=== PATIENT | female | born 1950 | race African-American/Black ===

== ENCOUNTER 2017-11-11 08:31 | Outpatient (CLI) | payer BC | END 2017-11-11 08:32 | disposition home or self-care (01) | LOC: BICMAMMO 08:31 | PROVIDERS: ATTEND Internal Medicine | DX: Z12.31 Encounter for screening mammogram for malignant neoplasm of breast (principal) | CPT/HCPCS: 77063; 77067 ==

== ENCOUNTER 2018-05-25 14:48 | Outpatient (CLI) | payer MEDICARE, OTHER ==
--- NOTE | 2018-05-25 15:36 | RAD ---
PA AND LATERAL VIEWS OF CHEST: Date: 05/25/18 HISTORY: Dyspnea. FINDINGS: Comparison made with exam of 12/02/15. The heart size is normal. Chronic changes in the lung ludwig are again seen. No lobar consolidation, pneumothorax, or pleural effusions are identified. IMPRESSION: No acute process. POS: [facility]
== END 2018-05-25 14:49 | disposition home or self-care (01) ==
LOC: RAD 14:48
PROVIDERS: ATTEND Internal Medicine Critical Care Medicine
DX: R06.00 Dyspnea, unspecified (principal)
CPT/HCPCS: 71046

== ENCOUNTER 2018-08-09 21:06 | Inpatient (IN) | payer MEDICARE ==
--- NOTE | 2018-08-09 21:51 | RAD ---
PORTABLE CHEST: 08/09/18 COMPARISON: 12/28/14 study. HISTORY: Chest pain. new onset atrial fibrillation. Heart size is enlarged. Calcified hilar lymph nodes are seen. Atherosclerotic changes are seen in the aorta. Lungs are clear of infiltrate. IMPRESSION: Cardiomegaly. No acute findings. POS: [facility]
[2018-08-09 22:04] LABS: ALT (SGPT) 8 U/L (8-55); AST (SGOT) 13 U/L (5-34); Albumin 3.7 g/dL (3.4-4.8); Alkaline Phosphatase 93 U/L (40-150); Anion Gap 20 mmol/L (10-20); BUN (Urea Nitrogen) 21 mg/dL (9.8-20.1); Calc. Creatinine Clearance 0 mL/min (70-130); Calcium 9.4 mg/dL (7.8-10.44); Carbon Dioxide 27 mmol/L (23-31); Chloride 97 mmol/L (98-107); Estimated GFR-MDRD 37; Globulin 3.7 g/dL (2.4-3.5); Glucose 178 mg/dL (80-115); Potassium 3.5 mmol/L (3.5-5.1); Protein, Total 7.4 g/dL (6.0-8.3); Sodium 140 mmol/L (136-145)
[2018-08-09 22:15] LABS: Hemoglobin 12.6 g/dL (12.0-16.0); Mean Corpuscular HGB CONC 32.5 g/dL (32.0-36.0); Mean Corpuscular Hemoglobin 28.4 pg (27.0-31.0); Mean Corpuscular Volume 87.3 fL (78.0-98.0); Mean Platelet Volume 8.2 fL (7.4-10.4); Platelet Count 222 thou/uL (130-400); RBC Distribution Width 13.4 % (11.5-14.5); Red Blood Cell (RBC) Count 4.43 mill/uL (4.20-5.40); White Blood Cell (WBC) Count 20.9 thou/uL (4.8-10.8)
[2018-08-09 22:33] LABS: Band 3 % (5-11); Lymphocytes 3 % (21-51); MDiff Complete? YES; Monocytes 7 % (0-10); Neutrophil 87 % (42-75); Platelet Morphology Comment Appears Adequate; RBC Morphology Normal
[2018-08-09] MEDS ORDERED: Ondansetron PF 4 MG/2 ML Vial IVP PRN (23:03)
[2018-08-09] MEDS ORDERED: Ondansetron ODT 4 MG TAB PO PRN (23:03)
[2018-08-09] MEDS ORDERED: Carvedilol 6.25 MG TAB PO SCH (23:15)
[2018-08-09] MEDS ORDERED: Aspirin Chewable 81 MG TAB ONE (23:49)
[2018-08-10 00:54] LABS: Troponin I Less than 0.010 ng/mL (< 0.028)
[2018-08-10] MEDS: Acetaminophen 325 MG TAB PO PRN (04:47)
[2018-08-10] MEDS: Furosemide 40 MG TAB PO SCH ×2 (04:49→13:42)
[2018-08-10] MEDS: hydrALAZINE 25 MG TAB PO SCH ×2 (04:49→13:42)
--- NOTE | 2018-08-10 05:30 | HP ---
PRIMARY CARE DOCTOR: Tania Lemus MD CODE STATUS: Full code. TIME OF EVALUATION: 11:35 p.m. CHIEF COMPLAINT: Dizziness, palpitations, and weakness. HISTORY OF PRESENT ILLNESS: This is a 68-year-old female patient with past medical history of diabetes type 2, hypertension, CHF, and sarcoidosis, came to the hospital after having an episode of sudden-onset dizziness, palpitations, and feeling lightheaded due to weakness. Symptoms have been present for the past few days, on and off; however, today, the symptoms were more severe with no clear triggers. No alleviating factors. REVIEW OF SYSTEMS: CONSTITUTIONAL: No fever, chills, or generalized weakness. RESPIRATORY: No cough, sputum production, shortness of breath. CARDIOVASCULAR: The patient has palpitations, diaphoresis. GASTROINTESTINAL: No nausea. No vomiting, diarrhea, or abdominal pain. GUN TESTER: No dizziness, headache, or feeling lightheaded. GENITOURINARY: No burning on urination. EXTREMITIES: No leg swelling. All other systems were reviewed and negative except for the findings mentioned above. PAST MEDICAL HISTORY: As mentioned in the HPI. FAMILY HISTORY: Reviewed and noncontributory to current presentation. PAST SURGICAL HISTORY: The patient has , hernia repair, hysterectomy. PSYCH HISTORY: No previous history. SOCIAL HISTORY: No alcohol, no drugs. Former tobacco user. Smoked cigarettes. Quit smoking more than 10 years ago. KNOWN ALLERGIES: No known drug allergies reported. MEDICATIONS: 1. Aspirin. 2. Glipizide. 3. Enalapril. 4. Furosemide. 5. Hydralazine. 6. Atorvastatin. 7. Vitamin D3. 8. Levemir. 9. Glucophage. 10. Metformin. 11. Doxazosin. PHYSICAL EXAMINATION: VITAL SIGNS: On presentation, blood pressure 163/111, temperature 99.8, heart rate 104, respiratory rate was 22, pain 0/10. Oxygen saturation was 96% on room air. GENERAL APPEARANCE: The patient is alert, oriented, not in acute distress. HEENT: Eyes, normal conjunctiva. Moist oral mucosa. Anicteric. No JVD. RESPIRATORY: Bilateral air entry. No rales. No wheezes. Symmetric expansion. CARDIOVASCULAR: Normal rate, irregular rhythm. ABDOMEN: Soft. Normal bowel sounds. MUSCULOSKELETAL: Baseline range of motion and strength. No tenderness. SKIN: Warm, intact. No pallor. No rash. No redness. Peripheral pulses are present. Capillary refill seems to be intact. NEUROLOGICAL: No evidence of any new focal weakness. Baseline speech. Cranial nerve seems to be intact. PSYCH: The patient is in good mood. No anxiety. Optimal judgment. DIAGNOSTIC DATA: EKG was reviewed. The patient has atrial fibrillation with a rate of 98, QRS 88, QT corrected 497. Chest x-ray was reviewed, the patient has cardiomegaly with no acute findings. LABORATORY DATA: Labs were reviewed. The patient has a white count of 20.9, hemoglobin 12.6, MCV 87.3 with platelet count of 222. Bands are low. Chemistry; sodium 140, potassium 3.5, chloride 97, carbon dioxide 27, anion gap 20, BUN 21 with creatinine of 1.66, on previous admission was 1.0. AST 13, ALT 8, alkaline phosphatase 93. Troponin was negative x2. Beta natriuretic peptide 105. Serum total protein 7.4, albumin 3.7, globulin 3.7, albumin globulin ratio is 1.0. ASSESSMENT AND PLAN: The patient was placed in the hospital with following medical problems: 1. New-onset atrial fibrillation: The patient denies any history of it. The rate is controlled. We will reconcile home medications, add beta-blockers, adjust treatment as needed. 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 2. Acute kidney injury. The patient presented with a creatinine of 1.6, more than 0.3 mg/dL increase when compared with previous values. We will continue the patient on diuresis. This is likely related to fluid, probably cardiorenal. 3. Uncontrolled diabetes. The patient presented with glucose of 178, reconcile home medications, place the patient on sliding scale for optimal control. 4. Leukocytosis with white count of 20.9. There is no clear reason for this. We will monitor and treat accordingly if any sign of sepsis. 5. Deep venous thrombosis prophylaxis. Job ID: [id number]
[2018-08-10 05:41] LABS: Band 3 % (5-11); Hemoglobin 12.4 g/dL (12.0-16.0); Lymphocytes 5 % (21-51); MDiff Complete? YES; Mean Corpuscular HGB CONC 32.3 g/dL (32.0-36.0); Mean Corpuscular Hemoglobin 28.3 pg (27.0-31.0); Mean Corpuscular Volume 87.5 fL (78.0-98.0); Mean Platelet Volume 8.7 fL (7.4-10.4); Monocytes 1 % (0-10); Neutrophil 91 % (42-75); Platelet Count 207 thou/uL (130-400); Platelet Morphology Comment Appears Adequate; RBC Distribution Width 13.6 % (11.5-14.5); RBC Morphology Normal; Red Blood Cell (RBC) Count 4.39 mill/uL (4.20-5.40); White Blood Cell (WBC) Count 17.5 thou/uL (4.8-10.8)
[2018-08-10 05:51] LABS: Anion Gap 17 mmol/L (10-20); BUN (Urea Nitrogen) 23 mg/dL (9.8-20.1); Calc. Creatinine Clearance 67 mL/min (70-130); Carbon Dioxide 29 mmol/L (23-31); Chloride 97 mmol/L (98-107); Estimated GFR-MDRD 33; Glucose 265 mg/dL (80-115); Potassium 3.6 mmol/L (3.5-5.1); Sodium 139 mmol/L (136-145)
[2018-08-10] MEDS ORDERED: Carvedilol 3.125 MG TAB PO SCH (08:00)
[2018-08-10] MEDS: Ondansetron ODT 4 MG TAB PO SCH ×3 (08:18→21:17)
[2018-08-10] MEDS: Aspirin 81 mg Enteric Coated Tablet PO SCH (08:29)
[2018-08-10] MEDS ORDERED: Atorvastatin Calcium 40 MG TAB PO SCH (09:00)
[2018-08-10] MEDS ORDERED: Enoxaparin Sodium 40 MG/0.4 ML SYRINGE SC SCH (09:00)
--- NOTE | 2018-08-10 13:37 | CON ---
DATE OF CONSULTATION: HISTORY OF PRESENT ILLNESS: The patient is a 68-year-old woman with a history of sick sinus syndrome, who presented with nausea, vomiting, and was noted to be in irregular heart rhythm. The patient has a previous history of sick sinus syndrome. She has been admitted with bradycardia. She has been off metoprolol. She also has a history of restrictive lung disease. She was in her usual state of health when she presented with dizziness, nausea, and vomiting. In the emergency room, she was having an irregular heart rhythm and admitted for further evaluation. The patient denies having any chest discomfort. PAST MEDICAL HISTORY: 1. Sick sinus syndrome. 2. Hypertension. 3. Diabetes mellitus. 4. Dyslipidemia. 5. Sarcoidosis. 6. Morbid obesity. PAST SURGICAL HISTORY: Hysterectomy , lap cholecystectomy, lipoma surgery, breast drainage, vocal cord scraping. ALLERGIES: NONE. SOCIAL HISTORY: Nonsmoker. MEDICATIONS: 1. Enalapril 20 b.i.d. 2. Lipitor 40 at bedtime. 3. Hydralazine 100 TID 4. Metformin 1000 b.i.d. 5. Glipizide 10 b.i.d. 6. Aspirin 81 daily. 7. Lasix 40 b.i.d. REVIEW OF SYSTEMS: Noticeable the patient reported having some chills, but denied having any fevers. Ten-point system otherwise unremarkable. PHYSICAL EXAMINATION: GENERAL: Obese woman, in no acute distress. VITAL SIGNS: Blood pressure was 126/59. NECK: Showed no jugular venous distention. LUNGS: Have crackles in both lung ludwig. HEART: Regular rate and rhythm. Normal S1 and S2. 2/6 systolic murmur. ABDOMEN: Nondistended. EXTREMITIES: Showed moderate bilateral edema. VASCULAR: Radial pulses 2+. LABORATORY DATA: Sodium 139, potassium 3.6, chloride 97, bicarb 29, BUN 23, creatinine 1.86, glucose 265. Troponin less than 0.01. Her EKG revealed sinus tachycardia with premature atrial contractions. IMPRESSION: 1. Dizziness. 2. Hypertension. 3. Diabetes mellitus. 4. Renal insufficiency. 5. Sarcoidosis. 6. Dyslipidemia. 7. Morbid obesity. This patient presented with nausea and vomiting. Her electrocardiogram did not reveal atrial fibrillation. From a cardiac standpoint with her history of sick sinus syndrome, we would discontinue the Coreg. We will follow this patient with you through her hospitalization. Job ID: [id number] [facility]
[2018-08-10 15:18] LABS: Bilirubin Small (Negative); Blood, Urine Negative (Negative); Clarity CLOUDY (Clear); Glucose, Urine (Dipstick) Negative (Negative); Leukocyte Small (Negative); Nitrite Negative (Negative); Protein, Urine (Dipstick) Trace mg/dL (Neg-Trace); pH, Urine 5.5 (5.0-9.0)
[2018-08-10 15:20] LABS: Bacteria/HPF 1+ HPF (None Seen); Hyaline Casts/LPF 0-3 HYALINE CAST LPF (0-3 Hyaline); Pathc Cast-AUWi Flag 0.29 (0-2.49); RBC/HPF 0-3 HPF (0-3); Squamous Epithelial 0-3 HPF (0-3)
[2018-08-10 15:26] LABS: Urine Culture Reflex Yes Yes
[2018-08-10] MEDS ORDERED: HumaLOG 300 UNITS/3 ML VIAL SC PRN (16:29)
[2018-08-10] MEDS ORDERED: Dextrose 5% in Water 1,000 ML IV PRN (16:29)
[2018-08-10] MEDS ORDERED: Dextrose 50% Abboject 50 ML SYRINGE SLOW IVP PRN (16:29)
[2018-08-10] MEDS: HumaLOG 300 UNITS/3 ML VIAL SC PRN (16:59)
--- NOTE | 2018-08-10 17:15 | PDOC.PN ---
- Subjective Encounter Start Date: 08/10/18 Encounter Start Time: 17:00 Subjective: f/u for dizziness of unclear etiology initially thought due to A-fib -: but SR noted on telemetry. Feels ok today and no dizziness. -: Notes RLE edema worse than LLE. - Objective Resuscitation Status - Order Detail: 08/09/18 23:03 Resuscitation Status Routine Resuscitation Status: FULL: Full Resuscitation MAR Reviewed: Yes Vital Signs & Weight: Vital Signs (12 hours) Temp Pulse Resp BP BP Pulse Ox 08/10/18 16:14 98.0 F 83 18 126/57 L 97 08/10/18 13:42 88 120/57 L 08/10/18 13:39 88 120/57 L 08/10/18 11:47 98.8 F 89 16 101/61 92 L 08/10/18 08:20 94 L 08/10/18 08:19 99.9 F H 98 18 126/59 L 94 L Weight Weight 324 lb 14.4 oz I&O: 08/09/18 08/10/18 08/11/18 06:59 06:59 06:59 Intake Total 360 Output Total 450 Balance -90 Result Diagrams: 08/10/18 04:55 08/10/18 04:55 Additional Labs: Accuchecks 08/10/18 08/10/18 08/10/18 16:15 10:49 05:40 POC Glucose 271 H 247 H 294 H Laboratory Tests 08/09/18 08/09/18 08/09/18 21:28 21:28 21:58 WBC 20.9 H Neutrophils % (Manual) 87 H Creatinine 1.66 H B-Natriuretic Peptide 105.0 H 08/10/18 04:55 WBC Neutrophils % (Manual) 91 H Creatinine B-Natriuretic Peptide Radiology Reviewed by me: Yes (PCXR - cardiomegaly, no acute process) EKG Reviewed by me: Yes (Tele - SR) Phys Exam - Physical Examination Constitutional: NAD HEENT: PERRLA, sclera anicteric, oral pharynx no lesions Neck: no nodes, no JVD, supple, full ROM Respiratory: no wheezing, no rales, no rhonchi, clear to auscultation bilateral S1, S2 Cardiovascular: RRR, no significant murmur, no rub, gallop Gastrointestinal: soft, non-tender, no distention, positive bowel sounds R> LLE edema Musculoskeletal: pulses present Neurological: normal sensation, moves all 4 limbs Psychiatric: A&O x 3 Skin: normal turgor, cap refill <2 seconds Dx/Plan (1) Dizziness Code(s): R42 - DIZZINESS AND GIDDINESS Status: Acute Comment: Unclear etiology, check carotid sono, TSH, Mg++, Echo pending, orthostatic vitals, A1C (2) [place] (acute kidney injury) Code(s): N17.9 - ACUTE KIDNEY FAILURE, UNSPECIFIED Status: Acute Comment: Avoid nephrotoxic meds and limit contrast exposure, serial creatinine (3) Edema of right lower extremity Code(s): R60.0 - LOCALIZED EDEMA Status: Acute Comment: ? etiology, check LE sono r/o DVT (4) Neutrophilic leukocytosis Code(s): D72.9 - DISORDER OF WHITE BLOOD CELLS, UNSPECIFIED Status: Acute Comment: ? etiology, serial CBC, no obvious source of infection however will await Ucx results (5) DM w/o complication type II, uncontrolled Code(s): E11.65 - TYPE 2 DIABETES MELLITUS WITH HYPERGLYCEMIA Status: Chronic Comment: ISS, resume Glipizide, Metformin and Levemir, check A1C (6) Morbid obesity Code(s): E66.01 - MORBID (SEVERE) OBESITY DUE TO EXCESS CALORIES Status: Chronic Comment: Dietary counseling, low-fat diet - Plan plan discussed w/ family, out of bed/ambulate Stable currently -: Await 2D echo results -: Check orthostatic vitals -: Check LE doppler r/o DVT -: AM lab: BMP, CBC, Mg++, TSH, FT4, A1C * .
[2018-08-10 19:26] LABS: Actual Bicarbonate (HCO3a) 26.5 mEq/L (22-28); Base Excess (BEa) -0.8 mEq/L (-2.0 to +3.0); CO2 Tension 55.4 mmHg (35.0-45.0); Calcium, Ionized 1.06 mmol/L (1.12-1.30); Carboxyhemoglobin (COHb) 2.3 gm% (0.0-3.0); Hemoglobin (Hb) 12.5 g/dL (12.0-16.0); O2 Tension (PaO2) 62.1 mmHg (> 80.0); Potassium - ABG Lab 3.32 mmol/L (3.70-5.30)
[2018-08-10 19:29] LABS: Puncture Site LRA
[2018-08-10 19:38] LABS: Mean Platelet Volume 8.4 fL (7.4-10.4)
[2018-08-10 19:43] LABS: Anion Gap 21 mmol/L (10-20); BUN (Urea Nitrogen) 32 mg/dL (9.8-20.1); Calc. Creatinine Clearance 47 mL/min (70-130); Calcium 8.6 mg/dL (7.8-10.44); Carbon Dioxide 25 mmol/L (23-31); Chloride 97 mmol/L (98-107); Estimated GFR-MDRD 21; Glucose 168 mg/dL (80-115); Magnesium 1.4 mg/dL (1.6-2.6); Potassium 3.7 mmol/L (3.5-5.1); Sodium 139 mmol/L (136-145)
[2018-08-10 19:49] LABS: Band 13 % (5-11); Hemoglobin 12.2 g/dL (12.0-16.0); Lymphocytes 12 % (21-51); MDiff Complete? YES; Mean Corpuscular Hemoglobin 28.3 pg (27.0-31.0); Mean Corpuscular Volume 88.7 fL (78.0-98.0); Metamyelocyte 3 % (0-0); Neutrophil 72 % (42-75); Platelet Count 190 thou/uL (130-400); Platelet Morphology Comment Appears Adequate; RBC Distribution Width 13.7 % (11.5-14.5); RBC Morphology Normal; White Blood Cell (WBC) Count 6.9 thou/uL (4.8-10.8)
[2018-08-10] MEDS ORDERED: Magnesium 2 GM/NS 0.9% 100 ML 2 GM in Premix Bag 1 BAG IVPB SCH (20:00)
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
[2018-08-10 20:08] LABS: CKMB 1.4 ng/mL (0-6.6)
--- NOTE | 2018-08-10 20:09 | PDOC.EVN ---
Event Note - Event Note Event Note: Code green has been activated, pt had an episode of fainting, on the bed, ( please see code sheet for details) she has had change in mental status since I saw her yesterday, a fib has been ruled out, instead sinus tachy with short pr, in tele only seen sinus tachy at rate 126 dueing episdoe, doppler result is not back , we are unable to rule out PE at this point since pthas has very poor kidney function, D-Dimer is high and pt has history of low mobility will place on heparin drip if ct head is negative and do VQ scan to rule out pe, ABG was done and pt has some co2 retention of 55, with PH 7.29, oxygen 62, will place in bipap and monitor closely, transfer to IMCU mg is low, will replace.
[2018-08-10] MEDS ORDERED: Magnesium 2 GM/50 ML 2 GM in Premix Bag 1 BAG IVPB SCH (20:15)
[2018-08-10] MEDS ORDERED: glipiZIDE 10 MG TAB PO SCH (21:00)
[2018-08-10] MEDS ORDERED: Non-Formulary Item 1 EACH (Insulin Detemir [Levemir] 18 UNIT) SC SCH (21:00)
[2018-08-10] MEDS ORDERED: cefTRIAXone\\ROCEPHIN 1 GM in Sodium Chloride 0.9% 100 ML IVPB SCH (21:00)
[2018-08-10] MEDS: Atorvastatin Calcium 40 MG TAB PO SCH ×2 (21:15→23:06)
[2018-08-10] MEDS: Tamsulosin HCl 0.4 MG CAP PO SCH ×2 (21:16→23:06)
[2018-08-10 21:33] LABS: INR-International Normal Ratio 1.2; PTT 26.3 SEC (22.9-36.1); Prothrombin Time 15.4 SEC (12.0-14.7)
[2018-08-10] MEDS ORDERED: methylPREDNISolone Sod Succ/PF 125 MG/2 ML VIAL IVP SCH (21:45)
[2018-08-10] MEDS: Heparin 10,000 UNITS/ 10 ML VIAL SLOW IVP SCH (21:53)
[2018-08-10] MEDS: Heparin 25,000 units/D5W 500 ML IVPB SCH (21:59)
--- NOTE | 2018-08-10 22:08 | RAD ---
PORTABLE CHEST: 08/10/18 HISTORY: Shortness of breath. COMPARISON: Prior day's exam. Heart size is enlarged. Pulmonary hilar regions are prominent. This appears to be on the basis of sli ghtly dilated pulmonary arteries. No overt failure or focal infiltrates. IMPRESSION: Cardiomegaly with findings that would suggest an element of pulmonary artery hypertension. No interva l change since the prior exam. POS: [facility]
[2018-08-10 22:32] LABS: Actual Bicarbonate (HCO3v) 26 mEq/L (22-28); Base Excess 0.1 mEq/L (-2.0 to +3.0); Chloride (ABG LAB) 97 mmol/L (98-106); Hemoglobin (Hb) 12.9 g/dL (11.7-16.1); Potassium - ABG Lab 3.15 mmol/L (3.70-5.30); Sodium 135.6 mmol/L (133-146); pH (venous) 7.36 (7.32-7.43)
[2018-08-10 22:54] LABS: Troponin I 0.051 ng/mL (< 0.028)
[2018-08-10] MEDS: Doxazosin 2 MG TAB PO SCH (22:55)
[2018-08-10] MEDS: Piperacillin/Tazobactam 3.375 GM in Sodium Chloride 0.9% 100 ML IVPB SCH (23:05)
[2018-08-10] MEDS: Insulin Glargine 18 UNITS in Pre-Filled Syringe 1 EACH SC SCH (23:20)
[2018-08-10 23:50] LABS: Actual Bicarbonate (HCO3a) 29.6 mEq/L (22-28); Base Excess (BEa) 3.8 mEq/L (-2.0 to +3.0); CO2 Tension 50.1 mmHg (35.0-45.0); Calcium, Ionized 1.05 mmol/L (1.12-1.30); Carboxyhemoglobin (COHb) 1.8 gm% (0.0-3.0); Hemoglobin (Hb) 11.9 g/dL (12.0-16.0); O2 Tension (PaO2) 60.1 mmHg (> 80.0); Potassium - ABG Lab 3.03 mmol/L (3.70-5.30); pH, Arterial 7.39 (7.35-7.45)
[2018-08-10 23:53] LABS: Puncture Site LBA
[2018-08-10 23:54] LABS: ALV-art Gradient 91.175 (0-20)
[2018-08-11] MEDS ORDERED: methylPREDNISolone Sod Succ 40 MG VIAL IVP SCH (04:00)
[2018-08-11 05:14] LABS: Hemoglobin A1c 6.6 % (4.0-6.0)
[2018-08-11 05:19] LABS: PTT 172.6 SEC (22.9-36.1)
[2018-08-11 05:29] LABS: Lactic Acid 1.7 mmol/L (0.5-2.2)
[2018-08-11] MEDS: Piperacillin/Tazobactam 3.375 GM in Sodium Chloride 0.9% 100 ML IVPB SCH (05:29)
[2018-08-11 05:32] LABS: Anion Gap 19 mmol/L (10-20); BUN (Urea Nitrogen) 38 mg/dL (9.8-20.1); CK (CPK) 151 U/L (29-168); Calc. Creatinine Clearance 33 mL/min (70-130); Calcium 8.6 mg/dL (7.8-10.44); Carbon Dioxide 26 mmol/L (23-31); Chloride 96 mmol/L (98-107); Estimated GFR-MDRD 14; Glucose 229 mg/dL (80-115); Magnesium 1.6 mg/dL (1.6-2.6); Potassium 3.7 mmol/L (3.5-5.1); Sodium 137 mmol/L (136-145)
[2018-08-11 05:34] LABS: Band 24 % (5-11); Hemoglobin 11.1 g/dL (12.0-16.0); Lymphocytes 4 % (21-51); MDiff Complete? YES; Mean Corpuscular HGB CONC 32.1 g/dL (32.0-36.0); Mean Corpuscular Hemoglobin 28.5 pg (27.0-31.0); Mean Corpuscular Volume 88.7 fL (78.0-98.0); Mean Platelet Volume 9.4 fL (7.4-10.4); Metamyelocyte 1 % (0-0); Monocytes 4 % (0-10); Neutrophil 67 % (42-75); Platelet Count 179 thou/uL (130-400); Platelet Morphology Comment Appears Adequate; RBC Distribution Width 13.8 % (11.5-14.5); Red Blood Cell (RBC) Count 3.89 mill/uL (4.20-5.40); White Blood Cell (WBC) Count 35.2 thou/uL (4.8-10.8)
[2018-08-11 05:34] LABS: Troponin I 0.127 ng/mL (< 0.028)
[2018-08-11 05:50] LABS: Free T4 (Free Thyroxine) 1.3 ng/dL (0.70-1.48); Thyroid Stimulating Hormone 2.5337 uIU/mL (0.35-4.94)
[2018-08-11] MEDS: HumaLOG 300 UNITS/3 ML VIAL SC PRN ×4 (06:14→22:03)
[2018-08-11] MEDS: Ondansetron ODT 4 MG TAB PO SCH ×3 (07:08→21:52)
--- NOTE | 2018-08-11 08:47 | ULT ---
BILATERAL CAROTID DUPLEX ULTRASOUND: HISTORY: A 68-year-old female with dizziness. TECHNIQUE: Gentile scale ultrasound with color flow and spectral Doppler imaging of the extracranial carotid artery systems is performed bilaterally. FINDINGS: There is plaque formation on either side. The peak systolic velocity in the right ICA measures 25 cm/s with an end-diastolic velocity of 7 cm/s and a systolic ratio of 0.39. The peak systolic velocity in the left ICA measures 61 cm/s with an end-diastolic velocity of 20 cm/s and a systolic ratio of 0.80. Flow in both vertebral arteries remains antegrade. IMPRESSION: No evidence of hemodynamically significant stenosis. POS: [facility]
--- NOTE | 2018-08-11 08:49 | ULT ---
BILATERAL LOWER EXTREMITY VENOUS DOPPLER ULTRASOUND: HISTORY: Bilateral lower extremity edema. TECHNIQUE: Gentile scale ultrasound with color flow and spectral Doppler imaging of the deep venous systems of the lower extremities was performed bilaterally. FINDINGS: There is good flow, compression, and augmentation noted in the common femoral, femoral, deep femoral, popliteal, posterior tibial, and greater saphenous veins on either side. There is a complex avascul ar cyst in the posterior right knee measuring 4.3 x 1.4 x 2.5 cm and consistent with a complex Lucia' s cyst. IMPRESSION: No evidence of deep vein thrombosis in either lower extremity. POS: [facility]
--- NOTE | 2018-08-11 09:32 | PDOC.PN ---
- Subjective Encounter Start Date: 08/11/18 Encounter Start Time: 09:15 Subjective: f/u after Code Green overnight with hypoxia and hypercapnia -: requiring BiPAP. Ucx showing >100K E. coli on current Zosyn. -: Remains on Heparin gtt pending V/Q scan - Objective Resuscitation Status - Order Detail: 08/09/18 23:03 Resuscitation Status Routine Resuscitation Status: FULL: Full Resuscitation MAR Reviewed: Yes Vital Signs & Weight: Vital Signs (12 hours) Temp Pulse Resp BP Pulse Ox 08/11/18 07:56 99.3 F 89 22 H 100/51 L 94 L 08/11/18 07:47 97 08/11/18 07:46 95 18 100 08/11/18 07:41 98 08/11/18 07:00 99.3 F 86 22 H 116/61 97 08/11/18 02:46 91 35 H 99 08/11/18 00:26 92 28 H 93 L 08/11/18 00:00 99.5 F 98 08/10/18 22:58 100 28 H 97 08/10/18 22:55 120/57 L Weight Admit Weight 338 lb 13.608 oz Weight 338 lb 13.608 oz Most Recent Monitor Data Heart Rate from ECG 92 NIBP 121/69 NIBP BP-Mean 86 Respiration from ECG 21 SpO2 97 I&O: 08/10/18 08/11/18 08/12/18 06:59 06:59 06:59 Intake Total 360 1542 0 Output Total 450 350 0 Balance -90 1192 0 Result Diagrams: 08/11/18 04:59 08/11/18 04:58 Additional Labs: Accuchecks 08/11/18 08/10/18 08/10/18 06:12 23:18 19:09 POC Glucose 223 H 164 H 181 H 08/10/18 08/10/18 16:15 10:49 POC Glucose 271 H 247 H Microbiology 08/11/18 02:00 Nasopharynx - Swab Influenza Types A,B Direct EIA - Final 08/10/18 22:10 Venous blood - Left Hand Blood Culture - Preliminary Specimen has been received and culture in progress. No Growth to date. 08/10/18 22:04 Venous blood - Left Arm Blood Culture - Preliminary Specimen has been received and culture in progress. No Growth to date. 08/10/18 15:25 Urine voided Urine Culture - Preliminary Presumptive Escherichia coli Laboratory Tests 08/09/18 08/09/18 08/09/18 21:28 21:28 21:58 WBC 20.9 H Neutrophils % (Manual) 87 H Band Neuts % (Manual) Creatinine 1.66 H Hemoglobin A1c Lactic Acid Magnesium Creatine Kinase Troponin I B-Natriuretic Peptide 105.0 H Free T4 TSH 3rd Generation 08/10/18 08/10/18 08/10/18 04:55 04:55 19:17 WBC 17.5 H Neutrophils % (Manual) 91 H Band Neuts % (Manual) Creatinine 1.86 H 2.68 H Hemoglobin A1c Lactic Acid Magnesium Creatine Kinase Troponin I B-Natriuretic Peptide Free T4 TSH 3rd Generation 08/10/18 08/10/18 08/10/18 19:17 19:17 22:04 WBC 6.9 Neutrophils % (Manual) Band Neuts % (Manual) 13 H Creatinine Hemoglobin A1c Lactic Acid Magnesium Creatine Kinase Troponin I 0.036 H 0.051 H B-Natriuretic Peptide Free T4 TSH 3rd Generation 08/11/18 08/11/18 08/11/18 04:58 04:58 04:58 WBC Neutrophils % (Manual) Band Neuts % (Manual) Creatinine Hemoglobin A1c Lactic Acid 1.7 Magnesium 1.6 Creatine Kinase 151 Troponin I 0.127 H B-Natriuretic Peptide Free T4 TSH 3rd Generation 08/11/18 08/11/18 08/11/18 04:59 04:59 04:59 WBC Neutrophils % (Manual) Band Neuts % (Manual) 24 H Creatinine Hemoglobin A1c 6.6 H Lactic Acid Magnesium Creatine Kinase Troponin I B-Natriuretic Peptide Free T4 1.30 TSH 3rd Generation 2.5337 Radiology Reviewed by me: Yes (PCXR - no acute infiltrate, Carotid sono -neg; Bilat LE sono - neg for DVT) EKG Reviewed by me: Yes (Tele - SR) Phys Exam - Physical Examination lethargic but answers questions slowly HEENT: PERRLA, sclera anicteric, oral pharynx no lesions Neck: no nodes, no JVD, supple, full ROM Respiratory: no wheezing, no rales, no rhonchi, clear to auscultation bilateral S1, S2 Cardiovascular: RRR, no significant murmur, no rub, gallop obese Gastrointestinal: soft, non-tender, no distention, positive bowel sounds R>LLE edema, chronic Musculoskeletal: pulses present Neurological: normal sensation, moves all 4 limbs A x O x 2 Skin: normal turgor, cap refill <2 seconds Dx/Plan (1) Sepsis due to urinary tract infection Code(s): A41.9 - SEPSIS, UNSPECIFIED ORGANISM; N39.0 - URINARY TRACT INFECTION, SITE NOT SPECIFIED Status: Acute Comment: Continue Zosyn, add Rocephin and Vancomycin, sepsis protocol, add IV NS (2) Acute respiratory failure with hypoxia and hypercapnia Code(s): J96.01 - ACUTE RESPIRATORY FAILURE WITH HYPOXIA; J96.02 - ACUTE RESPIRATORY FAILURE WITH HYPERCAPNIA Status: Acute Comment: Likely due to #1 , continue O2 supplementation, BiPAP NIMV prn, V/Q scan pending (3) Acute metabolic encephalopathy Code(s): G93.41 - METABOLIC ENCEPHALOPATHY Status: Acute Comment: Likely due to sepsis, metabolic component with hypercapnia, continue supportive mgmt as outlined above (4) [place] (acute kidney injury) Code(s): N17.9 - ACUTE KIDNEY FAILURE, UNSPECIFIED Status: Acute Comment: Avoid nephrotoxic meds and limit contrast exposure, serial creatinine, IVF's, consult Nephrology for evaluation (5) Dizziness Code(s): R42 - DIZZINESS AND GIDDINESS Status: Acute Comment: Unclear etiology, check carotid sono, TSH, Mg++, Echo pending, orthostatic vitals, A1C (6) Edema of right lower extremity Code(s): R60.0 - LOCALIZED EDEMA Status: Acute Comment: DVT r/o, ? chronic lymphedema due to morbid obesity (7) Neutrophilic leukocytosis Code(s): D72.9 - DISORDER OF WHITE BLOOD CELLS, UNSPECIFIED Status: Acute Comment: Worsening, likely due to Sepsis with E. coli, see above, serial CBC (8) DM w/o complication type II, uncontrolled Code(s): E11.65 - TYPE 2 DIABETES MELLITUS WITH HYPERGLYCEMIA Status: Chronic Comment: ISS, resume Glipizide, Metformin and Levemir, check A1C (9) Morbid obesity Code(s): E66.01 - MORBID (SEVERE) OBESITY DUE TO EXCESS CALORIES Status: Chronic Comment: Dietary counseling, low-fat diet - Plan continue antibiotics, social worker health services, respiratory therapy Continue BiPAP NIMV prn -: Add Vancomycin, Rocephin -: Continue Zosyn -: Start IV NS @ 100ml/h -: V/Q scan pending * 2D echo pending * Consult Nephrology service * AM lab: CMP, CBC * D/C Vasotec * * Total Critical Care Time: 30min
[2018-08-11] MEDS: Sodium Chloride 0.9% 1,000 ML IV SCH ×2 (09:45→21:51)
[2018-08-11] MEDS: Aspirin 81 mg Enteric Coated Tablet PO SCH (09:45)
[2018-08-11] MEDS: Insulin Glargine 18 UNITS in Pre-Filled Syringe 1 EACH SC SCH ×2 (09:45→21:54)
[2018-08-11] MEDS: Vancomycin HCl 1 GM in Premix Bag 1 BAG IVPB SCH ×2 (09:47→22:27)
[2018-08-11] MEDS ORDERED: cefTRIAXone\\ROCEPHIN 2 GM in Sodium Chloride 0.9% 100 ML IVPB SCH (10:00)
[2018-08-11] MEDS: methylPREDNISolone Sod Succ 40 MG VIAL IVP SCH ×3 (10:52→23:43)
[2018-08-11] MEDS: Heparin 10,000 UNITS/ 10 ML VIAL SLOW IVP SCH ×2 (11:16→21:53)
[2018-08-11] MEDS: Piperacillin/Tazobactam 2.25 GM in Sodium Chloride 0.9% 100 ML IVPB SCH ×2 (13:05→22:50)
--- NOTE | 2018-08-11 15:27 | PQF ---
CARLA THURMANEDUARDA DO [id number] BRUNO ARAYA [id number] CLINICAL DOCUMENTATION IMPROVEMENT CLARIFICATION FORM: ICD-10 Updated PLEASE DO AN ADDENDUM TO THE PROGRESS NOTE WITH ANY DOCUMENTATION UPDATES OR ADDITIONS AND CARRY THROUGH TO DC SUMMARY. THANK YOU. DATE: 08/11/2018 ATTN: DR. JIMENEZ Please exercise your independent, professional judgment in responding to the clarification form. Clinical indicators are provided on the bottom of this form for your review Diagnosis: SEPSIS DUE TO URINARY TRACT INFECTION Present on Admission (POA): [ ] Yes [ ] No [ x ] Unable to determine Coding guidelines require hospitals to identify whether a diagnosis was present on admission (POA) or not. To accurately assign the appropriate POA indicator, this information must be clearly documented within the medical record. CLINICAL INDICATORS - SIGNS / SYMPTOMS / LABS: 08/10-H&P: Chief complaint of dizziness, palpitations, and weakness. WBC-20.9 08/11-Code Green for lethargy and dyspnea. 08/11-Progress Note: Code Green overnight with hypoxia and hypercapnia requiring BIPAP. Ucx showing >100k E. coli. Sepsis due to UTI Acute. RISK FACTORS: History of Diabetes type 2 Sudden onset dizziness and feeling lightheaded due to weakness for a few days on and off. [place] Code Green TREATMENT: ICU Monitoring Continue [employer] [place] Thank you, Nikky (This form is maintained as a part of the permanent medical record) 2014 [employer], [employer]. All Rights Reserved Nikky Carrington RN, CDIS [email or web address] [phone] MTDShravan
--- NOTE | 2018-08-11 15:29 | CON ---
DATE OF CONSULTATION: REASON FOR CONSULTATION: Elevated creatinine. HISTORY OF PRESENT ILLNESS: This is a very pleasant 68-year-old female, who was admitted 24 hours ago for dizziness, palpitations, and weakness. The patient was admitted for complicated UTI. The patient's blood pressure did drop in the 80s and her creatinine baseline has increased to 3.8 from a prior baseline of 1.6 two days ago. The patient denies any complaints. PAST MEDICAL HISTORY: Significant for diabetes mellitus, hypertension, sarcoidosis, congestive heart failure, and history of complicated UTI. ALLERGIES: REVIEWED. HOME MEDICATIONS: List reviewed. REVIEW OF SYSTEMS: 15-point review of system was performed, negative except for what was noted above. NECK: No swelling or lumps. NOSE: No epistaxis or discharge. EYES: No diplopia or pain. MUSCULOSKELETAL: No joint pain. NEUROPSYCHIATRIC SYSTEMS: No suicidal ideation. No ideation. SKIN: Denies any rash or ulcer. CONSTITUTIONAL: No fever or chills. PHYSICAL EXAMINATION: GENERAL: The patient is awake and alert. VITAL SIGNS: Afebrile, pulse , breathing 16, blood pressure 129/64. GENERAL APPEARANCE AND MENTAL STATUS: Fair. HEAD/NECK: Normocephalic. Atraumatic. EYES: EOMI. No deformity. EARS: Clear. No ulcers. NOSE: Intact. No lesions. MOUTH: Clear. No discharge. THROAT: Clear. No exudate. LUNGS: Clear. No crackles. CARDIAC: S1, S2. No rub. ABDOMEN: Benign. Bowel sounds positive. GENITALIA/RECTUM: Palomares absent. BACK/EXTREMITIES: Edema 0+. NEUROLOGICAL: Alert and motor intact. LABORATORY DATA: Labs showed creatinine of 3.8. Urine shows no proteinuria. ASSESSMENT: 1. Acute kidney injury, chronic kidney disease, most likely due to decreased effective arterial blood volume in the setting of acute tubular necrosis. The patient has baseline chronic kidney disease, stage 3. No indication for dialysis. Continue hydration and supportive care. 2. Anemia, stable. 3. Medication based on GFR appropriate. 4. I would order imaging and will evaluate further. Job ID: [id number]
--- NOTE | 2018-08-11 16:12 | ULT ---
ULTRASOUND RENAL BILATERAL STANDARD: HISTORY: Acute kidney injury. COMPARISON: Renal ultrasound 04/22/2015. FINDINGS: Real-time, kimble scale, and color evaluation of the kidneys was performed. The right kidney measures 12.8 x 6 x 5.9 cm and the left kidney measures 12.2 x 7.2 x 7.3 cm. Mild left-side hydronephrosis. Urinary bladder is not well seen. IMPRESSION: Mild left-sided hydronephrosis. This may be the sequelae of the distal obstructive process. CT abdo men and pelvis recommended. POS: [facility]
[2018-08-11] MEDS: Tamsulosin HCl 0.4 MG CAP PO SCH (21:52)
[2018-08-11] MEDS: Doxazosin 2 MG TAB PO SCH (21:52)
[2018-08-11] MEDS: Atorvastatin Calcium 40 MG TAB PO SCH (21:52)
[2018-08-11] MEDS: Heparin 25,000 units/D5W 500 ML IVPB SCH (22:28)
--- NOTE | 2018-08-11 23:42 | CON ---
DATE OF CONSULTATION: HISTORY OF PRESENT ILLNESS: A 68-year-old morbidly obese female, 149 kg, presented to the hospital on 08/09 with dizziness, weakness, and palpitation. Yesterday, she was transferred to the ICU with altered mental status, placed on a noninvasive ventilation. Reason for consultation, this morning ICU care. She is on a BiPAP because she became sleepy and lethargic. She denies any cough or chest pain. No fever or chills. Though her white count was markedly elevated, note from admission 20,000 to 35,000. She has had very little urine output. Really difficult to get additional information from the patient. Though the hospitalist, Dr. Lombardo saw her yesterday and main complaint was still dizziness. She is a nonsmoker and nondrinker as per the patient. PAST MEDICAL HISTORY: Morbid obesity, apparently chronic cough, diabetes, hypertension, history of presumed sarcoidosis, and history of presumed CHF. PAST SURGICAL HISTORY: Cholecystectomy, , hernia repair, hysterectomy. SOCIAL HISTORY: Alcohol, none. Tobacco, none. Smoked at one time, quit 10 years ago. MEDICATIONS: From home includes; 1. Metformin 1000 twice a day. 1. Hydralazine 100 mg, 8 hours. 1. Glipizide 10 twice a day. 1. . 1. Lasix 40 twice a day. 1. Enalapril 20 a day. 1. Cardura 1 mg. 1. Calcium 40. She was started on Solu-Medrol and Zosyn. Still on Vasotec. PHYSICAL EXAMINATION: GENERAL: This morning, she is lethargic, but arousable. VITAL SIGNS: Blood pressure 120/69, pulse 86, respiratory rate 18, and sats are 97%. CHEST: Decreased breath sounds. No wheezing. CARDIAC: Normal S1 and S2. No gallops. ABDOMEN: No masses. LABORATORY DATA: Her white count 35, with 67 segs, 24 bands. Urine shows infection. Creatinine is 3.83, on admission it was 1.6. Her thyroid function was normal. Chest x-ray done last night shows cardiomegaly, questionable bibasilar atelectatic changes, prominent hilar shadows consistent with previous sarcoidosis by history. IMPRESSION: 1. Febrile illness, sepsis, probably urinary tract infection. 2. History of sarcoidosis. 3. Morbid obesity. 4. Hypoventilation. 5. Renal failure. PLAN: 1. Medicine adjusted for renal failure. 2. Continue noninvasive ventilation as tolerated. 3. Continue slow hydration. Await input from Nephrology. Consultation note, 70 minutes, 50% direct patient care. Job ID: [id number]
[2018-08-12] MEDS: Ondansetron ODT 4 MG TAB PO SCH ×4 (00:03→23:23)
[2018-08-12] MEDS: Acetaminophen 325 MG TAB PO PRN (03:32)
[2018-08-12 05:54] LABS: ALT (SGPT) 20 U/L (8-55); AST (SGOT) 35 U/L (5-34); Alkaline Phosphatase 169 U/L (40-150); Anion Gap 19 mmol/L (10-20); BUN (Urea Nitrogen) 52 mg/dL (9.8-20.1); Bilirubin, Total 0.7 mg/dL (0.2-1.2); Calc. Creatinine Clearance 31 mL/min (70-130); Calcium 7.9 mg/dL (7.8-10.44); Carbon Dioxide 25 mmol/L (23-31); Chloride 96 mmol/L (98-107); Estimated GFR-MDRD 12; Globulin 3.4 g/dL (2.4-3.5); Glucose 248 mg/dL (80-115); Potassium 3.5 mmol/L (3.5-5.1); Protein, Total 6.4 g/dL (6.0-8.3); Sodium 136 mmol/L (136-145)
[2018-08-12 06:01] LABS: Band 29 % (5-11); Hemoglobin 10.5 g/dL (12.0-16.0); Lymphocytes 1 % (21-51); MDiff Complete? YES; Mean Corpuscular HGB CONC 31.2 g/dL (32.0-36.0); Mean Corpuscular Hemoglobin 27.9 pg (27.0-31.0); Mean Corpuscular Volume 89.2 fL (78.0-98.0); Mean Platelet Volume 9.4 fL (7.4-10.4); Metamyelocyte 8 % (0-0); Monocytes 2 % (0-10); Myelocyte 4 % (0-0); Neutrophil 56 % (42-75); Platelet Count 151 thou/uL (130-400); RBC Distribution Width 13.9 % (11.5-14.5); Red Blood Cell (RBC) Count 3.75 mill/uL (4.20-5.40); White Blood Cell (WBC) Count 30.2 thou/uL (4.8-10.8)
[2018-08-12] MEDS: methylPREDNISolone Sod Succ 40 MG VIAL IVP SCH ×3 (06:44→22:49)
[2018-08-12] MEDS: Sodium Chloride 0.9% 1,000 ML IV SCH ×2 (06:45→15:25)
[2018-08-12] MEDS: Piperacillin/Tazobactam 2.25 GM in Sodium Chloride 0.9% 100 ML IVPB SCH ×3 (06:45→23:02)
[2018-08-12] MEDS: Aspirin 81 mg Enteric Coated Tablet PO SCH (08:58)
--- NOTE | 2018-08-12 09:05 | PRG ---
DATE OF SERVICE: 08/12/2018 SUBJECTIVE: This patient is confused. She is on mechanical ventilation. She woke up for a little while, said some dysarthric phrases and then went silent again. I have put her back on BiPAP. She does not appear to be in any distress on the BiPAP. OBJECTIVE: VITAL SIGNS: Temperature 99.3 pulse 97, blood pressure 102/64, O2 saturation 96%. 24-hour intake 3084, output 565. HEENT: Unremarkable. NECK: No JVD. CHEST: Clear anteriorly. CARDIAC: S1, S2. Regular. ABDOMEN: Soft, obese, nontender. EXTREMITIES: Trace edema throughout. LABORATORY DATA: Sodium 136, potassium 3.5, chloride 96, CO2 of 25, BUN 52, creatinine 4.2, glucose 248. White blood cell count 30, hemoglobin 10, hematocrit 33.5, and platelet count 151, with 56% neutrophils, 29% bands. Her cultures are growing E. coli from the urine, which is sensitive to all antibiotics. ASSESSMENT: 1. Acute respiratory failure on top of chronic respiratory failure. This patient probably has respiratory insufficiency secondary to her sepsis with underlying sleep apnea that is untreated. 2. History of sarcoidosis. 3. Urinary tract infection. 4. Morbid obesity. 5. Acute renal failure. PLAN: 1. I will stop the heparin drip and place her back on subcutaneous heparin for DVT prophylaxis. 2. She will continue the antibiotics. Ceftriaxone can be stopped since she is on Zosyn - that should be adequate coverage. 3. Decrease the steroid dose. 4. Recheck labs tomorrow morning. Job ID: [id number]
[2018-08-12] MEDS: Insulin Glargine 18 UNITS in Pre-Filled Syringe 1 EACH SC SCH ×2 (09:07→22:57)
[2018-08-12] MEDS: Heparin 5,000 UNITS/ML VIAL SC SCH ×2 (09:07→22:49)
[2018-08-12] MEDS: HumaLOG 300 UNITS/3 ML VIAL SC PRN ×3 (09:08→16:19)
--- NOTE | 2018-08-12 09:29 | PRG ---
DATE OF SERVICE: 08/12/2018 SUBJECTIVE: A 68-year-old female being seen for acute kidney injury. The patient is somnolent, can give no further history. OBJECTIVE: GENERAL: The patient is resting. VITAL SIGNS: Afebrile. Pulse breathing 16, and blood pressure 102/64. GENERAL APPEARANCE AND MENTAL STATUS: Fair. HEAD/NECK: Normocephalic. Atraumatic. EYES: EOMI. No deformity. EARS: Clear. No ulcers. NOSE: Intact. No lesions. MOUTH: Clear. No discharge. THROAT: Clear. No exudate. LUNGS: Clear. No crackles. CARDIAC: S1, S2. No rub. ABDOMEN: Benign. Bowel sounds positive. GENITALIA/RECTUM: Palomares absent. BACK/EXTREMITIES: Edema 0+. NEUROLOGICAL: Alert and motor intact. SKIN: LYMPHATICS: LABORATORY STUDIES: Labs showed hemoglobin 10.5. Creatinine 4.2. ASSESSMENT: 1. Acute kidney injury, chronic kidney disease stage 5, getting worse. The patient has hydronephrosis on the left side and history of stents. We would order imaging with CT. 2. Hydronephrosis. Consult Urology. 3. Sepsis, stable. 4. Medications based on GFR appropriate. No urgent indication for dialysis, but if the urine output does not improve, we will consider renal replacement therapy. Job ID: [id number]
--- NOTE | 2018-08-12 12:19 | CT ---
CT ABDOMEN WITHOUT CONTRAST: HISTORY: Sepsis. UTI. COMPARISON: Renal ultrasound done yesterday, which showed left-sided hydronephrosis. TECHNIQUE: A pelvis exam was not included on this study. FINDINGS: Exam quality is limited due to patient unable to hold breath and body habitus. The lung bases show b ibasilar atelectasis. The liver, spleen, and pancreas regions appear unremarkable. The gallbladder has been removed. The right and left adrenal glands and the right kidney are normal in appearance. There is left-sided hydronephrosis and hydroureter. On the lower-most slice, there is a calculus within the left ureter , which is located near the level of the pelvic brim. It measures 6 mm in size. There is some perin ephric fat stranding present bilaterally, slightly more prominent on the left. Incidental note is made of what appears to be either partial visualization and eventration or possibl e midline anterior abdominal wall hernia. IMPRESSION: Left-sided hydronephrosis, which appears to be related to a 6 mm calculus within the distal left uret er, at the pelvic brim. A CT of the pelvis was not performed for this study, and for completeness, t o more completely evaluate the ureter, a pelvic CT would be recommended. POS: [facility]
[2018-08-12] MEDS ORDERED: Fentanyl 100 MCG/2 ML VIAL ONE (12:52)
[2018-08-12] MEDS ORDERED: Iothalamate Meglumine 60% 50 ML VIAL FS ONE (12:52)
[2018-08-12] MEDS ORDERED: Sodium Chloride 0.9% 20 ML ONE (13:12)
--- NOTE | 2018-08-12 13:17 | CT ---
CT OF PELVIS PERFORMED WITHOUT CONTRAST ENHANCEMENT: HISTORY: Left-sided hydronephrosis. Renal insufficiency. COMPARISON: CT of the abdomen which was performed earlier. FINDINGS: A Palomares catheter is present within the bladder. There is a paraumbilical hernia seen. Herniation of bowel, but no signs of obstruction. The left-sided ureteral calculus is again identified on axial i mage 19. The ureter below this level appears nondilated and no additional ureteral calculi are seen. IMPRESSION: 1. Left ureteral calculus again noted near the level of the pelvic brim. Measured in the 6-7 mm ran ge. 2. Paraumbilical hernia without signs of obstruction. POS: [facility]
[2018-08-12] MEDS ORDERED: Piperacillin/Tazobactam 3.375 GM VIAL ONE (14:04)
[2018-08-12 14:18] LABS: Bilirubin Moderate (Negative); Blood, Urine Large (Negative); Glucose, Urine (Dipstick) Negative (Negative); Leukocyte Moderate (Negative); Nitrite Positive (Negative); Protein, Urine (Dipstick) > or equal to 300 mg/dL (Neg-Trace); Specific Gravity, Urine 1.025 (1.005-1.030); pH, Urine 6.5 (5.0-9.0)
[2018-08-12 14:27] LABS: Clarity CLOUDY (Clear)
[2018-08-12 14:28] LABS: Bacteria/HPF 4+ HPF (None Seen); Hyaline Casts/LPF NONE SEEN LPF (0-3 Hyaline); RBC/HPF GREATER THAN 50-TNTC HPF (0-3); Renal Epithelial 0-3 HPF (0-3)
[2018-08-12] MEDS ORDERED: DISCONTINUE PREVIOUS NARCOTIC PAIN MEDICATIONS AND BENZODIAZEPINES FS SCH ×2 (14:34→14:57)
[2018-08-12] MEDS ORDERED: Lorazepam 2 MG/ML VIAL SLOW IVP PRN ×2 (14:34→14:57)
[2018-08-12] MEDS ORDERED: fentaNYL Citrate/PF 2,000 MCG in Sodium Chloride 0.9% 60 ML IV SCH ×2 (14:34→14:57)
[2018-08-12] MEDS ORDERED: Fentanyl BOLUS 250 ML IVPB PRN ×2 (14:34→14:57)
[2018-08-12] MEDS ORDERED: Propofol BOLUS 1,000 MG/100 ML VIAL IV PRN ×2 (14:34→14:57)
--- NOTE | 2018-08-12 14:36 | CON ---
DATE OF CONSULTATION: 08/12/2018 REASON FOR CONSULTATION: Consultation was requested for hydronephrosis. HISTORY OF PRESENT ILLNESS: The patient is a 68-year-old female, who was admitted with dizziness, palpitations, weakness with concern for new-onset atrial fibrillation. She was noted to have 1+ bacteria in the urine upon admission. Per the daughter's report, she had noted foul smelling urine, but was not complaining specifically of any worsening lower urinary tract symptoms. Four years ago, a similar episode occurred and she was noted to have urosepsis with a left obstructing stone. She underwent an urgent stent followed by delated ureteroscopy and stone extraction and did have the stent removed in the office. But did not follow up thereafter with Dr. Tello since that episode in December 2014. We also discussed stone prevention. She should ultimately do a 24-hour urinalysis after she is healed from this stone intervention. PAST MEDICAL HISTORY: stones, diabetes, hypertension, CHF, CAD, and sarcoidosis, morbid obesity PAST SURGICAL HISTORY: remote hernia repair, ureteroscopy with stone extraction (01/09). PAST [employer] HISTORY: , SH[facility] for fibroids--unclear whether her ovaries are still present or not. SOCIAL HISTORY: She smoked two packs a day for 30 years and quit about in 2008. She has rare alcohol and does not use other drugs. MEDICATIONS: 1. 81 mg aspirin, but no blood thinners routinely. 2. Glipizide. 3. Enalapril. 4. Furosemide. 5. Hydralazine. 6. Atorvastatin. 7. Vitamin D3. 8. Levemir. 9. Glucophage. 10. Metformin. 11. Doxazosin. ALLERGIES: NONE. REVIEW OF SYSTEMS: She does have diarrhea routinely, had 3 episodes yesterday. She has no fevers or chills. No cough or shortness of breath. She did have some diaphoresis, but no nausea or vomiting or constipation. She did not have any dysuria or gross hematuria, but did have some left-sided pain by the daughter's report. She normally has right lower extremity swelling more than left and that is not new. She has not had prior LE blood clots. Her mammogram was normal in 2018. Pap smear was remote and not needed. She probably had a colonoscopy in the remote past, but more recently she just had a stool screen which was normal. FAMILY HISTORY: Significant for mother dying in her 50s with renal failure. Father dying at 89 with gallbladder cancer. PHYSICAL EXAMINATION: GENERAL: She has a BiPAP mask, but is alert and responds appropriately. I minimized the questions for her and I had her daughter answer most, but she was able to speak and she was not having any pain. VITAL SIGNS: T-max of 100.8 on the ; in the past 24 hours, T-max 99.4; current 98.9 with heart rate in 80s to 90s. Systolic blood pressure in the 100 to 150s over 50s to 60s. Saturating 96% to 97% on BiPAP. She did drop to 88% prior to the BiPAP. Urine output was 800 and then 515 over the last 24 hours period. She is alert and responds appropriately. HEENT: She had no scleral icterus. NECK: JVD was difficult to assess given body habitus. She was not diaphoretic. HEART: She has the BiPAP mask on, making heart sounds difficult to assess. LUNGS: Had bilateral rhonchi. ABDOMEN: Obese with a midline infraumbilical incision from her and hysterectomy noted. She has some tenderness in the left side and left flank, but not significant. EXTREMITIES: She had left lower extremity edema and right lower extremity edema ; however, the right looked like it is actually less than prior. The skin was starting to have some wrinkling as if the edema was improving. CATHETER: Draining concentrated urine. LABORATORY VALUES: Reveal a white count that went from 20, down to 6, back up to 35 and now 30.2; H and H 10.5 and 33.5, normal platelets. Her BUN and creatinine have only risen; from admission, it was 1.66 and then rising consistently all the way up to 4.2 out today. Her urinalysis from reveals 7 to 10 wbc's, 0 to 3 rbc's , 1+ bacteria, 0 to 3 squamous cells, and has grown E coli sensitive to everything. Renal exam on 08/11/2018 revealed mild left hydronephrosis, but actually with only dilated calices as the pelvis was not distended, and in reviewing retrograde pyelogram from 2014, it does appear that she has long narrow infundibulums contributing to this anatomical variance. CT SCAN (08/12/18) of the abdomen only-- originally, then including pelvis was performed revealing concern for some dilatation now of the left renal pelvis down to a 5 mm stone in the mid left ureter. About 1 to 2 cm of mid ureters are missing between two procedures. There were no distal stones or concerns with the bladder. There were no stones in the kidneys. No right hydronephrosis. ASSESSMENT AND PLAN: We have a 68-year-old female with presumed urosepsis and obstructing stone and needs an urgent stent. I reviewed all of this with her and the daughter and consented her for this. Risks and benefits were reviewed in detail. We also discussed how at a later time we would need to actually treat the stones, but for now we did place a stent, which ultimately does have to be removed after treating the stones in the future. I would recommend abx for 4 weeks total at this time. Fortunately, the E coli is sensitive to both IV and oral meds. Job ID: [id number] MTDD
[2018-08-12] MEDS ORDERED: Ventilator Sedation Protocol 1 EACH FS SCH (14:45)
--- NOTE | 2018-08-12 14:52 | RAD ---
CHEST 1 VIEW: Date: 08/12/18 HISTORY: Intubation. Central line placement. COMPARISON: 08/10/18. FINDINGS: Patient is intubated with endotracheal tube tip at the level of the clavicles. Central venous cathete r is in place with tip at the inferior SVC. Heart size is enlarged. Mild pulmonary venous congestion. IMPRESSION: Satisfactory appearance of the subclavian central venous catheter, as well as the endotracheal tube. POS: [facility]
[2018-08-12] MEDS ORDERED: Morphine 2 MG/ML SYRINGE SLOW IVP PRN (14:57)
[2018-08-12] MEDS ORDERED: Propofol 1,000 MG/100 ML VIAL IV PRN (14:57)
[2018-08-12 15:10] LABS: Actual Bicarbonate (HCO3a) 25.5 mEq/L (22-28); Base Excess (BEa) 0.3 mEq/L (-2.0 to +3.0); CO2 Tension 43.8 mmHg (35.0-45.0); Calcium, Ionized 0.93 mmol/L (1.12-1.30); Carboxyhemoglobin (COHb) 1.4 gm% (0.0-3.0); Hemoglobin (Hb) 10.4 g/dL (12.0-16.0); O2 Tension (PaO2) 70.8 mmHg (> 80.0); Potassium - ABG Lab 4.06 mmol/L (3.70-5.30); pH, Arterial 7.38 (7.35-7.45)
[2018-08-12 15:12] LABS: Puncture Site LBA
[2018-08-12] MEDS ORDERED: Succinylcholine Chloride 20 MG/ML 10 ml SYRINGE FS ONE (15:15)
[2018-08-12] MEDS ORDERED: Rocuronium Bromide 10 MG/ML (10ML VIAL) ONE (15:15)
[2018-08-12] MEDS ORDERED: PROPOFOL 200 MG/20 ML VIAL ONE (15:15)
[2018-08-12] MEDS ORDERED: Lidocaine 1% PF 5 ML VIAL ONE (15:15)
[2018-08-12] MEDS ORDERED: PHENYLEPHRINE-NS 100 MCG/ML 10 ML SYRINGE ONE (15:15)
[2018-08-12] MEDS: Morphine 2 MG/ML SYRINGE SLOW IVP PRN (15:19)
[2018-08-12] MEDS: Propofol 1,000 MG/100 ML VIAL IV PRN ×2 (15:19→18:32)
--- NOTE | 2018-08-12 19:54 | OP ---
DATE OF PROCEDURE: 08/12/2018 PREOPERATIVE DIAGNOSES: Left ureteral stone and urinary tract infection with sepsis. POSTOPERATIVE DIAGNOSES: Left ureteral stone and urinary tract infection with sepsis. PROCEDURES PERFORMED: Cystoscopy, left retrograde pyelogram, and insertion of ureteral stent 6 x 26 double-J. ANESTHESIA: General with endotracheal tube. COMPLICATIONS: None. SPECIMEN: Urine from the left renal pelvis. DRAIN REMAINING: A 6 x 26 double-J and a 20-Cuban 2-way Palomares. ESTIMATED BLOOD LOSS: None. INDICATION OF PROCEDURE: The patient is a 68-year-old female, who presented with generalized weakness and concern for new onset AFib. It was noted to have urine infection on admission, placed on antibiotics. White count continued to rise. An ultrasound showed mild left hydro. I was consulted before a CAT scan was performed, but ultimately this was done originally just over the abdomen and then, she went back down urgently for the pelvis due to the presence of a left mid ureteral stone with hydro, so she was set up for urgent stent. Prior to the admission, the daughter reports she did have a foul smelling urine, but otherwise, no complaints of burning, frequency, or urgency. She did complain of some left-sided pain, but had no nausea, vomiting, fever, chills, or constipation. She normally does have diarrhea. She has not had prior or subsequent stone episodes other than 1 in 2014, at which time, she was admitted with urosepsis and had an urgent stent and delayed ureteroscopy by Dr. Tello. DESCRIPTION OF PROCEDURE: The patient was brought into the room by Anesthesia, laid on the table in supine position. After receiving general anesthetic, her legs were placed in lithotomy position. Her perineum was prepped and draped in a sterile fashion. Using a 21-Cuban cystoscope and a 30 degree lens, urethra was traversed and the bladder inspected. There was a mucosal inflammation and dusky appearance in the posterior central wall consistent with Palomares catheter irritation, but otherwise the bladder was normal and the ureteral orifices were in normal position. The left ureteral orifice was intubated with aid of a wire and then, the Bicknell catheter. No retrograde pyelogram was performed. Initially that did not want to increase the pressure in the presumed infected system, so the wire easily passed the stone and up to renal pelvis as did the Pollack catheter over it. Then, the wire was removed and hydronephrotic drip was noted approximately 10 mL of dark, cloudy, slightly hematuric urine was extracted and sent for specimen. Then, at this time, a gentle retrograde pyelogram was performed revealing significant pelvic distention and measurement for a stent 6 x 26 was then taken. The wire, which replaced the Pollack catheter removed and then 6 x 26 double-J was placed over the wire, originally the coil was in the upper pole, so graspers used to bring it down, good effuse was noted from it. The scope was then removed and a 20-Cuban catheter in place and the patient was then kept intubated and transferred back to the intensive care unit. Job ID: [id number]
[2018-08-12 20:18] LABS: Hemoglobin 10.3 g/dL (12.0-16.0); Platelet Count 161 thou/uL (130-400)
[2018-08-12] MEDS: Atorvastatin Calcium 40 MG TAB PO SCH (22:47)
[2018-08-12] MEDS: Doxazosin 2 MG TAB PO SCH (22:48)
[2018-08-12] MEDS: Tamsulosin HCl 0.4 MG CAP PO SCH (22:48)
[2018-08-13] MEDS: Propofol 1,000 MG/100 ML VIAL IV PRN ×5 (01:13→23:53)
[2018-08-13] MEDS: Sodium Chloride 0.9% 1,000 ML IV SCH ×2 (01:14→12:10)
[2018-08-13] MEDS: Morphine 2 MG/ML SYRINGE SLOW IVP PRN ×3 (03:02→23:32)
[2018-08-13 05:04] LABS: Anion Gap 23 mmol/L (10-20); BUN (Urea Nitrogen) 70 mg/dL (9.8-20.1); Calc. Creatinine Clearance 26 mL/min (70-130); Calcium 7.8 mg/dL (7.8-10.44); Carbon Dioxide 21 mmol/L (23-31); Chloride 96 mmol/L (98-107); Estimated GFR-MDRD 11; Glucose 234 mg/dL (80-115); Potassium 4.2 mmol/L (3.5-5.1); Sodium 136 mmol/L (136-145)
[2018-08-13] MEDS: Ondansetron ODT 4 MG TAB PO SCH ×3 (05:08→20:17)
[2018-08-13] MEDS: Piperacillin/Tazobactam 2.25 GM in Sodium Chloride 0.9% 100 ML IVPB SCH ×3 (05:11→21:15)
[2018-08-13 05:15] LABS: Band 11 % (5-11); Hemoglobin 10.6 g/dL (12.0-16.0); Large Platelets SLIGHT; Lymphocytes 3 % (21-51); MDiff Complete? YES; Mean Corpuscular HGB CONC 32.1 g/dL (32.0-36.0); Mean Corpuscular Hemoglobin 27.8 pg (27.0-31.0); Mean Corpuscular Volume 86.7 fL (78.0-98.0); Mean Platelet Volume 9.9 fL (7.4-10.4); Monocytes 3 % (0-10); Neutrophil 83 % (42-75); Nucleated RBC 1 % (0); Platelet Count 165 thou/uL (130-400); Platelet Morphology Comment Appears Adequate; White Blood Cell (WBC) Count 25.7 thou/uL (4.8-10.8)
[2018-08-13 08:08] LABS: Actual Bicarbonate (HCO3a) 22.4 mEq/L (22-28); Base Excess (BEa) -2.1 mEq/L (-2.0 to +3.0); Calcium, Ionized 0.91 mmol/L (1.12-1.30); Carboxyhemoglobin (COHb) 0.9 gm% (0.0-3.0); Hemoglobin (Hb) 11.2 g/dL (12.0-16.0); O2 Tension (PaO2) 103.4 mmHg (> 80.0); Potassium - ABG Lab 4.13 mmol/L (3.70-5.30)
[2018-08-13 08:12] LABS: Puncture Site RR
[2018-08-13] MEDS ORDERED: hydrALAZINE 20 MG/ML VIAL ONE ×2 (09:12→09:53)
[2018-08-13] MEDS: Insulin Glargine 18 UNITS in Pre-Filled Syringe 1 EACH SC SCH ×2 (09:18→20:26)
[2018-08-13] MEDS: Aspirin 81 mg Enteric Coated Tablet PO SCH (09:19)
[2018-08-13] MEDS: Heparin 5,000 UNITS/ML VIAL SC SCH ×2 (09:19→20:18)
[2018-08-13] MEDS: methylPREDNISolone Sod Succ 40 MG VIAL IVP SCH ×2 (09:19→20:16)
[2018-08-13] MEDS ORDERED: hydrALAZINE 20 MG/ML VIAL SLOW IVP PRN (10:37)
[2018-08-13] MEDS ORDERED: hydrALAZINE 20 MG/ML VIAL SLOW IVP SCH (10:45)
--- NOTE | 2018-08-13 10:53 | PDOC.PN ---
- Subjective Encounter Start Date: 08/12/18 Encounter Start Time: 15:00 Subjective: f/u for sepsis secondary to UTI and s/p L ureteral stent placement -: due to mild L hydronephrosis and small stone. Renal function worsening -: [facility] - Objective Resuscitation Status - Order Detail: 08/09/18 23:03 Resuscitation Status Routine Resuscitation Status: FULL: Full Resuscitation MAR Reviewed: Yes Vital Signs & Weight: Vital Signs (12 hours) Temp Pulse Resp BP Pulse Ox 08/13/18 10:23 87 175/90 H 08/13/18 10:00 87 16 197/103 H 08/13/18 09:13 85 212/116 H 08/13/18 08:00 99 F 16 08/13/18 07:56 85 198/108 H 08/13/18 07:00 97 08/13/18 06:00 16 08/13/18 05:00 16 08/13/18 04:00 98.4 F 16 08/13/18 03:00 16 08/13/18 02:36 91 16 98 08/13/18 02:00 16 08/13/18 01:00 16 08/13/18 00:00 98.4 F 16 08/12/18 23:00 16 Weight Admit Weight 338 lb 13.608 oz Weight 346 lb 12.594 oz Most Recent Monitor Data Heart Rate from ECG 93 NIBP 175/90 NIBP BP-Mean 118 Respiration from ECG 16 SpO2 95 I&O: 08/12/18 08/13/18 08/14/18 06:59 06:59 06:59 Intake Total 3084 2025 Output Total 565 245 195 Balance 2519 1780 -195 Result Diagrams: 08/13/18 04:16 08/13/18 04:16 Additional Labs: Accuchecks 08/13/18 08/12/18 08/12/18 06:42 22:42 16:18 POC Glucose 228 H 277 H 279 H 08/12/18 11:00 POC Glucose 301 H Microbiology 08/11/18 02:00 Nasopharynx - Swab Influenza Types A,B Direct EIA - Final 08/10/18 15:25 Urine voided Urine Culture - Final Escherichia coli 08/10/18 22:10 Venous blood - Left Hand Blood Culture - Preliminary Specimen has been received and culture in progress. No Growth to date. 08/10/18 22:04 Venous blood - Left Arm Blood Culture - Preliminary Specimen has been received and culture in progress. No Growth to date. 08/10/18 15:25 Urine voided Urine Culture - Preliminary Presumptive Escherichia coli Laboratory Tests 08/09/18 08/09/18 08/09/18 21:28 21:28 21:58 WBC 20.9 H Hgb Neutrophils % (Manual) 87 H Band Neuts % (Manual) Carbon Dioxide Creatinine 1.66 H Hemoglobin A1c Lactic Acid Magnesium Creatine Kinase Troponin I B-Natriuretic Peptide 105.0 H Free T4 TSH 3rd Generation 08/10/18 08/10/18 08/10/18 04:55 04:55 19:17 WBC 17.5 H Hgb Neutrophils % (Manual) 91 H Band Neuts % (Manual) Carbon Dioxide Creatinine 1.86 H 2.68 H Hemoglobin A1c Lactic Acid Magnesium Creatine Kinase Troponin I B-Natriuretic Peptide Free T4 TSH 3rd Generation 08/10/18 08/10/18 08/10/18 19:17 19:17 22:04 WBC 6.9 Hgb Neutrophils % (Manual) Band Neuts % (Manual) 13 H Carbon Dioxide Creatinine Hemoglobin A1c Lactic Acid Magnesium Creatine Kinase Troponin I 0.036 H 0.051 H B-Natriuretic Peptide Free T4 TSH 3rd Generation 08/11/18 08/11/18 08/11/18 04:58 04:58 04:58 WBC Hgb Neutrophils % (Manual) Band Neuts % (Manual) Carbon Dioxide Creatinine 3.83 H Hemoglobin A1c Lactic Acid 1.7 Magnesium 1.6 Creatine Kinase 151 Troponin I 0.127 H B-Natriuretic Peptide Free T4 TSH 3rd Generation 08/11/18 08/11/18 08/11/18 04:59 04:59 04:59 WBC 35.2 H Hgb 11.1 L Neutrophils % (Manual) Band Neuts % (Manual) 24 H Carbon Dioxide Creatinine Hemoglobin A1c 6.6 H Lactic Acid Magnesium Creatine Kinase Troponin I B-Natriuretic Peptide Free T4 1.30 TSH 3rd Generation 2.5337 08/12/18 08/12/18 08/13/18 04:17 04:17 04:16 WBC 30.2 H Hgb 10.5 L Neutrophils % (Manual) Band Neuts % (Manual) 29 H 11 Carbon Dioxide 25 Creatinine 4.28 H Hemoglobin A1c Lactic Acid Magnesium Creatine Kinase Troponin I B-Natriuretic Peptide Free T4 TSH 3rd Generation Radiology Reviewed by me: Yes (PCXR - ETT in place, no acute infiltrate) EKG Reviewed by me: Yes (Tele - Sinus tachycardia) Phys Exam - Physical Examination somnolent on mech ventilation, ETT in place HEENT: sclera anicteric, oral pharynx no lesions Neck: no nodes, no JVD, supple, full ROM diminished in bases, no wheezes tachycardic S1, S2 Cardiovascular: no significant murmur, no rub, gallop morbidly obese Gastrointestinal: non-tender, no distention, positive bowel sounds R> LLE edema Musculoskeletal: pulses present, edema present Skin: normal turgor, cap refill <2 seconds Deviation from normal: Palomares with scant dark urine Dx/Plan (1) Sepsis due to urinary tract infection Code(s): A41.9 - SEPSIS, UNSPECIFIED ORGANISM; N39.0 - URINARY TRACT INFECTION, SITE NOT SPECIFIED Status: Acute Comment: Continue Zosyn, E. coli pansensitive currently, continue IVF's and mech ventilation (2) Acute respiratory failure with hypoxia and hypercapnia Code(s): J96.01 - ACUTE RESPIRATORY FAILURE WITH HYPOXIA; J96.02 - ACUTE RESPIRATORY FAILURE WITH HYPERCAPNIA Status: Acute Comment: Likely due to #1 , SIMV with mech rate 16, FIO2 40% (3) Acute metabolic encephalopathy Code(s): G93.41 - METABOLIC ENCEPHALOPATHY Status: Acute Comment: Likely due to sepsis, metabolic component with hypercapnia, continue supportive mgmt as outlined above (4) [place] (acute kidney injury) Code(s): N17.9 - ACUTE KIDNEY FAILURE, UNSPECIFIED Status: Acute Comment: Suspect multifactorial with main component of sepsis, avoid nephrotoxic agents, monitor for return of renal function, appreciate Nephrology assistance (5) Dizziness Code(s): R42 - DIZZINESS AND GIDDINESS Status: Acute Comment: Unclear etiology, check carotid sono, TSH, Mg++, Echo pending, orthostatic vitals, A1C (6) Edema of right lower extremity Code(s): R60.0 - LOCALIZED EDEMA Status: Acute Comment: DVT r/o, ? chronic lymphedema due to morbid obesity (7) Neutrophilic leukocytosis Code(s): D72.9 - DISORDER OF WHITE BLOOD CELLS, UNSPECIFIED Status: Acute Comment: Slow improvement, serial CBC, continue Zosyn (8) DM w/o complication type II, uncontrolled Code(s): E11.65 - TYPE 2 DIABETES MELLITUS WITH HYPERGLYCEMIA Status: Chronic Comment: ISS, serial accuchecks (9) Morbid obesity Code(s): E66.01 - MORBID (SEVERE) OBESITY DUE TO EXCESS CALORIES Status: Chronic Comment: Dietary counseling, low-fat diet - Plan plan discussed w/ family, continue antibiotics, aids social worker, respiratory therapy Continue mech ventilation with SIMV -: Continue Zosyn -: Hydralazine 20mg IV q4h prn -: Continue Flomax 0.4mg HS -: AM lab: BMP, CBC * PCXR in am
--- NOTE | 2018-08-13 11:10 | PDOC.PN ---
- Subjective Encounter Start Date: 08/13/18 Encounter Start Time: 10:30 Subjective: f/u for sepsis secondary to UTI E. coli and s/p L ureteral stent placement -: for mild hydronephrosis and stone. Remains on mech vent with labile -: HTN. - Objective Resuscitation Status - Order Detail: 08/09/18 23:03 Resuscitation Status Routine Resuscitation Status: FULL: Full Resuscitation MAR Reviewed: Yes Vital Signs & Weight: Vital Signs (12 hours) Temp Pulse Resp BP Pulse Ox 08/13/18 10:23 87 175/90 H 08/13/18 10:00 87 16 197/103 H 08/13/18 09:13 85 212/116 H 08/13/18 08:00 99 F 16 08/13/18 07:56 85 198/108 H 08/13/18 07:00 97 08/13/18 06:00 16 08/13/18 05:00 16 08/13/18 04:00 98.4 F 16 08/13/18 03:00 16 08/13/18 02:36 91 16 98 08/13/18 02:00 16 08/13/18 01:00 16 08/13/18 00:00 98.4 F 16 Weight Admit Weight 338 lb 13.608 oz Weight 346 lb 12.594 oz Most Recent Monitor Data Heart Rate from ECG 93 NIBP 175/90 NIBP BP-Mean 118 Respiration from ECG 16 SpO2 95 I&O: 08/12/18 08/13/18 08/14/18 06:59 06:59 06:59 Intake Total 3084 2025 Output Total 565 245 195 Balance 2519 1780 -195 Result Diagrams: 08/13/18 04:16 08/13/18 04:16 Additional Labs: Accuchecks 08/13/18 08/12/18 08/12/18 06:42 22:42 16:18 POC Glucose 228 H 277 H 279 H 08/12/18 11:00 POC Glucose 301 H Microbiology 08/11/18 02:00 Nasopharynx - Swab Influenza Types A,B Direct EIA - Final 08/10/18 15:25 Urine voided Urine Culture - Final Escherichia coli 08/10/18 22:10 Venous blood - Left Hand Blood Culture - Preliminary Specimen has been received and culture in progress. No Growth to date. 02/13/19 22:04 Venous blood - Left Arm Blood Culture - Preliminary Specimen has been received and culture in progress. No Growth to date. 08/10/18 15:25 Urine voided Urine Culture - Preliminary Presumptive Escherichia coli Laboratory Tests 08/09/18 08/09/18 08/09/18 21:28 21:28 21:58 WBC 20.9 H Hgb Neutrophils % (Manual) 87 H Band Neuts % (Manual) Carbon Dioxide Creatinine 1.66 H Hemoglobin A1c Lactic Acid Magnesium Creatine Kinase Troponin I B-Natriuretic Peptide 105.0 H Free T4 TSH 3rd Generation 08/10/18 08/10/18 08/10/18 04:55 04:55 19:17 WBC 17.5 H Hgb Neutrophils % (Manual) 91 H Band Neuts % (Manual) Carbon Dioxide Creatinine 1.86 H 2.68 H Hemoglobin A1c Lactic Acid Magnesium Creatine Kinase Troponin I B-Natriuretic Peptide Free T4 TSH 3rd Generation 08/10/18 08/10/18 08/10/18 19:17 19:17 22:04 WBC 6.9 Hgb Neutrophils % (Manual) Band Neuts % (Manual) 13 H Carbon Dioxide Creatinine Hemoglobin A1c Lactic Acid Magnesium Creatine Kinase Troponin I 0.036 H 0.051 H B-Natriuretic Peptide Free T4 TSH 3rd Generation 08/11/18 08/11/18 08/11/18 04:58 04:58 04:58 WBC Hgb Neutrophils % (Manual) Band Neuts % (Manual) Carbon Dioxide Creatinine 3.83 H Hemoglobin A1c Lactic Acid 1.7 Magnesium 1.6 Creatine Kinase 151 Troponin I 0.127 H B-Natriuretic Peptide Free T4 TSH 3rd Generation 08/11/18 08/11/18 08/11/18 04:59 04:59 04:59 WBC 35.2 H Hgb 11.1 L Neutrophils % (Manual) Band Neuts % (Manual) 24 H Carbon Dioxide Creatinine Hemoglobin A1c 6.6 H Lactic Acid Magnesium Creatine Kinase Troponin I B-Natriuretic Peptide Free T4 1.30 TSH 3rd Generation 2.5337 08/12/18 08/12/18 08/13/18 04:17 04:17 04:16 WBC 30.2 H Hgb 10.5 L Neutrophils % (Manual) Band Neuts % (Manual) 29 H 11 Carbon Dioxide 25 Creatinine 4.28 H Hemoglobin A1c Lactic Acid Magnesium Creatine Kinase Troponin I B-Natriuretic Peptide Free T4 TSH 3rd Generation EKG Reviewed by me: Yes (Tele - sinus tachycardia) Phys Exam - Physical Examination sedate on mech ventilation, ETT in place HEENT: PERRLA, sclera anicteric, oral pharynx no lesions Neck: no nodes, no JVD, supple, full ROM diminished in bases Respiratory: no wheezing tachycardic S1, S2 Cardiovascular: no significant murmur, no rub, gallop morbidly obese Gastrointestinal: soft, non-tender, no distention, positive bowel sounds Musculoskeletal: pulses present, edema present sedate on mech vent Skin: normal turgor, cap refill <2 seconds Deviation from normal: Palomares with dark urine Dx/Plan (1) Sepsis due to urinary tract infection Code(s): A41.9 - SEPSIS, UNSPECIFIED ORGANISM; N39.0 - URINARY TRACT INFECTION, SITE NOT SPECIFIED Status: Acute Comment: Continue Zosyn, E. coli pansensitive currently, continue IVF's and mech ventilation (2) Acute respiratory failure with hypoxia and hypercapnia Code(s): J96.01 - ACUTE RESPIRATORY FAILURE WITH HYPOXIA; J96.02 - ACUTE RESPIRATORY FAILURE WITH HYPERCAPNIA Status: Acute Comment: Likely due to #1 , SIMV with mech rate 16, FIO2 40% (3) Acute metabolic encephalopathy Code(s): G93.41 - METABOLIC ENCEPHALOPATHY Status: Acute Comment: Likely due to sepsis, metabolic component with hypercapnia, continue supportive mgmt as outlined above (4) [place] (acute kidney injury) Code(s): N17.9 - ACUTE KIDNEY FAILURE, UNSPECIFIED Status: Acute Comment: Suspect multifactorial with main component of sepsis, avoid nephrotoxic agents, monitor for return of renal function, appreciate Nephrology assistance (5) Dizziness Code(s): R42 - DIZZINESS AND GIDDINESS Status: Acute Comment: Unclear etiology, check carotid sono, TSH, Mg++, Echo pending, orthostatic vitals, A1C (6) Edema of right lower extremity Code(s): R60.0 - LOCALIZED EDEMA Status: Acute Comment: DVT r/o, ? chronic lymphedema due to morbid obesity (7) Neutrophilic leukocytosis Code(s): D72.9 - DISORDER OF WHITE BLOOD CELLS, UNSPECIFIED Status: Acute Comment: Slow improvement, serial CBC, continue Zosyn (8) DM w/o complication type II, uncontrolled Code(s): E11.65 - TYPE 2 DIABETES MELLITUS WITH HYPERGLYCEMIA Status: Chronic Comment: ISS, serial accuchecks (9) Morbid obesity Code(s): E66.01 - MORBID (SEVERE) OBESITY DUE TO EXCESS CALORIES Status: Chronic Comment: Dietary counseling, low-fat diet - Plan plan discussed w/ family, continue antibiotics, older adult social work specialist, respiratory therapy, DVT proph w/SCDs Continue [facility] -: Continue Zosyn -: Continue IVF's -: Add Labetalol IV -: Clonidine 0.2mg TD * Continue Flomax 0.4mg daily * AM lab: BMP, CBC * PCXR in am
[2018-08-13] MEDS ORDERED: Sodium Chloride 0.9% (PF) 10 ML VIAL FS PRN (11:29)
[2018-08-13] MEDS ORDERED: Pantoprazole 40 MG VIAL IVP SCH (11:30)
--- NOTE | 2018-08-13 11:43 | PRG ---
DATE OF SERVICE: 08/13/2018 SUBJECTIVE: The patient has been stable overnight. She has remained intubated and sedated. 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 PHYSICAL EXAMINATION: VITAL SIGNS: Her blood pressure is up to 198/108, last check 166/104; however, was rechecked when I was in the room with her and it was 210/116, so I ordered p.r.n. hydralazine for her, but the primary team can continue or modify the p.r.n. blood pressure medicines as appropriate. Her T-max is 99, heart rate has been in the 80s to 90s, and she is saturating 94% to 99% with supplemental oxygen. GENERAL: She is sedated. She does squeeze her left hand slightly, but not the right. She is otherwise intubated and sedated. ABDOMEN: Soft. 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 LABORATORY DATA: Labs reveal stable anemia and platelets. Her white count comedown to 25.7, her BUN and creatinine elevated to 70 and 4.93. Her ABG shows 7.40, 37 , 103.4, and 22.4. Her urinalysis from the OR shows afk-ujvqmayt-hl-count wbc's, uwo-wvoqciie-os-count rbc's, 4+ bacteria with culture pending, but I suspect it will be the similar E. coli which is pansensitive. ASSESSMENT: We have a 68-year-old female with urosepsis related to obstructing left ureteral stone, status post urgent left stent on 08/12 with worsening kidney function; however, I suspect over the next 24 hours, her urine output will increase and hopefully will result in improved BUN and creatinine. Now she's also is having significant hypertension. Continue the Palomares catheter, Zosyn, and supplemental care. I will continue to follow along. Job ID: [id number] MTDD
[2018-08-13] MEDS: HumaLOG 300 UNITS/3 ML VIAL SC PRN ×2 (12:20→16:08)
--- NOTE | 2018-08-13 12:55 | PRG ---
DATE OF SERVICE: 08/13/2018 SUBJECTIVE: A 68-year-old female being seen for acute kidney injury. The patient is intubated. OBJECTIVE: See above. CONSTITUTIONAL: Awake, alert, in no acute distress. The patient is resting. VITAL SIGNS: Afebrile, pulse 85, breathing 16, and blood pressure 135/90. GENERAL APPEARANCE AND MENTAL STATUS: Fair. HEAD/NECK: Normocephalic. Atraumatic. EYES: EOMI. No deformity. EARS: Clear. No ulcers. NOSE: Intact. No lesions. MOUTH: Clear. No discharge. THROAT: Clear. No exudate. LUNGS: Clear. No crackles. CARDIAC: S1, S2. No rub. ABDOMEN: Benign. Bowel sounds positive. GENITALIA/RECTUM: Palomares absent. BACK/EXTREMITIES: Edema 0+. NEUROLOGICAL: Alert and motor intact. SKIN: LYMPHATICS: LABORATORY DATA: Labs show hemoglobin 10.6 and creatinine 4.9. ASSESSMENT AND PLAN: 1. Acute kidney injury with rising creatinine, most likely due to hydronephrosis in the setting of chronic kidney disease. 2. Anemia, stable. Medication based on GFR. No indication for dialysis. I will decrease the IV fluids to 50 mL/h. The patient is non-oliguric. Job ID: [id number]
[2018-08-13] MEDS: Labetalol HCl 100 MG/20 ML VIAL SLOW IVP PRN ×2 (14:03→21:16)
[2018-08-13] MEDS: Atorvastatin Calcium 40 MG TAB PO SCH (20:16)
[2018-08-13] MEDS: Tamsulosin HCl 0.4 MG CAP PO SCH (20:16)
[2018-08-13] MEDS: Doxazosin 2 MG TAB PO SCH (20:16)
--- NOTE | 2018-08-13 20:30 | PRG ---
DATE OF SERVICE: 08/13/2018 SUBJECTIVE: Lizzie Kelly was intubated for procedure and left mechanically ventilated yesterday. She had a cystoscopy; pyelogram, retrograde; and a ureteral stent placed. She was left intubated. She is sedated for ventilation. Per my discussion with Dr. Mendoza, she being quite encephalopathic with distress in BiPAP prior to her procedures. I recommend intubation, leaving her intubated. OBJECTIVE: VITAL SIGNS: Stable. Heart rate in the 70s. Oximetry is in the 90s, blood pressure 171/99. LUNGS: Clear. HEART: Regular rhythm. S1 and S2 are normal. ABDOMEN: Soft and nontender. EXTREMITIES: Without asymmetry. LABORATORY DATA: PH 7.4, CO2 37, PO2 103. Sodium 136, potassium 4.2, chloride 96, bicarb 21, BUN 70, creatinine 4.9. White count 25.7, hemoglobin 10.6, platelets 165, 11% bands. Yesterday, she had 29% bands. IMPRESSION: 1. Urinary tract sepsis with an obstructing stone, now status post placement of ureteral stent. 2. Postoperative mechanical ventilation with obesity and confusion associated with her sick clinical sepsis. Hopefully, her encephalopathy will be improved by tomorrow, we can consider weaning towards extubation on Wednesday. Critical care time 30 minutes. Job ID: [id number]
[2018-08-14] MEDS: Propofol 1,000 MG/100 ML VIAL IV PRN ×3 (04:10→19:03)
[2018-08-14 04:57] LABS: Anion Gap 21 mmol/L (10-20); BUN (Urea Nitrogen) 78 mg/dL (9.8-20.1); Calc. Creatinine Clearance 31 mL/min (70-130); Calcium 7.7 mg/dL (7.8-10.44); Carbon Dioxide 21 mmol/L (23-31); Chloride 98 mmol/L (98-107); Estimated GFR-MDRD 13; Glucose 246 mg/dL (80-115); Potassium 3.7 mmol/L (3.5-5.1); Sodium 136 mmol/L (136-145)
[2018-08-14 05:17] LABS: Band 13 % (5-11); Hemoglobin 10.8 g/dL (12.0-16.0); Large Platelets SLIGHT; Lymphocytes 4 % (21-51); MDiff Complete? YES; Mean Corpuscular HGB CONC 32.9 g/dL (32.0-36.0); Mean Platelet Volume 9.8 fL (7.4-10.4); Monocytes 4 % (0-10); Neutrophil 79 % (42-75); Platelet Count 160 thou/uL (130-400); Platelet Morphology Comment Appears Adequate; RBC Distribution Width 13.8 % (11.5-14.5); Red Blood Cell (RBC) Count 3.85 mill/uL (4.20-5.40); White Blood Cell (WBC) Count 26.4 thou/uL (4.8-10.8)
[2018-08-14] MEDS: Ondansetron ODT 4 MG TAB PO SCH ×2 (05:28→13:10)
[2018-08-14] MEDS: Morphine 2 MG/ML SYRINGE SLOW IVP PRN (05:40)
[2018-08-14] MEDS: Piperacillin/Tazobactam 2.25 GM in Sodium Chloride 0.9% 100 ML IVPB SCH ×3 (05:41→21:48)
[2018-08-14] MEDS: HumaLOG 300 UNITS/3 ML VIAL SC PRN ×4 (05:45→21:49)
[2018-08-14] MEDS: Sodium Chloride 0.9% 1,000 ML IV SCH (08:06)
[2018-08-14] MEDS: methylPREDNISolone Sod Succ 40 MG VIAL IVP SCH ×2 (08:21→20:04)
[2018-08-14] MEDS: Heparin 5,000 UNITS/ML VIAL SC SCH ×2 (08:21→20:03)
[2018-08-14] MEDS: Pantoprazole 40 MG VIAL IVP SCH (08:23)
[2018-08-14 08:58] LABS: Actual Bicarbonate (HCO3a) 23.2 mEq/L (22-28); CO2 Tension 32.6 mmHg (35.0-45.0); Calcium, Ionized 0.97 mmol/L (1.12-1.30); Carboxyhemoglobin (COHb) 0.6 gm% (0.0-3.0); Hemoglobin (Hb) 10.9 g/dL (12.0-16.0); O2 Tension (PaO2) 357.9 mmHg (> 80.0); Potassium - ABG Lab 3.48 mmol/L (3.70-5.30); pH, Arterial 7.47 (7.35-7.45)
[2018-08-14] MEDS: Insulin Glargine 18 UNITS in Pre-Filled Syringe 1 EACH SC SCH ×2 (08:59→20:05)
[2018-08-14] MEDS: Aspirin 81 mg Enteric Coated Tablet PO SCH (08:59)
[2018-08-14 09:06] LABS: Puncture Site LR
--- NOTE | 2018-08-14 09:24 | RAD ---
PORTABLE AP CHEST: Date: 08/14/18 HISTORY: Intubated, on ventilator. Follow-up evaluation. COMPARISON: 08/12/18. FINDINGS: Endotracheal tube and right subclavian central venous catheter remain in place. There has been interv al placement of a nasogastric tube which courses into the upper abdomen, but the tip is not visualize d. Cardiac silhouette is magnified by projection, but does appear enlarged. There is pulmonary vascul ar congestion present. There is suboptimal evaluation of the left lung base due to overlying soft tis maynor density. Pleural fluid, atelectasis, or infiltrate at the left lung base cannot be excluded. Ther e is mild increase in interstitial densities present at the right lung base. IMPRESSION: 1. Cardiomegaly with mild pulmonary vascular congestion. 2. Interstitial densities right lung base which could be related to mild asymmetric pulmonary edema or infectious process. Continued follow-up is recommended. 3. Lines and tubes in place as described above. 4. Suboptimal evaluation left lung base. POS: CATHY
[2018-08-14] MEDS: hydrALAZINE 20 MG/ML VIAL SLOW IVP PRN (10:26)
--- NOTE | 2018-08-14 11:18 | PDOC.PN ---
- Subjective Encounter Start Date: 08/14/18 Encounter Start Time: 11:10 Subjective: f/u for sepsis due to E. coli UTI s/p L ureteral stent with calculus -: on current Zosyn. Remains on mech ventilation with mild improvement -: in renal function. - Objective Resuscitation Status - Order Detail: 08/09/18 23:03 Resuscitation Status Routine Resuscitation Status: FULL: Full Resuscitation Vital Signs & Weight: Vital Signs (12 hours) Temp Pulse Resp BP Pulse Ox 08/14/18 11:08 180/108 H 08/14/18 10:42 80 180/108 H 08/14/18 10:26 68 179/91 H 08/14/18 10:00 10 L 08/14/18 09:05 99 08/14/18 08:45 68 179/91 H 08/14/18 08:00 98.3 F 16 98 08/14/18 06:00 16 08/14/18 05:00 98.2 F 08/14/18 04:00 16 08/14/18 03:00 100.5 F H 08/14/18 02:59 77 08/14/18 02:00 16 08/14/18 00:00 16 08/13/18 23:31 69 189/96 H Weight Admit Weight 324 lb 14.4 oz Weight 343 lb 4.156 oz Most Recent Monitor Data Heart Rate from ECG 80 NIBP 179/77 NIBP BP-Mean 111 Respiration from ECG 7 SpO2 99 I&O: 08/13/18 08/14/18 08/15/18 06:59 06:59 06:59 Intake Total 2025 2404 Output Total 245 1535 430 Balance 1780 869 -430 Result Diagrams: 08/14/18 04:10 08/14/18 04:10 Additional Labs: Accuchecks 08/14/18 08/13/18 08/13/18 05:45 20:28 16:07 POC Glucose 236 H 267 H 282 H 08/13/18 12:20 POC Glucose 277 H Microbiology 08/11/18 02:00 Nasopharynx - Swab Influenza Types A,B Direct EIA - Final 08/10/18 15:25 Urine voided Urine Culture - Final Escherichia coli 08/10/18 22:10 Venous blood - Left Hand Blood Culture - Preliminary Specimen has been received and culture in progress. No Growth to date. 08/10/18 22:04 Venous blood - Left Arm Blood Culture - Preliminary Specimen has been received and culture in progress. No Growth to date. 08/10/18 15:25 Urine voided Urine Culture - Preliminary Presumptive Escherichia coli Laboratory Tests 08/09/18 08/09/18 08/09/18 21:28 21:28 21:58 WBC 20.9 H Hgb Neutrophils % (Manual) 87 H Band Neuts % (Manual) Carbon Dioxide Creatinine 1.66 H Hemoglobin A1c Lactic Acid Magnesium Creatine Kinase Troponin I B-Natriuretic Peptide 105.0 H Free T4 TSH 3rd Generation 08/10/18 08/10/18 08/10/18 04:55 04:55 19:17 WBC 17.5 H Hgb Neutrophils % (Manual) 91 H Band Neuts % (Manual) Carbon Dioxide Creatinine 1.86 H 2.68 H Hemoglobin A1c Lactic Acid Magnesium Creatine Kinase Troponin I B-Natriuretic Peptide Free T4 TSH 3rd Generation 08/10/18 08/10/18 08/10/18 19:17 19:17 22:04 WBC 6.9 Hgb Neutrophils % (Manual) Band Neuts % (Manual) 13 H Carbon Dioxide Creatinine Hemoglobin A1c Lactic Acid Magnesium Creatine Kinase Troponin I 0.036 H 0.051 H B-Natriuretic Peptide Free T4 TSH 3rd Generation 08/11/18 08/11/18 08/11/18 04:58 04:58 04:58 WBC Hgb Neutrophils % (Manual) Band Neuts % (Manual) Carbon Dioxide Creatinine 3.83 H Hemoglobin A1c Lactic Acid 1.7 Magnesium 1.6 Creatine Kinase 151 Troponin I 0.127 H B-Natriuretic Peptide Free T4 TSH 3rd Generation 08/11/18 08/11/18 08/11/18 04:59 04:59 04:59 WBC 35.2 H Hgb 11.1 L Neutrophils % (Manual) Band Neuts % (Manual) 24 H Carbon Dioxide Creatinine Hemoglobin A1c 6.6 H Lactic Acid Magnesium Creatine Kinase Troponin I B-Natriuretic Peptide Free T4 1.30 TSH 3rd Generation 2.5337 08/12/18 08/12/18 08/13/18 04:17 04:17 04:16 WBC 30.2 H Hgb 10.5 L Neutrophils % (Manual) Band Neuts % (Manual) 29 H Carbon Dioxide 25 Creatinine 4.28 H 4.93 H Hemoglobin A1c Lactic Acid Magnesium Creatine Kinase Troponin I B-Natriuretic Peptide Free T4 TSH 3rd Generation 08/13/18 08/14/18 04:16 04:10 WBC 25.7 H Hgb 10.6 L Neutrophils % (Manual) 83 H 79 H Band Neuts % (Manual) 11 13 H Carbon Dioxide Creatinine Hemoglobin A1c Lactic Acid Magnesium Creatine Kinase Troponin I B-Natriuretic Peptide Free T4 TSH 3rd Generation Radiology Reviewed by me: Yes (PCXR - densities in RLL, lines/tubes in position) EKG Reviewed by me: Yes (Tele - sinus arrhythmia in 90's) Phys Exam - Physical Examination alert, nods, lifts head off pillow, follows commands ETT in place HEENT: PERRLA, sclera anicteric, oral pharynx no lesions Neck: no nodes, no JVD, supple, full ROM diminished in bases Respiratory: no wheezing, no rhonchi S1, S2 Cardiovascular: RRR, no significant murmur, no rub, gallop Gastrointestinal: soft, non-tender, no distention, positive bowel sounds chronic LE edema Musculoskeletal: pulses present, edema present Neurological: normal sensation, moves all 4 limbs Skin: normal turgor, cap refill <2 seconds Deviation from normal: Palomares with clear urine Dx/Plan (1) Sepsis due to urinary tract infection Code(s): A41.9 - SEPSIS, UNSPECIFIED ORGANISM; N39.0 - URINARY TRACT INFECTION, SITE NOT SPECIFIED Status: Acute Comment: Continue Zosyn, E. coli pansensitive currently, continue IVF's and mech ventilation (2) Acute respiratory failure with hypoxia and hypercapnia Code(s): J96.01 - ACUTE RESPIRATORY FAILURE WITH HYPOXIA; J96.02 - ACUTE RESPIRATORY FAILURE WITH HYPERCAPNIA Status: Acute Comment: Likely due to #1 , SIMV with slow wean per protocol (3) Acute metabolic encephalopathy Code(s): G93.41 - METABOLIC ENCEPHALOPATHY Status: Acute Comment: Likely due to sepsis, metabolic component with hypercapnia, continue supportive mgmt as outlined above, resolving (4) [place] (acute kidney injury) Code(s): N17.9 - ACUTE KIDNEY FAILURE, UNSPECIFIED Status: Acute Comment: Suspect multifactorial with main component of sepsis, avoid nephrotoxic agents, monitor for return of renal function, appreciate Nephrology assistance, improving slowly (5) Dizziness Code(s): R42 - DIZZINESS AND GIDDINESS Status: Acute Comment: Unclear etiology, check carotid sono, TSH, Mg++, Echo pending, orthostatic vitals, A1C (6) Edema of right lower extremity Code(s): R60.0 - LOCALIZED EDEMA Status: Acute Comment: DVT r/o, ? chronic lymphedema due to morbid obesity (7) Neutrophilic leukocytosis Code(s): D72.9 - DISORDER OF WHITE BLOOD CELLS, UNSPECIFIED Status: Acute Comment: Slow improvement, serial CBC, continue Zosyn (8) DM w/o complication type II, uncontrolled Code(s): E11.65 - TYPE 2 DIABETES MELLITUS WITH HYPERGLYCEMIA Status: Chronic Comment: ISS, serial accuchecks (9) Morbid obesity Code(s): E66.01 - MORBID (SEVERE) OBESITY DUE TO EXCESS CALORIES Status: Chronic Comment: Dietary counseling, low-fat diet - Plan plan discussed w/ family, continue antibiotics, nursing home social worker, respiratory therapy, DVT proph w/SCDs Continue critical support -: Wean mech ventilation as clinically indicated -: continue Zosyn IV -: Continue Labetalol, Clonidine TD, Hydralazine IV for BP mgmt -: AM lab: BMP, CBC * PCXR in am
--- NOTE | 2018-08-14 11:23 | PRG ---
DATE OF SERVICE: 08/14/2018 SUBJECTIVE: The patient did well over the past 24 hours, but she has remained intubated. She has continued to have persistent hypertension. OBJECTIVE: VITAL SIGNS: Her T-max is 100.5, current 98.3; systolic blood pressure in the 170s to 180s, but diastolic down to 90s; saturating 97% to 99% on supplemental oxygen with mechanical ventilation. She has had 1900 of urine in the last 24 hours. GENERAL: She is alert, opens her eyes, and follows commands. ABDOMEN: Soft and nontender. She has no CVA tenderness. GENITOURINARY: The urine in the tubing is clear yellow. LABORATORY VALUES: Reveal white count that is persistently elevated but does have less neutrophils than the day prior at 26.4, anemia of 10.8 and 32.9, and platelets stable at 160. Her creatinine slightly improved to 4.26. ASSESSMENT: We have a 68-year-old female with urosepsis, status post left stent for obstructing stone; multiple medical issues, but overall improving. Continue IV antibiotics and monitor. Job ID: [id number]
[2018-08-14] MEDS ORDERED: Ondansetron ODT 4 MG TAB PO PRN (13:33)
--- NOTE | 2018-08-14 13:48 | PRG ---
DATE OF SERVICE: 08/14/2018 SUBJECTIVE: A 68-year-old female being seen for acute kidney injury. The patient is intubated. OBJECTIVE: CONSTITUTIONAL: The patient is resting. Awake, alert, in no acute distress. VITAL SIGNS: Afebrile, pulse 57, breathing 16, blood pressure 167/96. GENERAL APPEARANCE AND MENTAL STATUS: Fair. HEAD/NECK: Normocephalic. Atraumatic. EYES: EOMI. No deformity. EARS: Clear. No ulcers. NOSE: Intact. No lesions. MOUTH: Clear. No discharge. THROAT: Clear. No exudate. LUNGS: Clear. No crackles. CARDIAC: S1, S2. No rub. ABDOMEN: Benign. Bowel sounds positive. GENITALIA/RECTUM: Palomares absent. BACK/EXTREMITIES: Edema 0+. NEUROLOGICAL: Alert and motor intact. SKIN: LYMPHATICS: LABORATORY DATA: Labs show hemoglobin 10.8. Creatinine 4.2. ASSESSMENT AND PLAN: 1. Acute kidney injury, improved. 2. Chronic kidney disease stage 5, stable. 3. Hypertension, stable. 4. Hydronephrosis. Management per Urology. No indication for dialysis at this time. Job ID: [id number]
[2018-08-14] MEDS: Tamsulosin HCl 0.4 MG CAP PO SCH (20:03)
[2018-08-14] MEDS: Doxazosin 2 MG TAB PO SCH (20:03)
[2018-08-14] MEDS: Atorvastatin Calcium 40 MG TAB PO SCH (20:03)
[2018-08-14 20:09] LABS: Hemoglobin 11.1 g/dL (12.0-16.0); Platelet Count 156 thou/uL (130-400)
--- NOTE | 2018-08-14 20:17 | PRG ---
DATE OF SERVICE: 08/14/2018 SUBJECTIVE: Ms. Kelly will awaken and follow commands. She is much more calm and cooperative per my discussion with the nurses. OBJECTIVE: VITAL SIGNS: Blood pressure 141/77, heart rate 76, she is afebrile. Intake and output is +869. LUNGS: Clear. HEART: Regular rhythm. ABDOMEN: Soft. LABORATORY DATA: White count 26.4, hemoglobin 10.8, platelets 160. Sodium 136, potassium 3.7, chloride 98, bicarb 21, BUN 78, creatinine 4.2. IMPRESSION: 1. Respiratory failure after decompensating with the ureteral obstruction. 2. She grew Escherichia coli out of her urine, but her blood cultures are negative. 3. Encephalopathy/sleep apnea. 4. Progressive renal dysfunction. 5. Obesity. 6. History of hypertension. PLAN: We will continue to slowly decrease ventilatory support. Her volume status may become an issue and she is probably fairly deconditioned based on my several days exam of her. We will see what she looks like tomorrow morning and re- evaluate her renal function and all other factors prior to extubating her. Critical care time 30 minutes. Job ID: [id number] MTDD
[2018-08-15] MEDS: Propofol 1,000 MG/100 ML VIAL IV PRN (02:25)
[2018-08-15 05:08] LABS: Anion Gap 17 mmol/L (10-20); BUN (Urea Nitrogen) 77 mg/dL (9.8-20.1); Calc. Creatinine Clearance 41 mL/min (70-130); Carbon Dioxide 24 mmol/L (23-31); Chloride 102 mmol/L (98-107); Estimated GFR-MDRD 17; Glucose 249 mg/dL (80-115); Potassium 3.6 mmol/L (3.5-5.1); Sodium 139 mmol/L (136-145)
[2018-08-15 05:14] LABS: Band 2 % (5-11); Lymphocytes 6 % (21-51); MDiff Complete? YES; Mean Corpuscular HGB CONC 32.4 g/dL (32.0-36.0); Mean Corpuscular Hemoglobin 27.9 pg (27.0-31.0); Mean Corpuscular Volume 86.2 fL (78.0-98.0); Mean Platelet Volume 9.8 fL (7.4-10.4); Monocytes 4 % (0-10); Neutrophil 87 % (42-75); Platelet Count 150 thou/uL (130-400); RBC Distribution Width 13.8 % (11.5-14.5); Reactive Lymphocytes 1 % (0-10); Red Blood Cell (RBC) Count 3.94 mill/uL (4.20-5.40); White Blood Cell (WBC) Count 21.3 thou/uL (4.8-10.8)
[2018-08-15] MEDS: HumaLOG 300 UNITS/3 ML VIAL SC PRN ×3 (05:59→16:01)
[2018-08-15] MEDS: Piperacillin/Tazobactam 2.25 GM in Sodium Chloride 0.9% 100 ML IVPB SCH ×3 (05:59→22:39)
[2018-08-15] MEDS: Sodium Chloride 0.9% 1,000 ML IV SCH ×3 (06:41→22:30)
[2018-08-15 06:44] LABS: Actual Bicarbonate (HCO3a) 25.5 mEq/L (22-28); Base Excess (BEa) 0.8 mEq/L (-2.0 to +3.0); CO2 Tension 41.1 mmHg (35.0-45.0); Calcium, Ionized 1.09 mmol/L (1.12-1.30); Carboxyhemoglobin (COHb) 0.4 gm% (0.0-3.0); Hemoglobin (Hb) 11.5 g/dL (12.0-16.0); O2 Tension (PaO2) 107.4 mmHg (> 80.0); Potassium - ABG Lab 3.42 mmol/L (3.70-5.30); pH, Arterial 7.41 (7.35-7.45)
[2018-08-15 06:52] LABS: ALV-art Gradient 126.425 (0-20); Puncture Site RRA
--- NOTE | 2018-08-15 08:49 | PRG ---
DATE OF SERVICE: 08/15/2018 TIME SPENT: 35 minutes of critical care time. SUBJECTIVE: The patient remains intubated on mechanical ventilation. She is awake and will follow commands. OBJECTIVE: VITAL SIGNS: Temperature 98.6, pulse 77, and blood pressure 159/73. A 24-hour intake 2680 and output 1945. HEENT: Unremarkable. NECK: No JVD. LUNGS: Clear anteriorly. CARDIAC: S1 and S2. Regular. ABDOMEN: Soft, obese, nontender, and nondistended. EXTREMITIES: No clubbing, cyanosis, or edema. LABORATORY DATA: White blood cell count 21.3, hemoglobin 11, hematocrit 33.9, and platelet count 150. A pH of 7.41, pCO2 of 41, pO2 of 107, that is on SIMV rate 4, tidal volume 500, PEEP 5, pressure support 10, FiO2 of 40%. Sodium 139, potassium 3.6, chloride 102, CO2 of 24, BUN 77, creatinine 3.1, and glucose 249. Chest x-ray shows fairly clear lung ludwig. ASSESSMENT: 1. Status post septic shock from obstructive uropathy. 2. Acute respiratory failure requiring mechanical ventilation. 3. Sepsis syndrome, improved. 4. Obesity. PLAN: 1. She will be extubated. She will continue antibiotics. We will start her on a diet this afternoon. 2. Change to oral steroids tomorrow. Job ID: [id number]
--- NOTE | 2018-08-15 09:13 | PRG ---
DATE OF SERVICE: 08/15/2018 SUBJECTIVE: The patient did well over the past 24 hours. She is much more awake and the anticipation is to extubate her today. She has no pain and is wanting a cup of coffee. OBJECTIVE: VITAL SIGNS: Her vitals have been stable. Her T-max is 98.7, blood pressures improved at 150s to 160s for systolic. Heart rate now 91 and usually in the 60s or 70s with saturations are 97%, on mechanical ventilation. GASTROINTESTINAL: Her abdomen is soft, nondistended, nontender. She has no costovertebral angle tenderness. LABORATORY DATA: White count trending down at 21.3, but still with 87% neutrophils. Her creatinine is improved to 3.19 and again, she had put out 2 L over the past 24 hours of clear yellow urine. ASSESSMENT AND PLAN: We have a 68-year-old female, status post urgent stent for obstructing stone and urosepsis with acute renal failure slowly improving, who hopes to be extubated today. Continue IV antibiotics and anticipate that she will need 4 weeks of this and after she is discharged, she will follow up in the office to discuss definitive stone therapy. Job ID: [id number] MTDD
--- NOTE | 2018-08-15 09:16 | RAD ---
SINGLE VIEW CHEST: Date: 08/15/18 COMPARISON: 08/14/18. HISTORY: Ventilated patient with respiratory failure. FINDINGS: Single view of the chest shows an enlarged but stable cardiomediastinal silhouette. The endotracheal tube and NG tube are unchanged in position. Obscurity of the left hemidiaphragm may be secondary to t he patient's large heart or a small pleural effusion. IMPRESSION: Stable exam. POS: JEET
[2018-08-15] MEDS: methylPREDNISolone Sod Succ 40 MG VIAL IVP SCH ×2 (09:28→20:35)
[2018-08-15] MEDS: Pantoprazole 40 MG VIAL IVP SCH (09:32)
[2018-08-15] MEDS: Insulin Glargine 18 UNITS in Pre-Filled Syringe 1 EACH SC SCH ×2 (09:37→20:38)
[2018-08-15] MEDS: Heparin 5,000 UNITS/ML VIAL SC SCH ×2 (09:40→20:34)
[2018-08-15] MEDS: Aspirin 81 mg Enteric Coated Tablet PO SCH (09:50)
--- NOTE | 2018-08-15 11:19 | PRG ---
DATE OF SERVICE: 08/15/2018 SUBJECTIVE: Patient was seen and examined at bedside and overnight events noted. Patient denies any shortness of breath or chest pain or palpitation. No history of nausea or vomiting or diarrhea or fever or chills or cramps. OBJECTIVE: GENERAL: Morbidly obese -Irish female, in no apparent distress. VITAL SIGNS: Temperature 98.9, pulse 88, respiratory rate 23, and blood pressure 141/96. HEENT: Atraumatic, normocephalic. Oral mucosa is moist NECK: Supple. CARDIOVASCULAR: S1, S2 heard. Rate and rhythm regular. RESPIRATORY: Clear to auscultation. GASTROINTESTINAL: Abdomen is soft. MUSCULOSKELETAL: No tenderness. No edema. DERMATOLOGIC: No skin rash. NEUROLOGIC: Alert and awake and oriented X3. No focal neurologic deficits. Moving all the extremities. PSYCHIATRIC: Mood and affect normal. LABORATORY DATA: Hemoglobin is 11.0. Potassium 3.6, BUN is 77, and creatinine is 3.1. ASSESSMENT AND PLAN: 1. Acute kidney injury, improving. 2. Chronic kidney disease, stage 3. 3. Hypertension, stable. 4. Anemia. 5. Morbid obesity. 6. Edema, well controlled. 7. Obstructive uropathy, follow with Urology. We will continue to follow. No indication for dialysis. Avoid nephrotoxin. Job ID: [id number]
[2018-08-15] MEDS: hydrALAZINE 20 MG/ML VIAL SLOW IVP PRN (17:08)
--- NOTE | 2018-08-15 19:33 | PDOC.PN ---
- Subjective Encounter Start Date: 08/15/18 Encounter Start Time: 17:25 Subjective: f/u s/p extubation due resp failure in context sepsis, UTI E. coli and -: obstructive uropathy s/p L ureteral stent placement. Feels better off -: mech vent. Tolerating po intake. - Objective Resuscitation Status - Order Detail: 08/09/18 23:03 Resuscitation Status Routine Resuscitation Status: FULL: Full Resuscitation MAR Reviewed: Yes Vital Signs & Weight: Vital Signs (12 hours) Temp Pulse Resp Pulse Ox 08/15/18 18:43 84 17 96 08/15/18 17:08 76 08/15/18 16:00 97.9 F 08/15/18 14:37 76 17 99 08/15/18 12:00 98.7 F 08/15/18 11:54 96 08/15/18 10:22 71 17 97 08/15/18 08:15 76 17 100 08/15/18 08:00 98.9 F Weight Admit Weight 324 lb 14.4 oz Weight 350 lb 15.614 oz Most Recent Monitor Data Heart Rate from ECG 77 NIBP 143/86 NIBP BP-Mean 105 Respiration from ECG 19 SpO2 97 I&O: 08/14/18 08/15/18 08/16/18 06:59 06:59 06:59 Intake Total 2404 2680 1266 Output Total 1535 1945 1200 Balance 869 735 66 Result Diagrams: 08/15/18 04:30 08/15/18 04:30 Additional Labs: Accuchecks 08/15/18 08/15/18 08/15/18 15:54 11:28 10:56 POC Glucose 262 H 239 H 255 H 08/14/18 21:10 POC Glucose 256 H Microbiology 08/11/18 02:00 Nasopharynx - Swab Influenza Types A,B Direct EIA - Final 08/10/18 15:25 Urine voided Urine Culture - Final Escherichia coli 08/10/18 22:10 Venous blood - Left Hand Blood Culture - Preliminary Specimen has been received and culture in progress. No Growth to date. 08/10/18 22:04 Venous blood - Left Arm Blood Culture - Preliminary Specimen has been received and culture in progress. No Growth to date. 08/10/18 15:25 Urine voided Urine Culture - Preliminary Presumptive Escherichia coli Laboratory Tests 02/06/1508/09/18 08/09/18 21:28 21:28 21:58 WBC 20.9 H Hgb Neutrophils % (Manual) 87 H Band Neuts % (Manual) Carbon Dioxide Creatinine 1.66 H Hemoglobin A1c Lactic Acid Magnesium Creatine Kinase Troponin I B-Natriuretic Peptide 105.0 H Free T4 TSH 3rd Generation 08/10/18 08/10/18 08/10/18 04:55 04:55 19:17 WBC 17.5 H Hgb Neutrophils % (Manual) 91 H Band Neuts % (Manual) Carbon Dioxide Creatinine 1.86 H 2.68 H Hemoglobin A1c Lactic Acid Magnesium Creatine Kinase Troponin I B-Natriuretic Peptide Free T4 TSH 3rd Generation 08/10/18 08/10/18 08/10/18 19:17 19:17 22:04 WBC 6.9 Hgb Neutrophils % (Manual) Band Neuts % (Manual) 13 H Carbon Dioxide Creatinine Hemoglobin A1c Lactic Acid Magnesium Creatine Kinase Troponin I 0.036 H 0.051 H B-Natriuretic Peptide Free T4 TSH 3rd Generation 08/11/18 08/11/18 08/11/18 04:58 04:58 04:58 WBC Hgb Neutrophils % (Manual) Band Neuts % (Manual) Carbon Dioxide Creatinine 3.83 H Hemoglobin A1c Lactic Acid 1.7 Magnesium 1.6 Creatine Kinase 151 Troponin I 0.127 H B-Natriuretic Peptide Free T4 TSH 3rd Generation 08/11/18 08/11/18 08/11/18 04:59 04:59 04:59 WBC 35.2 H Hgb 11.1 L Neutrophils % (Manual) Band Neuts % (Manual) 24 H Carbon Dioxide Creatinine Hemoglobin A1c 6.6 H Lactic Acid Magnesium Creatine Kinase Troponin I B-Natriuretic Peptide Free T4 1.30 TSH 3rd Generation 2.5337 08/12/18 08/12/18 08/13/18 04:17 04:17 04:16 WBC 30.2 H Hgb 10.5 L Neutrophils % (Manual) Band Neuts % (Manual) 29 H Carbon Dioxide 25 Creatinine 4.28 H 4.93 H Hemoglobin A1c Lactic Acid Magnesium Creatine Kinase Troponin I B-Natriuretic Peptide Free T4 TSH 3rd Generation 08/13/18 08/14/18 08/14/18 04:16 04:10 04:10 WBC 25.7 H 26.4 H Hgb 10.6 L 10.8 L Neutrophils % (Manual) 83 H 79 H Band Neuts % (Manual) 11 13 H Carbon Dioxide Creatinine 4.26 H Hemoglobin A1c Lactic Acid Magnesium Creatine Kinase Troponin I B-Natriuretic Peptide Free T4 TSH 3rd Generation 08/14/18 20:00 WBC Hgb 11.1 L Neutrophils % (Manual) Band Neuts % (Manual) Carbon Dioxide Creatinine Hemoglobin A1c Lactic Acid Magnesium Creatine Kinase Troponin I B-Natriuretic Peptide Free T4 TSH 3rd Generation Radiology Reviewed by me: Yes (PCXR - lines/tubes in place) EKG Reviewed by me: Yes (Tele - SR) Phys Exam - Physical Examination Constitutional: NAD smiling, responsive HEENT: PERRLA, sclera anicteric, oral pharynx no lesions Neck: no nodes, no JVD, supple, full ROM Respiratory: no wheezing, no rales, no rhonchi, clear to auscultation bilateral S1, S2 Cardiovascular: RRR, no significant murmur, no rub, gallop morbidly obese Gastrointestinal: soft, non-tender, no distention, positive bowel sounds Musculoskeletal: pulses present, edema present Neurological: normal sensation, moves all 4 limbs Psychiatric: A&O x 3 Skin: normal turgor, cap refill <2 seconds Dx/Plan (1) Sepsis due to urinary tract infection Code(s): A41.9 - SEPSIS, UNSPECIFIED ORGANISM; N39.0 - URINARY TRACT INFECTION, SITE NOT SPECIFIED Status: Acute Comment: Continue Zosyn, E. coli pansensitive currently, continue IVF's, resolving (2) Acute respiratory failure with hypoxia and hypercapnia Code(s): J96.01 - ACUTE RESPIRATORY FAILURE WITH HYPOXIA; J96.02 - ACUTE RESPIRATORY FAILURE WITH HYPERCAPNIA Status: Acute Comment: Likely due to #1 , extubated 08/15/18 (3) Acute metabolic encephalopathy Code(s): G93.41 - METABOLIC ENCEPHALOPATHY Status: Acute Comment: Likely due to sepsis, metabolic component with hypercapnia, continue supportive mgmt as outlined above, resolving (4) [place] (acute kidney injury) Code(s): N17.9 - ACUTE KIDNEY FAILURE, UNSPECIFIED Status: Acute Comment: Suspect multifactorial with main component of sepsis, avoid nephrotoxic agents, monitor for return of renal function, appreciate Nephrology assistance, improving slowly (5) Dizziness Code(s): R42 - DIZZINESS AND GIDDINESS Status: Acute Comment: Unclear etiology, check carotid sono, TSH, Mg++, Echo pending, orthostatic vitals, A1C (6) Edema of right lower extremity Code(s): R60.0 - LOCALIZED EDEMA Status: Acute Comment: DVT r/o, ? chronic lymphedema due to morbid obesity (7) Neutrophilic leukocytosis Code(s): D72.9 - DISORDER OF WHITE BLOOD CELLS, UNSPECIFIED Status: Acute Comment: Slow improvement, serial CBC, continue Zosyn (8) DM w/o complication type II, uncontrolled Code(s): E11.65 - TYPE 2 DIABETES MELLITUS WITH HYPERGLYCEMIA Status: Chronic Comment: ISS, serial accuchecks (9) Morbid obesity Code(s): E66.01 - MORBID (SEVERE) OBESITY DUE TO EXCESS CALORIES Status: Chronic Comment: Dietary counseling, low-fat diet - Plan continue antibiotics, PT/OT, group social worker, respiratory therapy Stable currently -: Continue Zosyn -: Continue Solumedrol -: Continue low-volume IVF's -: Transfer to telemetry unit * AM lab: BMP, CBC
[2018-08-15] MEDS: Tamsulosin HCl 0.4 MG CAP PO SCH (20:33)
[2018-08-15] MEDS: Doxazosin 2 MG TAB PO SCH (20:33)
[2018-08-15] MEDS: Atorvastatin Calcium 40 MG TAB PO SCH (20:33)
[2018-08-16] MEDS: Piperacillin/Tazobactam 2.25 GM in Sodium Chloride 0.9% 100 ML IVPB SCH ×3 (05:19→17:25)
[2018-08-16 05:54] LABS: Hemoglobin 10.7 g/dL (12.0-16.0); Mean Corpuscular HGB CONC 32.5 g/dL (32.0-36.0); Mean Corpuscular Hemoglobin 28.4 pg (27.0-31.0); Mean Corpuscular Volume 87.2 fL (78.0-98.0); Mean Platelet Volume 9.6 fL (7.4-10.4); Platelet Count 159 thou/uL (130-400); RBC Distribution Width 13.8 % (11.5-14.5); Red Blood Cell (RBC) Count 3.75 mill/uL (4.20-5.40); White Blood Cell (WBC) Count 20.9 thou/uL (4.8-10.8)
[2018-08-16 06:00] LABS: Anion Gap 13 mmol/L (10-20); BUN (Urea Nitrogen) 72 mg/dL (9.8-20.1); Calc. Creatinine Clearance 58 mL/min (70-130); Carbon Dioxide 26 mmol/L (23-31); Chloride 106 mmol/L (98-107); Estimated GFR-MDRD 25; Glucose 191 mg/dL (80-115); Potassium 3.6 mmol/L (3.5-5.1); Sodium 141 mmol/L (136-145)
[2018-08-16 06:17] LABS: Band 5 % (5-11); Lymphocytes 17 % (21-51); MDiff Complete? YES; Metamyelocyte 1 % (0-0); Monocytes 5 % (0-10); Myelocyte 1 % (0-0); Neutrophil 71 % (42-75)
[2018-08-16] MEDS: HumaLOG 300 UNITS/3 ML VIAL SC PRN ×2 (07:22→11:16)
--- NOTE | 2018-08-16 07:58 | PRG ---
DATE OF SERVICE: 08/16/2018 SUBJECTIVE: She was successfully extubated yesterday. She continued in the ICU yesterday just to watch her to make sure she did not have any post respiratory failure complications. OBJECTIVE: GENERAL: She is awake, alert, very sarcastic this morning. VITAL SIGNS: On exam, her temperature is 98.9, pulse 79, blood pressure 145/72, O2 saturation 96%. Intake for 24 hours 2395, output 2720. HEENT: Unremarkable. NECK: No JVD. CARDIAC: S1, S2. Regular. LUNGS: Clear anteriorly. ABDOMEN: Soft, obese, nontender, nondistended. EXTREMITIES: Trace edema throughout. LABORATORY DATA: White blood cell count 20.9, hematocrit 32.7, and platelet count 159 with 71% neutrophils, 5% bands. Sodium 141, potassium 3.6, chloride 106, CO2 of 26, BUN 72, creatinine 2.3, glucose 191. ASSESSMENT: 1. Status post acute respiratory failure, requiring mechanical ventilation. 2. Status post urosepsis from obstructive ureteral calculi. 3. Improved renal dysfunction. PLAN: 1. This patient will continue antibiotics. 2. She can be transferred out to the floor and initiate physical therapy. I will wean her steroids. Job ID: [id number]
[2018-08-16] MEDS ORDERED: Potassium Chloride 20 MEQ TAB PO SCH (08:30)
[2018-08-16] MEDS: Heparin 5,000 UNITS/ML VIAL SC SCH ×2 (08:59→20:29)
[2018-08-16] MEDS: Aspirin 81 mg Enteric Coated Tablet PO SCH (08:59)
[2018-08-16] MEDS: Insulin Glargine 18 UNITS in Pre-Filled Syringe 1 EACH SC SCH ×2 (09:00→20:30)
[2018-08-16] MEDS: Labetalol HCl 100 MG/20 ML VIAL SLOW IVP PRN (12:04)
[2018-08-16 12:42] VITALS: BMI 51.2
--- NOTE | 2018-08-16 16:48 | PDOC.PN ---
- Subjective Encounter Start Date: 08/16/18 Encounter Start Time: 16:45 Subjective: f/u for sepsis due to UTI E. coli on Zosyn. Feels much better and no -: fevers. Tolerating po intake. s/p L ureteral stent due to obstructive -: calculi with improving renal function. - Objective Resuscitation Status - Order Detail: 08/09/18 23:03 Resuscitation Status Routine Resuscitation Status: FULL: Full Resuscitation MAR Reviewed: Yes Vital Signs & Weight: Vital Signs (12 hours) Temp Pulse Resp BP BP Pulse Ox 08/16/18 15:15 98.3 F 64 20 172/90 H 96 08/16/18 14:04 65 17 96 08/16/18 12:04 74 229/105 H 08/16/18 12:00 98.5 F 08/16/18 10:43 74 15 95 08/16/18 08:00 98.9 F 98 08/16/18 07:08 73 15 99 Weight Admit Weight 324 lb 14.4 oz Weight 346 lb 12.594 oz Most Recent Monitor Data Heart Rate from ECG 69 NIBP 170/81 NIBP BP-Mean 110 Respiration from ECG 16 SpO2 97 I&O: 08/15/18 08/16/18 08/17/18 06:59 06:59 06:59 Intake Total 2680 2395 500 Output Total 1945 2720 565 Balance 735 -325 -65 Result Diagrams: 08/16/18 05:15 08/16/18 05:15 Additional Labs: Accuchecks 08/16/18 08/16/18 08/15/18 11:13 06:29 20:38 POC Glucose 191 H 168 H 228 H Microbiology 08/11/18 02:00 Nasopharynx - Swab Influenza Types A,B Direct EIA - Final 08/10/18 15:25 Urine voided Urine Culture - Final Escherichia coli 08/10/18 22:10 Venous blood - Left Hand Blood Culture - Preliminary Specimen has been received and culture in progress. No Growth to date. 08/10/18 22:04 Venous blood - Left Arm Blood Culture - Preliminary Specimen has been received and culture in progress. No Growth to date. 08/10/18 15:25 Urine voided Urine Culture - Preliminary Presumptive Escherichia coli Laboratory Tests 08/09/18 08/09/18 08/09/18 21:28 21:28 21:58 WBC 20.9 H Hgb Neutrophils % (Manual) 87 H Band Neuts % (Manual) Carbon Dioxide Creatinine 1.66 H Hemoglobin A1c Lactic Acid Magnesium Creatine Kinase Troponin I B-Natriuretic Peptide 105.0 H Free T4 TSH 3rd Generation 08/10/18 08/10/18 08/10/18 04:55 04:55 19:17 WBC 17.5 H Hgb Neutrophils % (Manual) 91 H Band Neuts % (Manual) Carbon Dioxide Creatinine 1.86 H 2.68 H Hemoglobin A1c Lactic Acid Magnesium Creatine Kinase Troponin I B-Natriuretic Peptide Free T4 TSH 3rd Generation 08/10/18 08/10/18 08/10/18 19:17 19:17 22:04 WBC 6.9 Hgb Neutrophils % (Manual) Band Neuts % (Manual) 13 H Carbon Dioxide Creatinine Hemoglobin A1c Lactic Acid Magnesium Creatine Kinase Troponin I 0.036 H 0.051 H B-Natriuretic Peptide Free T4 TSH 3rd Generation 08/11/18 08/11/18 08/11/18 04:58 04:58 04:58 WBC Hgb Neutrophils % (Manual) Band Neuts % (Manual) Carbon Dioxide Creatinine 3.83 H Hemoglobin A1c Lactic Acid 1.7 Magnesium 1.6 Creatine Kinase 151 Troponin I 0.127 H B-Natriuretic Peptide Free T4 TSH 3rd Generation 08/11/18 08/11/18 08/11/18 04:59 04:59 04:59 WBC 35.2 H Hgb 11.1 L Neutrophils % (Manual) Band Neuts % (Manual) 24 H Carbon Dioxide Creatinine Hemoglobin A1c 6.6 H Lactic Acid Magnesium Creatine Kinase Troponin I B-Natriuretic Peptide Free T4 1.30 TSH 3rd Generation 2.5337 08/12/18 08/12/18 08/13/18 04:17 04:17 04:16 WBC 30.2 H Hgb 10.5 L Neutrophils % (Manual) Band Neuts % (Manual) 29 H Carbon Dioxide 25 Creatinine 4.28 H 4.93 H Hemoglobin A1c Lactic Acid Magnesium Creatine Kinase Troponin I B-Natriuretic Peptide Free T4 TSH 3rd Generation 08/13/18 08/14/18 08/14/18 04:16 04:10 04:10 WBC 25.7 H 26.4 H Hgb 10.6 L 10.8 L Neutrophils % (Manual) 83 H 79 H Band Neuts % (Manual) 11 13 H Carbon Dioxide Creatinine 4.26 H Hemoglobin A1c Lactic Acid Magnesium Creatine Kinase Troponin I B-Natriuretic Peptide Free T4 TSH 3rd Generation 08/14/18 08/15/18 08/15/18 20:00 04:30 04:30 WBC 21.3 H Hgb 11.1 L Neutrophils % (Manual) 87 H Band Neuts % (Manual) Carbon Dioxide Creatinine 3.19 H Hemoglobin A1c Lactic Acid Magnesium Creatine Kinase Troponin I B-Natriuretic Peptide Free T4 TSH 3rd Generation 08/16/18 05:15 WBC Hgb Neutrophils % (Manual) 71 Band Neuts % (Manual) Carbon Dioxide Creatinine Hemoglobin A1c Lactic Acid Magnesium Creatine Kinase Troponin I B-Natriuretic Peptide Free T4 TSH 3rd Generation Phys Exam - Physical Examination Constitutional: NAD HEENT: PERRLA, sclera anicteric, oral pharynx no lesions Neck: no nodes, no JVD, supple, full ROM Respiratory: no wheezing, no rales, no rhonchi, clear to auscultation bilateral S1, S2 Cardiovascular: RRR, no significant murmur, no rub, gallop Gastrointestinal: soft, non-tender, no distention, positive bowel sounds Musculoskeletal: pulses present, edema present Neurological: normal sensation, moves all 4 limbs Psychiatric: A&O x 3 Skin: normal turgor, cap refill <2 seconds Dx/Plan (1) Sepsis due to urinary tract infection Code(s): A41.9 - SEPSIS, UNSPECIFIED ORGANISM; N39.0 - URINARY TRACT INFECTION, SITE NOT SPECIFIED Status: Acute Comment: Continue Zosyn, E. coli pansensitive currently, continue IVF's, resolving (2) Acute respiratory failure with hypoxia and hypercapnia Code(s): J96.01 - ACUTE RESPIRATORY FAILURE WITH HYPOXIA; J96.02 - ACUTE RESPIRATORY FAILURE WITH HYPERCAPNIA Status: Acute Comment: Likely due to #1 , extubated 08/15/18 (3) Acute metabolic encephalopathy Code(s): G93.41 - METABOLIC ENCEPHALOPATHY Status: Acute Comment: Likely due to sepsis, metabolic component with hypercapnia, continue supportive mgmt as outlined above, resolving (4) [place] (acute kidney injury) Code(s): N17.9 - ACUTE KIDNEY FAILURE, UNSPECIFIED Status: Acute Comment: Suspect multifactorial with main component of sepsis, avoid nephrotoxic agents, monitor for return of renal function, appreciate Nephrology assistance, improving slowly (5) Dizziness Code(s): R42 - DIZZINESS AND GIDDINESS Status: Acute Comment: Resolved, likely due to #1 (6) Edema of right lower extremity Code(s): R60.0 - LOCALIZED EDEMA Status: Acute Comment: DVT r/o, ? chronic lymphedema due to morbid obesity (7) Neutrophilic leukocytosis Code(s): D72.9 - DISORDER OF WHITE BLOOD CELLS, UNSPECIFIED Status: Acute Comment: Slow improvement, serial CBC, continue Zosyn (8) DM w/o complication type II, uncontrolled Code(s): E11.65 - TYPE 2 DIABETES MELLITUS WITH HYPERGLYCEMIA Status: Chronic Comment: ISS, serial accuchecks (9) Morbid obesity Code(s): E66.01 - MORBID (SEVERE) OBESITY DUE TO EXCESS CALORIES Status: Chronic Comment: Dietary counseling, low-fat diet - Plan plan discussed w/ family, continue antibiotics, PT/OT, case management social worker, out of bed/ambulate, DVT proph w/SCDs stable currently -: Continue Zosyn another 24h -: Continue low-volume IVF's -: SNF option, likely [facility] in 48h -: AM lab: BMP, CBC * .
[2018-08-16] MEDS: Sodium Chloride 0.9% 1,000 ML IV SCH (17:28)
--- NOTE | 2018-08-16 17:40 | PRG ---
DATE OF SERVICE: 08/16/2018 SUBJECTIVE: The patient got transferred to the floor and is doing well. She has no specific complaints. She does normally void in the toilet, but does have urge incontinence wearing four to five poise pads a day. She currently still has a Palomares catheter in. Vital signs have been stable, but her blood pressure is back up again and she is saturating well on 3 L. The urine is clear yellow in the Palomares catheter. LABORATORY DATA: Reveal a stable H and H. Creatinine is continuing to coming down at 2.32 and the white count is slowly coming down to 20.9. ASSESSMENT: We have a 68-year-old female slowly getting better from urgent stent for urosepsis and obstructing stone. We reviewed how we will let her get out of the hospital and heal and get her strength back, but ultimately she will be seen in the office to discuss definitive stone therapy. Job ID: [id number] MTDD
--- NOTE | 2018-08-16 17:53 | PRG ---
DATE OF SERVICE: 08/16/2018 SUBJECTIVE: Patient was seen and examined at bedside and overnight events noted. Patient denies any shortness of breath or chest pain or palpitation. No history of nausea or vomiting or diarrhea or fever or chills or cramps. OBJECTIVE: GENERAL: This is an obese female, in no apparent distress. VITAL SIGNS: Temperature 98.3. Heart rate 64. Respiratory rate 23. Blood pressure 160/82. HEENT: Atraumatic, normocephalic. Oral mucosa is moist NECK: Supple. CARDIOVASCULAR: S1, S2 heard. Rate and rhythm regular. RESPIRATORY: Clear to auscultation. GASTROINTESTINAL: Abdomen is soft. MUSCULOSKELETAL: No tenderness. No edema. DERMATOLOGIC: No skin rash. NEUROLOGIC: Alert and awake and oriented X3. No focal neurologic deficits. Moving all the extremities. PSYCHIATRIC: Mood and affect normal. LABORATORY DATA: Potassium is 3.6, BUN is 72, and creatinine is 2.3. ASSESSMENT AND PLAN: 1. Acute kidney injury on chronic kidney disease, stage 3. 2. Hypertension. 3. Anemia. 4. Morbid obesity. 5. Edema. 6. Obstructive uropathy. Renal function continues to get better. Avoid nephrotoxins. We will follow. Job ID: [id number]
[2018-08-16] MEDS: Atorvastatin Calcium 40 MG TAB PO SCH (20:28)
[2018-08-16] MEDS: Tamsulosin HCl 0.4 MG CAP PO SCH (20:29)
[2018-08-16] MEDS: Doxazosin 2 MG TAB PO SCH (20:29)
[2018-08-17] MEDS: Piperacillin/Tazobactam 2.25 GM in Sodium Chloride 0.9% 100 ML IVPB SCH ×4 (00:06→18:14)
[2018-08-17] MEDS: Sodium Chloride 0.9% 1,000 ML IV SCH (04:08)
[2018-08-17 08:40] LABS: Hemoglobin 10.6 g/dL (12.0-16.0); Mean Corpuscular HGB CONC 31.4 g/dL (32.0-36.0); Mean Corpuscular Hemoglobin 28.2 pg (27.0-31.0); Mean Corpuscular Volume 89.8 fL (78.0-98.0); Mean Platelet Volume 9.1 fL (7.4-10.4); Platelet Count 179 thou/uL (130-400); RBC Distribution Width 14.1 % (11.5-14.5); Red Blood Cell (RBC) Count 3.76 mill/uL (4.20-5.40); White Blood Cell (WBC) Count 18.1 thou/uL (4.8-10.8)
[2018-08-17] MEDS: Insulin Glargine 18 UNITS in Pre-Filled Syringe 1 EACH SC SCH ×2 (08:42→20:36)
[2018-08-17] MEDS: Aspirin 81 mg Enteric Coated Tablet PO SCH (08:42)
[2018-08-17] MEDS: Heparin 5,000 UNITS/ML VIAL SC SCH ×2 (08:43→20:37)
[2018-08-17 08:58] LABS: Anion Gap 13 mmol/L (10-20); BUN (Urea Nitrogen) 52 mg/dL (9.8-20.1); Calc. Creatinine Clearance 73 mL/min (70-130); Calcium 8.2 mg/dL (7.8-10.44); Carbon Dioxide 23 mmol/L (23-31); Chloride 110 mmol/L (98-107); Estimated GFR-MDRD 33; Glucose 166 mg/dL (80-115); Potassium 3.1 mmol/L (3.5-5.1); Sodium 143 mmol/L (136-145)
--- NOTE | 2018-08-17 09:03 | PRG ---
DATE OF SERVICE: 08/17/2018 SUBJECTIVE: The patient is doing fairly well. Has no complaints. OBJECTIVE: VITAL SIGNS: Temperature 97.7, pulse 73, respirations 20, sat 93%, blood pressure 160/74. HEENT: Unremarkable. NECK: No JVD. LUNGS: Clear. CARDIAC: S1 and S2. Regular. ABDOMEN: Soft nontender. EXTREMITIES: No edema. LABORATORY DATA: No new labs were obtained today. ASSESSMENT: 1. Status post mechanical ventilation related to urosepsis with septic shock. 2. Likely underlying obstructive sleep apnea. PLAN: Continue antibiotics. Steroids have been discontinued. Likely ready to go home soon. No further pulmonary recommendations. Job ID: [id number]
[2018-08-17 10:02] LABS: Band 2 % (5-11); Eosinophils 3 % (0-10); Lymphocytes 15 % (21-51); MDiff Complete? YES; Metamyelocyte 1 % (0-0); Monocytes 9 % (0-10); Myelocyte 1 % (0-0); Neutrophil 69 % (42-75); Polychromasia SLIGHT = 2-3 cells (100X) (0-2/hpf)
--- NOTE | 2018-08-17 13:53 | PDOC.PN ---
- Subjective Encounter Start Date: 08/17/18 Encounter Start Time: 11:25 Subjective: feels better, eating well -: no sob or abd pain -: is moving all extremities - Objective Resuscitation Status - Order Detail: 08/09/18 23:03 Resuscitation Status Routine Resuscitation Status: FULL: Full Resuscitation MAR Reviewed: Yes Vital Signs & Weight: Vital Signs (12 hours) Temp Pulse Resp BP Pulse Ox 08/17/18 12:00 97.4 F L 63 20 184/66 H 93 L 08/17/18 10:47 64 20 08/17/18 08:00 97.7 F 73 93 L 08/17/18 07:53 97.7 F 73 20 162/74 H 93 L 08/17/18 07:41 73 20 93 L 08/17/18 04:09 97.7 F 85 20 162/74 H 94 L 08/17/18 02:34 71 16 97 Weight Admit Weight 324 lb 14.4 oz Weight 346 lb 12.594 oz Most Recent Monitor Data Heart Rate from ECG 69 NIBP 170/81 NIBP BP-Mean 110 Respiration from ECG 16 SpO2 97 I&O: 08/16/18 08/17/18 08/18/18 06:59 06:59 06:59 Intake Total 2395 1688 240 Output Total 2720 1565 Balance -325 123 240 Result Diagrams: 08/17/18 08:19 08/17/18 08:19 Additional Labs: Accuchecks 08/17/18 08/17/18 08/16/18 11:22 05:41 19:55 POC Glucose 146 H 113 H 163 H 08/16/18 16:15 POC Glucose 147 H Phys Exam - Physical Examination HEENT: PERRLA, moist MMs Neck: no JVD, supple Respiratory: no wheezing, no rales Cardiovascular: RRR, no significant murmur Gastrointestinal: soft, non-tender, positive bowel sounds Musculoskeletal: no edema, pulses present Neurological: non-focal, moves all 4 limbs Psychiatric: normal affect, A&O x 3 Dx/Plan (1) Sepsis due to urinary tract infection Code(s): A41.9 - SEPSIS, UNSPECIFIED ORGANISM; N39.0 - URINARY TRACT INFECTION, SITE NOT SPECIFIED Status: Acute Comment: Continue Zosyn, E. 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 Diabetes mellitus complication status: with unspecified complications Qualified Code(s) : E11.8 - Type 2 diabetes mellitus with unspecified complications; Z79.4 - senior care (current) use of insulin (5) Acute metabolic encephalopathy Code(s): G93.41 - METABOLIC ENCEPHALOPATHY Status: Acute (6) Acute respiratory failure with hypoxia and hypercapnia Code(s): J96.01 - ACUTE RESPIRATORY FAILURE WITH HYPOXIA; J96.02 - ACUTE RESPIRATORY FAILURE WITH HYPERCAPNIA Status: Resolved Comment: extubated (7) Morbid obesity Code(s): E66.01 - MORBID (SEVERE) OBESITY DUE TO EXCESS CALORIES Status: Chronic Comment: Dietary counseling, low-fat diet - Plan is on zosyn, dc iv fluids, encourage po fluids -: PT to mobilize as tolerated -: [place] is slowly resolving -: wbc is trending down -: cotninue asp, lipitor, clonidine, cardura, lantus * . Review of Systems - Medications/Allergies Allergies/Adverse Reactions: Allergies Allergy/AdvReac Type Severity Reaction Status Date / Time No Known Allergies Allergy Verified 01/14/15 19:46 Medications: Current Medications Acetaminophen (Tylenol) 650 mg PO Q4H PRN PRN Reason: Headache/Fever/Mild Pain (1-3) Last Admin: 08/12/18 03:32 Dose: 650 mg Albuterol/Ipratropium (Duoneb) 3 ml NEB [id number] [facility] Last Admin: 08/17/18 10:47 Dose: 3 ml Aspirin (Ecotrin) 81 mg PO DAILY [facility] Last Admin: 08/17/18 08:42 Dose: 81 mg Atorvastatin Calcium (Lipitor) 40 mg PO HS [facility] Last Admin: 08/16/18 20:28 Dose: 40 mg Cholecalciferol (Vitamin D3) 1,000 units PO DAILY [facility] Last Admin: 08/17/18 08:42 Dose: 1,000 units Clonidine (Oxnemqns-Edu-5) 0.2 mg TD Q7D [facility] Dextrose/Water (Dextrose 50%) 25 gm SLOW IVP PRN PRN PRN Reason: Hypoglycemia Doxazosin Mesylate (Cardura) 1 mg PO HS [facility] Last Admin: 08/16/18 20:29 Dose: 1 mg Glucagon (Glucagon) 1 mg IM PRN PRN PRN Reason: Hypoglycemia Heparin Sodium (Porcine) (Heparin) 5,000 units SC BID [facility] Last Admin: 08/17/18 08:43 Dose: 5,000 units Hydralazine HCl (Apresoline) 10 mg SLOW IVP Q4H PRN PRN Reason: SBP>180 OR DBP>100 Last Admin: 08/15/18 17:08 Dose: 10 mg Hydralazine HCl (Apresoline) 20 mg SLOW IVP Q4H PRN PRN Reason: SBP < 180 Last Admin: 08/13/18 23:31 Dose: 20 mg Dextrose/Water (D5w) 1,000 mls @ 0 mls/hr IV .Q0M PRN PRN Reason: Hypoglycemia Insulin Glargine 18 units/ (Miscellaneous Medication) 0.18 mls @ 0 mls/hr SC BID [facility] Last Admin: 08/17/18 08:42 Dose: 0.18 mls Piperacillin Sod/Tazobactam (Sod 2.25 gm/ Sodium Chloride) 100 mls @ 200 mls/ hr IVPB Q6HR [facility] Last Admin: 08/17/18 11:53 Dose: 100 mls Insulin Human Lispro (Humalog) 0 units SC .MODERATE SLIDING SC PRN PRN Reason: Moderate Correctional Scale Last Admin: 08/16/18 11:16 Dose: 2 unit Insulin Human Lispro (Humalog) 0 units SC .BEDTIME SLIDING SC PRN PRN Reason: Bedtime Correctional Scale Last Admin: 08/13/18 20:28 Dose: 3 unit Labetalol HCl (Normodyne) 20 mg SLOW IVP Q4H PRN PRN Reason: SBP Greater Than 180 Last Admin: 08/16/18 12:04 Dose: 20 mg Discontinue Previous Narcotic Pain Medications And Benzodiazepines 1 each FS .ONE [facility] Stop: 09/11/18 14:34 Discontinue Previous Narcotic Pain Medications And Benzodiazepines 1 each FS .ONE [facility] Stop: 09/11/18 14:57 Ondansetron HCl (Zofran Odt) 4 mg PO Q6H PRN PRN Reason: Nausea/Vomiting Pantoprazole Sodium (Protonix) 40 mg PO DAILY [facility] Last Admin: 08/17/18 08:42 Dose: 40 mg Sodium Chloride (Flush - Normal Saline) 10 ml IVF Q12HR [facility] Last Admin: 08/17/18 08:44 Dose: 10 ml Sodium Chloride (Normal Saline Pf) 10 ml FS PRN PRN PRN Reason: RECONSTITUTION Last Admin: 08/14/18 08:23 Dose: 10 ml Tamsulosin HCl (Flomax) 0.4 mg PO HS [facility] Last Admin: 08/16/18 20:29 Dose: 0.4 mg
--- NOTE | 2018-08-17 16:57 | PRG ---
DATE OF SERVICE: 08/17/2018 SUBJECTIVE: Patient was seen and examined at bedside and overnight events noted. Patient denies any shortness of breath or chest pain or palpitation. No history of nausea or vomiting or diarrhea or fever or chills or cramps. OBJECTIVE: GENERAL: This is a morbidly obese female in no apparent distress. VITAL SIGNS: Temperature 97.6. Heart rate 70. Respiratory rate 14. Blood pressure 144/89. HEENT: Atraumatic, normocephalic. Oral mucosa is moist NECK: Supple. CARDIOVASCULAR: S1, S2 heard. Rate and rhythm regular. RESPIRATORY: Clear to auscultation. GASTROINTESTINAL: Abdomen is soft. MUSCULOSKELETAL: No tenderness. No edema. DERMATOLOGIC: No skin rash. NEUROLOGIC: Alert and awake and oriented X3. No focal neurologic deficits. Moving all the extremities. PSYCHIATRIC: Mood and affect normal. LABORATORY DATA: Potassium is 3.1, BUN is 52, and creatinine is 1.8. ASSESSMENT AND PLAN: 1. Acute kidney injury, getting better. 2. Chronic kidney disease, stage 3, stable. 3. Edema, controlled. 4. Anemia. 5. Morbid obesity. Renal function is getting better. Avoid nephrotoxins. Job ID: [id number]
--- NOTE | 2018-08-17 17:41 | PRG ---
DATE OF SERVICE: 08/17/2018 SUBJECTIVE: She is resting very comfortably in a good now, but arousable and appropriate. She has no complaints and does agree that it would be nice to get the catheter out. She is peeing a good amount of urine out, so we will anticipate not removing that in the middle of the day, but tomorrow morning this. OBJECTIVE: VITAL SIGNS: Have been stable and afebrile. Saturating 92% on 2 L nasal cannula with a blood pressure is somewhat improved, but still with dealing with hypertension. LABORATORY VALUES: Reveal a white count still coming down slowly and her creatinine is still improvement at 1.84 today. ASSESSMENT AND PLAN: We have a 68-year-old female with urosepsis, status post urgent stent for obstructive stone with renal failure, slowly improving. We will discontinue the catheter in the morning and hope that she is ready for discharge sooner than later, and then she can follow up as an outpatient to arrange definitive stone therapy. Job ID: [id number]
[2018-08-17] MEDS ORDERED: Nystatin Powder 15 GM BOT TOP PRN (19:25)
[2018-08-17] MEDS: Tamsulosin HCl 0.4 MG CAP PO SCH (20:35)
[2018-08-17] MEDS: Atorvastatin Calcium 40 MG TAB PO SCH (20:35)
[2018-08-17] MEDS: Doxazosin 2 MG TAB PO SCH (20:36)
[2018-08-17] MEDS: Nystatin Powder 15 GM BOT TOP SCH (20:41)
[2018-08-17] MEDS: hydrALAZINE 20 MG/ML VIAL SLOW IVP PRN (20:43)
[2018-08-18] MEDS: Piperacillin/Tazobactam 2.25 GM in Sodium Chloride 0.9% 100 ML IVPB SCH ×2 (00:21→05:16)
[2018-08-18 06:42] LABS: Hemoglobin 10.1 g/dL (12.0-16.0); Mean Corpuscular HGB CONC 31.2 g/dL (32.0-36.0); Mean Corpuscular Hemoglobin 27.9 pg (27.0-31.0); Mean Corpuscular Volume 89.2 fL (78.0-98.0); Platelet Count 198 thou/uL (130-400); RBC Distribution Width 13.9 % (11.5-14.5); Red Blood Cell (RBC) Count 3.64 mill/uL (4.20-5.40); White Blood Cell (WBC) Count 16.5 thou/uL (4.8-10.8)
[2018-08-18 06:49] LABS: Anion Gap 10 mmol/L (10-20); BUN (Urea Nitrogen) 38 mg/dL (9.8-20.1); Calc. Creatinine Clearance 86 mL/min (70-130); Calcium 8.1 mg/dL (7.8-10.44); Carbon Dioxide 25 mmol/L (23-31); Chloride 110 mmol/L (98-107); Estimated GFR-MDRD 40; Glucose 132 mg/dL (80-115); Potassium 3.1 mmol/L (3.5-5.1); Sodium 142 mmol/L (136-145)
[2018-08-18 08:12] LABS: Band 6 % (5-11); Eosinophils 4 % (0-10); Hypochromia SLIGHT = 6-15 cells (100X) (0-5/hpf); Lymphocytes 9 % (21-51); MDiff Complete? YES; Metamyelocyte 5 % (0-0); Monocytes 10 % (0-10); Neutrophil 66 % (42-75); Platelet Morphology Comment Appears Adequate; Polychromasia SLIGHT = 2-3 cells (100X) (0-2/hpf); Schistocytes SLIGHT = 2-5 cells (100X) (0-1/hpf)
--- NOTE | 2018-08-18 08:27 | PRG ---
DATE OF SERVICE: 08/18/2018 SUBJECTIVE: The patient is sleeping. OBJECTIVE: GENERAL: Does not appear to be in any distress. VITAL SIGNS: On exam, temperature 97.7, pulse 65, respirations 18, O2 saturation 95%, blood pressure 171/84. HEENT: Unremarkable. NECK: No JVD. CHEST: Clear anteriorly. CARDIAC: S1, S2. Regular. ABDOMEN: Soft. EXTREMITIES: No edema. LABORATORY DATA: White blood cell count 16.5, hematocrit 32.5, and platelet count 198. Sodium 142, potassium 3.1, chloride 110, CO2 of 25, BUN 38, creatinine 1.5, and glucose 132. ASSESSMENT: 1. Urosepsis, which is improved. 2. Underlying obstructive sleep apnea, which she refuses to treat. PLAN: From Pulmonary standpoint, she is stable for discharge. She can be switched over to oral antibiotics. Duration of treatment as long as it is felt appropriate by Urology. No further Pulmonary recommendations. We will sign off. Job ID: [id number]
[2018-08-18] MEDS: Aspirin 81 mg Enteric Coated Tablet PO SCH (09:25)
[2018-08-18] MEDS: Insulin Glargine 18 UNITS in Pre-Filled Syringe 1 EACH SC SCH ×2 (09:26→21:06)
[2018-08-18] MEDS: Nystatin Powder 15 GM BOT TOP SCH ×2 (09:26→21:06)
[2018-08-18] MEDS: Heparin 5,000 UNITS/ML VIAL SC SCH ×2 (09:26→21:05)
[2018-08-18] MEDS: Cefdinir 300 MG CAP PO SCH (09:26)
[2018-08-18] MEDS: Potassium Chloride 20 MEQ TAB PO SCH ×2 (09:26→17:21)
--- NOTE | 2018-08-18 10:29 | PRG ---
DATE OF SERVICE: 08/18/2018 SUBJECTIVE: Patient was seen and examined at bedside and overnight events noted. Patient denies any shortness of breath or chest pain or palpitation. No history of nausea or vomiting or diarrhea or fever or chills or cramps. OBJECTIVE: GENERAL: This is a morbidly obese female in no apparent distress. VITAL SIGNS: Temperature 97.7. Heart rate 65. Respiratory rate 18. Blood pressure 116/67. HEENT: Atraumatic, normocephalic. Oral mucosa is moist NECK: Supple. CARDIOVASCULAR: S1, S2 heard. Rate and rhythm regular. RESPIRATORY: Clear to auscultation. GASTROINTESTINAL: Abdomen is soft. MUSCULOSKELETAL: No tenderness. No edema. DERMATOLOGIC: No skin rash. NEUROLOGIC: Alert and awake and oriented X3. No focal neurologic deficits. Moving all the extremities. PSYCHIATRIC: Mood and affect normal. LABORATORY DATA: Potassium is 3.1, BUN is 38, creatinine is 1.5. ASSESSMENT AND PLAN: 1. Acute kidney injury, getting better. 2. Edema, controlled. 3. Hypokalemia, replaced. We will monitor. 4. Anemia. 5. Morbid obesity. 6. Hypertension, stable. Renal function is getting better. Avoid nephrotoxins. Job ID: [id number]
--- NOTE | 2018-08-18 11:05 | PDOC.PN ---
- Subjective Encounter Start Date: 08/18/18 Encounter Start Time: 10:00 Subjective: is sitting chair and sleeping off -: no trouble breathing or abd pain - Objective Resuscitation Status - Order Detail: 08/09/18 23:03 Resuscitation Status Routine Resuscitation Status: FULL: Full Resuscitation MAR Reviewed: Yes Vital Signs & Weight: Vital Signs (12 hours) Temp Pulse Resp BP Pulse Ox 08/18/18 07:56 97.7 F 65 18 171/84 H 95 08/18/18 07:07 79 16 97 08/18/18 05:23 70 18 167/66 H 93 L 08/18/18 01:52 73 18 97 08/18/18 00:10 69 20 159/77 H 94 L Weight Admit Weight 324 lb 14.4 oz Weight 346 lb 12.594 oz Most Recent Monitor Data Heart Rate from ECG 69 NIBP 170/81 NIBP BP-Mean 110 Respiration from ECG 16 SpO2 97 I&O: 08/17/18 08/18/18 08/19/18 06:59 06:59 06:59 Intake Total 1688 1420 Output Total 1565 1850 Balance 123 -430 Result Diagrams: 08/18/18 06:05 08/18/18 06:05 Additional Labs: Accuchecks 08/18/18 08/17/18 08/17/18 05:23 20:33 16:52 POC Glucose 149 H 165 H 136 H 08/17/18 11:22 POC Glucose 146 H Phys Exam - Physical Examination HEENT: PERRLA, moist MMs Neck: no JVD, supple Respiratory: no wheezing, no rales Cardiovascular: RRR, no significant murmur Gastrointestinal: soft, non-tender, positive bowel sounds Musculoskeletal: no edema, pulses present Neurological: non-focal, moves all 4 limbs oriented well but sleeps back very quickly Dx/Plan (1) Sepsis due to urinary tract infection Code(s): A41.9 - SEPSIS, UNSPECIFIED ORGANISM; N39.0 - URINARY TRACT INFECTION, SITE NOT SPECIFIED Status: Resolved Comment: Continue Zosyn, E. coli pansensitive (2) UTI (urinary tract infection) Status: Acute Qualifiers: Urinary tract infection type: acute cystitis Hematuria presence: without hematuria Qualified Code(s): N30.00 - Acute cystitis without hematuria (3) [place] (acute kidney injury) Code(s): N17.9 - ACUTE KIDNEY FAILURE, UNSPECIFIED Status: Acute (4) DM type 2 (diabetes mellitus, type 2) Status: Chronic Qualifiers: Diabetes mellitus oil heaterman insulin use: with oil heaterman use Diabetes mellitus complication status: with unspecified complications Qualified Code(s) : E11.8 - Type 2 diabetes mellitus with unspecified complications; Z79.4 - intermediate project manager (current) use of insulin (5) Acute metabolic encephalopathy Code(s): G93.41 - METABOLIC ENCEPHALOPATHY Status: Resolved (6) Acute respiratory failure with hypoxia and hypercapnia Code(s): J96.01 - ACUTE RESPIRATORY FAILURE WITH HYPOXIA; J96.02 - ACUTE RESPIRATORY FAILURE WITH HYPERCAPNIA Status: Resolved Comment: extubated (7) Morbid obesity Code(s): E66.01 - MORBID (SEVERE) OBESITY DUE TO EXCESS CALORIES Status: Chronic Comment: Dietary counseling, low-fat diet - Plan likely has ARI, per pulm notes has refused to comply -: is awaiting PT/OT to mobilize her -: will need swing/rehab based on above evals -: continue clonidine, asp, lipitor, lantus, cardura, flomax -: switch zosyn to cipro * . Review of Systems - Medications/Allergies Allergies/Adverse Reactions: Allergies Allergy/AdvReac Type Severity Reaction Status Date / Time No Known Allergies Allergy Verified 01/14/15 19:46 Medications: Current Medications Acetaminophen (Tylenol) 650 mg PO Q4H PRN PRN Reason: Headache/Fever/Mild Pain (1-3) Last Admin: 08/12/18 03:32 Dose: 650 mg Albuterol/Ipratropium (Duoneb) 3 ml NEB [id number] [facility] Aspirin (Ecotrin) 81 mg PO DAILY [facility] Last Admin: 08/18/18 09:25 Dose: 81 mg Atorvastatin Calcium (Lipitor) 40 mg PO HS [facility] Last Admin: 08/17/18 20:35 Dose: 40 mg Cefdinir (Omnicef) 600 mg PO DAILY [facility] Last Admin: 08/18/18 09:26 Dose: 600 mg Cholecalciferol (Vitamin D3) 1,000 units PO DAILY [facility] Last Admin: 08/18/18 09:25 Dose: 1,000 units Clonidine (Bnufcylk-Mlx-1) 0.2 mg TD Q7D [facility] Dextrose/Water (Dextrose 50%) 25 gm SLOW IVP PRN PRN PRN Reason: Hypoglycemia Doxazosin Mesylate (Cardura) 1 mg PO HS [facility] Last Admin: 08/17/18 20:36 Dose: 1 mg Glucagon (Glucagon) 1 mg IM PRN PRN PRN Reason: Hypoglycemia Heparin Sodium (Porcine) (Heparin) 5,000 units SC BID [facility] Last Admin: 08/18/18 09:26 Dose: 5,000 units Hydralazine HCl (Apresoline) 10 mg SLOW IVP Q4H PRN PRN Reason: SBP>180 OR DBP>100 Last Admin: 08/17/18 20:43 Dose: 10 mg Hydralazine HCl (Apresoline) 20 mg SLOW IVP Q4H PRN PRN Reason: SBP < 180 Last Admin: 08/13/18 23:31 Dose: 20 mg Dextrose/Water (D5w) 1,000 mls @ 0 mls/hr IV .Q0M PRN PRN Reason: Hypoglycemia Insulin Glargine 18 units/ (Miscellaneous Medication) 0.18 mls @ 0 mls/hr SC BID [facility] Last Admin: 08/18/18 09:26 Dose: 0.18 mls Insulin Human Lispro (Humalog) 0 units SC .MODERATE SLIDING SC PRN PRN Reason: Moderate Correctional Scale Last Admin: 08/16/18 11:16 Dose: 2 unit Insulin Human Lispro (Humalog) 0 units SC .BEDTIME SLIDING SC PRN PRN Reason: Bedtime Correctional Scale Last Admin: 08/13/18 20:28 Dose: 3 unit Labetalol HCl (Normodyne) 20 mg SLOW IVP Q4H PRN PRN Reason: SBP Greater Than 180 Last Admin: 08/16/18 12:04 Dose: 20 mg Discontinue Previous Narcotic Pain Medications And Benzodiazepines 1 each FS .ONE [facility] Stop: 09/11/18 14:34 Discontinue Previous Narcotic Pain Medications And Benzodiazepines 1 each FS .ONE [facility] Stop: 09/11/18 14:57 Nystatin (Mycostatin Powder) 0 gm TOP BID [facility] Last Admin: 08/18/18 09:26 Dose: 1 appful Nystatin (Mycostatin Powder) 0 gm TOP PRN PRN PRN Reason: Topical Irritations Ondansetron HCl (Zofran Odt) 4 mg PO Q6H PRN PRN Reason: Nausea/Vomiting Pantoprazole Sodium (Protonix) 40 mg PO DAILY [facility] Last Admin: 08/18/18 09:25 Dose: 40 mg Potassium Chloride (K-Dur) 40 meq PO BID-WM [facility] Last Admin: 08/18/18 09:26 Dose: 40 meq Sodium Chloride (Flush - Normal Saline) 10 ml IVF Q12HR [facility] Last Admin: 08/18/18 09:27 Dose: 10 ml Sodium Chloride (Normal Saline Pf) 10 ml FS PRN PRN PRN Reason: RECONSTITUTION Last Admin: 08/14/18 08:23 Dose: 10 ml Tamsulosin HCl (Flomax) 0.4 mg PO HS [facility] Last Admin: 08/17/18 20:35 Dose: 0.4 mg
[2018-08-18] MEDS: HumaLOG 300 UNITS/3 ML VIAL SC PRN ×2 (12:46→17:21)
[2018-08-18] MEDS: hydrALAZINE 20 MG/ML VIAL SLOW IVP PRN (12:48)
[2018-08-18] MEDS: Tamsulosin HCl 0.4 MG CAP PO SCH (21:04)
[2018-08-18] MEDS: Doxazosin 2 MG TAB PO SCH (21:04)
[2018-08-18] MEDS: Atorvastatin Calcium 40 MG TAB PO SCH (21:04)
[2018-08-19 06:49] LABS: Hemoglobin 10.2 g/dL (12.0-16.0); Mean Corpuscular HGB CONC 31.8 g/dL (32.0-36.0); Mean Corpuscular Hemoglobin 28.4 pg (27.0-31.0); Mean Corpuscular Volume 89.4 fL (78.0-98.0); Mean Platelet Volume 8.6 fL (7.4-10.4); Platelet Count 221 thou/uL (130-400); RBC Distribution Width 13.9 % (11.5-14.5); Red Blood Cell (RBC) Count 3.59 mill/uL (4.20-5.40); White Blood Cell (WBC) Count 13.2 thou/uL (4.8-10.8)
[2018-08-19 06:55] LABS: Anion Gap 9 mmol/L (10-20); BUN (Urea Nitrogen) 29 mg/dL (9.8-20.1); Calc. Creatinine Clearance 112 mL/min (70-130); Calcium 8.3 mg/dL (7.8-10.44); Carbon Dioxide 28 mmol/L (23-31); Chloride 110 mmol/L (98-107); Estimated GFR-MDRD 55; Glucose 112 mg/dL (80-115); Potassium 3.5 mmol/L (3.5-5.1); Sodium 143 mmol/L (136-145)
[2018-08-19 07:41] LABS: Band 6 % (5-11); Lymphocytes 11 % (21-51); MDiff Complete? YES; Metamyelocyte 1 % (0-0); Monocytes 9 % (0-10); Myelocyte 1 % (0-0); Neutrophil 71 % (42-75); Platelet Morphology Comment Appears Adequate; Polychromasia SLIGHT = 2-3 cells (100X) (0-2/hpf); Reactive Lymphocytes 1 % (0-10)
[2018-08-19] MEDS: Potassium Chloride 20 MEQ TAB PO SCH (08:46)
[2018-08-19] MEDS: Heparin 5,000 UNITS/ML VIAL SC SCH ×2 (08:46→21:25)
[2018-08-19] MEDS: Cefdinir 300 MG CAP PO SCH (08:46)
[2018-08-19] MEDS: Aspirin 81 mg Enteric Coated Tablet PO SCH (08:46)
[2018-08-19] MEDS: Nystatin Powder 15 GM BOT TOP SCH ×2 (08:47→21:26)
[2018-08-19] MEDS: Insulin Glargine 18 UNITS in Pre-Filled Syringe 1 EACH SC SCH ×2 (08:47→21:26)
--- NOTE | 2018-08-19 08:55 | PRG ---
DATE OF SERVICE: 08/19/2018 SUBJECTIVE: Patient was seen and examined at bedside and overnight events noted. Patient denies any shortness of breath or chest pain or palpitation. No history of nausea or vomiting or diarrhea or fever or chills or cramps. OBJECTIVE: GENERAL: This is an obese female in no apparent distress. VITAL SIGNS: Temperature 98.3. Heart rate [QAMARKER]. Respiratory rate 18. Blood pressure 190/77. HEENT: Atraumatic, normocephalic. Oral mucosa is moist NECK: Supple. CARDIOVASCULAR: S1, S2 heard. Rate and rhythm regular. RESPIRATORY: Clear to auscultation. GASTROINTESTINAL: Abdomen is soft. MUSCULOSKELETAL: No tenderness. No edema. DERMATOLOGIC: No skin rash. NEUROLOGIC: Alert and awake and oriented X3. No focal neurologic deficits. Moving all the extremities. PSYCHIATRIC: Mood and affect normal. LABORATORY DATA: Potassium is 3.5, BUN , creatinine is 1.1. ASSESSMENT AND PLAN: 1. Acute kidney injury on chronic kidney disease, stage 3. Renal function is better. 2. Edema. 3. Morbid obesity. 4. Hypokalemia, replaced. We will monitor. 5. Hypertension, stable. Renal function is better. Avoid nephrotoxins and replace electrolytes and monitor. Job ID: [id number]
[2018-08-19] MEDS: hydrALAZINE 20 MG/ML VIAL SLOW IVP PRN ×2 (12:21→17:21)
--- NOTE | 2018-08-19 14:48 | PDOC.PN ---
- Subjective Encounter Start Date: 08/19/18 Encounter Start Time: 12:00 Subjective: no sob, feels better -: wants to amb with PT today - Objective Resuscitation Status - Order Detail: 08/09/18 23:03 Resuscitation Status Routine Resuscitation Status: FULL: Full Resuscitation MAR Reviewed: Yes Vital Signs & Weight: Vital Signs (12 hours) Temp Pulse Resp BP BP BP Pulse Ox 08/19/18 12:21 67 191/95 H 08/19/18 12:07 60 16 92 L 08/19/18 11:10 98.1 F 67 18 191/95 H 90 L 08/19/18 11:09 94 L 08/19/18 09:28 165/89 H 08/19/18 07:43 98.3 F 78 18 190/77 H 94 L 08/19/18 06:14 68 18 95 08/19/18 05:44 98 F 69 16 179/75 H 93 L Weight Admit Weight 324 lb 14.4 oz Weight 346 lb 12.594 oz Most Recent Monitor Data Heart Rate from ECG 69 NIBP 170/81 NIBP BP-Mean 110 Respiration from ECG 16 SpO2 97 I&O: 08/18/18 08/19/18 08/20/18 06:59 06:59 06:59 Intake Total 1420 1080 Output Total 1850 3000 Balance -430 -1920 Result Diagrams: 08/19/18 06:14 08/19/18 06:14 Additional Labs: Accuchecks 08/19/18 08/19/18 08/18/18 11:15 05:42 20:22 POC Glucose 121 H 109 196 H 08/18/18 16:51 POC Glucose 176 H Phys Exam - Physical Examination HEENT: PERRLA, moist MMs Neck: no JVD, supple Respiratory: no wheezing, no rales Cardiovascular: RRR, no significant murmur Gastrointestinal: soft, non-tender, positive bowel sounds Musculoskeletal: pulses present left UE edema, says its been chronic from 2 years? Neurological: non-focal, moves all 4 limbs Psychiatric: normal affect, A&O x 3 Dx/Plan (1) Sepsis due to urinary tract infection Code(s): A41.9 - SEPSIS, UNSPECIFIED ORGANISM; N39.0 - URINARY TRACT INFECTION, SITE NOT SPECIFIED Status: Resolved Comment: Continue Zosyn, E. 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 Diabetes mellitus complication status: with unspecified complications Qualified Code(s) : E11.8 - Type 2 diabetes mellitus with unspecified complications; Z79.4 - tank terminal gauger (current) use of insulin (5) Acute metabolic encephalopathy Code(s): G93.41 - METABOLIC ENCEPHALOPATHY Status: Resolved (6) Acute respiratory failure with hypoxia and hypercapnia Code(s): J96.01 - ACUTE RESPIRATORY FAILURE WITH HYPOXIA; J96.02 - ACUTE RESPIRATORY FAILURE WITH HYPERCAPNIA Status: Resolved Comment: extubated (7) Morbid obesity Code(s): E66.01 - MORBID (SEVERE) OBESITY DUE TO EXCESS CALORIES Status: Chronic Comment: Dietary counseling, low-fat diet - Plan agrees to have sleep study done as outpt -: will need placement, may dc if ready, likely [place] -: continue to aggressively mobilize as tolerated -: renal function at baseline, is on omnicef -: on asp, lipitor, clonidine, lantus, cardura and flomax * . Review of Systems - Medications/Allergies Allergies/Adverse Reactions: Allergies Allergy/AdvReac Type Severity Reaction Status Date / Time No Known Allergies Allergy Verified 01/14/15 19:46 Medications: Current Medications Acetaminophen (Tylenol) 650 mg PO Q4H PRN PRN Reason: Headache/Fever/Mild Pain (1-3) Last Admin: 08/12/18 03:32 Dose: 650 mg Albuterol/Ipratropium (Duoneb) 3 ml NEB [id number] [facility] Last Admin: 08/19/18 12:07 Dose: 3 ml Aspirin (Ecotrin) 81 mg PO DAILY [facility] Last Admin: 08/19/18 08:46 Dose: 81 mg Atorvastatin Calcium (Lipitor) 40 mg PO HS [facility] Last Admin: 08/18/18 21:04 Dose: 40 mg Cefdinir (Omnicef) 600 mg PO DAILY [facility] Last Admin: 08/19/18 08:46 Dose: 600 mg Cholecalciferol (Vitamin D3) 1,000 units PO DAILY [facility] Last Admin: 08/19/18 08:45 Dose: 1,000 units Clonidine (Xktsojpu-Ezv-6) 0.2 mg TD Q7D [facility] Dextrose/Water (Dextrose 50%) 25 gm SLOW IVP PRN PRN PRN Reason: Hypoglycemia Doxazosin Mesylate (Cardura) 1 mg PO HS [facility] Last Admin: 08/18/18 21:04 Dose: 1 mg Glucagon (Glucagon) 1 mg IM PRN PRN PRN Reason: Hypoglycemia Heparin Sodium (Porcine) (Heparin) 5,000 units SC BID [facility] Last Admin: 08/19/18 08:46 Dose: 5,000 units Hydralazine HCl (Apresoline) 10 mg SLOW IVP Q4H PRN PRN Reason: SBP>180 OR DBP>100 Last Admin: 08/19/18 12:21 Dose: 10 mg Hydralazine HCl (Apresoline) 20 mg SLOW IVP Q4H PRN PRN Reason: SBP < 180 Last Admin: 08/13/18 23:31 Dose: 20 mg Dextrose/Water (D5w) 1,000 mls @ 0 mls/hr IV .Q0M PRN PRN Reason: Hypoglycemia Insulin Glargine 18 units/ (Miscellaneous Medication) 0.18 mls @ 0 mls/hr SC BID [facility] Last Admin: 08/19/18 08:47 Dose: 0.18 mls Insulin Human Lispro (Humalog) 0 units SC .MODERATE SLIDING SC PRN PRN Reason: Moderate Correctional Scale Last Admin: 08/18/18 17:21 Dose: 2 unit Insulin Human Lispro (Humalog) 0 units SC .BEDTIME SLIDING SC PRN PRN Reason: Bedtime Correctional Scale Last Admin: 08/13/18 20:28 Dose: 3 unit Labetalol HCl (Normodyne) 20 mg SLOW IVP Q4H PRN PRN Reason: SBP Greater Than 180 Last Admin: 08/16/18 12:04 Dose: 20 mg Discontinue Previous Narcotic Pain Medications And Benzodiazepines 1 each FS .ONE [facility] Stop: 09/11/18 14:34 Discontinue Previous Narcotic Pain Medications And Benzodiazepines 1 each FS .ONE [facility] Stop: 09/11/18 14:57 Nystatin (Mycostatin Powder) 0 gm TOP BID [facility] Last Admin: 08/19/18 08:47 Dose: 1 appful Nystatin (Mycostatin Powder) 0 gm TOP PRN PRN PRN Reason: Topical Irritations Ondansetron HCl (Zofran Odt) 4 mg PO Q6H PRN PRN Reason: Nausea/Vomiting Pantoprazole Sodium (Protonix) 40 mg PO DAILY [facility] Last Admin: 08/19/18 08:46 Dose: 40 mg Potassium Chloride (K-Dur) 40 meq PO BID[facility] Last Admin: 08/19/18 08:46 Dose: 40 meq Sodium Chloride (Flush - Normal Saline) 10 ml IVF Q12HR [facility] Last Admin: 08/19/18 08:47 Dose: 10 ml Sodium Chloride (Normal Saline Pf) 10 ml FS PRN PRN PRN Reason: RECONSTITUTION Last Admin: 08/14/18 08:23 Dose: 10 ml Tamsulosin HCl (Flomax) 0.4 mg PO HS [facility] Last Admin: 08/18/18 21:04 Dose: 0.4 mg
--- NOTE | 2018-08-19 19:22 | ULT ---
LEFT UPPER EXTREMITY VENOUS ULTRASOUND WITH DOPPLER 08/19/18 HISTORY: Evaluate for thrombus. COMPARISON: 01/04/15. TECHNIQUE: Gentile scale, color flow, doppler imaging with spectral waveform analysis performed in the left upper e xtremity venous system. FINDINGS: There is compressibility and flow in the left internal jugular vein. There is flow in the subclavian vein. There is compressibility and flow in the axillary vein, branchial vein, basilic vein, cephalic vein, radial vein and ulnar vein. IMPRESSION: No evidence of thrombus in the visualized left upper extremity venous system. POS: PPP
[2018-08-19] MEDS: Doxazosin 2 MG TAB PO SCH (21:24)
[2018-08-19] MEDS: hydrALAZINE 25 MG TAB PO SCH (21:24)
[2018-08-19] MEDS: Tamsulosin HCl 0.4 MG CAP PO SCH (21:24)
[2018-08-19] MEDS: Atorvastatin Calcium 40 MG TAB PO SCH (21:24)
[2018-08-20 05:43] LABS: #Eosinphils 0.2 thou/uL (0.0-0.7); #Lymphocytes 1.7 thou/uL (1.20-3.40); #Neutrophils 8.8 thou/uL (1.40-6.50); %Basophils 0.2 % (0.0-1.0); %Eosinophils 1.5 % (0.0-10.0); %Lymphocytes 14.3 % (21.0-51.0); %Monocytes 8.3 % (0.0-10.0); %Neutrophils 75.7 % (42.0-75.0); Hemoglobin 10.1 g/dL (12.0-16.0); Mean Corpuscular HGB CONC 31.5 g/dL (32.0-36.0); Mean Corpuscular Hemoglobin 27.8 pg (27.0-31.0); Mean Corpuscular Volume 88.4 fL (78.0-98.0); Mean Platelet Volume 8.4 fL (7.4-10.4); Platelet Count 250 thou/uL (130-400); RBC Distribution Width 14.1 % (11.5-14.5); Red Blood Cell (RBC) Count 3.62 mill/uL (4.20-5.40); White Blood Cell (WBC) Count 11.6 thou/uL (4.8-10.8)
[2018-08-20 05:56] LABS: Anion Gap 9 mmol/L (10-20); BUN (Urea Nitrogen) 23 mg/dL (9.8-20.1); Calc. Creatinine Clearance 114 mL/min (70-130); Calcium 8.3 mg/dL (7.8-10.44); Carbon Dioxide 26 mmol/L (23-31); Chloride 112 mmol/L (98-107); Estimated GFR-MDRD 56; Glucose 93 mg/dL (80-115); Potassium 3.7 mmol/L (3.5-5.1); Sodium 143 mmol/L (136-145)
[2018-08-20] MEDS: Cefdinir 300 MG CAP PO SCH (08:10)
[2018-08-20] MEDS: NIFEdipine XL 60 MG TAB PO SCH (08:10)
[2018-08-20] MEDS: hydrALAZINE 25 MG TAB PO SCH ×3 (08:11→19:55)
[2018-08-20] MEDS: Furosemide 40 MG TAB PO SCH (08:12)
[2018-08-20] MEDS: Nystatin Powder 15 GM BOT TOP SCH ×2 (08:12→19:58)
[2018-08-20] MEDS: Aspirin 81 mg Enteric Coated Tablet PO SCH (08:12)
[2018-08-20] MEDS: Insulin Glargine 18 UNITS in Pre-Filled Syringe 1 EACH SC SCH ×2 (08:13→19:56)
[2018-08-20] MEDS: Heparin 5,000 UNITS/ML VIAL SC SCH ×2 (08:21→19:55)
--- NOTE | 2018-08-20 10:46 | PRG ---
DATE OF SERVICE: 08/20/2018 SUBJECTIVE: Patient was seen and examined at bedside and overnight events noted. Patient denies any shortness of breath or chest pain or palpitation. No history of nausea or vomiting or diarrhea or fever or chills or cramps. OBJECTIVE: GENERAL: This is a morbidly obese female, in no apparent distress. VITAL SIGNS: Temperature 98.3, pulse 72, respiratory rate 18, and blood pressure 150/81. HEENT: Atraumatic, normocephalic. Oral mucosa is moist NECK: Supple. CARDIOVASCULAR: S1, S2 heard. Rate and rhythm regular. RESPIRATORY: Clear to auscultation. GASTROINTESTINAL: Abdomen is soft. MUSCULOSKELETAL: No tenderness. No edema. DERMATOLOGIC: No skin rash. NEUROLOGIC: Alert and awake and oriented X3. No focal neurologic deficits. Moving all the extremities. PSYCHIATRIC: Mood and affect normal. LABORATORY DATA: Potassium is 3.7, BUN is 23, creatinine is 1.1. ASSESSMENT AND PLAN: 1. Acute kidney injury on chronic kidney disease, stage 3, stable. Renal function is better. Avoid nephrotoxins. 2. Morbid obesity. 3. Edema, controlled. 4. Hypokalemia. 5. Hypertension, stable. 6. Nephrolithiasis, advised to follow up with Urology. Renal function is stable. I will sign off. Please call back with any questions Job ID: [id number]
[2018-08-20] MEDS ORDERED: cloNIDine 0.2mg/24 Hour PATCH TD SCH (11:00)
--- NOTE | 2018-08-20 13:42 | PDOC.PN ---
- Subjective Encounter Start Date: 08/20/18 Encounter Start Time: 12:00 Subjective: no sob or abd pain -: feels better, wants to sit in chair - Objective Resuscitation Status - Order Detail: 08/09/18 23:03 Resuscitation Status Routine Resuscitation Status: FULL: Full Resuscitation MAR Reviewed: Yes Vital Signs & Weight: Vital Signs (12 hours) Temp Pulse Resp BP BP Pulse Ox 08/20/18 13:07 68 16 08/20/18 08:15 68 18 08/20/18 08:11 73 158/81 H 08/20/18 08:10 73 158/81 H 08/20/18 08:00 92 L 08/20/18 07:59 98.3 F 73 18 158/81 H 92 L 08/20/18 05:01 98 F 77 21 H 136/57 L 94 L Weight Admit Weight 324 lb 14.4 oz Weight 346 lb 12.594 oz Most Recent Monitor Data Heart Rate from ECG 69 NIBP 170/81 NIBP BP-Mean 110 Respiration from ECG 16 SpO2 97 I&O: 08/19/18 08/20/18 08/21/18 06:59 06:59 06:59 Intake Total 1080 850 Output Total 3000 0 Balance -1920 850 Result Diagrams: 08/20/18 05:08 08/20/18 05:08 Additional Labs: Accuchecks 08/20/18 08/20/18 08/19/18 11:59 04:54 21:07 POC Glucose 115 H 91 115 H 08/19/18 16:36 POC Glucose 102 Phys Exam - Physical Examination HEENT: PERRLA, moist MMs Neck: no JVD, supple Respiratory: no wheezing, no rales Cardiovascular: RRR, no significant murmur Gastrointestinal: soft, non-tender, positive bowel sounds Musculoskeletal: no edema, pulses present chronic left UE edema Neurological: non-focal, moves all 4 limbs Psychiatric: A&O x 3 Dx/Plan (1) Sepsis due to urinary tract infection Code(s): A41.9 - SEPSIS, UNSPECIFIED ORGANISM; N39.0 - URINARY TRACT INFECTION, SITE NOT SPECIFIED Status: Resolved Comment: Continue Zosyn, E. coli pansensitive (2) UTI (urinary tract infection) Status: Acute Qualifiers: Urinary tract infection type: acute cystitis Hematuria presence: without hematuria Qualified Code(s): N30.00 - Acute cystitis without hematuria (3) [place] (acute kidney injury) Code(s): N17.9 - ACUTE KIDNEY FAILURE, UNSPECIFIED Status: Acute Comment: resolving (4) DM type 2 (diabetes mellitus, type 2) Status: Chronic Qualifiers: Diabetes mellitus mcfp insulin use: with terminal operator use Diabetes mellitus complication status: with unspecified complications Qualified Code(s) : E11.8 - Type 2 diabetes mellitus with unspecified complications; Z79.4 - group home (current) use of insulin (5) Acute metabolic encephalopathy Code(s): G93.41 - METABOLIC ENCEPHALOPATHY Status: Resolved (6) Acute respiratory failure with hypoxia and hypercapnia Code(s): J96.01 - ACUTE RESPIRATORY FAILURE WITH HYPOXIA; J96.02 - ACUTE RESPIRATORY FAILURE WITH HYPERCAPNIA Status: Resolved Comment: extubated (7) Morbid obesity Code(s): E66.01 - MORBID (SEVERE) OBESITY DUE TO EXCESS CALORIES Status: Chronic Comment: Dietary counseling, low-fat diet - Plan hemostable, needs to aggressively mobilize with PT -: awaiting placement -: continue omnicef, asp, lipitor, lantus, flomax -: hydralazine, clonidine, lasix and procardia -: htn is better controlled, renal function at baseline * . Review of Systems - Medications/Allergies Allergies/Adverse Reactions: Allergies Allergy/AdvReac Type Severity Reaction Status Date / Time No Known Allergies Allergy Verified 01/14/15 19:46 Medications: Current Medications Acetaminophen (Tylenol) 650 mg PO Q4H PRN PRN Reason: Headache/Fever/Mild Pain (1-3) Last Admin: 08/12/18 03:32 Dose: 650 mg Albuterol/Ipratropium (Duoneb) 3 ml NEB [id number] [facility] Last Admin: 08/20/18 13:07 Dose: 3 ml Aspirin (Ecotrin) 81 mg PO DAILY [facility] Last Admin: 08/20/18 08:12 Dose: 81 mg Atorvastatin Calcium (Lipitor) 40 mg PO HS [facility] Last Admin: 08/19/18 21:24 Dose: 40 mg Cefdinir (Omnicef) 600 mg PO DAILY [facility] Last Admin: 08/20/18 08:10 Dose: 600 mg Cholecalciferol (Vitamin D3) 1,000 units PO DAILY [facility] Last Admin: 08/20/18 08:19 Dose: 1,000 units Clonidine (Bajnjtef-Bcl-2) 0.2 mg TD Q7D [facility] Last Admin: 08/20/18 10:43 Dose: 0.2 mg Dextrose/Water (Dextrose 50%) 25 gm SLOW IVP PRN PRN PRN Reason: Hypoglycemia Doxazosin Mesylate (Cardura) 1 mg PO HS [facility] Last Admin: 08/19/18 21:24 Dose: 1 mg Furosemide (Lasix) 40 mg PO DAILY-AC [facility] Last Admin: 08/20/18 08:12 Dose: 40 mg Glucagon (Glucagon) 1 mg IM PRN PRN PRN Reason: Hypoglycemia Heparin Sodium (Porcine) (Heparin) 5,000 units SC BID [facility] Last Admin: 08/20/18 08:21 Dose: 5,000 units Hydralazine HCl (Apresoline) 10 mg SLOW IVP Q4H PRN PRN Reason: SBP>180 OR DBP>100 Last Admin: 08/19/18 17:21 Dose: 10 mg Hydralazine HCl (Apresoline) 75 mg PO TID [facility] Last Admin: 08/20/18 08:11 Dose: 75 mg Dextrose/Water (D5w) 1,000 mls @ 0 mls/hr IV .Q0M PRN PRN Reason: Hypoglycemia Insulin Glargine 18 units/ (Miscellaneous Medication) 0.18 mls @ 0 mls/hr SC BID [facility] Last Admin: 08/20/18 08:13 Dose: 0.18 mls Insulin Human Lispro (Humalog) 0 units SC .MODERATE SLIDING SC PRN PRN Reason: Moderate Correctional Scale Last Admin: 08/18/18 17:21 Dose: 2 unit Insulin Human Lispro (Humalog) 0 units SC .BEDTIME SLIDING SC PRN PRN Reason: Bedtime Correctional Scale Last Admin: 08/13/18 20:28 Dose: 3 unit Nifedipine (Procardia Xl) 60 mg PO DAILY [facility] Last Admin: 08/20/18 08:10 Dose: 60 mg Nystatin (Mycostatin Powder) 0 gm TOP BID [facility] Last Admin: 08/20/18 08:12 Dose: 1 appful Nystatin (Mycostatin Powder) 0 gm TOP PRN PRN PRN Reason: Topical Irritations Ondansetron HCl (Zofran Odt) 4 mg PO Q6H PRN PRN Reason: Nausea/Vomiting Pantoprazole Sodium (Protonix) 40 mg PO DAILY [facility] Last Admin: 08/20/18 08:12 Dose: 40 mg Sodium Chloride (Flush - Normal Saline) 10 ml IVF Q12HR [facility] Last Admin: 08/20/18 08:21 Dose: 10 ml Sodium Chloride (Normal Saline Pf) 10 ml FS PRN PRN PRN Reason: RECONSTITUTION Last Admin: 08/14/18 08:23 Dose: 10 ml Tamsulosin HCl (Flomax) 0.4 mg PO HS [facility] Last Admin: 08/19/18 21:24 Dose: 0.4 mg
--- NOTE | 2018-08-20 15:21 | EKG ---
Test Reason : PALPITATIONS Blood Pressure : / mmHG Vent. Rate : 098 BPM Atrial Rate : 098 BPM P-R Int : 000 ms QRS Dur : 088 ms QT Int : 390 ms P-R-T Axes : 000 -42 085 degrees QTc Int : 497 ms Atrial fibrillation Left axis deviation Septal infarct , age undetermined Prolonged QT No STEMI Abnormal ECG Confirmed by AMANDA Adorno, ROHAN ([id number]), editorial writer JAE PARRA ([id number]) on 08/20/2018 3:21:12 PM Referred By: Confirmed By:ROHAN PATEL M.D.
[2018-08-20] MEDS: Doxazosin 2 MG TAB PO SCH (19:54)
[2018-08-20] MEDS: Atorvastatin Calcium 40 MG TAB PO SCH (19:54)
[2018-08-20] MEDS: Tamsulosin HCl 0.4 MG CAP PO SCH (19:55)
[2018-08-21 06:39] LABS: Anion Gap 11 mmol/L (10-20); BUN (Urea Nitrogen) 20 mg/dL (9.8-20.1); Calc. Creatinine Clearance 122 mL/min (70-130); Calcium 8.4 mg/dL (7.8-10.44); Carbon Dioxide 27 mmol/L (23-31); Chloride 109 mmol/L (98-107); Estimated GFR-MDRD 60; Glucose 166 mg/dL (80-115); Potassium 3.8 mmol/L (3.5-5.1); Sodium 143 mmol/L (136-145)
[2018-08-21 06:43] LABS: Band 1 % (5-11); Hemoglobin 10.1 g/dL (12.0-16.0); Hypochromia SLIGHT = 6-15 cells (100X) (0-5/hpf); Lymphocytes 2 % (21-51); MDiff Complete? YES; Mean Corpuscular HGB CONC 31.6 g/dL (32.0-36.0); Mean Corpuscular Hemoglobin 28.3 pg (27.0-31.0); Mean Corpuscular Volume 89.6 fL (78.0-98.0); Mean Platelet Volume 9.5 fL (7.4-10.4); Monocytes 8 % (0-10); Neutrophil 89 % (42-75); Platelet Count 220 thou/uL (130-400); Platelet Morphology Comment Appears Adequate; RBC Distribution Width 14.2 % (11.5-14.5); Red Blood Cell (RBC) Count 3.57 mill/uL (4.20-5.40); White Blood Cell (WBC) Count 9.5 thou/uL (4.8-10.8)
[2018-08-21] MEDS: Cefdinir 300 MG CAP PO SCH (08:20)
[2018-08-21] MEDS: Aspirin 81 mg Enteric Coated Tablet PO SCH (08:20)
[2018-08-21] MEDS: Furosemide 40 MG TAB PO SCH (08:21)
[2018-08-21] MEDS: NIFEdipine XL 60 MG TAB PO SCH (08:21)
[2018-08-21] MEDS: Heparin 5,000 UNITS/ML VIAL SC SCH ×2 (08:22→20:06)
[2018-08-21] MEDS: hydrALAZINE 25 MG TAB PO SCH ×3 (08:22→20:05)
[2018-08-21] MEDS: Nystatin Powder 15 GM BOT TOP SCH ×2 (08:23→20:10)
[2018-08-21] MEDS: Insulin Glargine 18 UNITS in Pre-Filled Syringe 1 EACH SC SCH ×2 (08:32→20:06)
--- NOTE | 2018-08-21 10:41 | PDOC.PN ---
- Subjective Encounter Start Date: 08/21/18 Encounter Start Time: 09:45 Subjective: no sob, ate her breakfast, feels better -: says she sat in chair yesterday and amb to door? - Objective Resuscitation Status - Order Detail: 08/09/18 23:03 Resuscitation Status Routine Resuscitation Status: FULL: Full Resuscitation MAR Reviewed: Yes Vital Signs & Weight: Vital Signs (12 hours) Temp Pulse Resp BP BP Pulse Ox 08/21/18 08:22 68 129/78 08/21/18 08:21 68 129/78 08/21/18 08:00 94 L 08/21/18 07:31 98.1 F 68 18 129/78 94 L 08/21/18 07:11 72 16 94 L 08/21/18 05:55 98.3 F 94 21 H 150/74 H 94 L 08/21/18 02:09 97 08/21/18 00:42 98.2 F 72 16 164/73 H 94 L Weight Admit Weight 324 lb 14.4 oz Weight 346 lb 12.594 oz Most Recent Monitor Data Heart Rate from ECG 69 NIBP 170/81 NIBP BP-Mean 110 Respiration from ECG 16 SpO2 97 I&O: 08/20/18 08/21/18 08/22/18 06:59 06:59 06:59 Intake Total 850 1250 Output Total 0 Balance 850 1250 Result Diagrams: 08/21/18 05:15 08/21/18 05:15 Additional Labs: Accuchecks 08/20/18 08/20/18 08/20/18 20:43 16:24 11:59 POC Glucose 155 H 120 H 115 H Phys Exam - Physical Examination HEENT: PERRLA, moist MMs Neck: no JVD, supple Respiratory: no wheezing, no rales Cardiovascular: RRR, no significant murmur Gastrointestinal: soft, non-tender, positive bowel sounds Musculoskeletal: pulses present chronic left UE edema Neurological: non-focal, moves all 4 limbs Psychiatric: normal affect, A&O x 3 Dx/Plan (1) Sepsis due to urinary tract infection Code(s): A41.9 - SEPSIS, UNSPECIFIED ORGANISM; N39.0 - URINARY TRACT INFECTION, SITE NOT SPECIFIED Status: Resolved Comment: E. coli pansensitive (2) UTI (urinary tract infection) Status: Acute Qualifiers: Urinary tract infection type: acute cystitis Hematuria presence: without hematuria Qualified Code(s): N30.00 - Acute cystitis without hematuria (3) [place] (acute kidney injury) Code(s): N17.9 - ACUTE KIDNEY FAILURE, UNSPECIFIED Status: Resolved (4) DM type 2 (diabetes mellitus, type 2) Status: Chronic Qualifiers: Diabetes mellitus prison insulin use: with prison use Diabetes mellitus complication status: with unspecified complications Qualified Code(s) : E11.8 - Type 2 diabetes mellitus with unspecified complications; 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 Review of Systems - Medications/Allergies Allergies/Adverse Reactions: Allergies Allergy/AdvReac Type Severity Reaction Status Date / Time No Known Allergies Allergy Verified 01/14/15 19:46 Medications: Current Medications Acetaminophen (Tylenol) 650 mg PO Q4H PRN PRN Reason: Headache/Fever/Mild Pain (1-3) Last Admin: 08/12/18 03:32 Dose: 650 mg Albuterol/Ipratropium (Duoneb) 3 ml NEB [id number] [facility] Last Admin: 08/21/18 07:11 Dose: 3 ml Aspirin (Ecotrin) 81 mg PO DAILY [facility] Last Admin: 08/21/18 08:20 Dose: 81 mg Atorvastatin Calcium (Lipitor) 40 mg PO HS [facility] Last Admin: 08/20/18 19:54 Dose: 40 mg Cefdinir (Omnicef) 600 mg PO DAILY [facility] Last Admin: 08/21/18 08:20 Dose: 600 mg Cholecalciferol (Vitamin D3) 1,000 units PO DAILY [facility] Last Admin: 08/21/18 08:19 Dose: 1,000 units Clonidine (Bvrnyegw-Nkv-4) 0.2 mg TD Q7D [facility] Last Admin: 08/20/18 10:43 Dose: 0.2 mg Dextrose/Water (Dextrose 50%) 25 gm SLOW IVP PRN PRN PRN Reason: Hypoglycemia Doxazosin Mesylate (Cardura) 1 mg PO HS [facility] Last Admin: 08/20/18 19:54 Dose: 1 mg Furosemide (Lasix) 40 mg PO DAILY-AC [facility] Last Admin: 08/21/18 08:21 Dose: 40 mg Glucagon (Glucagon) 1 mg IM PRN PRN PRN Reason: Hypoglycemia Heparin Sodium (Porcine) (Heparin) 5,000 units SC BID [facility] Last Admin: 08/21/18 08:22 Dose: 5,000 units Hydralazine HCl (Apresoline) 10 mg SLOW IVP Q4H PRN PRN Reason: SBP>180 OR DBP>100 Last Admin: 08/19/18 17:21 Dose: 10 mg Hydralazine HCl (Apresoline) 75 mg PO TID [facility] Last Admin: 08/21/18 08:22 Dose: 75 mg Dextrose/Water (D5w) 1,000 mls @ 0 mls/hr IV .Q0M PRN PRN Reason: Hypoglycemia Insulin Glargine 18 units/ (Miscellaneous Medication) 0.18 mls @ 0 mls/hr SC BID [facility] Last Admin: 08/21/18 08:32 Dose: 0.18 mls Insulin Human Lispro (Humalog) 0 units SC .MODERATE SLIDING SC PRN PRN Reason: Moderate Correctional Scale Last Admin: 08/18/18 17:21 Dose: 2 unit Insulin Human Lispro (Humalog) 0 units SC .BEDTIME SLIDING SC PRN PRN Reason: Bedtime Correctional Scale Last Admin: 08/13/18 20:28 Dose: 3 unit Nifedipine (Procardia Xl) 60 mg PO DAILY [facility] Last Admin: 08/21/18 08:21 Dose: 60 mg Nystatin (Mycostatin Powder) 0 gm TOP BID [facility] Last Admin: 08/21/18 08:23 Dose: 1 appful Nystatin (Mycostatin Powder) 0 gm TOP PRN PRN PRN Reason: Topical Irritations Ondansetron HCl (Zofran Odt) 4 mg PO Q6H PRN PRN Reason: Nausea/Vomiting Pantoprazole Sodium (Protonix) 40 mg PO DAILY [facility] Last Admin: 08/21/18 08:20 Dose: 40 mg Sodium Chloride (Flush - Normal Saline) 10 ml IVF Q12HR [facility] Last Admin: 08/21/18 08:23 Dose: 10 ml Sodium Chloride (Normal Saline Pf) 10 ml FS PRN PRN PRN Reason: RECONSTITUTION Last Admin: 08/14/18 08:23 Dose: 10 ml Tamsulosin HCl (Flomax) 0.4 mg PO HS [facility] Last Admin: 08/20/18 19:55 Dose: 0.4 mg
[2018-08-21] MEDS: Atorvastatin Calcium 40 MG TAB PO SCH (20:05)
[2018-08-21] MEDS: Doxazosin 2 MG TAB PO SCH (20:05)
[2018-08-21] MEDS: Tamsulosin HCl 0.4 MG CAP PO SCH (20:06)
[2018-08-22 06:30] LABS: #Eosinphils 0.2 thou/uL (0.0-0.7); #Lymphocytes 1.4 thou/uL (1.20-3.40); #Monocytes 0.9 thou/uL (0.11-0.59); #Neutrophils 7.3 thou/uL (1.40-6.50); %Basophils 0.2 % (0.0-1.0); %Eosinophils 1.7 % (0.0-10.0); %Monocytes 9.5 % (0.0-10.0); %Neutrophils 74.7 % (42.0-75.0); Hemoglobin 9.9 g/dL (12.0-16.0); Mean Corpuscular HGB CONC 33.2 g/dL (32.0-36.0); Mean Corpuscular Hemoglobin 29.5 pg (27.0-31.0); Mean Corpuscular Volume 88.8 fL (78.0-98.0); Mean Platelet Volume 8.5 fL (7.4-10.4); Platelet Count 256 thou/uL (130-400); RBC Distribution Width 14.1 % (11.5-14.5); Red Blood Cell (RBC) Count 3.35 mill/uL (4.20-5.40); White Blood Cell (WBC) Count 9.8 thou/uL (4.8-10.8)
[2018-08-22 06:40] LABS: Anion Gap 11 mmol/L (10-20); BUN (Urea Nitrogen) 18 mg/dL (9.8-20.1); Calc. Creatinine Clearance 122 mL/min (70-130); Calcium 8.5 mg/dL (7.8-10.44); Carbon Dioxide 29 mmol/L (23-31); Chloride 109 mmol/L (98-107); Estimated GFR-MDRD 60; Glucose 99 mg/dL (80-115); Potassium 3.6 mmol/L (3.5-5.1); Sodium 145 mmol/L (136-145)
[2018-08-22] MEDS: Furosemide 40 MG TAB PO SCH (08:20)
[2018-08-22] MEDS: hydrALAZINE 25 MG TAB PO SCH ×3 (08:40→20:15)
[2018-08-22] MEDS: Aspirin 81 mg Enteric Coated Tablet PO SCH (08:42)
[2018-08-22] MEDS: Insulin Glargine 18 UNITS in Pre-Filled Syringe 1 EACH SC SCH ×2 (08:43→20:18)
[2018-08-22] MEDS: Cefdinir 300 MG CAP PO SCH (08:43)
[2018-08-22] MEDS: Heparin 5,000 UNITS/ML VIAL SC SCH ×2 (08:44→20:16)
[2018-08-22] MEDS: NIFEdipine XL 60 MG TAB PO SCH (08:45)
[2018-08-22] MEDS: Nystatin Powder 15 GM BOT TOP SCH ×2 (08:45→20:16)
--- NOTE | 2018-08-22 13:48 | PDOC.PN ---
- Subjective Encounter Start Date: 08/22/18 Encounter Start Time: 07:40 Subjective: no sob or chest pain -: says she has amb to the door and back with rw - Objective Resuscitation Status - Order Detail: 08/09/18 23:03 Resuscitation Status Routine Resuscitation Status: FULL: Full Resuscitation MAR Reviewed: Yes Vital Signs & Weight: Vital Signs (12 hours) Temp Pulse Resp BP BP Pulse Ox 08/22/18 08:45 73 153/74 H 08/22/18 08:40 73 153/74 H 08/22/18 08:00 97.4 F L 73 22 H 153/74 H 92 L 08/22/18 06:58 65 16 96 Weight Admit Weight 324 lb 14.4 oz Weight 346 lb 12.594 oz Most Recent Monitor Data Heart Rate from ECG 69 NIBP 170/81 NIBP BP-Mean 110 Respiration from ECG 16 SpO2 97 I&O: 08/21/18 08/22/18 08/23/18 06:59 06:59 06:59 Intake Total 1280 1530 240 Balance 1280 1530 240 Result Diagrams: 08/22/18 04:13 08/22/18 04:13 Additional Labs: Accuchecks 08/22/18 08/21/18 08/21/18 05:04 20:40 17:08 POC Glucose 98 170 H 167 H 08/21/18 05:53 POC Glucose 167 H Phys Exam - Physical Examination HEENT: PERRLA, moist MMs Neck: no JVD, supple Respiratory: no wheezing, no rales Cardiovascular: RRR, no significant murmur Gastrointestinal: soft, non-tender, positive bowel sounds Musculoskeletal: no edema, pulses present Neurological: non-focal, moves all 4 limbs Psychiatric: normal affect, A&O x 3 Dx/Plan (1) Sepsis due to urinary tract infection Code(s): A41.9 - SEPSIS, UNSPECIFIED ORGANISM; N39.0 - URINARY TRACT INFECTION, SITE NOT SPECIFIED Status: Resolved Comment: E. coli pansensitive (2) UTI (urinary tract infection) Status: Acute Qualifiers: Urinary tract infection type: acute cystitis Hematuria presence: without hematuria Qualified Code(s): N30.00 - Acute cystitis without hematuria (3) [place] (acute kidney injury) Code(s): N17.9 - ACUTE KIDNEY FAILURE, UNSPECIFIED Status: Resolved (4) DM type 2 (diabetes mellitus, type 2) Status: Chronic Qualifiers: Diabetes mellitus termite 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 insulin use: with fdc use Diabetes mellitus complication status: with unspecified complications Qualified Code(s) : E11.8 - Type 2 diabetes mellitus with unspecified complications; 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 (5) Acute metabolic encephalopathy Code(s): G93.41 - METABOLIC ENCEPHALOPATHY Status: Resolved (6) Acute respiratory failure with hypoxia and hypercapnia Code(s): J96.01 - ACUTE RESPIRATORY FAILURE WITH HYPOXIA; J96.02 - ACUTE RESPIRATORY FAILURE WITH HYPERCAPNIA Status: Resolved Comment: extubated (7) Morbid obesity Code(s): E66.01 - MORBID (SEVERE) OBESITY DUE TO EXCESS CALORIES Status: Chronic Comment: Dietary counseling, low-fat diet - Plan hemostable -: awaiting placement, may dc anytime if its ready -: to mobilize with PT as tolerated -: continue clonidine, hydralazine, procardia, cadura, lantus, lipitor,flomax * . Review of Systems - Medications/Allergies Allergies/Adverse Reactions: Allergies Allergy/AdvReac Type Severity Reaction Status Date / Time No Known Allergies Allergy Verified 01/14/15 19:46 Medications: Current Medications Acetaminophen (Tylenol) 650 mg PO Q4H PRN PRN Reason: Headache/Fever/Mild Pain (1-3) Last Admin: 08/12/18 03:32 Dose: 650 mg Albuterol/Ipratropium (Duoneb) 3 ml NEB [id number] [facility] Last Admin: 08/22/18 13:13 Dose: Not Given Aspirin (Ecotrin) 81 mg PO DAILY [facility] Last Admin: 08/22/18 08:42 Dose: 81 mg Atorvastatin Calcium (Lipitor) 40 mg PO HS [facility] Last Admin: 08/21/18 20:05 Dose: 40 mg Cefdinir (Omnicef) 600 mg PO DAILY [facility] Last Admin: 08/22/18 08:43 Dose: 600 mg Cholecalciferol (Vitamin D3) 1,000 units PO DAILY [facility] Last Admin: 08/22/18 08:42 Dose: 1,000 units Clonidine (Nrtcwixs-Oeu-7) 0.2 mg TD Q7D [facility] Last Admin: 08/20/18 10:43 Dose: 0.2 mg Dextrose/Water (Dextrose 50%) 25 gm SLOW IVP PRN PRN PRN Reason: Hypoglycemia Doxazosin Mesylate (Cardura) 1 mg PO HS [facility] Last Admin: 08/21/18 20:05 Dose: 1 mg Furosemide (Lasix) 40 mg PO DAILY-AC [facility] Last Admin: 08/22/18 08:20 Dose: 40 mg Glucagon (Glucagon) 1 mg IM PRN PRN PRN Reason: Hypoglycemia Heparin Sodium (Porcine) (Heparin) 5,000 units SC BID [facility] Last Admin: 08/22/18 08:44 Dose: 5,000 units Hydralazine HCl (Apresoline) 10 mg SLOW IVP Q4H PRN PRN Reason: SBP>180 OR DBP>100 Last Admin: 08/19/18 17:21 Dose: 10 mg Hydralazine HCl (Apresoline) 75 mg PO TID [facility] Last Admin: 08/22/18 08:40 Dose: 75 mg Dextrose/Water (D5w) 1,000 mls @ 0 mls/hr IV .Q0M PRN PRN Reason: Hypoglycemia Insulin Glargine 18 units/ (Miscellaneous Medication) 0.18 mls @ 0 mls/hr SC BID [facility] Last Admin: 08/22/18 08:43 Dose: 0.18 mls Insulin Human Lispro (Humalog) 0 units SC .MODERATE SLIDING SC PRN PRN Reason: Moderate Correctional Scale Last Admin: 08/18/18 17:21 Dose: 2 unit Insulin Human Lispro (Humalog) 0 units SC .BEDTIME SLIDING SC PRN PRN Reason: Bedtime Correctional Scale Last Admin: 08/13/18 20:28 Dose: 3 unit Nifedipine (Procardia Xl) 60 mg PO DAILY [facility] Last Admin: 08/22/18 08:45 Dose: 60 mg Nystatin (Mycostatin Powder) 0 gm TOP BID [facility] Last Admin: 08/22/18 08:45 Dose: 1 appful Nystatin (Mycostatin Powder) 0 gm TOP PRN PRN PRN Reason: Topical Irritations Ondansetron HCl (Zofran Odt) 4 mg PO Q6H PRN PRN Reason: Nausea/Vomiting Pantoprazole Sodium (Protonix) 40 mg PO DAILY [facility] Last Admin: 08/22/18 08:42 Dose: 40 mg Sodium Chloride (Flush - Normal Saline) 10 ml IVF Q12HR [facility] Last Admin: 08/22/18 08:45 Dose: 10 ml Sodium Chloride (Normal Saline Pf) 10 ml FS PRN PRN PRN Reason: RECONSTITUTION Last Admin: 08/14/18 08:23 Dose: 10 ml Tamsulosin HCl (Flomax) 0.4 mg PO HS [facility] Last Admin: 08/21/18 20:06 Dose: 0.4 mg
--- NOTE | 2018-08-22 14:18 | PRG ---
DATE OF SERVICE: 08/22/2018 SUBJECTIVE: The patient is not sure whether she is going to a rehabilitation place or home at this point, but she is otherwise eager to be discharged. We reviewed the plan for followup regarding ureteroscopy and stone extraction with and without the need for holmium lithotripsy and we will try to set this up in the near future. Risks and benefits of the procedure reviewed in detail. I had her signed a consent form for this and she will show it to her daughter later as I left her a copy. PHYSICAL EXAMINATION: VITAL SIGNS: She has been afebrile with T-max of 98, pulse has been in the 70s. Blood pressure doing better, even down to 129/78, but last checked 153/74, she is listed as 92% on room air, but she did have a nasal cannula on when I saw her. Her urine output has been measured as diapers and she has had a bowel movement in the last 24 hours. HEART: Regular rate and rhythm without any obvious murmurs, gallops, or rubs. LUNGS: Clear to auscultation bilaterally. ABDOMEN: Soft, nondistended, but obese, nontender. She had no CVA tenderness. EXTREMITIES: She did have bilateral lower extremity edema that was pitting and she reports that she has good days and bad days with this and the current situation is what her usual is. LABORATORY VALUES: Reveal an anemia of 9.9 and 29.8. Chemistry reveals a creatinine stable and now normal at 1.10. ASSESSMENT: We have a 68-year-old female, status post urgent stent for urosepsis with obstructing stone, who still needs definitive stone treatment. She is still getting antibiotics for this infection. I would continue Omnicef for a total of 4 weeks. We will anticipate trying to get the stone procedure set up as an outpatient when she is discharged. Job ID: [id number] [facility]
[2018-08-22] MEDS: HumaLOG 300 UNITS/3 ML VIAL SC PRN (19:00)
[2018-08-22] MEDS: Tamsulosin HCl 0.4 MG CAP PO SCH (20:14)
[2018-08-22] MEDS: Atorvastatin Calcium 40 MG TAB PO SCH (20:14)
[2018-08-22] MEDS: Doxazosin 2 MG TAB PO SCH (20:15)
[2018-08-23 07:14] VITALS: TEMP 97.5
[2018-08-23 07:41] LABS: #Eosinphils 0.2 thou/uL (0.0-0.7); #Lymphocytes 1.3 thou/uL (1.20-3.40); #Neutrophils 6.1 thou/uL (1.40-6.50); %Basophils 0.3 % (0.0-1.0); %Eosinophils 1.8 % (0.0-10.0); %Lymphocytes 14.5 % (21.0-51.0); %Neutrophils 71.4 % (42.0-75.0); Hemoglobin 10.3 g/dL (12.0-16.0); Mean Corpuscular HGB CONC 31.5 g/dL (32.0-36.0); Mean Corpuscular Hemoglobin 27.8 pg (27.0-31.0); Mean Corpuscular Volume 88.2 fL (78.0-98.0); Mean Platelet Volume 8.3 fL (7.4-10.4); Platelet Count 257 thou/uL (130-400); RBC Distribution Width 14.4 % (11.5-14.5); White Blood Cell (WBC) Count 8.6 thou/uL (4.8-10.8)
[2018-08-23 08:05] LABS: Anion Gap 10 mmol/L (10-20); BUN (Urea Nitrogen) 15 mg/dL (9.8-20.1); Calc. Creatinine Clearance 127 mL/min (70-130); Calcium 8.4 mg/dL (7.8-10.44); Carbon Dioxide 28 mmol/L (23-31); Chloride 108 mmol/L (98-107); Estimated GFR-MDRD 63; Glucose 90 mg/dL (80-115); Potassium 3.4 mmol/L (3.5-5.1); Sodium 143 mmol/L (136-145)
[2018-08-23] MEDS: Insulin Glargine 18 UNITS in Pre-Filled Syringe 1 EACH SC SCH (08:37)
[2018-08-23] MEDS: Aspirin 81 mg Enteric Coated Tablet PO SCH (08:37)
[2018-08-23] MEDS: Cefdinir 300 MG CAP PO SCH (08:38)
[2018-08-23] MEDS: hydrALAZINE 25 MG TAB PO SCH (08:38)
[2018-08-23] MEDS: NIFEdipine XL 60 MG TAB PO SCH (08:38)
[2018-08-23] MEDS: Furosemide 40 MG TAB PO SCH (08:39)
[2018-08-23] MEDS: Nystatin Powder 15 GM BOT TOP SCH (08:40)
[2018-08-23] MEDS: Heparin 5,000 UNITS/ML VIAL SC SCH (08:40)
--- NOTE | 2018-08-23 12:12 | PDOC.PN ---
- Subjective Encounter Start Date: 08/23/18 Encounter Start Time: 10:40 Subjective: no sob, feels better -: says she is amb to door and back - Objective Resuscitation Status - Order Detail: 08/09/18 23:03 Resuscitation Status Routine Resuscitation Status: FULL: Full Resuscitation MAR Reviewed: Yes Vital Signs & Weight: Vital Signs (12 hours) Temp Pulse Resp BP BP Pulse Ox 08/23/18 08:38 68 169/78 H 08/23/18 08:00 94 L 08/23/18 07:13 97.5 F L 68 18 169/78 H 94 L Weight Admit Weight 324 lb 14.4 oz Weight 346 lb 12.594 oz Most Recent Monitor Data Heart Rate from ECG 69 NIBP 170/81 NIBP BP-Mean 110 Respiration from ECG 16 SpO2 97 I&O: 08/22/18 08/23/18 08/24/18 06:59 06:59 06:59 Intake Total 1530 1600 Balance 1530 1600 Result Diagrams: 08/23/18 07:22 08/23/18 07:22 Additional Labs: Accuchecks 08/23/18 08/23/18 08/22/18 11:05 05:02 20:42 POC Glucose 112 H 104 175 H 08/22/18 08/22/18 16:57 11:37 POC Glucose 166 H 117 H Phys Exam - Physical Examination HEENT: PERRLA, moist MMs Neck: no JVD, supple Respiratory: no wheezing, no rales Cardiovascular: RRR, no significant murmur Gastrointestinal: soft, non-tender, positive bowel sounds Musculoskeletal: no edema, pulses present Neurological: non-focal, moves all 4 limbs Psychiatric: normal affect, A&O x 3 Dx/Plan (1) Sepsis due to urinary tract infection Code(s): A41.9 - SEPSIS, UNSPECIFIED ORGANISM; N39.0 - URINARY TRACT INFECTION, SITE NOT SPECIFIED Status: Resolved Comment: E. 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 Diabetes mellitus complication status: with unspecified complications Qualified Code(s) : E11.8 - Type 2 diabetes mellitus with unspecified complications; Z79.4 - assisted (current) use of insulin (5) Acute metabolic encephalopathy Code(s): G93.41 - METABOLIC ENCEPHALOPATHY Status: Resolved (6) Acute respiratory failure with hypoxia and hypercapnia Code(s): J96.01 - ACUTE RESPIRATORY FAILURE WITH HYPOXIA; J96.02 - ACUTE RESPIRATORY FAILURE WITH HYPERCAPNIA Status: Resolved Comment: extubated (7) Morbid obesity Code(s): E66.01 - MORBID (SEVERE) OBESITY DUE TO EXCESS CALORIES Status: Chronic Comment: Dietary counseling, low-fat diet - Plan hemostable, needs to amb more with PT -: on omnicef, per urology for 4 weeks -: awaiting placement, may dc anytime if ready -: continue clonidine, hydralazine, procardia, lasix -: lantus, cardura and flomax * . Review of Systems - Medications/Allergies Allergies/Adverse Reactions: Allergies Allergy/AdvReac Type Severity Reaction Status Date / Time No Known Allergies Allergy Verified 01/14/15 19:46 Medications: Current Medications Acetaminophen (Tylenol) 650 mg PO Q4H PRN PRN Reason: Headache/Fever/Mild Pain (1-3) Last Admin: 08/12/18 03:32 Dose: 650 mg Albuterol/Ipratropium (Duoneb) 3 ml NEB Q6H PRN PRN Reason: SOB Last Admin: 08/23/18 07:26 Dose: 3 ml Aspirin (Ecotrin) 81 mg PO DAILY [facility] Last Admin: 08/23/18 08:37 Dose: 81 mg Atorvastatin Calcium (Lipitor) 40 mg PO HS [facility] Last Admin: 08/22/18 20:14 Dose: 40 mg Cefdinir (Omnicef) 600 mg PO DAILY [facility] Last Admin: 08/23/18 08:38 Dose: 600 mg Cholecalciferol (Vitamin D3) 1,000 units PO DAILY [facility] Last Admin: 08/23/18 08:39 Dose: 1,000 units Clonidine (Ohufnkmu-Wiq-1) 0.2 mg TD Q7D [facility] Last Admin: 08/20/18 10:43 Dose: 0.2 mg Dextrose/Water (Dextrose 50%) 25 gm SLOW IVP PRN PRN PRN Reason: Hypoglycemia Doxazosin Mesylate (Cardura) 1 mg PO HS [facility] Last Admin: 08/22/18 20:15 Dose: 1 mg Furosemide (Lasix) 40 mg PO DAILY-AC [facility] Last Admin: 08/23/18 08:39 Dose: 40 mg Glucagon (Glucagon) 1 mg IM PRN PRN PRN Reason: Hypoglycemia Heparin Sodium (Porcine) (Heparin) 5,000 units SC BID [facility] Last Admin: 08/23/18 08:40 Dose: 5,000 units Hydralazine HCl (Apresoline) 10 mg SLOW IVP Q4H PRN PRN Reason: SBP>180 OR DBP>100 Last Admin: 08/19/18 17:21 Dose: 10 mg Hydralazine HCl (Apresoline) 75 mg PO TID [facility] Last Admin: 08/23/18 08:38 Dose: 75 mg Dextrose/Water (D5w) 1,000 mls @ 0 mls/hr IV .Q0M PRN PRN Reason: Hypoglycemia Insulin Glargine 18 units/ (Miscellaneous Medication) 0.18 mls @ 0 mls/hr SC BID [facility] Last Admin: 08/23/18 08:37 Dose: 0.18 mls Insulin Human Lispro (Humalog) 0 units SC .MODERATE SLIDING SC PRN PRN Reason: Moderate Correctional Scale Last Admin: 08/22/18 19:00 Dose: 2 unit Insulin Human Lispro (Humalog) 0 units SC .BEDTIME SLIDING SC PRN PRN Reason: Bedtime Correctional Scale Last Admin: 08/13/18 20:28 Dose: 3 unit Nifedipine (Procardia Xl) 60 mg PO DAILY [facility] Last Admin: 08/23/18 08:38 Dose: 60 mg Nystatin (Mycostatin Powder) 0 gm TOP BID [facility] Last Admin: 08/23/18 08:40 Dose: 1 appful Nystatin (Mycostatin Powder) 0 gm TOP PRN PRN PRN Reason: Topical Irritations Ondansetron HCl (Zofran Odt) 4 mg PO Q6H PRN PRN Reason: Nausea/Vomiting Pantoprazole Sodium (Protonix) 40 mg PO DAILY [facility] Last Admin: 08/23/18 08:39 Dose: 40 mg Sodium Chloride (Flush - Normal Saline) 10 ml IVF Q12HR [facility] Last Admin: 08/23/18 09:20 Dose: Not Given Sodium Chloride (Normal Saline Pf) 10 ml FS PRN PRN PRN Reason: RECONSTITUTION Last Admin: 08/14/18 08:23 Dose: 10 ml Tamsulosin HCl (Flomax) 0.4 mg PO HS [facility] Last Admin: 08/22/18 20:14 Dose: 0.4 mg
[2018-08-23 12:37] VITALS: BP 163/81
--- NOTE | 2018-08-24 11:51 | DIS ---
DATE OF ADMISSION: 08/09/2018 DATE OF DISCHARGE: 08/23/2018 DISCHARGE DISPOSITION: [facility]. PRIMARY DISCHARGE DIAGNOSES: 1. Sepsis. 2. Urinary tract infection. 3. Left ureteral stone, status post stent. 4. Acute kidney injury. 5. Acute metabolic encephalopathy. 6. Acute respiratory failure with hypoxia and hypercapnia, extubated on the 15 of August. 7. Morbid obesity. 8. Deconditioning. 9. Diabetes mellitus type 2. PROCEDURES DONE DURING HOSPITALIZATION: Chest x-ray done on admission showed cardiomegaly with no acute findings. Bilateral lower extremity venous Doppler done showed no evidence of DVT. Ultrasound carotids done showed no evidence of hemodynamically significant stenosis. CT brain showed no acute intracranial abnormality. Echo with 2D Doppler showed EF of 55% to 60%, there was diastolic dysfunction, severe tricuspid regurgitation, moderate pulmonic regurgitation. Ultrasound kidneys done on 08/11/2018, showed mild left-sided hydronephrosis. CT abdomen done on 08/12/2018, showed left-sided hydronephrosis with 6 mm calculus within the distal left ureter at the pelvic brim. CT pelvis without contrast done showed left ureteral calculus at the level of the pelvic brim measuring 6-7 mm in range. There is paraumbilical hernia without signs of obstruction. Cystoscopy with left retrograde pyelogram and insertion of ureteral stent 6 x 26 double-J by Dr. Iliana Snyder done on 08/12/2018. Left upper extremity ultrasound venous Doppler done showed no evidence of thrombus. Urine culture grew E. coli sensitive to all antibiotics. Blood cultures x2, no growth. Influenza A and B antigens were negative. Had a white count of 20,000 on the day of admission with discharge number of 8.6, H and H 10 and 32, platelet count 257 on the day of discharge. Discharge BUN and creatinine are 15 and 1.0. Creatinine went up to 4.93 on the 16 with BUN of 78 on the 17th. Free T4 of 1.30. TSH 2.53. Troponin I 0.05. BNP 105. DISCHARGE MEDICATIONS: 1. Aspirin 81 mg p.o. daily. 2. Lipitor 40 mg p.o. daily. 3. Vitamin D3 1000 units p.o. daily. 4. Doxazosin 1 mg p.o. at bedtime. 5. Levemir 18 units subcu twice daily. 6. Omnicef 600 mg p.o. daily for a total of 4 weeks per Urology advice. 7. Clonidine 0.1 mg p.o. 3 times daily. 8. Lasix 40 mg p.o. daily. 9. Heparin 5000 units subcu twice daily. 10. Hydralazine 75 mg p.o. 3 times daily. 11. DuoNeb q.6 hours p.r.n. 12. Procardia XL 60 mg p.o. daily. 13. Flomax 0.4 mg p.o. at bedtime. ALLERGIES: NO KNOWN DRUG ALLERGIES. INPATIENT CONSULT: 1. Dr. Mendoza for Pulmonology. 2. Dr. Iliana Snyder for Urology. 3. Dr. Multani for Cardiology. BRIEF COURSE DURING HOSPITALIZATION: The patient initially got admitted on the with complaints of dizziness, palpitations, and weakness. She was found to be septic with urinary tract infection. She also had new onset atrial fibrillation which was rate controlled. The patient had acute kidney injury as well. During the course of her stay, patient had a Code Green with worsening lethargy and diaphoresis. She also had acute respiratory failure with hypercarbia and hypoxia, likely due to morbid obesity and hypoventilation in addition to sepsis. The patient was intubated and admitted to ICU. CT of the abdomen and pelvis done revealed left ureteral calculi with hydronephrosis. She has had consultation with Dr. Iliana Snyder for Urology and has had a cystoscopy and stent placed. The patient was successfully extubated on the . She has had severe deconditioning. The patient was transferred to medical floor and has had slow progress with physical therapy. In view of ongoing deconditioning, she is being discharged to [facility] for further recuperation prior to going home. The patient will need outpatient sleep study and likely CPAP. Her sepsis is resolving. She has been advised to continue Omnicef for a total of 4 weeks per Urology advice. She will need further definitive treatment for her ureteric stone and stent removal. A total of 35 minutes was spent on discharge plan. Please see a [id number] documentation for the day of discharge on [employer]. Job ID: [id number] MTDD
== END 2018-08-23 14:22 | DRG 659 ==
LOC: ERS 21:06 → ERHOLD 23:17 → 2NO 08-10 01:49 → CCU 08-10 19:56 → T4-B 08-16 15:24
PROVIDERS: ADMIT Hospitalist; ATTEND Hospitalist
PROC: 5A09457 Assistance with Respiratory Ventilation, 24-96 Consecutive Hours, Continuous Positive Airway Pressure (ICD-10-PCS; 2018-08-10)
PROC: 02HV33Z Insertion of Infusion Device into Superior Vena Cava, Percutaneous Approach (ICD-10-PCS; principal; 2018-08-12)
PROC: 0T778DZ Dilation of Left Ureter with Intraluminal Device, Via Natural or Artificial Opening Endoscopic (ICD-10-PCS; 2018-08-12)
PROC: 5A1945Z Respiratory Ventilation, 24-96 Consecutive Hours (ICD-10-PCS; 2018-08-12)
DX: N17.9 Acute kidney failure, unspecified (principal); G93.41 Metabolic encephalopathy; A41.51 Sepsis due to Escherichia coli [E. coli]; J96.22 Acute and chronic respiratory failure with hypercapnia; J96.21 Acute and chronic respiratory failure with hypoxia; R65.21 Severe sepsis with septic shock; Z68.43 Body mass index [BMI] 50.0-59.9, adult; I13.0 Hypertensive heart and chronic kidney disease with heart failure and stage 1 through stage 4 chronic kidney disease, or unspecified chronic kidney disease; N13.6 Pyonephrosis; N18.3 Chronic kidney disease, stage 3 (moderate); R42 Dizziness and giddiness; E11.65 Type 2 diabetes mellitus with hyperglycemia; E11.22 Type 2 diabetes mellitus with diabetic chronic kidney disease; I50.9 Heart failure, unspecified; I49.5 Sick sinus syndrome; D63.1 Anemia in chronic kidney disease; E87.6 Hypokalemia; D86.9 Sarcoidosis, unspecified; E66.01 Morbid (severe) obesity due to excess calories; I07.1 Rheumatic tricuspid insufficiency; G47.33 Obstructive sleep apnea (adult) (pediatric); R60.0 Localized edema; Z87.891 Personal history of nicotine dependence; Z79.84 Long term (current) use of oral hypoglycemic drugs
CPT/HCPCS: 36415; 36416; 70450; 71045; 72192; 74150; 76000; 76770; 80048; 80053; 81001; 82140; 82550; 82553; 82805; 83036; 83605; 83735; 83880; 84439; 84443; 84484; 85007; 85014; 85018; 85025; 85027; 85049; 85379; 85610; 85730; 87040; 87077; 87086; 87186; 87804; 93005; 93010; 93306; 93880; 93970; 94002; 94003; 94640; 94660; C1758; C9113; J0360; J0696; J1644; J1650; J1825; J2001; J2270; J2543; J2704; J2920; J2930; J3010; J3370; J3475; J7050; J7620; P9045; Q0162; Q9961

== ENCOUNTER 2018-09-07 01:22 | Outpatient (CLI) | payer MEDICARE ==
[2018-09-07 12:07] LABS: Hemoglobin 11.6 g/dL (12.0-16.0); Mean Corpuscular Hemoglobin 28.8 pg (27.0-31.0); Mean Corpuscular Volume 89.9 fL (78.0-98.0); Mean Platelet Volume 8.7 fL (7.4-10.4); Platelet Count 230 thou/uL (130-400); RBC Distribution Width 14.4 % (11.5-14.5); Red Blood Cell (RBC) Count 4.04 mill/uL (4.20-5.40); White Blood Cell (WBC) Count 6.7 thou/uL (4.8-10.8)
[2018-09-07 12:28] LABS: Anion Gap 10 mmol/L (10-20); BUN (Urea Nitrogen) 14 mg/dL (9.8-20.1); Calc. Creatinine Clearance 0 mL/min (70-130); Calcium 9.1 mg/dL (7.8-10.44); Carbon Dioxide 36 mmol/L (23-31); Chloride 99 mmol/L (98-107); Estimated GFR-MDRD 60; Glucose 85 mg/dL (80-115); Potassium 3.3 mmol/L (3.5-5.1); Sodium 142 mmol/L (136-145)
== END 2018-09-07 01:23 | disposition home or self-care (01) ==
LOC: LABBT 01:22
PROVIDERS: ATTEND Urology
DX: Z01.812 Encounter for preprocedural laboratory examination (principal); N20.2 Calculus of kidney with calculus of ureter; E66.9 Obesity, unspecified; E11.9 Type 2 diabetes mellitus without complications; D86.9 Sarcoidosis, unspecified
CPT/HCPCS: 80048; 85027

== ENCOUNTER 2018-09-13 05:46 | Emergency (ER) | payer MEDICARE ==
[2018-09-13] MEDS ORDERED: Bacitracin Zinc 1 Packet ONE (05:56)
--- NOTE | 2018-09-13 08:09 | RAD ---
RIGHT TIBIA AND FIBULA TWO VIEWS: HISTORY: Leg pain. Trauma. FINDINGS: AP and lateral views of the right tibia and fibula demonstrate osteoarthritic changes seen in the rig ht knee. No evidence of right tibia or fibula fractures, subluxations, or bony lesions seen. IMPRESSION: No evidence of acute right tibia or fibula fractures or bony lesions. POS: [facility]
--- NOTE | 2018-09-13 08:18 | RAD ---
RIGHT KNEE RADIOGRAPHS FOUR VIEWS: 09/13/2018 PROVIDED CLINICAL HISTORY: Right knee pain status post injury. FINDINGS: Advanced changes of degenerative arthrosis are seen involving the right knee. Conspicuous osteophyte formation arises from the posterior aspects of both the medial and lateral femoral condyles. There is no definite evidence for fracture or other acute osseous abnormality. If there is persistent clin ical concern, conservative management and follow-up imaging are advised. IMPRESSION: As above. POS: [facility]
== END 2018-09-13 06:56 | disposition home or self-care (01) ==
LOC: ERS 05:46
DX: S80.11XA Contusion of right lower leg, initial encounter (principal); E11.9 Type 2 diabetes mellitus without complications; I11.0 Hypertensive heart disease with heart failure; I50.9 Heart failure, unspecified; Z87.891 Personal history of nicotine dependence; W10.9XXA Fall (on) (from) unspecified stairs and steps, initial encounter

== ENCOUNTER 2018-09-13 06:57 | Day surgery (SDC) | payer MEDICARE ==
[2018-09-07 10:43] VITALS: BMI 50.2
[2018-09-13] MEDS ORDERED: cefTRIAXone\\ROCEPHIN 2 GM VIAL ONE (07:22)
[2018-09-13] MEDS ORDERED: Sodium Chloride 0.9% 100 ML ONE (07:23)
--- NOTE | 2018-09-13 08:12 | RAD ---
FRONTAL VIEW ABDOMEN KUB: INDICATIONS: Calculus of kidney, ureter. FINDINGS: There is a left double-J ureteral stent. No discrete urinary tract calculi are visualized. There is osseous degenerative change. IMPRESSION: Left ureteral stent in place. No discernible radiopaque calculi identified along the course of the s tent. POS: [facility]
[2018-09-13] MEDS ORDERED: Ondansetron PF 4 MG/2 ML Vial ONE (08:34)
[2018-09-13] MEDS ORDERED: Glycopyrrolate 0.2 MG/ML 5 ML SYRINGE ONE (08:34)
[2018-09-13] MEDS ORDERED: Dexamethasone 20 MG/5 ML VIAL ONE (08:34)
[2018-09-13] MEDS ORDERED: Succinylcholine Chloride 20 MG/ML 10 ml SYRINGE FS ONE (08:34)
[2018-09-13] MEDS ORDERED: Rocuronium Bromide 10 MG/ML (10ML VIAL) ONE (08:34)
[2018-09-13] MEDS ORDERED: PROPOFOL 200 MG/20 ML VIAL ONE (08:34)
[2018-09-13] MEDS ORDERED: Lidocaine 1% PF 5 ML VIAL ONE (08:34)
[2018-09-13 08:36] LABS: Potassium 4.7 mmol/L (3.5-5.1)
[2018-09-13] MEDS ORDERED: Fentanyl 100 MCG/2 ML VIAL ONE (08:53)
[2018-09-13] MEDS ORDERED: Furosemide 20 MG/2 ML VIAL ONE (09:59)
--- NOTE | 2018-09-13 10:25 | RAD ---
INTRAOPERATIVE FLUOROSCOPY RETROGRADE IVP: FINDINGS: A single fluoroscopic image demonstrates a wire and stent along the expected course of the left urete r. IMPRESSION: Fluoroscopy as above. POS: [facility]
--- NOTE | 2018-09-13 12:11 | OP ---
DATE OF PROCEDURE: 09/13/2018 PREOPERATIVE DIAGNOSIS: Left ureteral stone. POSTOPERATIVE DIAGNOSIS: Left renal stone. ANESTHESIA: General with endotracheal tube. FINDINGS: There was no left ureteral stone, although, I was able to easily pass up and down the left ureter twice due to the good dilation from prior existing stent. I did not see any stone in the renal pelvis with the rigid as unable to see anything in the lower pole. Looking at the the KUB that was taken the morning of surgery , I could not identify a stone. Although, on flouroscopy on the OR table, it did look as though she could have a left lower pole stone to the left of L3. At this point, I thought it was better to use shockwave on this as opposed to attempt with the flexible given its location and my concern that I would not be able to get into the lower calyx easily. PROCEDURES PERFORMED: Cystoscopy, left ureteroscopy, removal of stent, and left extracorporeal shockwave lithotripsy. INDICATIONS FOR PROCEDURE: The patient is a 68-year-old female, who was admitted with obstructing left ureteral stone and sepsis and I placed an urgent stent during that hospital stay. She presents for definitive stone therapy. DESCRIPTION OF PROCEDURE: The patient was brought into the room by Anesthesia, laid on the table in supine position. After receiving general anesthetic with endotracheal tube, the legs were positioned in lithotomy and she was prepped and draped in sterile fashion. Using a 21-Albanian cystoscope and a 30-degree lens, urethra was entered. The stent noted, grasped, and brought out through the urethral meatus, and wire was placed into the stent, and fluoroscopy confirmed that it went into the renal pelvis. Then, the old stent was removed leaving the wire in place. Then, the rigid ureteroscope was used to traverse the ureter and no stone was initially seen and I carefully and slowly removed the ureter, again the entire length of it, and was unable to find any stone. Through this point of interest , I searched again to make sure I was not missing anything was able to get all the way into the renal pelvis for only a small amount of debris was noted, but there was no stone seen, so I carefully removed again and could not see the other stone. At this time, so the ureteroscope was removed entirely leaving the wire in place. Then , I reviewed again the preoperative x-ray and could not find any stone obvious. However, on the fluoroscopy table, it did look as though she might have a stone in the lower pole. I decided at this point to forego Holmium laser given its location, so she was returned to supine position after the wire was removed in its entirety. No left stent remained. The patient was then transferred to ESWL suite and positioned such that the Lithotripter could identify the stone in multiple planes. Then a total of 2500 shocks at a maximum power of 5/6 at a maximum rate of 60 to 90 per minute delivered. Good fragmentation was noted despite being somewhat difficult to identify. I had given Lasix 10 mg before ESWL and then had 10 mg after. The patient tolerated the procedure well and was then awakened and transferred to the PACU in stable condition. Job ID: [id number] MTDD
[2018-09-13] MEDS ORDERED: Iothalamate Meglumine 60% 50 ML VIAL FS ONE (13:46)
== END 2018-09-13 17:42 | disposition home or self-care (01) ==
LOC: SDC 06:57
PROVIDERS: ATTEND Urology
PROC: 0TF4XZZ Fragmentation in Left Kidney Pelvis, External Approach (ICD-10-PCS; principal; 2018-09-13)
PROC: 0TP98DZ Removal of Intraluminal Device from Ureter, Via Natural or Artificial Opening Endoscopic (ICD-10-PCS; 2018-09-13)
DX: N20.0 Calculus of kidney (principal)
CPT/HCPCS: 74018; 84132; C1758; J0696; J1100; J1940; J2001; J2405; J2704; J3010; J7050; Q9961

== ENCOUNTER 2018-09-23 09:04 | Inpatient (IN) | payer MEDICARE ==
[2018-09-23 09:33] LABS: Hemoglobin 11.1 g/dL (12.0-16.0); Mean Corpuscular HGB CONC 32.2 g/dL (32.0-36.0); Mean Corpuscular Hemoglobin 28.3 pg (27.0-31.0); Mean Corpuscular Volume 87.9 fL (78.0-98.0); Mean Platelet Volume 8.8 fL (7.4-10.4); Platelet Count 213 thou/uL (130-400); RBC Distribution Width 14.5 % (11.5-14.5); Red Blood Cell (RBC) Count 3.93 mill/uL (4.20-5.40); White Blood Cell (WBC) Count 32.5 thou/uL (4.8-10.8)
--- NOTE | 2018-09-23 09:35 | RAD ---
FRadiograph chest one view: 09/23/2018 9:22 AM: HISTORY: 68-year-old female with dyspnea COMPARISON: 08/15/2018 FINDINGS: Mild patchy haziness asymmetrically scattered in a few locations bilaterally. Previously demonstrated airspace densities in the bilateral lower lung zones have improved. No pneumothorax. No effacement o f lateral costophrenic angles. IMPRESSION: Nonspecific mild, faint pulmonary densities. No major consolidation.
[2018-09-23 09:48] LABS: Band 16 % (5-11); Dohle Bodies SLIGHT; Lymphocytes 4 % (21-51); MDiff Complete? YES; Monocytes 6 % (0-10); Neutrophil 74 % (42-75); Platelet Morphology Comment Appears Adequate; Polychromasia SLIGHT = 2-3 cells (100X) (0-2/hpf); Vacuoles SLIGHT
[2018-09-23 09:53] LABS: ALT (SGPT) 14 U/L (8-55); AST (SGOT) 11 U/L (5-34); Albumin 3.1 g/dL (3.4-4.8); Alkaline Phosphatase 91 U/L (40-150); Anion Gap 14 mmol/L (10-20); BUN (Urea Nitrogen) 25 mg/dL (9.8-20.1); Calc. Creatinine Clearance 0 mL/min (70-130); Calcium 8.3 mg/dL (7.8-10.44); Carbon Dioxide 25 mmol/L (23-31); Chloride 101 mmol/L (98-107); Estimated GFR-MDRD 43; Globulin 2.9 g/dL (2.4-3.5); Glucose 168 mg/dL (80-115); Potassium 3.1 mmol/L (3.5-5.1); Sodium 137 mmol/L (136-145)
[2018-09-23 10:28] LABS: Bilirubin Small (Negative); Blood, Urine Negative (Negative); Clarity CLOUDY (Clear); Glucose, Urine (Dipstick) Negative (Negative); Leukocyte Small (Negative); Nitrite Negative (Negative); Protein, Urine (Dipstick) 30 mg/dL (Neg-Trace); Specific Gravity, Urine 1.023 (1.002-1.036)
[2018-09-23 10:30] LABS: RBC/HPF 0-3 HPF (0-3); Yeast-AUWi Flag 22.9 (0-25.0)
[2018-09-23 10:32] LABS: Pathc Cast-AUWi Flag 15.09 (0-2.49)
[2018-09-23 10:43] LABS: Hyaline Casts/LPF 0-3 HYALINE CAST LPF (0-3 Hyaline)
[2018-09-23 10:44] LABS: Bacteria/HPF Rare-Few HPF (None Seen); Renal Epithelial None Seen HPF (0-3)
[2018-09-23] MEDS ORDERED: cefTRIAXone\\ROCEPHIN 1 GM VIAL ONE (10:57)
[2018-09-23] MEDS ORDERED: Potassium Chloride 20 MEQ TAB ONE (11:55)
[2018-09-23] MEDS ORDERED: Piperacillin/Tazobactam 4.5 GM VIAL ONE (11:55)
--- NOTE | 2018-09-23 13:08 | CT ---
CT ABDOMEN AND PELVIS PERFORMED WITHOUT CONTRAST ENHANCEMENT: HISTORY: Abdominal pain, weakness. History of renal insufficiency. COMPARISON: A 08/12/2018 study. The lung bases show atelectatic change. Calcified granulomas are seen within the liver and spleen. The pancreas region appears unremarkable and the gallbladder has been removed. Right and left adrenal glands and right and left kidneys are normal in size. No renal calculi are de monstrated. The dilatation of the left collecting system has resolved and no left ureteral calculus is seen on this study. No significant periaortic or mesenteric adenopathy. There is a moderate amount of stool present thro ughout the colon suggesting constipation. There is a suggestion of some mild wall thickening to the descending and sigmoid colon which could indicate some mild colitis changes which could just be relat ed to constipation. No definite evidence for pneumatosis and no pericolonic fat stranding. No free fluid. CT OF PELVIS PERFORMED WITHOUT CONTRAST ENHANCEMENT: A moderate amount of stool in the rectosigmoid region. Paraumbilical hernia is seen containing bowel , but no evidence for obstruction. No free fluid. No inflammatory change in the region of the appen elliot. There are arthritic changes of the spine which are fairly pronounced. Suggestion of some areas of ca nal stenosis not well assessed on this exam. IMPRESSION: 1. Post cholecystectomy change. 2. No obstruction of either kidney. The left ureteral calculus is no longer present. 3. A marked amount of stool present throughout the colon suggestive of constipation. Suggestion of some mild wall thickening to the descending and sigmoid colon region which could indicate a mild coli tis. 4. Paraumbilical hernia without signs of obstruction. 5. Marked arthritic changes of the lumbar spine. POS: [facility]
[2018-09-23] MEDS ORDERED: Ondansetron PF 4 MG/2 ML Vial IVP PRN ×2 (13:20→13:21)
[2018-09-23] MEDS ORDERED: Acetaminophen 325 MG TAB PO PRN (13:21)
[2018-09-23] MEDS ORDERED: Dextrose 5% in Water 1,000 ML IV PRN (14:38)
[2018-09-23] MEDS ORDERED: Dextrose 50% Abboject 50 ML SYRINGE SLOW IVP PRN (14:38)
[2018-09-23] MEDS ORDERED: Polyethylene Glycol 3350 17 GM Packet PO PRN (14:40)
[2018-09-23] MEDS ORDERED: Polyethylene Glycol 3350 17 GM Packet PO SCH (14:45)
[2018-09-23] MEDS ORDERED: Potassium Chloride 40 MEQ in Sodium Chloride 0.9% 250 ML 250 ML IVPB SCH (15:30)
[2018-09-23] MEDS: Ondansetron ODT 4 MG TAB PO PRN ×2 (16:06→22:07)
[2018-09-23] MEDS: Piperacillin/Tazobactam 3.375 GM in Sodium Chloride 0.9% 100 ML IVPB SCH (18:11)
[2018-09-23] MEDS: Famotidine 20 MG TAB PO SCH (20:49)
[2018-09-23] MEDS ORDERED: Vancomycin HCl 1 GM in Premix Bag 1 BAG IVPB SCH (21:00)
--- NOTE | 2018-09-23 21:24 | CON ---
DATE OF CONSULTATION: 09/23/2018 HISTORY OF PRESENT ILLNESS: The patient is a 68-year-old female, who I recently took to the operating room for stone disease whose daughter called to let us know that she was being transferred to the ER for shortness of breath and concern for chills and I spoke with the ER about my concern for possible residual stone disease instruction and asked them to obtain a CAT scan. She presented with shortness of breath, some confusion, although when I spoke with her, she was alert and oriented and appropriate. Complained of some lower abdominal pain and has been dealing with some constipation, but she was able to have a bowel movement with struggle this morning. She has had some nausea and vomiting, fever and chills, and increased swelling in her lower extremities. PAST MEDICAL HISTORY: Significant for stones, diabetes, hypertension, CHF, CAD, sarcoidosis, and morbid obesity. PAST SURGICAL HISTORY: Includes remote hernia repair, ureteroscopy, stone extraction in 2014, urgent stent for sepsis in the middle of July of this year with subsequent ureteroscopy and extracorporeal shockwave lithotripsy on 2018. 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 SOCIAL HISTORY: Smoked two packs a day for 30 years, quit about 2008. She has rare alcohol and does not use other drugs. MEDICATIONS: Include; 1. Aspirin 81 mg. 2. Glipizide. 3. Enalapril. 4. Furosemide. 5. Hydralazine. 6. Atorvastatin. 7. Vitamin D. 8. Levemir. 9. Glucophage. 10. Metformin. 11. Doxazosin. 12. I sent her out on Cipro for approximately 5 days after surgery, but she has done with that. ALLERGIES: NONE. REVIEW OF SYSTEMS: Reveal the above-mentioned concerns upon admission, but she denies any gross hematuria, burning, cloudy, malodorous urine. She is not having difficulty urinating. FAMILY HISTORY: Significant for mom dying in her 50s with renal failure. Father in of gallbladder cancer. PHYSICAL EXAMINATION: GENERAL: She appears comfortable, but with some shortness of breath in bed. VITAL SIGNS: Blood pressure 122/59, heart rate 95, temperature 98.3, 93% on room air. She does have a little bit of yellow color that could be considered jaundice. However, her LFTs are within normal limits. HEART: Regular rhythm with borderline tachycardia, with a systolic ejection murmur noted. LUNGS: Difficult to hear, but overall clear with decreased breath sounds in the bases. ABDOMEN: Soft, nondistended. She reports tenderness in the lower abdominal area, but I could not get reproducible tenderness on exam. EXTREMITIES: lower extremities were significantly edematous, more so than her normal. LABORATORY VALUES: Reveal a white count of 32.5, and anemia of 11.1 and 34.6. BUN and creatinine are 25 and 1.47. Urinalysis revealed 7 to 10 wbc's, 0 to 3 rbc's, rare bacteria and 4 to [address] scan from 09/23/2018 without contrast reviewed personally revealed no stones remaining, no hydronephrosis, and a normal bladder. ASSESSMENT: We have a 68-year-old female, status post urgent stent for sepsis with obstructing stone followedy by delayed left ureteroscopy and ESWL with stent removal on 09/13/2018 who has had excellent clearance of her stone and no longer has any concern for active urologic infection or stones. Continue hydration as allowed per her cardiopulmonary status and continue the workup regarding the etiology for shortness of breath with elevated WBC. I told the patient that at this point, there is no acute urologic issue, but I definitely want to see her in followup to help discuss further stone prevention. Job ID: [id number] [id number]
--- NOTE | 2018-09-23 21:53 | HP ---
CHIEF COMPLAINT: Altered mental status and weakness. HISTORY OF PRESENT ILLNESS: This patient is a 68-year-old female, who has a complicated recent medical history involving some obstructing ureteral stones, requiring instrumentation and stent, which has subsequently fully been removed. The patient awoke this morning feeling a bit confused and altered. She tried to get out of bed and fell. She denied any injury related to the fall that was significant. She states she generally feel weak. The source of her fall, no syncope. She said this was new for her this morning. When EMS arrived, they found the patient to be dyspneic and hypotensive. Currently, she states that she is feeling a little better in general. Her breathing has improved. Today, she also had some lower abdominal cramping and some bilious vomiting. She had an episode of loose stools this morning and reports she has not eaten since yesterday. REVIEW OF SYSTEMS: Chronic lower extremity edema, shortness of breath as mentioned above, some abrasions to her toes and generalized weakness. All other systems were reviewed and all pertinent positives and negatives noted in the history of present illness. PAST MEDICAL HISTORY: The patient was admitted in July for urinary tract infection, underwent cystoscopy, retrograde pyelogram and ultimately left ureteral stent placement for stone. She was discharged to [facility] and readmitted after coming with UTI with a fall. At that time, she appeared to have persistent stone in the left ureter and had cystoscopy and ureteroscopy with no evidence of stone; however, there was evidence on imaging and the patient, therefore, had a lithotripsy performed. Subsequent to that, the patient was discharged to home and has been staying with her daughter. Past medical history additionally notable for diabetes mellitus, hypertension, stage III decubitus ulcer, morbid obesity, diastolic heart failure with severe tricuspid regurgitation, severe chronic lower extremity edema, and history of atrial fibrillation. She also has some history reported of sarcoidosis. PAST SURGICAL HISTORY: Cholecystectomy, , hysterectomy, breast abscess. FAMILY HISTORY: Reviewed. No significant findings attributable to this admission. SOCIAL HISTORY: The patient was a prior smoker, quit about 15 years ago. No alcohol or drugs. She is not . She is full code and her daughter would be her surrogate decision maker. CURRENT MEDICATIONS: 1. Aspirin 81 mg daily. 2. Atorvastatin 40 mg daily. 3. Vitamin D 1000 units daily. 4. Doxazosin 1 mg p.o. at bedtime. 5. Levemir 20 units subcu b.i.d. 6. Cefdinir 600 mg p.o. daily. 7. Clonidine 0.1 mg p.o. t.i.d. 8. Lasix 40 mg p.o. daily. 9. Hydralazine 75 mg p.o. daily. 10. DuoNeb q.6 hours p.r.n. 11. Nifedipine 60 mg p.o. daily. 12. Tamsulosin 0.4 mg p.o. at bedtime. 13. Humalog sliding scale. ALLERGIES: NONE. PHYSICAL EXAMINATION: VITAL SIGNS: Temperature is 100.5, pulse is 88, respirations 17, O2 saturation 100% on 3 L nasal cannula, BP is 95/53. GENERAL APPEARANCE: Age-appropriate female, morbidly obese. She is awake and alert. No acute distress. She appears appropriate and interactive. HEENT: PERRL. No OP lesions. NECK: Supple and symmetric. HEART: Faint, but regular without murmurs. LUNGS: Also faint, but no wheezes or rales are noted. ABDOMEN: Soft, nondistended with positive bowel sounds, very minimally tender in the periumbilical area, primarily superiorly and felt to have slight fullness there like midline hernia, although difficult to assess due to the patient's pannus. EXTREMITIES: Reveal 3+ pitting edema to the level of the knee bilaterally. There is also some edematous area in the left forearm and upper arm, which she states is chronic. She has evidence of stasis dermatitis in the lower extremities, right more so than left. Pulses were not palpable. PSYCH: The patient has normal affect and behavior. NEURO: Cranial nerves intact. She is alert and oriented. No evidence of focal deficits. LABORATORY DATA: White count is 32,500 with 16% bands, hemoglobin is 11.1, platelets 213. Sodium 137, potassium 3.1, chloride 101, CO2 of 25, BUN 25, creatinine 1.47, glucose 168. Troponin 0.022. LFTs normal. Albumin is 3.1. Chest x-ray shows nonspecific faint pulmonary densities with no other specific major consolidations. CT abdomen and pelvis reveals primarily some constipation with possible evidence of mild colitis. EKG shows right bundle branch block with left anterior fascicular block, which did not appear to be new. IMPRESSION AND PLAN: 1. Acute hypoxic respiratory failure, possibly due to underlying infectious etiology. Continue supplemental oxygen, nebulizers if needed. 2. Possible pneumonia. The patient has a high white count with left shift and no other readily identifiable source of infection. We will cover with vancomycin and Zosyn given her recent hospitalization and repeat chest x-ray in the morning. 3. Sepsis is manifested by the tachypnea, hypoxia, significant leukocytosis and suspicion for underlying infection. The patient has significant peripheral volume overload. We will only aggressively hydrate if her pressure comes down further and this is especially true in light of her history of diastolic dysfunction. 4. Altered mental status, likely metabolic encephalopathy secondary to underlying infection. 5. Generalized weakness, likely related to underlying infection. 6. Hypokalemia, oral repletion. 7. Appears to have chronic kidney disease, stage 3, although her renal function was much worse in July when she had apparent obstruction with the ureteral stone. 8. Constipation. We will give cathartics. 9. Diabetes mellitus. Diabetic diet, Accu-Cheks, sliding scale. We will resume her usual home medicines. 10. History of atrial fibrillation, appears to be in sinus rhythm presently. 11. Hypertension. Continue home regimen. 12. Constipation. Imaging demonstrates constipation. Will give miralax. 13. Possible mild colitis. Reported on imaging. Does not appear to be significant enough to account for the leukocytosis and sepsis, but is possible. Should be covered by the current antibiotics. Job ID: [id number] MTDD
[2018-09-24] MEDS: Piperacillin/Tazobactam 3.375 GM in Sodium Chloride 0.9% 100 ML IVPB SCH ×5 (00:12→22:55)
[2018-09-24 05:43] LABS: Anion Gap 15 mmol/L (10-20); BUN (Urea Nitrogen) 32 mg/dL (9.8-20.1); Calc. Creatinine Clearance 76 mL/min (70-130); Calcium 7.9 mg/dL (7.8-10.44); Carbon Dioxide 25 mmol/L (23-31); Chloride 103 mmol/L (98-107); Estimated GFR-MDRD 36; Glucose 123 mg/dL (80-115); Potassium 3.7 mmol/L (3.5-5.1); Sodium 139 mmol/L (136-145)
[2018-09-24 06:04] LABS: Band 17 % (5-11); Hemoglobin 10.3 g/dL (12.0-16.0); Lymphocytes 7 % (21-51); MDiff Complete? YES; Mean Corpuscular Volume 87.6 fL (78.0-98.0); Mean Platelet Volume 9.1 fL (7.4-10.4); Monocytes 4 % (0-10); Neutrophil 72 % (42-75); Platelet Count 202 thou/uL (130-400); RBC Distribution Width 14.7 % (11.5-14.5); Red Blood Cell (RBC) Count 3.69 mill/uL (4.20-5.40); White Blood Cell (WBC) Count 24.1 thou/uL (4.8-10.8)
[2018-09-24] MEDS ORDERED: Prevnar 13-Val Conj/PF 0.5 ML SYRINGE IM ONE (09:00)
[2018-09-24] MEDS: Enoxaparin Sodium 40 MG/0.4 ML SYRINGE SC SCH (09:23)
[2018-09-24] MEDS: Famotidine 20 MG TAB PO SCH ×2 (09:23→21:35)
--- NOTE | 2018-09-24 12:14 | RAD ---
FChest AP view INDICATION: Chest pain COMPARISON: September 23, 2018 at 9:22 AM FINDINGS:Patchy perihilar opacities appear slightly more pronounced. Cardiomegaly and pulmonary vascu lar congestion persists. No definite pleural effusion or pneumothorax is evident IMPRESSION: Persistent cardiomegaly with mild pulmonary vascular congestion. There is worsening perih ilar opacities may reflect worsening edema or pneumonia. Recommend continued follow-up.
--- NOTE | 2018-09-24 12:34 | PDOC.PN ---
- Subjective Encounter Start Date: 09/24/18 Encounter Start Time: 12:31 Ms. Kelly was seen today in follow-up of Sepsis, etiology unclear. She looks chronically ill, and appears fatigued. She says she is breathing better today. She denies any chest pain.. - Objective Resuscitation Status - Order Detail: 09/23/18 14:21 Resuscitation Status Routine Resuscitation Status: FULL: Full Resuscitation MAR Reviewed: Yes Vital Signs & Weight: Vital Signs (12 hours) Temp Pulse Resp BP Pulse Ox 09/24/18 09:30 99.1 F 91 20 92/43 L 97 09/24/18 03:53 99.1 F 103 H 18 97/51 L 97 Weight Weight 337 lb 4.8 oz I&O: 09/23/18 09/24/18 09/25/18 06:59 06:59 06:59 Intake Total 1298 Output Total 50 Balance 1248 Result Diagrams: 09/24/18 05:02 09/24/18 05:02 Additional Labs: Accuchecks 09/24/18 09/24/18 09/23/18 10:56 05:46 20:15 POC Glucose 154 H 119 H 100 09/23/18 17:19 POC Glucose 107 Phys Exam - Physical Examination HEENT: PERRLA Respiratory: no wheezing + rales , faint at the bases Cardiovascular: RRR, no significant murmur, no rub Gastrointestinal: soft, non-tender, no distention, positive bowel sounds Musculoskeletal: pulses present, edema present + 2+ pitting edema in both lower extremities and chronic venous stasis changes Neurological: non-focal Dx/Plan (1) Sepsis Code(s): A41.9 - SEPSIS, UNSPECIFIED ORGANISM Status: Acute (2) Pneumonia Code(s): J18.9 - PNEUMONIA, UNSPECIFIED ORGANISM Status: Acute (3) Acute respiratory failure Code(s): J96.00 - ACUTE RESPIRATORY FAILURE, UNSP W HYPOXIA OR HYPERCAPNIA Status: Acute (4) Hypertension Code(s): I10 - ESSENTIAL (PRIMARY) HYPERTENSION Status: Chronic (5) DM type 2 (diabetes mellitus, type 2) Status: Chronic Qualifiers: Diabetes mellitus assistant terminal manager insulin use: with assistant terminal manager use Diabetes mellitus complication status: with unspecified complications Qualified Code(s) : E11.8 - Type 2 diabetes mellitus with unspecified complications; Z79.4 - ferry terminal agent (current) use of insulin (6) Morbid obesity Code(s): E66.01 - MORBID (SEVERE) OBESITY DUE TO EXCESS CALORIES Status: Chronic Comment: Dietary counseling, low-fat diet - Plan * Sepsis- likely due to pneumonia- repeat CXR results noted- will continue broad spectrum antibiotics ( Levaquin , Zosyn and Vancomycin) * HTN- blood pressure is low- therefore will continue to HOLD her antihypertensives * DM- Blood glucose is slowly trending up- likely can re-start her home medications for DM tomorrow. Continue SSI * Morbid Obesity- this will complicate her recovery, as her body habitus infringes on her respiratory effort * Urology input appreciated
[2018-09-24] MEDS: Vancomycin HCl 1.75 GM in Sodium Chloride 0.9% 500 ML IVPB SCH (15:29)
[2018-09-24] MEDS: Atorvastatin Calcium 40 MG TAB PO SCH (21:35)
[2018-09-25] MEDS: Piperacillin/Tazobactam 3.375 GM in Sodium Chloride 0.9% 100 ML IVPB SCH ×3 (05:35→17:21)
[2018-09-25 05:40] LABS: Anion Gap 13 mmol/L (10-20); BUN (Urea Nitrogen) 40 mg/dL (9.8-20.1); Calc. Creatinine Clearance 57 mL/min (70-130); Calcium 7.7 mg/dL (7.8-10.44); Carbon Dioxide 26 mmol/L (23-31); Chloride 99 mmol/L (98-107); Estimated GFR-MDRD 26; Glucose 180 mg/dL (80-115); Potassium 3.4 mmol/L (3.5-5.1); Sodium 135 mmol/L (136-145)
[2018-09-25 05:44] LABS: Band 18 % (5-11); Eosinophils 4 % (0-10); Hemoglobin 9.8 g/dL (12.0-16.0); Lymphocytes 3 % (21-51); MDiff Complete? YES; Mean Corpuscular HGB CONC 31.8 g/dL (32.0-36.0); Mean Corpuscular Hemoglobin 28.3 pg (27.0-31.0); Mean Corpuscular Volume 88.9 fL (78.0-98.0); Mean Platelet Volume 9.3 fL (7.4-10.4); Monocytes 13 % (0-10); Neutrophil 62 % (42-75); Platelet Count 202 thou/uL (130-400); RBC Distribution Width 14.7 % (11.5-14.5); Red Blood Cell (RBC) Count 3.48 mill/uL (4.20-5.40)
[2018-09-25] MEDS: Famotidine 20 MG TAB PO SCH ×2 (08:28→21:10)
[2018-09-25] MEDS: Enoxaparin Sodium 40 MG/0.4 ML SYRINGE SC SCH (08:29)
[2018-09-25] MEDS: Aspirin 81 mg Enteric Coated Tablet PO SCH (08:29)
[2018-09-25] MEDS ORDERED: Prevnar 13-Val Conj/PF 0.5 ML SYRINGE IM ONE (09:00)
--- NOTE | 2018-09-25 10:53 | CON ---
DATE OF CONSULTATION: REASON FOR CONSULTATION: Elevated creatinine. HISTORY OF PRESENT ILLNESS: This is a very pleasant 68-year-old female, who was admitted to the hospital on September 23 with a baseline creatinine of 1, which had increased to 2.2, so we were consulted. The patient was admitted for altered mental status and weakness. The patient had respiratory failure and sepsis. The patient had a last episode of acute renal failure with a creatinine more than 4 in July 2018. PAST MEDICAL HISTORY: End-stage renal disease, CKD, hypertension, anemia, cystoscopy, urethroscopy, UTI, sepsis, diabetes mellitus, decubitus ulcer, morbid obesity, diastolic heart failure, severe tricuspid regurgitation, atrial fibrillation, history of , cholecystectomy, breast abscess. SOCIAL HISTORY: No alcohol. FAMILY HISTORY: Negative for ESRD. ALLERGIES: REVIEWED. HOME MEDICATIONS: List reviewed. REVIEW OF SYSTEMS: 15-point review of systems was performed, negative except for positives noted above. GENERAL: HEAD: NECK: No swelling or lumps. NOSE: No epistaxis or discharge. EYES: No diplopia or pain. RESPIRATORY: CARDIOVASCULAR: GASTROINTESTINAL: /THIRD RIGGER: MUSCULOSKELETAL: No joint pain. NEUROPSYCHIATIC SYSTEMS: No suicidal ideation. No ideation. SKIN: Denies any rash or ulcer. CONSTITUTIONAL: No fever or chills. OBJECTIVE: See above. CONSTITUTIONAL: Awake, alert, in no acute distress. VITAL SIGNS: Pulse 66, breathing 16, blood pressure 129/59. GENERAL APPEARANCE AND MENTAL STATUS: Fair. HEAD/NECK: Normocephalic. Atraumatic. EYES: EOMI. No deformity. EARS: Clear. No ulcers. NOSE: Intact. No lesions. MOUTH: Clear. No discharge. THROAT: Clear. No exudate. LUNGS: Clear. No crackles. CARDIAC: S1, S2. No rub. ABDOMEN: Benign. Bowel sounds positive. GENITALIA/RECTUM: Palomares absent. BACK/EXTREMITIES: Edema 0+. NEUROLOGICAL: Alert and motor intact. SKIN: LYMPHATICS: LABORATORY DATA: Hemoglobin 9.8. Creatinine 2.2. ASSESSMENT AND PLAN: 1. Acute kidney injury with chronic kidney disease most likely due to sepsis. Continue gentle hydration. 2. Hypertension, stable. 3. Anemia, stable. 4. Medication based on GFR appropriate. No indication for dialysis. Job ID: [id number]
[2018-09-25] MEDS: HumaLOG 300 UNITS/3 ML VIAL SC PRN ×2 (11:56→17:50)
--- NOTE | 2018-09-25 12:28 | PDOC.PN ---
- Subjective Encounter Start Date: 09/25/18 Encounter Start Time: 11:20 Ms. Kelly was seen today in follow-up of Pneumonia with sepsis. she says she is less short of breath today. She subjectively looks better today. she had trouble sleeping last night. - Objective Resuscitation Status - Order Detail: 09/23/18 14:21 Resuscitation Status Routine Resuscitation Status: FULL: Full Resuscitation MAR Reviewed: Yes Vital Signs & Weight: Vital Signs (12 hours) Temp Pulse Resp BP Pulse Ox 09/25/18 12:01 102 H 20 108/50 L 96 09/25/18 08:29 93 L 09/25/18 07:47 98.1 F 103 H 18 129/90 93 L 09/25/18 03:50 99.8 F H 86 21 H 129/59 L 94 L Weight Admit Weight 337 lb 4.8 oz Weight 337 lb 4.8 oz I&O: 09/24/18 09/25/18 09/26/18 06:59 06:59 06:59 Intake Total 1298 500 Output Total 50 Balance 1248 500 Result Diagrams: 09/25/18 04:35 09/25/18 04:35 Additional Labs: Accuchecks 09/25/18 09/25/18 09/24/18 10:45 05:41 20:43 POC Glucose 229 H 189 H 150 H 09/24/18 16:36 POC Glucose 159 H Phys Exam - Physical Examination HEENT: PERRLA Respiratory: no wheezing, no rhonchi Bilateral rales at the bases Tachycardic , slight 2/6 flow murmur, systolic Gastrointestinal: soft, non-tender, no distention, positive bowel sounds Musculoskeletal: pulses present, edema present Dx/Plan (1) Sepsis Code(s): A41.9 - SEPSIS, UNSPECIFIED ORGANISM Status: Acute (2) Pneumonia Code(s): J18.9 - PNEUMONIA, UNSPECIFIED ORGANISM Status: Acute (3) Acute respiratory failure Code(s): J96.00 - ACUTE RESPIRATORY FAILURE, UNSP W HYPOXIA OR HYPERCAPNIA Status: Acute (4) Hypertension Code(s): I10 - ESSENTIAL (PRIMARY) HYPERTENSION Status: Chronic (5) DM type 2 (diabetes mellitus, type 2) Status: Chronic Qualifiers: Diabetes mellitus usp insulin use: with usp use Diabetes mellitus complication status: with unspecified complications Qualified Code(s) : E11.8 - Type 2 diabetes mellitus with unspecified complications; Z79.4 - USP (current) use of insulin (6) Morbid obesity Code(s): E66.01 - MORBID (SEVERE) OBESITY DUE TO EXCESS CALORIES Status: Chronic Comment: Dietary counseling, low-fat diet - Plan * Sepsis due to Pneumonia- CXR results were noted- she continues to have an elevated WBC count, and her renal function is worsening. She tells me she has Sarcoidosis as well, and Dr. Mendoza is her Airline Operations Agent- will consult PCCM, due to her significant co-morbid conditions * Acute Kidney injury- likely from sepsis, however can not be sure if she has some other underlying process- will consult Nephrology * Chronic diastolic heart failure- ? compensated- BNP is only slightly elevated , and she presented with fever and elevated WBC count- i suspect the radiographic changes are due to infection and not fluid- but will await Pulmonary evaluation. * DM- blood glucose is stable *
[2018-09-25 14:18] LABS: Vancomycin, Trough 18.6 ug/mL
[2018-09-25] MEDS: Vancomycin HCl 1.75 GM in Sodium Chloride 0.9% 500 ML IVPB SCH (17:20)
[2018-09-25] MEDS: Atorvastatin Calcium 40 MG TAB PO SCH (21:11)
--- NOTE | 2018-09-25 22:10 | CON ---
DATE OF CONSULTATION: 09/25/2018 SERVICE: Pulmonary Medicine. REASON FOR CONSULT: Respiratory failure. HISTORY OF PRESENT ILLNESS: The patient is a 68-year-old female with past medical history significant for obstructive sleep apnea. She also has a remote history of sarcoidosis, but apparently has been quiescent for quite some time. She presented to the hospital, because of altered mentation and weakness. Ultimately, chest x-ray showed some infiltrate type changes in the bilateral areas. She also had a CT of the belly. At that time, there was no obvious infiltrate, looking like a pneumonia. I was ultimately consulted, because the patient was a little volume overloaded. Because she had an elevated white blood cell count, there was concern for possible pneumonia. Otherwise, the patient indicates that she has not been having high fevers or chills, cough, or any sputum production. She has a little bit of shortness of breath. She indicates to me this is close to baseline. She has had multiple bowel movements today alone. She had 4 bowel movements. This is not characteristic for her. PAST MEDICAL HISTORY: 1. Type 2 diabetes mellitus. 2. Hypertension. 3. Dyslipidemia. 4. Chronic diastolic heart failure. 5. Morbid obesity. 6. History of stage III decubitus ulcer. 7. Atrial fibrillation, paroxysmal. 8. Sarcoidosis, remote history. 9. Nephrolithiasis. PAST SURGICAL HISTORY: 1. Cholecystectomy. 2. section. 3. Hysterectomy. 4. Breast abscess incision and drainage. 5. Cystoscopy. 6. Lithotripsy. FAMILY HISTORY: Noncontributory. SOCIAL HISTORY: She has a remote history of smoking, but quit 15 years ago. Prior to that, she had a greater than [id number] history of smoking. No alcohol or illicit drugs are noted. She has no exposure to chemicals, dust, asbestos, or tuberculosis. ALLERGIES: NO KNOWN DRUG ALLERGIES. MEDICATIONS: List of her inpatient medications was reviewed. No specific updates were made at this time. REVIEW OF SYSTEMS: General, head, ears, eyes, nose, throat, cardiovascular, respiratory, GI, , musculoskeletal, neurologic, and skin is negative except as mentioned in the HPI. PHYSICAL EXAMINATION: VITAL SIGNS: Afebrile currently with a T-max of 100.5 on presentation. Pulse 107, blood pressure 120/61, respirations 16, and saturation 94% on 2 L nasal cannula. GENERAL: The patient is awake and alert, in no apparent distress. LUNGS: Excellent air entry. Dependent crackles are noted. No prolonged expiratory phase or wheezing is appreciated. HEART: Normal rate regular. ABDOMEN: Soft, nontender, nondistended. Bowel sounds are positive. MUSCULOSKELETAL: No cyanosis or clubbing. There is 2+ pitting in the bilateral lower extremities. NEUROLOGIC: Grossly nonfocal. LABORATORY DATA: 1. WBC 25.0, hemoglobin 9.8, and platelets 202,000. Creatinine 2.27, which is well above baseline. Basic metabolic profile is otherwise unremarkable. Potassium 3.4. Vancomycin trough 18.6. Urinalysis is essentially unremarkable. Blood cultures x2 are negative. IMAGIN. Chest x-ray demonstrates bilateral infiltrates. They get more dense as we move dependently. Pulmonary vascular congestion is noted, and there is a widened carinal angle. All of this is suggestive of volume overload. 2. CT of the abdomen and pelvis did not demonstrate any evidence of infiltrate in the bibasilar regions on the chest x-ray. She had colitis noted with excessive amounts of retained stool. ASSESSMENT: 1. Severe sepsis. 2. Colitis. 3. Acute hypoxic respiratory failure. 4. Acute kidney injury. 5. Obstructive sleep apnea, noncompliant. DISCUSSION AND PLAN: We will get a C. diff for antigen and PCR. We will also continue our empiric antibiotics. I will have a low threshold for adding p.o. vancomycin. I do not believe, she has a pneumonia. She is volume overloaded, but in the setting of severe sepsis, I think we can hold off on diuresing her until she clears her inflammatory profile. Pulmonary Critical Care will continue to follow along, but Dr. Mendoza will assume care in the morning as he has an established relationship with Ms. Kelly. 70 minutes have been devoted to this patient in various activities. I personally reviewed all imaging studies and laboratory data noted within this document. For fifty percent of this time, I was interacting with the patient at the bedside or coordinating care with the care team. For the remainder of the time I was immediately available to the patient in the hospital unit. Job ID: [id number] [facility] HOSPITALShravan
[2018-09-26] MEDS: Piperacillin/Tazobactam 3.375 GM in Sodium Chloride 0.9% 100 ML IVPB SCH ×4 (00:14→18:23)
[2018-09-26] MEDS ORDERED: Digoxin 0.5 MG/2 ML AMP SLOW IVP SCH (00:45)
[2018-09-26] MEDS: Sodium Chloride 0.9% 1,000 ML IV SCH ×2 (01:12→05:43)
[2018-09-26 07:10] LABS: Anion Gap 13 mmol/L (10-20); BUN (Urea Nitrogen) 47 mg/dL (9.8-20.1); Calc. Creatinine Clearance 46 mL/min (70-130); Calcium 7.8 mg/dL (7.8-10.44); Carbon Dioxide 23 mmol/L (23-31); Chloride 101 mmol/L (98-107); Estimated GFR-MDRD 20; Glucose 214 mg/dL (80-115); Potassium 3.4 mmol/L (3.5-5.1); Sodium 134 mmol/L (136-145)
[2018-09-26 07:22] LABS: Band 15 % (5-11); Eosinophils 1 % (0-10); Hemoglobin 10.1 g/dL (12.0-16.0); Lymphocytes 7 % (21-51); MDiff Complete? YES; Mean Corpuscular HGB CONC 32.2 g/dL (32.0-36.0); Mean Corpuscular Hemoglobin 28.8 pg (27.0-31.0); Mean Corpuscular Volume 89.4 fL (78.0-98.0); Mean Platelet Volume 9.1 fL (7.4-10.4); Monocytes 5 % (0-10); Neutrophil 72 % (42-75); Platelet Count 222 thou/uL (130-400); Platelet Morphology Comment Appears Adequate; RBC Distribution Width 14.8 % (11.5-14.5); Red Blood Cell (RBC) Count 3.51 mill/uL (4.20-5.40); White Blood Cell (WBC) Count 23.5 thou/uL (4.8-10.8)
--- NOTE | 2018-09-26 09:34 | PRG ---
DATE OF SERVICE: 09/26/2018 SUBJECTIVE: Ms. Kelly is pleasant, but seems confused. She has no complaints of breathing at this time. OBJECTIVE: VITAL SIGNS: Temperature 98.3, pulse 99, respirations 20, O2 saturation 92% on 2 L, blood pressure 121/73. HEENT: Unremarkable. NECK: No adenopathy, JVD, or bruits. LUNGS: Clear without wheezing or rhonchi. CARDIOVASCULAR: S1 and S2 regular without murmur. ABDOMEN: Soft, obese, nontender, nondistended. EXTREMITIES: 1+ edema in her legs. LABORATORY DATA: White blood cell count 23.5, hemoglobin 10, hematocrit 31, platelet count 222 with 70% neutrophils, 15% bands. Sodium 134, potassium 3.4, chloride 101, CO2 of 23, BUN 47, creatinine 2.8, and glucose 214. I reviewed her chest x-ray from the time of admission. ASSESSMENT: 1. Sepsis-source not determined. 2. Acute kidney injury. 3. Obstructive sleep apnea, noncompliant with CPAP. 4. History of sarcoidosis-right now that is quiescent. PLAN: The patient is pending a workup for Clostridium difficile colitis given some diarrhea at the time of admission. Her worsening renal function is concerning. The etiology of that is not clear, but it should be noted the patient recently had an obstructive ureteral stone. RECOMMENDATIONS: 1. I would recommend adjustment of her antibiotics for her renal function. 2. Pulmonary status is currently stable. Job ID: [id number]
[2018-09-26] MEDS: Famotidine 20 MG TAB PO SCH ×2 (10:49→20:39)
[2018-09-26] MEDS: Aspirin 81 mg Enteric Coated Tablet PO SCH (10:49)
[2018-09-26] MEDS: Enoxaparin Sodium 40 MG/0.4 ML SYRINGE SC SCH (10:49)
--- NOTE | 2018-09-26 12:06 | PDOC.PN ---
- Subjective Encounter Start Date: 09/26/18 Encounter Start Time: 12:04 Ms. Kelly was seen today in follow-up of sepsis, and dyspnea. She says she is breathing better. She was noted to have diarrhea yesterday and a C. Diff screen was ordered. She appears very weak and sleepy this morning. - Objective Resuscitation Status - Order Detail: 09/23/18 14:21 Resuscitation Status Routine Resuscitation Status: FULL: Full Resuscitation MAR Reviewed: Yes Vital Signs & Weight: Vital Signs (12 hours) Temp Pulse Resp BP Pulse Ox 09/26/18 08:00 98.3 F 99 20 121/73 92 L 09/26/18 04:00 98.7 F 99 20 115/52 L 93 L 09/26/18 01:12 135 H 09/26/18 00:43 135 H 18 114/76 Weight Admit Weight 337 lb 4.8 oz Weight 337 lb 4.8 oz I&O: 09/25/18 09/26/18 09/27/18 06:59 06:59 06:59 Intake Total 500 2590 Output Total 1 Balance 500 2589 Result Diagrams: 09/26/18 06:39 09/26/18 06:39 Additional Labs: Accuchecks 09/26/18 09/26/18 09/25/18 10:55 05:40 20:40 POC Glucose 207 H 212 H 177 H 09/25/18 16:58 POC Glucose 204 H Phys Exam - Physical Examination HEENT: PERRLA Respiratory: no wheezing, no rales, no rhonchi, clear to auscultation bilateral Cardiovascular: RRR, no significant murmur, no rub Gastrointestinal: soft, non-tender, no distention, positive bowel sounds Musculoskeletal: edema present + bilateral lower exrtemity edema Dx/Plan (1) Sepsis Code(s): A41.9 - SEPSIS, UNSPECIFIED ORGANISM Status: Acute (2) Pneumonia Code(s): J18.9 - PNEUMONIA, UNSPECIFIED ORGANISM Status: Ruled-out (3) Acute respiratory failure Code(s): J96.00 - ACUTE RESPIRATORY FAILURE, UNSP W HYPOXIA OR HYPERCAPNIA Status: Acute (4) Hypertension Code(s): I10 - ESSENTIAL (PRIMARY) HYPERTENSION Status: Chronic (5) DM type 2 (diabetes mellitus, type 2) Status: Chronic Qualifiers: Diabetes mellitus snf insulin use: with computer terminal operator use Diabetes mellitus complication status: with unspecified complications Qualified Code(s) : E11.8 - Type 2 diabetes mellitus with unspecified complications; Z79.4 - intermediate manager (current) use of insulin (6) Morbid obesity Code(s): E66.01 - MORBID (SEVERE) OBESITY DUE TO EXCESS CALORIES Status: Chronic Comment: Dietary counseling, low-fat diet - Plan * Sepsis- source is unclear, could be due to C. Diff, as this has now resulted, and both antigen and toxins are positive * Pneumonia is less likely as per her Joiner Apprentice.- can scale back Antibiotics ? * Clostridium Dificile- agree with Oral Vancomycin which has been started * Acute renal failure- ? etiology is unclear- continue hydration, and Nephrology consulted * HTN- blood pressure is controlled * DM- blood glucose is stable. * Severe deconditioning- continue PT- she may benefit from a stay in [facility] prior to discharge
[2018-09-26] MEDS: Vancomycin HCl 25 MG/ML Oral PO SCH ×2 (12:57→18:23)
[2018-09-26 16:05] LABS: Actual Bicarbonate (HCO3a) 23.4 mEq/L (22-28); Base Excess (BEa) -5.8 mEq/L (-2.0 to +3.0); Calcium, Ionized 1.11 mmol/L (1.12-1.30); Carboxyhemoglobin (COHb) 1.2 gm% (0.0-3.0); Hemoglobin (Hb) 10.8 g/dL (12.0-16.0); O2 Tension (PaO2) 71.5 mmHg (> 80.0); Potassium - ABG Lab 3.14 mmol/L (3.70-5.30)
[2018-09-26 16:11] LABS: ALV-art Gradient -133.235 (0-20); CO2 Tension 66.5 mmHg (35.0-45.0); Puncture Site RBA; pH, Arterial 7.16 (7.35-7.45)
--- NOTE | 2018-09-26 16:32 | PDOC.EVN ---
Event Note - Event Note Event Note: has become progressively more sleepy and lethargic during the day. An ABG was done and she has significant hypercapnea.[facility], and place shruthi BiPAP. was notified. I spoke with the patient's sister and daughter.
--- NOTE | 2018-09-26 17:18 | PRG ---
DATE OF SERVICE: 09/26/2018 SUBJECTIVE: Patient was seen and examined at bedside and overnight events noted. Patient denies any shortness of breath or chest pain or palpitation. No history of nausea or vomiting or diarrhea or fever or chills or cramps. OBJECTIVE: GENERAL: This is an obese female, in no apparent distress. VITAL SIGNS: Temperature 98.1, pulse 97, respiratory rate 16, blood pressure 134/60. HEENT: Atraumatic, normocephalic. Oral mucosa is moist NECK: Supple. CARDIOVASCULAR: S1, S2 heard. Rate and rhythm regular. RESPIRATORY: Clear to auscultation. GASTROINTESTINAL: Abdomen is soft. MUSCULOSKELETAL: No tenderness. No edema. DERMATOLOGIC: No skin rash. NEUROLOGIC: Alert and awake and oriented X3. No focal neurologic deficits. Moving all the extremities. PSYCHIATRIC: Mood and affect normal. LABORATORY DATA: Potassium is 3.4, BUN is 47, creatinine is 2.8. ASSESSMENT AND PLAN: 1. Acute kidney injury on chronic kidney disease stage 3, most likely volume depletion and sepsis. Agree with hydration. Continue supportive care including antibiotics. 2. Hypertension. 3. Anemia. 4. Edema. 5. Obesity. 6. Continue supportive care. Avoid nephrotoxins. We will follow. Job ID: [id number]
[2018-09-26] MEDS: Atorvastatin Calcium 40 MG TAB PO SCH (20:39)
[2018-09-27] MEDS: Vancomycin HCl 25 MG/ML Oral PO SCH ×4 (00:14→18:05)
[2018-09-27] MEDS: Piperacillin/Tazobactam 3.375 GM in Sodium Chloride 0.9% 100 ML IVPB SCH ×4 (00:15→18:05)
[2018-09-27 05:06] LABS: Anion Gap 18 mmol/L (10-20); BUN (Urea Nitrogen) 49 mg/dL (9.8-20.1); Calc. Creatinine Clearance 45 mL/min (70-130); Calcium 7.8 mg/dL (7.8-10.44); Carbon Dioxide 20 mmol/L (23-31); Chloride 103 mmol/L (98-107); Estimated GFR-MDRD 20; Glucose 162 mg/dL (80-115); Potassium 3.2 mmol/L (3.5-5.1); Sodium 138 mmol/L (136-145)
[2018-09-27] MEDS: Sodium Chloride 0.9% 1,000 ML IV SCH ×3 (06:13→18:05)
[2018-09-27 06:41] LABS: Band 13 % (5-11); Eosinophils 3 % (0-10); Lymphocytes 9 % (21-51); MDiff Complete? YES; Mean Corpuscular HGB CONC 31.7 g/dL (32.0-36.0); Mean Corpuscular Hemoglobin 28.5 pg (27.0-31.0); Mean Corpuscular Volume 89.9 fL (78.0-98.0); Mean Platelet Volume 8.9 fL (7.4-10.4); Monocytes 12 % (0-10); Neutrophil 63 % (42-75); Platelet Count 222 thou/uL (130-400); RBC Distribution Width 14.9 % (11.5-14.5); Red Blood Cell (RBC) Count 3.49 mill/uL (4.20-5.40); White Blood Cell (WBC) Count 18.7 thou/uL (4.8-10.8)
[2018-09-27] MEDS ORDERED: Potassium Chloride 20 MEQ TAB PO SCH (08:45)
[2018-09-27] MEDS: Enoxaparin Sodium 40 MG/0.4 ML SYRINGE SC SCH (08:57)
[2018-09-27] MEDS: Aspirin 81 mg Enteric Coated Tablet PO SCH (08:57)
[2018-09-27] MEDS: Famotidine 20 MG TAB PO SCH ×2 (08:57→20:21)
--- NOTE | 2018-09-27 09:43 | PRG ---
DATE OF SERVICE: 09/27/2018 SUBJECTIVE: Ms. Kelly is mentating a little better, but she is not completely back to normal. She wore the BiPAP last night, but has been on nasal cannula this morning. OBJECTIVE: VITAL SIGNS: Her temperature is 97, pulse 68, blood pressure 172/75 and O2 saturation 96%. HEENT: Unremarkable. NECK: No JVD. LUNGS: Clear, but distant breath sounds. CARDIAC: S1, S2. Regular. ABDOMEN: Soft, obese, nontender. EXTREMITIES: Edematous. LABORATORY DATA: Sodium 138, potassium 3.2, chloride 103, CO2 20, BUN 49, creatinine 2.8, and glucose 162. White blood count 18.7, hematocrit 31.4, and platelet count 222. Her C diff toxin and antigen came back positive. ASSESSMENT: 1. Clostridium difficile colitis. 2. Altered mental status, probably multifactorial. She had hypercapnic respiratory failure yesterday and was placed on BiPAP and that seems to have helped her somewhat. 3. Probable underlying obstructive sleep apnea, has refused sleep studies in the past. 4. History of sarcoidosis. PLAN: 1. Would continue the oral vancomycin. 2. Continue BiPAP at night. 3. Replace potassium. 4. Keep in IM for the time being. Job ID: [id number]
--- NOTE | 2018-09-27 15:41 | PDOC.PN ---
- Subjective Encounter Start Date: 09/27/18 Encounter Start Time: 13:00 Subjective: awake, responds to verbal questions -: had 3 liq stools from this am - Objective Resuscitation Status - Order Detail: 09/23/18 14:21 Resuscitation Status Routine Resuscitation Status: FULL: Full Resuscitation MAR Reviewed: Yes Vital Signs & Weight: Vital Signs (12 hours) Temp Pulse Ox 09/27/18 15:11 98.2 F 09/27/18 11:24 97.4 F L 09/27/18 08:00 97 09/27/18 07:15 97.0 F L 09/27/18 07:00 98 09/27/18 04:02 97.8 F Weight Admit Weight 339 lb 1.135 oz Weight 342 lb 2 oz Most Recent Monitor Data Heart Rate from ECG 68 NIBP 160/82 NIBP BP-Mean 108 Respiration from ECG 17 SpO2 97 I&O: 09/26/18 09/27/18 09/28/18 06:59 06:59 06:59 Intake Total 2590 1060 Output Total 1 Balance 2589 1060 Result Diagrams: 09/27/18 04:25 09/27/18 04:25 Additional Labs: Accuchecks 09/27/18 09/26/18 10:37 20:47 POC Glucose 156 H 187 H Phys Exam - Physical Examination HEENT: PERRLA, moist MMs Neck: no JVD, supple Respiratory: no wheezing, no rales Cardiovascular: RRR, no significant murmur Gastrointestinal: soft, non-tender, positive bowel sounds Musculoskeletal: no edema, pulses present Neurological: non-focal, moves all 4 limbs Psychiatric: normal affect, A&O x 3 Dx/Plan (1) C. difficile colitis Status: Acute (2) Sepsis Code(s): A41.9 - SEPSIS, UNSPECIFIED ORGANISM Status: Acute (3) Hypertension Code(s): I10 - ESSENTIAL (PRIMARY) HYPERTENSION Status: Chronic Qualifiers: Hypertension type: essential hypertension Qualified Code(s): I10 - Essential (primary) hypertension (4) DM type 2 (diabetes mellitus, type 2) Status: Chronic Qualifiers: Diabetes mellitus intermodal dispatcher insulin use: with intermodal dispatcher use Diabetes mellitus complication status: with unspecified complications Qualified Code(s) : E11.8 - Type 2 diabetes mellitus with unspecified complications; Z79.4 - longterm (current) use of insulin (5) Morbid obesity Code(s): E66.01 - MORBID (SEVERE) OBESITY DUE TO EXCESS CALORIES Status: Chronic (6) Acute metabolic encephalopathy Code(s): G93.41 - METABOLIC ENCEPHALOPATHY Status: Acute (7) Acute respiratory failure with hypoxia and hypercapnia Code(s): J96.01 - ACUTE RESPIRATORY FAILURE WITH HYPOXIA; J96.02 - ACUTE RESPIRATORY FAILURE WITH HYPERCAPNIA Status: Acute Comment: nightly bipap (8) [place] (acute kidney injury) Code(s): N17.9 - ACUTE KIDNEY FAILURE, UNSPECIFIED Status: Acute (9) Metabolic acidosis Code(s): E87.2 - ACIDOSIS Status: Acute (10) ARI (obstructive sleep apnea) Code(s): G47.33 - OBSTRUCTIVE SLEEP APNEA (ADULT) (PEDIATRIC) Status: Chronic - Plan is on oral vanc and iv zosyn -: currently using bipap at night -: will closely monitor electrolytes, gentle iv hydration -: continue asp, lipitor -: will need to mobilize more from am * . Review of Systems - Medications/Allergies Allergies/Adverse Reactions: Allergies Allergy/AdvReac Type Severity Reaction Status Date / Time No Known Allergies Allergy Verified 09/23/18 13:59 Medications: Current Medications Aspirin (Ecotrin) 81 mg PO DAILY [facility] Last Admin: 09/27/18 08:57 Dose: 81 mg Atorvastatin Calcium (Lipitor) 40 mg PO HS [facility] Last Admin: 09/26/18 20:39 Dose: Not Given Dextrose/Water (Dextrose 50%) 25 gm SLOW IVP PRN PRN PRN Reason: Hypoglycemia Enoxaparin Sodium (Lovenox) 40 mg SC 0900 [facility] Last Admin: 09/27/18 08:57 Dose: 40 mg Famotidine (Pepcid) 20 mg PO BID [facility] Last Admin: 09/27/18 08:57 Dose: 20 mg Glucagon (Glucagon) 1 mg IM PRN PRN PRN Reason: Hypoglycemia Piperacillin Sod/Tazobactam (Sod 3.375 gm/ Sodium Chloride) 100 mls @ 200 mls/ hr IVPB Q6HR [facility] Last Admin: 09/27/18 12:32 Dose: 100 mls Dextrose/Water (D5w) 1,000 mls @ 0 mls/hr IV .Q0M PRN PRN Reason: Hypoglycemia Sodium Chloride (Normal Saline 0.9%) 1,000 mls @ 100 mls/hr IV .Q10H [facility] Last Admin: 09/27/18 06:14 Dose: 1,000 mls Insulin Human Lispro (Humalog) 0 units SC .MILD SLIDING SCALE PRN PRN Reason: Mild Correctional Scale Last Admin: 09/25/18 17:50 Dose: 3 unit Polyethylene Glycol (Miralax) 17 gm PO DAILYPRN PRN PRN Reason: Constipation Sodium Chloride (Flush - Normal Saline) 10 ml IVF Q12HR [facility] Last Admin: 09/27/18 08:59 Dose: Not Given Sodium Chloride (Flush - Normal Saline) 10 ml IVF PRN PRN PRN Reason: Saline Flush Vancomycin HCl (First Vancomycin) 125 mg PO Q6HR [facility] Last Admin: 09/27/18 12:32 Dose: 5 ml
--- NOTE | 2018-09-27 17:39 | PRG ---
DATE OF SERVICE: 09/27/2018 SUBJECTIVE: Patient was seen and examined at bedside and overnight events noted. Patient denies any shortness of breath or chest pain or palpitation. No history of nausea or vomiting or diarrhea or fever or chills or cramps. OBJECTIVE: GENERAL: This is an obese female, in no acute distress. VITAL SIGNS: Temperature 98.2. Pulse rate 73, respirations 18, blood pressure 173/85. HEENT: Atraumatic, normocephalic. Oral mucosa is moist NECK: Supple. CARDIOVASCULAR: S1, S2 heard. Rate and rhythm regular. RESPIRATORY: Clear to auscultation. GASTROINTESTINAL: Abdomen is soft. MUSCULOSKELETAL: No tenderness. No edema. DERMATOLOGIC: No skin rash. NEUROLOGIC: Alert and awake and oriented X3. No focal neurologic deficits. Moving all the extremities. PSYCHIATRIC: Mood and affect normal. LABORATORY DATA: Potassium is 3.2, BUN is 49, and creatinine is 2.8. ASSESSMENT AND PLAN: 1. Acute kidney injury on chronic kidney disease. Renal function seems to be stable. 2. Edema. 3. Hypertension. 4. Anemia. 5. Obesity. Renal function seems to be stable. Hypokalemia, replace potassium and monitor. Job ID: [id number]
[2018-09-27] MEDS: Atorvastatin Calcium 40 MG TAB PO SCH (20:21)
[2018-09-28] MEDS: Piperacillin/Tazobactam 3.375 GM in Sodium Chloride 0.9% 100 ML IVPB SCH ×3 (00:48→13:39)
[2018-09-28] MEDS: Vancomycin HCl 25 MG/ML Oral PO SCH ×5 (00:48→23:14)
[2018-09-28] MEDS: Sodium Chloride 0.9% 1,000 ML IV SCH (03:52)
[2018-09-28 05:13] LABS: Anion Gap 15 mmol/L (10-20); BUN (Urea Nitrogen) 47 mg/dL (9.8-20.1); Calc. Creatinine Clearance 52 mL/min (70-130); Calcium 7.5 mg/dL (7.8-10.44); Carbon Dioxide 22 mmol/L (23-31); Chloride 105 mmol/L (98-107); Estimated GFR-MDRD 23; Glucose 152 mg/dL (80-115); Sodium 139 mmol/L (136-145)
[2018-09-28 05:16] LABS: Potassium 2.9 mmol/L (3.5-5.1)
[2018-09-28 05:38] LABS: Band 15 % (5-11); Eosinophils 5 % (0-10); Hemoglobin 10.3 g/dL (12.0-16.0); Lymphocytes 8 % (21-51); MDiff Complete? YES; Mean Corpuscular HGB CONC 32.2 g/dL (32.0-36.0); Mean Corpuscular Hemoglobin 28.2 pg (27.0-31.0); Mean Corpuscular Volume 87.6 fL (78.0-98.0); Mean Platelet Volume 8.7 fL (7.4-10.4); Monocytes 14 % (0-10); Neutrophil 58 % (42-75); Platelet Count 248 thou/uL (130-400); RBC Distribution Width 14.9 % (11.5-14.5); Red Blood Cell (RBC) Count 3.64 mill/uL (4.20-5.40); White Blood Cell (WBC) Count 14.5 thou/uL (4.8-10.8)
--- NOTE | 2018-09-28 09:33 | PRG ---
DATE OF SERVICE: 09/28/2018 SUBJECTIVE: The patient is much more alert and oriented than she has been. She complains of having to stay in bed. OBJECTIVE: VITAL SIGNS: Temperature is 97.4, pulse 79, blood pressure 121/67. HEENT: Unremarkable. NECK: No JVD. CHEST: Clear. CARDIAC: S1, S2. Regular. ABDOMEN: Soft. EXTREMITIES: No edema. ASSESSMENT: 1. Obstructive sleep apnea/Pickwickian type syndrome. 2. Hypercapnic respiratory failure. 3. Acute on chronic renal insufficiency. 4. Hypokalemia. PLAN: 1. Decrease IV fluids. 2. Replace potassium. 3. Continue BiPAP at night. 4. Increase activity. Job ID: [id number]
[2018-09-28] MEDS: Aspirin 81 mg Enteric Coated Tablet PO SCH (10:44)
[2018-09-28] MEDS: Famotidine 20 MG TAB PO SCH ×2 (10:44→20:18)
[2018-09-28] MEDS: Potassium Chloride 20 MEQ TAB PO SCH ×3 (10:45→20:18)
[2018-09-28] MEDS: Enoxaparin Sodium 40 MG/0.4 ML SYRINGE SC SCH (10:45)
--- NOTE | 2018-09-28 11:23 | PRG ---
DATE OF SERVICE: 09/28/2018 SUBJECTIVE: Patient was seen and examined at bedside and overnight events noted. Patient denies any shortness of breath or chest pain or palpitation. No history of nausea or vomiting or diarrhea or fever or chills or cramps. OBJECTIVE: GENERAL: This is a morbidly obese female, in no acute distress. VITAL SIGNS: Temperature 97.4. Heart rate 74. Respiratory rate 18. Blood pressure 198/92. HEENT: Atraumatic, normocephalic. Oral mucosa is moist NECK: Supple. CARDIOVASCULAR: S1, S2 heard. Rate and rhythm regular. RESPIRATORY: Clear to auscultation. GASTROINTESTINAL: Abdomen is soft. MUSCULOSKELETAL: No tenderness. No edema. DERMATOLOGIC: No skin rash. NEUROLOGIC: Alert and awake and oriented X3. No focal neurologic deficits. Moving all the extremities. PSYCHIATRIC: Mood and affect normal. LABORATORY DATA: Potassium is 2.9, BUN is 47, and creatinine is 2.5. ASSESSMENT AND PLAN: 1. Acute kidney injury. Renal function is slightly better. 2. Hypokalemia, . Replace potassium. Avoid nephrotoxins. 3. We will follow. Job ID: [id number]
--- NOTE | 2018-09-28 14:32 | PDOC.PN ---
- Subjective Encounter Start Date: 09/28/18 Encounter Start Time: 11:40 Subjective: no sob, is awake -: had around 4 loose stools from am - Objective Resuscitation Status - Order Detail: 09/23/18 14:21 Resuscitation Status Routine Resuscitation Status: FULL: Full Resuscitation MAR Reviewed: Yes Vital Signs & Weight: Vital Signs (12 hours) Temp Pulse Ox 09/28/18 07:14 97.4 F L 09/28/18 04:00 98 09/28/18 03:53 98.8 F Weight Admit Weight 339 lb 1.135 oz Weight 342 lb 2 oz Most Recent Monitor Data Heart Rate from ECG 83 NIBP 188/85 NIBP BP-Mean 119 Respiration from ECG 25 SpO2 100 I&O: 09/27/18 09/28/18 09/29/18 06:59 06:59 06:59 Intake Total 1060 1320 Balance 1060 1320 Result Diagrams: 09/28/18 04:27 09/28/18 04:27 Additional Labs: Accuchecks 09/28/18 09/28/18 09/27/18 12:29 05:51 20:26 POC Glucose 185 H 159 H 172 H Phys Exam - Physical Examination HEENT: PERRLA, moist MMs Neck: no JVD, supple Respiratory: no wheezing, no rales Cardiovascular: RRR, no significant murmur Gastrointestinal: soft, non-tender, positive bowel sounds Musculoskeletal: no edema, pulses present Neurological: non-focal, moves all 4 limbs Psychiatric: normal affect, A&O x 3 Dx/Plan (1) C. 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 of 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 (5) Morbid obesity Code(s): E66.01 - MORBID (SEVERE) OBESITY DUE TO EXCESS CALORIES Status: Chronic (6) Acute metabolic encephalopathy Code(s): G93.41 - METABOLIC ENCEPHALOPATHY Status: Resolved (7) Acute respiratory failure with hypoxia and hypercapnia Code(s): J96.01 - ACUTE RESPIRATORY FAILURE WITH HYPOXIA; J96.02 - ACUTE RESPIRATORY FAILURE WITH HYPERCAPNIA Status: Acute Comment: nightly bipap (8) [place] (acute kidney injury) Code(s): N17.9 - ACUTE KIDNEY FAILURE, UNSPECIFIED Status: Acute (9) Metabolic acidosis Code(s): E87.2 - ACIDOSIS Status: Acute (10) ARI (obstructive sleep apnea) Code(s): G47.33 - OBSTRUCTIVE SLEEP APNEA (ADULT) (PEDIATRIC) Status: Chronic - Plan add xifaxan to vanc for c.diff, dc zosyn -: has increasing freq of loose stools -: tolerating oral diet per patient -: will need to mobilize as tolerated -: continue asp, lipitor. Is still using bipap at night ?noncompliant * . Review of Systems - Medications/Allergies Allergies/Adverse Reactions: Allergies Allergy/AdvReac Type Severity Reaction Status Date / Time No Known Allergies Allergy Verified 09/23/18 13:59 Medications: Current Medications Aspirin (Ecotrin) 81 mg PO DAILY [facility] Last Admin: 09/28/18 10:44 Dose: 81 mg Atorvastatin Calcium (Lipitor) 40 mg PO HS [facility] Last Admin: 09/27/18 20:21 Dose: 40 mg Dextrose/Water (Dextrose 50%) 25 gm SLOW IVP PRN PRN PRN Reason: Hypoglycemia Enoxaparin Sodium (Lovenox) 40 mg SC 0900 [facility] Last Admin: 09/28/18 10:45 Dose: 40 mg Famotidine (Pepcid) 20 mg PO BID [facility] Last Admin: 09/28/18 10:44 Dose: 20 mg Glucagon (Glucagon) 1 mg IM PRN PRN PRN Reason: Hypoglycemia Dextrose/Water (D5w) 1,000 mls @ 0 mls/hr IV .Q0M PRN PRN Reason: Hypoglycemia Insulin Human Lispro (Humalog) 0 units SC .MILD SLIDING SCALE PRN PRN Reason: Mild Correctional Scale Last Admin: 09/25/18 17:50 Dose: 3 unit Potassium Chloride (K-Dur) 40 meq PO Q6H [facility] Stop: 09/28/18 21:01 Last Admin: 09/28/18 10:45 Dose: 40 meq Rifaximin (Xifaxan) 550 mg PO BID [facility] Sodium Chloride (Flush - Normal Saline) 10 ml IVF Q12HR [facility] Last Admin: 09/28/18 10:45 Dose: 10 ml Sodium Chloride (Flush - Normal Saline) 10 ml IVF PRN PRN PRN Reason: Saline Flush Vancomycin HCl (First Vancomycin) 125 mg PO Q6HR [facility] Last Admin: 09/28/18 13:39 Dose: 5 ml
[2018-09-28] MEDS: Rifaximin 550 MG TAB PO SCH (20:18)
[2018-09-28] MEDS: Atorvastatin Calcium 40 MG TAB PO SCH (20:18)
[2018-09-29] MEDS ORDERED: hydrALAZINE 20 MG/ML VIAL SLOW IVP PRN (02:35)
[2018-09-29] MEDS: Vancomycin HCl 25 MG/ML Oral PO SCH ×4 (05:04→23:58)
[2018-09-29 09:01] LABS: Anion Gap 13 mmol/L (10-20); BUN (Urea Nitrogen) 36 mg/dL (9.8-20.1); Calc. Creatinine Clearance 64 mL/min (70-130); Calcium 8.3 mg/dL (7.8-10.44); Carbon Dioxide 24 mmol/L (23-31); Chloride 107 mmol/L (98-107); Estimated GFR-MDRD 29; Glucose 223 mg/dL (80-115); Potassium 3.1 mmol/L (3.5-5.1); Sodium 141 mmol/L (136-145)
[2018-09-29 09:17] LABS: Anisocytosis SLIGHT = 6-15 cells (100X) (0-5/hpf); Band 4 % (5-11); Hemoglobin 11.1 g/dL (12.0-16.0); Hypochromia SLIGHT = 6-15 cells (100X) (0-5/hpf); Lymphocytes 20 % (21-51); MDiff Complete? YES; Mean Corpuscular HGB CONC 31.9 g/dL (32.0-36.0); Mean Corpuscular Hemoglobin 27.3 pg (27.0-31.0); Mean Corpuscular Volume 85.6 fL (78.0-98.0); Monocytes 5 % (0-10); Neutrophil 71 % (42-75); Nucleated RBC 1 % (0); Platelet Count 266 thou/uL (130-400); Platelet Morphology Comment Appears Adequate; RBC Distribution Width 14.8 % (11.5-14.5); Red Blood Cell (RBC) Count 4.08 mill/uL (4.20-5.40); White Blood Cell (WBC) Count 15.2 thou/uL (4.8-10.8)
[2018-09-29] MEDS: Aspirin 81 mg Enteric Coated Tablet PO SCH (09:22)
[2018-09-29] MEDS: Enoxaparin Sodium 40 MG/0.4 ML SYRINGE SC SCH (09:22)
[2018-09-29] MEDS: Rifaximin 550 MG TAB PO SCH ×2 (09:22→20:11)
[2018-09-29] MEDS: Famotidine 20 MG TAB PO SCH ×2 (09:22→20:11)
--- NOTE | 2018-09-29 09:45 | PRG ---
DATE OF SERVICE: 09/29/2018 SUBJECTIVE: The patient is about the same, remains confused, in no respiratory distress, wore BiPAP a little last night. OBJECTIVE: VITAL SIGNS: Temperature 98.6, pulse 80, blood pressure 149/74, and O2 saturation 93%. HEENT: Unremarkable. NECK: No JVD. CHEST: Clear to auscultation. CARDIAC: S1 and S2, regular. ABDOMEN: Soft. EXTREMITIES: Edematous. LABORATORY DATA: White blood cell count 14.5, hematocrit 31.9, and platelet count 248. Chemistry is pending. ASSESSMENT: 1. Clostridium difficile colitis. 2. Obstructive sleep apnea/Pickwickian syndrome. 3. Hypercapnic respiratory failure. 4. Acute on chronic renal insufficiency. PLAN: 1. Await labs from today. 2. Continue BiPAP at night. 3. Continue treatment for C. difficile colitis. 4. Would keep in IM for the time being. Job ID: [id number]
--- NOTE | 2018-09-29 10:54 | PRG ---
DATE OF SERVICE: 09/29/2018 SUBJECTIVE: Patient was seen and examined at bedside and overnight events noted. Patient denies any shortness of breath or chest pain or palpitation. No history of nausea or vomiting or diarrhea or fever or chills or cramps. OBJECTIVE: GENERAL: This is a morbidly obese female, in no apparent distress. VITAL SIGNS: Temperature 98.6, pulse 82, respiratory rate 18, blood pressure 149/74. HEENT: Atraumatic, normocephalic. Oral mucosa is moist. NECK: Supple. CARDIOVASCULAR: S1, S2 heard. Rate and rhythm regular. RESPIRATORY: Clear to auscultation. GASTROINTESTINAL: Abdomen is soft. MUSCULOSKELETAL: No tenderness. No edema. DERMATOLOGIC: No skin rash. NEUROLOGIC: Alert and awake and oriented X3. No focal neurologic deficits. Moving all the extremities. PSYCHIATRIC: Mood and affect normal. LABORATORY DATA: Potassium 3.1, BUN is 46, creatinine is 2.06. ASSESSMENT AND PLAN: 1. Acute kidney injury, getting better. Avoid nephrotoxins. 2. Hypokalemia. Replace and monitor. 3. Edema. 4. Hypertension. 5. Obesity. 6. Prognosis is guarded. Renal function is better. Avoid nephrotoxins. Okay with stopping IV fluids. Job ID: [id number]
--- NOTE | 2018-09-29 13:33 | PDOC.PN ---
- Subjective Encounter Start Date: 09/29/18 Encounter Start Time: 12:00 Subjective: still having watery stool -: not fully oriented but not in distress - Objective Resuscitation Status - Order Detail: 09/23/18 14:21 Resuscitation Status Routine Resuscitation Status: FULL: Full Resuscitation MAR Reviewed: Yes Vital Signs & Weight: Vital Signs (12 hours) Temp Pulse Pulse BP BP Pulse Ox 09/29/18 09:20 79 90 160/99 H 181/88 H 09/29/18 08:00 97 09/29/18 05:02 98.6 F Weight Admit Weight 339 lb 1.135 oz Weight 342 lb 2 oz Most Recent Monitor Data Heart Rate from ECG 80 NIBP 118/55 NIBP BP-Mean 76 Respiration from ECG 26 SpO2 99 I&O: 09/28/18 09/29/18 09/30/18 06:59 06:59 06:59 Intake Total 1320 540 Output Total 500 Balance 1320 40 Result Diagrams: 09/29/18 08:10 09/29/18 08:10 Additional Labs: Accuchecks 09/29/18 09/28/18 09/28/18 05:03 20:04 16:48 POC Glucose 179 H 190 H 165 H Phys Exam - Physical Examination HEENT: PERRLA, sclera anicteric Neck: no JVD, supple Respiratory: no wheezing, no rales Cardiovascular: RRR, no significant murmur Gastrointestinal: soft, non-tender, positive bowel sounds Musculoskeletal: pulses present, edema present Neurological: non-focal, moves all 4 limbs Dx/Plan (1) C. difficile colitis Status: Acute (2) Sepsis Code(s): A41.9 - SEPSIS, UNSPECIFIED ORGANISM Status: Acute Comment: sec to c.diff colitis (3) Hypertension Code(s): I10 - ESSENTIAL (PRIMARY) HYPERTENSION Status: Chronic Qualifiers: Hypertension type: essential hypertension Qualified Code(s): I10 - Essential (primary) hypertension (4) DM type 2 (diabetes mellitus, type 2) Status: Chronic Qualifiers: Diabetes mellitus mcfp insulin use: with mcfp use Diabetes mellitus complication status: with unspecified complications Qualified Code(s) : E11.8 - Type 2 diabetes mellitus with unspecified complications; 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 (5) Morbid obesity Code(s): E66.01 - MORBID (SEVERE) OBESITY DUE TO EXCESS CALORIES Status: Chronic (6) Acute metabolic encephalopathy Code(s): G93.41 - METABOLIC ENCEPHALOPATHY Status: Acute (7) Acute respiratory failure with hypoxia and hypercapnia Code(s): J96.01 - ACUTE RESPIRATORY FAILURE WITH HYPOXIA; J96.02 - ACUTE RESPIRATORY FAILURE WITH HYPERCAPNIA Status: Acute Comment: nightly bipap (8) [place] (acute kidney injury) Code(s): N17.9 - ACUTE KIDNEY FAILURE, UNSPECIFIED Status: Acute (9) Metabolic acidosis Code(s): E87.2 - ACIDOSIS Status: Resolved (10) ARI (obstructive sleep apnea) Code(s): G47.33 - OBSTRUCTIVE SLEEP APNEA (ADULT) (PEDIATRIC) Status: Chronic - Plan is on vanc po and xifaxan -: encourage po fluid and food intake, if not will have to add iv fluids -: replace potassium -: has obesity hypoventilation/ari, noncompliant on cpap -: hemostable, needs to mobilize, is high risk for dvt * . Review of Systems - Medications/Allergies Allergies/Adverse Reactions: Allergies Allergy/AdvReac Type Severity Reaction Status Date / Time No Known Allergies Allergy Verified 09/23/18 13:59 Medications: Current Medications Aspirin (Ecotrin) 81 mg PO DAILY [facility] Last Admin: 09/29/18 09:22 Dose: 81 mg Atorvastatin Calcium (Lipitor) 40 mg PO HS [facility] Last Admin: 09/28/18 20:18 Dose: 40 mg Dextrose/Water (Dextrose 50%) 25 gm SLOW IVP PRN PRN PRN Reason: Hypoglycemia Enoxaparin Sodium (Lovenox) 40 mg SC 0900 [facility] Last Admin: 09/29/18 09:22 Dose: 40 mg Famotidine (Pepcid) 20 mg PO BID [facility] Last Admin: 09/29/18 09:22 Dose: 20 mg Glucagon (Glucagon) 1 mg IM PRN PRN PRN Reason: Hypoglycemia Hydralazine HCl (Apresoline) 10 mg SLOW IVP Q4H PRN PRN Reason: SBP Greater Than 170 Dextrose/Water (D5w) 1,000 mls @ 0 mls/hr IV .Q0M PRN PRN Reason: Hypoglycemia Insulin Human Lispro (Humalog) 0 units SC .MILD SLIDING SCALE PRN PRN Reason: Mild Correctional Scale Last Admin: 09/25/18 17:50 Dose: 3 unit Rifaximin (Xifaxan) 550 mg PO BID [facility] Last Admin: 09/29/18 09:22 Dose: 550 mg Sodium Chloride (Flush - Normal Saline) 10 ml IVF Q12HR [facility] Last Admin: 09/29/18 09:23 Dose: 10 ml Sodium Chloride (Flush - Normal Saline) 10 ml IVF PRN PRN PRN Reason: Saline Flush Vancomycin HCl (First Vancomycin) 125 mg PO Q6HR [facility] Last Admin: 09/29/18 05:04 Dose: 5 ml
--- NOTE | 2018-09-29 14:07 | PQF ---
DATE: 09-29-18 ATTN : DR. GARCIA ROSA Please exercise your independent, professional judgment in responding to the clarification form. Clinical indicators are provided on the bottom of this form for your review Please check appropriate box(s): [ x ] I (concur) with the Wound Care findings as stated below. [ ] Pressure Ulcer: (Stage I: Erythema; Stage II: Partial thickness; Stage III : Full thickness; Stage IV: Necrosis to muscle/bone) [ ] Location: POA: [ ] Yes [ ] No[ ] Unable to determine Stage (I to IV): (Left Right Bilateral N/A ) [ ] No pressure ulcer diagnosis [ ] Deep tissue injury [ ] Other diagnosis [ ] Unable to determine In addition, please specify: Present on Admission (POA): [ x ] Yes [ ] No [ ] Unable to determine For continuity of documentation, please document condition throughout progress notes and discharge summary. Thank You. CLINICAL INDICATORS - SIGNS / SYMPTOMS / LABS WCT 09-24-18: LOWER BACK SKIN FOLD PRESSURE ULCER STAGE 3 RISK FACTORS: NURSE ASSESSMENT 09-23-18: GAIT BALANCE- WEAK, MAX 2-3 PERSON ASSIST WCT 09-28-18: POOR NUTRITION, OBESITY, EDEMA, DM, VASCULAR COMPROMISE H&P: CONFUSED AND ALTERED, TRIED TO GET UP FROM BED AND FELL, HX OF STAGE 3 DECUB ULCER, SEVERE DECONDITIONING TREATMENTS: WCT 09-24-18: MEDICAL HONEY, BARRIER WIPE, ALGINATE WITH HONEY, COVERED WITH FOAM COMPOSITE (This form is maintained as a part of the permanent medical record) 2014 [employer] All Rights Reserved TIMUR [email or web address] Office: [phone] TIARRA
[2018-09-29] MEDS: Atorvastatin Calcium 40 MG TAB PO SCH (20:11)
[2018-09-30] MEDS: Vancomycin HCl 25 MG/ML Oral PO SCH ×3 (05:56→17:51)
[2018-09-30 06:19] LABS: Anion Gap 10 mmol/L (10-20); BUN (Urea Nitrogen) 32 mg/dL (9.8-20.1); Calc. Creatinine Clearance 87 mL/min (70-130); Calcium 8.4 mg/dL (7.8-10.44); Carbon Dioxide 27 mmol/L (23-31); Chloride 108 mmol/L (98-107); Estimated GFR-MDRD 41; Glucose 217 mg/dL (80-115); Potassium 3.1 mmol/L (3.5-5.1); Sodium 142 mmol/L (136-145)
[2018-09-30] MEDS ORDERED: Potassium Chloride 20 MEQ TAB PO SCH ×2 (07:45→14:30)
--- NOTE | 2018-09-30 08:03 | PRG ---
DATE OF SERVICE: 09/30/2018 SUBJECTIVE: The patient remains in the IMCU. She is using BiPAP at night. Appears to be doing well this morning, had no complaints. OBJECTIVE: VITAL SIGNS: Temperature 97.9, pulse 65, blood pressure 151/61. HEENT: Unremarkable. NECK: No JVD. CHEST: Clear to auscultation. CARDIAC: S1, S2. Regular. ABDOMEN: Soft. Obese. Nontender. EXTREMITIES: No edema. LABORATORY DATA: White blood cell count 15.2, hematocrit 34.9, and platelet count 266. Sodium 142, potassium 3.1, chloride 108, CO2 of 27, BUN 32, creatinine 1.5, glucose 217. ASSESSMENT: 1. Obstructive sleep apnea/Pickwickian syndrome. 2. Clostridium difficile colitis. 3. Hypercapnic respiratory failure. 4. Acute on chronic renal insufficiency. 5. Hypokalemia. PLAN: 1. Potassium will be replaced. 2. Continue BiPAP at night for the ARI. 3. Continue the oral antibiotics for C difficile colitis. 4. From my standpoint, she is stable for transfer to the medical floor. She will need to continue BiPAP at night for presumed ARI and she will need a sleep study as an outpatient. Job ID: [id number]
[2018-09-30] MEDS: Aspirin 81 mg Enteric Coated Tablet PO SCH (09:17)
[2018-09-30] MEDS: Enoxaparin Sodium 40 MG/0.4 ML SYRINGE SC SCH (09:17)
[2018-09-30] MEDS: Rifaximin 550 MG TAB PO SCH ×2 (09:17→20:26)
[2018-09-30] MEDS: Famotidine 20 MG TAB PO SCH ×2 (09:17→20:26)
[2018-09-30] MEDS: metroNIDAZOLE 500 MG in Premix Bag 1 BAG IVPB SCH ×2 (14:30→22:03)
--- NOTE | 2018-09-30 15:09 | PRG ---
DATE OF SERVICE: 09/30/2018 SUBJECTIVE: The patient is seen and examined at the bedside. She is quite drowsy, but easily arousable. There was no any unexpected events overnight. She still has watery bowel movements. OBJECTIVE: VITAL SIGNS: Blood pressure is 154/85, pulse is 73, temperature is 97.7, respirations 16, O2 saturation is 100%. HEENT: Head is atraumatic and normocephalic. Pupils are responding to light properly. Sclerae are nonicteric. NECK: Supple, obese. LUNGS: Breath sounds diminished at both bases. HEART: S1, S2 normal. No S3. No S4. ABDOMEN: Obese, soft, nontender. Bowel sounds are present. No organomegaly. EXTREMITIES: 2+ peripheral edema similar bilateral in the lower extremities. NEUROLOGICAL EXAMINATION: She is somewhat comatose, but she is arousable. She follows my commands. She knows the place and time. LABORATORY DATA: Sodium of 142, potassium 3.1, chloride 108, CO2 of 27, BUN 32, creatinine 1.52, glucose is ranging from 199 to 212, calcium 8.4. Microbiology, no new findings. IMPRESSION: 1. difficile colitis. 2. Hypercapnic respiratory failure. 3. Obstructive sleep apnea/Pickwickian syndrome. 4. Acute on chronic renal insufficiency, improving. 5. Hypokalemia, on replacement. 6. Sepsis secondary to Clostridium difficile colitis. 7. Hypertension. 8. Diabetes mellitus type 2. 9. Morbid obesity. 10. Acute metabolic encephalopathy, most likely related to her Pickwickian syndrome. PLAN: Continue vancomycin and Xifaxan. Add metronidazole 500 mg IV piggyback every 8 hours. We will check her magnesium level and replace her with more potassium today. We will continue BiPAP at night. She will need outpatient status for obstructive sleep apnea. We will continue rectal tube and start her on probiotics, PT. Job ID: [id number]
[2018-09-30 15:42] LABS: #Eosinphils 0.5 thou/uL (0.0-0.7); #Lymphocytes 1.6 thou/uL (1.20-3.40); #Monocytes 1.5 thou/uL (0.11-0.59); #Neutrophils 12.8 thou/uL (1.40-6.50); %Basophils 0.2 % (0.0-1.0); %Eosinophils 2.8 % (0.0-10.0); %Monocytes 9.2 % (0.0-10.0); %Neutrophils 77.8 % (42.0-75.0); Mean Corpuscular HGB CONC 31.8 g/dL (32.0-36.0); Mean Corpuscular Hemoglobin 27.7 pg (27.0-31.0); Mean Corpuscular Volume 87.2 fL (78.0-98.0); Mean Platelet Volume 7.9 fL (7.4-10.4); Platelet Count 275 thou/uL (130-400); Red Blood Cell (RBC) Count 4.32 mill/uL (4.20-5.40); White Blood Cell (WBC) Count 16.5 thou/uL (4.8-10.8)
--- NOTE | 2018-09-30 16:33 | PRG ---
DATE OF SERVICE: 09/30/2018 SUBJECTIVE: Patient was seen and examined at bedside and overnight events noted. Patient denies any shortness of breath or chest pain or palpitation. No history of nausea or vomiting or diarrhea or fever or chills or cramps. OBJECTIVE: GENERAL: This is an obese female, in no acute distress. VITAL SIGNS: Temperature 97.7. Heart rate 72. Respiratory rate 16. Blood pressure 154/85. HEENT: Atraumatic, normocephalic. Oral mucosa is moist NECK: Supple. CARDIOVASCULAR: S1, S2 heard. Rate and rhythm regular. RESPIRATORY: Clear to auscultation. GASTROINTESTINAL: Abdomen is soft. MUSCULOSKELETAL: No tenderness. No edema. DERMATOLOGIC: No skin rash. NEUROLOGIC: Alert and awake and oriented X3. No focal neurologic deficits. Moving all the extremities. PSYCHIATRIC: Mood and affect normal. LABORATORY DATA: Potassium 3.1, BUN is 32, and creatinine is 1.5. ASSESSMENT AND PLAN: 1. Acute kidney injury, better. 2. Hypokalemia. Replace potassium. 3. Edema. We will monitor. 4. Hypertension. 5. Obesity. Renal function is much better. Job ID: [id number]
[2018-09-30] MEDS: Atorvastatin Calcium 40 MG TAB PO SCH (20:26)
[2018-10-01] MEDS: Vancomycin HCl 25 MG/ML Oral PO SCH ×5 (00:26→23:15)
[2018-10-01] MEDS: metroNIDAZOLE 500 MG in Premix Bag 1 BAG IVPB SCH ×3 (06:27→22:20)
[2018-10-01] MEDS ORDERED: Insulin Glargine 10 UNITS in Pre-Filled Syringe 1 EACH SC SCH (09:15)
[2018-10-01] MEDS: Rifaximin 550 MG TAB PO SCH ×2 (09:18→20:52)
[2018-10-01] MEDS: Famotidine 20 MG TAB PO SCH ×2 (09:18→20:52)
[2018-10-01] MEDS: Saccharomyces boulardii 250 MG CAP PO SCH (09:19)
[2018-10-01] MEDS: Aspirin 81 mg Enteric Coated Tablet PO SCH (09:19)
[2018-10-01] MEDS: Enoxaparin Sodium 40 MG/0.4 ML SYRINGE SC SCH (09:19)
[2018-10-01] MEDS: HumaLOG 300 UNITS/3 ML VIAL SC PRN (10:48)
--- NOTE | 2018-10-01 10:52 | PRG ---
DATE OF SERVICE: 10/01/2018 SUBJECTIVE: Patient was seen and examined at bedside and overnight events noted. Patient denies any shortness of breath or chest pain or palpitation. No history of nausea or vomiting or diarrhea or fever or chills or cramps. OBJECTIVE: GENERAL: This is a morbidly obese female, in no apparent distress. VITAL SIGNS: Temperature 99.0. Heart rate 74. Respiratory rate 20. Blood pressure 135/63. HEENT: Atraumatic, normocephalic. Oral mucosa is moist NECK: Supple. CARDIOVASCULAR: S1, S2 heard. Rate and rhythm regular. RESPIRATORY: Clear to auscultation. GASTROINTESTINAL: Abdomen is soft. MUSCULOSKELETAL: No tenderness. No edema. DERMATOLOGIC: No skin rash. NEUROLOGIC: Alert and awake and oriented X3. No focal neurologic deficits. Moving all the extremities. PSYCHIATRIC: Mood and affect normal. LABORATORY DATA: Pending from today. ASSESSMENT AND PLAN: 1. Acute kidney injury. Repeat labs. 2. Hypokalemia, monitor and replace. 3. Edema, controlled. 4. Hypertension. 5. Morbid obesity. Plan to continue to monitor closely. Avoid nephrotoxins. Job ID: [id number]
[2018-10-01 11:51] LABS: Anion Gap 9 mmol/L (10-20); BUN (Urea Nitrogen) 30 mg/dL (9.8-20.1); Calc. Creatinine Clearance 85 mL/min (70-130); Calcium 8.1 mg/dL (7.8-10.44); Carbon Dioxide 27 mmol/L (23-31); Chloride 107 mmol/L (98-107); Estimated GFR-MDRD 40; Glucose 225 mg/dL (80-115); Potassium 3.1 mmol/L (3.5-5.1); Sodium 140 mmol/L (136-145)
--- NOTE | 2018-10-01 13:47 | PRG ---
DATE OF SERVICE: 10/01/2018 SUBJECTIVE: The patient is seen and examined at the bedside. She is much more awake this morning. She is able to converse with me. Her appetite is fair. She still has rectal tube and has watery diarrhea. OBJECTIVE: VITAL SIGNS: Blood pressure is 132/88, pulse is 76, respiratory rate is 16, O2 saturation is 100%. Her temperature is 99.7, that is the maximal temperature for the last 24 hours. HEENT: Head is atraumatic and normocephalic. Eyes are PERRLA. Sclerae are nonicteric. Oral mucosa is moist. NECK: Supple, obese. LUNGS: Breath sounds diminished at both bases. HEART: S1, S2, somewhat irregular. No S3. No S4. ABDOMEN: Obese, nontender. Bowel sounds are present. No organomegaly. Rectal tube is in place. EXTREMITIES: No clubbing, cyanosis, or edema. NEUROLOGICAL: She follows my commands. She moves her all 4 extremities. There is no any motor deficits. LABORATORY DATA: Labs showed sodium of 140, potassium 3.1, chloride 107, CO2 of 27, BUN 30, creatinine 1.55, glycemia is ranging from 184 to 238, calcium is 8.1. Biology, no new findings. IMPRESSION: 1. Clostridium difficile colitis on both vancomycin and metronidazole, not improving. The patient still has rectal tube and has quite high output of watery stool. 2. Hypercapnic respiratory failure, improved. 3. Obstructive sleep apnea/Pickwickian syndrome. 4. Acute on chronic renal insufficiency, improving. 5. Hypokalemia. We will give her 40 mEq today x2 since she is down to 3.1 again. 6. Sepsis secondary to Clostridium difficile colitis. 7. Hypertension. 8. Diabetes mellitus type 2. I am going to start her long-acting insulin 10 units for now since she is not eating that much, but it looks like her appetite is picking up. 9. Morbid obesity. 10. Acute metabolic encephalopathy, most likely related to her Pickwickian syndrome, but it is improving on CPAP at night. PLAN: Plan is to continue her vancomycin, metronidazole, Xifaxan. Get GI consultation since this is not improving much. We will replace her potassium. Continue BiPAP and continue PT. Job ID: [id number]
--- NOTE | 2018-10-01 20:10 | PRG ---
DATE OF SERVICE: 10/01/2018 SUBJECTIVE: Ms. Kelly has no new complaints. She did well with her mask. OBJECTIVE: VITAL SIGNS: Heart rate 73, blood pressure 155/79, respiratory rate 18, and oximetry is 100%. LUNGS: Clear. HEART: Regular rhythm. ABDOMEN: Soft. Very poor access with a small IV in her left upper arm. IMPRESSION: 1. Clostridium difficile colitis, ongoing diarrhea. 2. Obesity hypoventilation syndrome. 3. Acute on chronic kidney disease. 4. Hypertension. 5. Diabetes. 6. Extreme deconditioning. 7. Morbid obesity. Continue with nocturnal noninvasive support for what is felt to be severe sleep apnea. Her clostridium difficile diarrhea continues to be an issue. Job ID: [id number]
[2018-10-01] MEDS: Atorvastatin Calcium 40 MG TAB PO SCH (20:52)
[2018-10-01] MEDS: Insulin Glargine 10 UNITS in Pre-Filled Syringe 1 EACH SC SCH (20:55)
--- NOTE | 2018-10-01 21:55 | CON ---
DATE OF CONSULTATION: 10/01/2018 REQUESTING PHYSICIAN: Liam Chino MD. REASON FOR CONSULTATION: C. difficile colitis. HISTORY OF PRESENT ILLNESS: Ms. Lizzie Kelly is a very pleasant 68-year-old woman who has been in the hospital for over a week now, admitted on 09/23/2018. She has been previously seen in the [facility] by my colleague, Dr. Jillian Knight. Her last colonoscopy was normal in 2004. Ms. Kelly has no chronic gastrointestinal symptoms to report. She was admitted over a week ago with weakness and a fall and was found to be septic in respiratory failure. She developed acute kidney injury and had some transient altered mental status, required BiPAP for some time, obstructive sleep apnea suspected. During her hospitalization, she has developed watery diarrhea. She says that she does not normally have diarrhea at home and this started after her hospitalization. Stool studies were checked on 09/26/2018 and were positive for C. difficile antigen and toxin as well as elevated fecal lactoferrin. She was subsequently started on vancomycin 125 mg by mouth 4 times daily as well as Florastor. Subsequently Xifaxan 550 mg b.i.d. and metronidazole 500 mg IV q.8 hours were added. Despite this, over the past few days, she has continued to have watery stool. I examined this. She has a rectal tube in place and stool is collecting in the bag. This is fairly watery greenish stool with no evidence of melena or hematochezia. The patient herself is feeling pretty well. She denies any abdominal pain, nausea, or vomiting. She is tolerating her diet just fine. There is no abdominal distention. She does have persistent leukocytosis. REVIEW OF SYSTEMS: Full review of systems including constitutional, head, eyes, ears, nose, throat, GI, , cardiovascular, respiratory, musculoskeletal, neurologic systems is negative except as noted in the HPI. PAST MEDICAL HISTORY: Diabetes type 2, hypertension, hyperlipidemia, chronic diastolic heart failure, morbid obesity, stage III decubitus ulcer, atrial fibrillation, paroxysmal, sarcoidosis, remote history, nephrolithiasis, status post recent lithotripsy and stent placement, cholecystectomy, , hysterectomy, breast abscess, incision and drainage. FAMILY HISTORY: Noncontributory. SOCIAL HISTORY: She quit smoking 15 years ago. No alcohol or drug use. ALLERGIES: NO KNOWN DRUG ALLERGIES. MEDICATIONS: 1. Aspirin 81 mg daily. 2. Lipitor. 3. Lovenox 40 mg subcutaneous daily. 4. Pepcid 20 mg p.o. b.i.d. 5. Insulin sliding scale. 6. Metronidazole 500 mg IV q.8 hours. 7. Rifaximin 550 mg p.o. b.i.d. 8. Florastor 250 mg p.o. daily. 9. Vancomycin 125 mg p.o. every 6 hours. PHYSICAL EXAMINATION: VITAL SIGNS: Temperature 99.7, pulse 78, blood pressure 129/91, 100% oxygen saturation on room air. GENERAL: Obese 68-year-old woman lying in bed comfortably, in no distress. SKIN: No jaundice, no rashes were palpable. Did not examine her sacral decubitus area. EYES: No scleral icterus. Extraocular movements intact. ENT: Mucous membranes moist. No oral lesions. LYMPH NODES: No submandibular or supraclavicular lymphadenopathy. THYROID: Nontender to palpation. HEART: Regular rate and rhythm. LUNGS: Clear to auscultation bilaterally. Distant breath sounds due to body habitus. ABDOMEN: Morbidly obese. The bowel sounds are present throughout. ABDOMEN: Soft and tender to deep palpation throughout the abdomen. No guarding, rebound tenderness appreciated. EXTREMITIES: No peripheral edema. VESSELS: Radial pulses 2+ bilaterally. NEUROLOGIC: Cranial nerves 2-12 intact bilaterally. No focal deficits. RECTAL: Rectal tube is in place with watery greenish stool in the back. LABORATORY STUDIES: WBC 16.5, hemoglobin 12.0, platelets 275. Sodium 140, potassium 3.1, BUN 30, creatinine 1.55, calcium 8.1. IMAGING STUDIES: CT of the abdomen and pelvis on admission 09/23/2018 showed a large amount of stool in the colon, mild possible thickening in the descending and sigmoid colon and a prominent periumbilical hernia. ASSESSMENT/PLAN: 1. Clostridium difficile colitis. 2. Diarrhea, persistent, secondary to Clostridium difficile. The patient has now been on antimicrobial therapy for Clostridium difficile for the past 4 days. The oral vancomycin is appropriate, but I would go ahead and increase the dose to 250 mg p.o. 4 times daily. This needs to be given for at least a full 14 days. Agree with the addition of IV metronidazole for now. The Florastor is probably not doing much in the context of all the antibiotics, but would go ahead and continue this, so that it is on board once the vancomycin is complete. She has evidently not had much clinical improvement with diarrhea output. However, I would not necessarily change anything, will just wait for diarrhea symptoms to improve. There is no finding or symptoms concerning for development of toxic megacolon. Job ID: [id number]
[2018-10-02] MEDS: HumaLOG 300 UNITS/3 ML VIAL SC PRN (05:18)
[2018-10-02] MEDS: metroNIDAZOLE 500 MG in Premix Bag 1 BAG IVPB SCH ×3 (05:19→22:54)
[2018-10-02] MEDS: Vancomycin HCl 25 MG/ML Oral PO SCH ×3 (05:19→18:31)
[2018-10-02] MEDS: Enoxaparin Sodium 40 MG/0.4 ML SYRINGE SC SCH (09:32)
[2018-10-02] MEDS: Insulin Glargine 10 UNITS in Pre-Filled Syringe 1 EACH SC SCH ×2 (09:33→21:06)
[2018-10-02] MEDS: Saccharomyces boulardii 250 MG CAP PO SCH (09:33)
[2018-10-02] MEDS: Famotidine 20 MG TAB PO SCH ×2 (09:33→21:07)
[2018-10-02] MEDS: Aspirin 81 mg Enteric Coated Tablet PO SCH (09:33)
[2018-10-02] MEDS: Rifaximin 550 MG TAB PO SCH ×2 (09:33→21:07)
[2018-10-02 10:21] LABS: Anion Gap 9 mmol/L (10-20); BUN (Urea Nitrogen) 28 mg/dL (9.8-20.1); Calc. Creatinine Clearance 39 mL/min (70-130); Calcium 8.1 mg/dL (7.8-10.44); Carbon Dioxide 27 mmol/L (23-31); Chloride 108 mmol/L (98-107); Estimated GFR-MDRD 43; Glucose 167 mg/dL (80-115); Magnesium 1.6 mg/dL (1.6-2.6); Potassium 3.2 mmol/L (3.5-5.1); Sodium 141 mmol/L (136-145)
--- NOTE | 2018-10-02 11:47 | PRG ---
DATE OF SERVICE: 10/02/2018 SUBJECTIVE: Patient was seen and examined at bedside and overnight events noted. Patient denies any shortness of breath or chest pain or palpitation. No history of nausea or vomiting or diarrhea or fever or chills or cramps. OBJECTIVE: GENERAL: This is an obese female, in no acute distress. VITAL SIGNS: Temperature . Heart rate 63. Respiratory rate 18. Blood pressure 147/61. HEENT: Atraumatic, normocephalic. Oral mucosa is moist. NECK: Supple. CARDIOVASCULAR: S1, S2 heard. Rate and rhythm regular. RESPIRATORY: Clear to auscultation. GASTROINTESTINAL: Abdomen is soft. MUSCULOSKELETAL: No tenderness. No edema. DERMATOLOGIC: No skin rash. NEUROLOGIC: Alert and awake and oriented x3. No focal neurologic deficits. Moving all the extremities. PSYCHIATRIC: Mood and affect normal. LABORATORY DATA: Potassium is 3.2, BUN is 28, and creatinine is 1.4. ASSESSMENT AND PLAN: 1. Acute kidney injury. Renal function getting better. Repeat labs in the morning. 2. Hypokalemia. Replace and monitor. 3. Edema, controlled. 4. Hypertension, stable. 5. Morbid obesity. Replace potassium. Renal function is stable, close to baseline. Avoid nephrotoxins. We will follow. Job ID: [id number]
--- NOTE | 2018-10-02 11:58 | PRG ---
DATE OF SERVICE: 10/02/2018 SUBJECTIVE: Lizzie Kelly did a good night last night. OBJECTIVE: VITAL SIGNS: Stable. She is afebrile, heart rate is 72, blood pressure 139/60, and oximetry is 100%. LUNGS: Clear. HEART: Regular rhythm. ABDOMEN: Soft. LABORATORY DATA: Sodium 141, potassium 3.2, chloride 108, bicarb 27, BUN 28, creatinine 1.45, which better than 1.55 yesterday. IMPRESSION: 1. Clostridium difficile colitis. 2. Obesity hypoventilation syndrome. PLAN: Her O2 needs to be weaned off if possible if her sats are 90 or greater on room air. We will continue to follow. Job ID: [id number]
--- NOTE | 2018-10-02 15:27 | PRG ---
DATE OF SERVICE: 10/02/2018 SUBJECTIVE: Ms. Kelly has no complaints this morning. She says she is feeling pretty well. She is tolerating her diet. No abdominal pain or nausea. Rectal tube remains in place, still with liquid stool in the bag, 700 mL of stool charted for today. OBJECTIVE: VITAL SIGNS: Temperature 98.4, pulse 64, blood pressure 128/55, and 99% oxygen saturation on 2 L nasal cannula. GENERAL: No acute distress. HEART: Regular rate and rhythm. LUNGS: Clear to auscultation bilaterally. ABDOMEN: Bowel sounds active. Soft and nontender to palpation throughout. EXTREMITIES: No peripheral edema. LABORATORY STUDIES: Glucose 146, sodium 141, potassium 3.2, BUN 28, creatinine 1.45, calcium 8.1, and magnesium 1.6. ASSESSMENT AND PLAN: 1. C difficile colitis. The patient is now on day #6 of antimicrobial therapy, specifically for C difficile, went up on the vancomycin dose yesterday. Also on metronidazole, rifaximin, and Florastor. She is nontoxic, low risk for complication such as toxic megacolon. No change in plan at this time. Job ID: [id number]
[2018-10-02] MEDS ORDERED: Potassium Chloride 20 MEQ TAB PO SCH ×2 (18:00→22:00)
--- NOTE | 2018-10-02 18:17 | PRG ---
DATE OF SERVICE: 10/02/2018 SUBJECTIVE: The patient is seen and examined at the bedside. She is feeling better. She does not have much complaints to offer. She still has quite high output from her rectal tube, but it looks like it is slowing down gradually. She is tolerating food without any problems. OBJECTIVE: VITAL SIGNS: Blood pressure is 127/40, temperature is 99.0, heart rate is 69, respiratory rate is 20, and pulse oximetry is 99%. HEENT: Head is atraumatic and normocephalic. Sclerae are nonicteric. Oral mucosa is moist. NECK: Supple. LUNGS: Clear. HEART: S1, S2 normal. No S3. No S4. ABDOMEN: Obese, soft, and nontender. EXTREMITIES: A 1+ peripheral edema similar bilaterally on the lower extremities. NEUROLOGIC: She follows my commands. She does not have any motor deficits. LABORATORY DATA: Labs show sodium is 141, potassium 3.2, chloride 108, BUN 28, creatinine 1.45, glycemia is ranging from 130 to 190, calcium 8.1, and magnesium 1.6. IMPRESSION: 1. Clostridium difficile colitis, on both vancomycin and metronidazole. The dose of vancomycin was increased to [address] Pena yesterday. 2. Hypercapnic respiratory failure, improved. 3. Obstructive sleep apnea/Pickwickian syndrome. 4. Acute on chronic renal insufficiency, improving. 5. Hypokalemia requiring additional doses of potassium since she is losing a lot of potassium with her liquidy stool. 6. Sepsis secondary to Clostridium difficile colitis. 7. Hypertension. 8. Diabetes mellitus, type 2. Glycemia is significantly improved. 9. Morbid obesity. 10. Acute metabolic encephalopathy, improved. PLAN: Plan is to continue full regimen with vancomycin, metronidazole, Xifaxan, and probiotics. Continue BiPAP at night. Continue replacement of her electrolytes and continue PT. Job ID: [id number]
[2018-10-02] MEDS: Atorvastatin Calcium 40 MG TAB PO SCH (21:07)
[2018-10-03] MEDS: Vancomycin HCl 25 MG/ML Oral PO SCH ×5 (00:30→23:37)
[2018-10-03 05:16] LABS: Anion Gap 12 mmol/L (10-20); BUN (Urea Nitrogen) 25 mg/dL (9.8-20.1); Calc. Creatinine Clearance 39 mL/min (70-130); Calcium 8.1 mg/dL (7.8-10.44); Carbon Dioxide 23 mmol/L (23-31); Chloride 110 mmol/L (98-107); Estimated GFR-MDRD 44; Glucose 126 mg/dL (80-115); Potassium 3.6 mmol/L (3.5-5.1); Sodium 141 mmol/L (136-145)
[2018-10-03] MEDS: metroNIDAZOLE 500 MG in Premix Bag 1 BAG IVPB SCH ×3 (06:26→23:37)
--- NOTE | 2018-10-03 08:28 | PRG ---
DATE OF SERVICE: 10/03/2018 SUBJECTIVE: Ms. Kelly is still mildly confused. Apparently did not sleep well last night, did not wear BiPAP last night. OBJECTIVE: VITAL SIGNS: Temperature 97.7, pulse 70, blood pressure 155/69, O2 saturation 100%. HEENT: Unremarkable. NECK: No JVD. LUNGS: Clear anteriorly. CARDIAC: S1, S2. Regular. ABDOMEN: Soft. EXTREMITIES: No edema. LABORATORY DATA: Sodium 141, potassium 3.6, BUN 25, creatinine 1.4, glucose 126. ASSESSMENT: 1. Clostridium difficile colitis. 2. Obesity hypoventilation syndrome. PLAN: 1. From my standpoint, she can go to the medical floor if okay with hospitalist group. 2. Probably could consolidate the treatment for the C. diff colitis down to oral vancomycin and oral Xifaxan. Job ID: [id number]
--- NOTE | 2018-10-03 09:09 | PRG ---
DATE OF SERVICE: 10/03/2018 SUBJECTIVE: Ms. Kelly has no new complaints. No abdominal pain or nausea. She is tolerating her diet. Stool output was measured at 400 mL yesterday, so seems to be declining. Rectal tube still in place with new bag. OBJECTIVE: VITAL SIGNS: Temperature 97.7, 98% oxygen saturation on 3 L nasal cannula, blood pressure is 136/88, pulse 70. GENERAL: No acute distress. HEART: Regular rate and rhythm. LUNGS: Distant breath sounds. No respiratory distress. ABDOMEN: Obese. Bowel sounds present. Soft and nontender to deep palpation throughout. EXTREMITIES: No peripheral edema. LABORATORY STUDIES: Glucose 116, sodium 141, potassium 3.6, BUN 25, creatinine 1.44. ASSESSMENT AND PLAN: Clostridium difficile colitis. Stool is still quite liquid, but appears to be decreasing in volume day-to-day. She is now on day #7 of antimicrobial therapy. Continue current therapy. The vancomycin needs to be given for at least a total of 14 days. If diarrhea is persistent or recurrent after this, we would recheck stool for Clostridium difficile. GI will sign off, but please call anytime with questions or concerns. Job ID: [id number]
[2018-10-03] MEDS: Famotidine 20 MG TAB PO SCH ×2 (09:33→21:05)
[2018-10-03] MEDS: Saccharomyces boulardii 250 MG CAP PO SCH (09:33)
[2018-10-03] MEDS: Enoxaparin Sodium 40 MG/0.4 ML SYRINGE SC SCH (09:33)
[2018-10-03] MEDS: Rifaximin 550 MG TAB PO SCH ×2 (09:33→21:04)
[2018-10-03] MEDS: Aspirin 81 mg Enteric Coated Tablet PO SCH (09:33)
[2018-10-03] MEDS: Insulin Glargine 10 UNITS in Pre-Filled Syringe 1 EACH SC SCH ×2 (09:34→21:05)
[2018-10-03 10:56] LABS: Actual Bicarbonate (HCO3a) 25.8 mEq/L (22-28); Base Excess (BEa) -1.6 mEq/L (-2.0 to +3.0); Calcium, Ionized 1.26 mmol/L (1.12-1.30); Hemoglobin (Hb) 11.9 g/dL (12.0-16.0); O2 Tension (PaO2) 95.3 mmHg (> 80.0); Potassium - ABG Lab 3.47 mmol/L (3.70-5.30); pH, Arterial 7.28 (7.35-7.45)
[2018-10-03 10:58] LABS: Puncture Site RR
--- NOTE | 2018-10-03 14:39 | PRG ---
DATE OF SERVICE: 10/03/2018 SUBJECTIVE: The patient was seen and examined at the bedside. She did not have BiPAP mask on at night and she was very drowsy this morning. Her ABG showed elevated pCO2 and respiratory acidosis. She was placed on BiPAP and she is on it currently during my visit. She is able to talk to me, but she is confused. OBJECTIVE: VITAL SIGNS: Blood pressure is 150/80, pulse is 64, respirations 22, O2 saturation is 93% , her temperature is 97.2. HEENT: Head is atraumatic and normocephalic. Sclerae nonicteric. Pupils are responding to light. LUNGS: Breath sounds diminished at both bases. HEART: S1, S2, somewhat irregular. No S3. No S4. ABDOMEN: Obese. Bowel sounds present. No organomegaly. EXTREMITIES: Nonpitting peripheral edema, both lower extremities, approximately 2+. LABORATORY DATA: Sodium of 141, potassium 3.6, chloride 110, CO2 of 23, BUN 25, creatinine 1.44, glycemia is ranging from 115-158. IMPRESSION: 1. Clostridium difficile colitis, on both vancomycin, metronidazole. It looks like the output is much less than what it was before, but it is still liquidy. We will continue the same regimen. 2. Hypercapnic respiratory failure, improved. 3. Confusion most likely related to elevated CO2 and lack of treatment of CPAP last night. 4. Obstructive sleep apnea/Pickwickian syndrome. 5. Pusip-en-sypxnaf renal insufficiency, improving. 6. Hypokalemia requiring additional doses of potassium. 7. Sepsis secondary to Clostridium difficile colitis. 8. Hypertension. 9. Diabetes mellitus type 2. 10. Morbid obesity. 11. Acute metabolic encephalopathy again probably CO2 retention related. PLAN: I agree the patient can go to telemetry floor, but I do not think we can get BiPAP at night. We will continue her current regimen for her Clostridium difficile with vancomycin p.o., metronidazole, Xifaxan. We will continue DVT prophylaxis with the Lovenox and insulin and sliding scale. Job ID: [id number]
--- NOTE | 2018-10-03 15:52 | PRG ---
DATE OF SERVICE: 10/03/2018 SUBJECTIVE: Patient was seen and examined at bedside and overnight events noted. Patient denies any shortness of breath or chest pain or palpitation. No history of nausea or vomiting or diarrhea or fever or chills or cramps. OBJECTIVE: GENERAL: This is an obese female, in no apparent distress. VITAL SIGNS: Temperature 98.7. Pulse 74. Respiratory rate 20. Blood pressure 113/51. HEENT: Atraumatic, normocephalic. Oral mucosa is moist NECK: Supple. CARDIOVASCULAR: S1, S2 heard. Rate and rhythm regular. RESPIRATORY: Clear to auscultation. GASTROINTESTINAL: Abdomen is soft. MUSCULOSKELETAL: No tenderness. No edema. DERMATOLOGIC: No skin rash. NEUROLOGIC: Alert and awake and oriented X3. No focal neurologic deficits. Moving all the extremities. PSYCHIATRIC: Mood and affect normal. LABORATORY DATA: Creatinine is 1.4, BUN is 25. ASSESSMENT AND PLAN: 1. Acute kidney injury, stable. 2. Hypokalemia, replace and monitor. 3. Edema, controlled. 4. Hypertension. 5. Morbid obesity. Plan, we will continue to monitor. Job ID: [id number]
[2018-10-03] MEDS: Atorvastatin Calcium 40 MG TAB PO SCH (21:05)
[2018-10-04 05:49] LABS: Anion Gap 9 mmol/L (10-20); BUN (Urea Nitrogen) 23 mg/dL (9.8-20.1); Calc. Creatinine Clearance 103 mL/min (70-130); Calcium 8.3 mg/dL (7.8-10.44); Carbon Dioxide 27 mmol/L (23-31); Chloride 110 mmol/L (98-107); Estimated GFR-MDRD 48; Glucose 142 mg/dL (80-115); Potassium 3.2 mmol/L (3.5-5.1); Sodium 143 mmol/L (136-145)
[2018-10-04] MEDS: Vancomycin HCl 25 MG/ML Oral PO SCH ×4 (06:40→23:00)
[2018-10-04] MEDS: metroNIDAZOLE 500 MG in Premix Bag 1 BAG IVPB SCH ×3 (06:40→22:59)
[2018-10-04] MEDS: Famotidine 20 MG TAB PO SCH ×2 (09:16→20:14)
[2018-10-04] MEDS: Enoxaparin Sodium 40 MG/0.4 ML SYRINGE SC SCH (09:16)
[2018-10-04] MEDS: Aspirin 81 mg Enteric Coated Tablet PO SCH (09:16)
[2018-10-04] MEDS: Saccharomyces boulardii 250 MG CAP PO SCH (09:17)
[2018-10-04] MEDS: Rifaximin 550 MG TAB PO SCH ×2 (09:17→20:14)
[2018-10-04] MEDS: Insulin Glargine 10 UNITS in Pre-Filled Syringe 1 EACH SC SCH ×2 (09:17→20:15)
--- NOTE | 2018-10-04 09:29 | PRG ---
DATE OF SERVICE: 10/04/2018 SUBJECTIVE: The patient is excessively somnolent this morning. Apparently, she wore BiPAP for about 5 hours last night. OBJECTIVE: VITAL SIGNS: Her temperature is 97.4, pulse 72, blood pressure 130/55. HEENT: Unremarkable. NECK: No adenopathy. No JVD. LUNGS: Distant, but clear breath sounds. CARDIAC: S1, S2. Regular. ABDOMEN: Soft. EXTREMITIES: No edema. LABORATORY DATA: Yesterday's blood gas showed a pH of 7.28 and pCO2 of 56. Sodium 143, potassium 3.2, chloride 110, CO2 of 27, BUN 23, creatinine 1.3, and glucose 142. ASSESSMENT: 1. Continued daytime hypersomnolence, probably secondary to obesity hypoventilation syndrome. 2. Clostridium difficile colitis. PLAN: 1. I am going to try her on modafinil 200 mg every morning for refractory daytime sleepiness and continue treatment for the C. difficile. 2. Continue nocturnal BiPAP. Job ID: [id number]
[2018-10-04] MEDS: Modafinil 100 MG TAB PO SCH (10:25)
--- NOTE | 2018-10-04 11:23 | PRG ---
DATE OF SERVICE: 10/04/2018 SUBJECTIVE: The patient is seen and examined at the bedside. She is much more awake this morning. OBJECTIVE: VITAL SIGNS: Blood pressure is 152/55, pulse is 72, respirations are 12, O2 saturation is 94% on 2 L by nasal cannula. HEENT: She is responding to light properly. Sclerae are nonicteric. Oral mucosa is moist. NECK: Supple, obese. LUNGS: Breath sounds diminished at both bases. HEART: S1, S2, somewhat irregular. No S3. No S4. ABDOMEN: Soft, obese, nontender to palpation. EXTREMITIES: 1 to 2+ peripheral edema similarly on both lower extremities. NEUROLOGICAL: She follows my commands. She is much more awake today. She moves all 4 extremities, although she presents with a lot of upper and lower body generalized weakness. LABORATORY DATA: Labs showed sodium of 143, potassium 3.2, chloride 110, CO2 of 27, BUN 23, creatinine 1.32. Glycemia is ranging from 115 to 171. IMPRESSION: 1. Clostridium difficile colitis, on both vancomycin and metronidazole. 2. Hypercapnic respiratory failure. 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 3. Obstructive sleep apnea/Pickwickian syndrome. 4. Acute on chronic renal insufficiency, improving. 5. Hypokalemia requiring additional doses of potassium. We will give her 40 mEq q.4 hours x2. 6. Sepsis secondary to Clostridium difficile colitis. 7. Hypertension. 8. Diabetes mellitus type 2, well controlled. 9. Morbid obesity. 10. Acute metabolic encephalopathy, again probably carbon dioxide retention related and improved. PLAN: So, plan is to continue her high dose of vancomycin and metronidazole. Her rectal tube is in place and the output is gradually getting better, which means lower. She will continue on both antibiotics. She will continue on sliding scale. We will try modafinil as stated above and Lovenox for DVT prophylaxis. Job ID: [id number]
[2018-10-04] MEDS: Potassium Chloride 20 MEQ TAB PO SCH ×2 (11:58→15:49)
[2018-10-04] MEDS: Acetaminophen 500 MG TAB PO PRN (11:59)
--- NOTE | 2018-10-04 18:03 | PRG ---
DATE OF SERVICE: 10/04/2018 SUBJECTIVE: Patient was seen and examined at bedside and overnight events noted. Patient denies any shortness of breath or chest pain or palpitation. No history of nausea or vomiting or diarrhea or fever or chills or cramps. OBJECTIVE: GENERAL: This is an obese female, in no apparent distress. VITAL SIGNS: Temperature 99.3, pulse 64, respirations 19, blood pressure 157/63. HEENT: Atraumatic, normocephalic. Oral mucosa is moist. NECK: Supple. CARDIOVASCULAR: S1, S2 heard. Rate and rhythm regular. RESPIRATORY: Clear to auscultation. GASTROINTESTINAL: Abdomen is soft. MUSCULOSKELETAL: 2+ edema. DERMATOLOGIC: No skin rash. NEUROLOGIC: Alert and awake and oriented X3. No focal neurologic deficits. Moving all the extremities. PSYCHIATRIC: Mood and affect normal. LABORATORY DATA: Potassium is 3.2, BUN is 23, creatinine is 1.3. ASSESSMENT AND PLAN: 1. Acute kidney injury on chronic kidney disease, stage 3. Renal function seems to be stable. Avoid nephrotoxins. 2. Edema. Monitor, limit fluid intake, and okay with Lasix if tolerated. 3. Hypokalemia, replace. 4. Hypertension. 5. Morbid obesity. Monitor labs closely. I will sign off. Please call back with any questions. Job ID: [id number]
[2018-10-04] MEDS: HumaLOG 300 UNITS/3 ML VIAL SC PRN (18:42)
[2018-10-04] MEDS: Atorvastatin Calcium 40 MG TAB PO SCH (20:14)
[2018-10-05 05:03] LABS: Anion Gap 10 mmol/L (10-20); BUN (Urea Nitrogen) 21 mg/dL (9.8-20.1); Calc. Creatinine Clearance 111 mL/min (70-130); Calcium 8.3 mg/dL (7.8-10.44); Carbon Dioxide 26 mmol/L (23-31); Chloride 111 mmol/L (98-107); Estimated GFR-MDRD 54; Glucose 158 mg/dL (80-115); Potassium 3.6 mmol/L (3.5-5.1); Sodium 143 mmol/L (136-145)
[2018-10-05] MEDS: metroNIDAZOLE 500 MG in Premix Bag 1 BAG IVPB SCH ×3 (06:29→22:24)
[2018-10-05] MEDS: Vancomycin HCl 25 MG/ML Oral PO SCH ×4 (06:30→23:16)
[2018-10-05] MEDS: Aspirin 81 mg Enteric Coated Tablet PO SCH (09:55)
[2018-10-05] MEDS: Enoxaparin Sodium 40 MG/0.4 ML SYRINGE SC SCH (09:55)
[2018-10-05] MEDS: Insulin Glargine 10 UNITS in Pre-Filled Syringe 1 EACH SC SCH ×2 (09:56→20:54)
[2018-10-05] MEDS: Saccharomyces boulardii 250 MG CAP PO SCH (09:56)
[2018-10-05] MEDS: Famotidine 20 MG TAB PO SCH ×2 (09:56→20:54)
[2018-10-05] MEDS: Rifaximin 550 MG TAB PO SCH ×2 (09:56→20:54)
[2018-10-05] MEDS: Acetaminophen 500 MG TAB PO PRN (09:57)
--- NOTE | 2018-10-05 09:57 | PRG ---
DATE OF SERVICE: 10/05/2018 SUBJECTIVE: The patient is more alert this morning, had no acute complaints. OBJECTIVE: VITAL SIGNS: Temperature is 97.7, pulse 61, blood pressure 109/47, O2 saturations 100%. HEENT: Unremarkable. NECK: No JVD. LUNGS: Fairly clear anteriorly. CARDIAC: S1 and S2, regular. ABDOMEN: Soft. EXTREMITIES: No edema. LABORATORY DATA: Sodium 143, potassium 3.6, chloride 111, CO2 of 26, BUN 21, creatinine 1.2, glucose 158. ASSESSMENT: 1. Improved encephalopathy. This may be the effect of the modafinil she started getting yesterday. 2. Obesity hypoventilation syndrome. 3. Morbid obesity. PLAN: 1. Continue nocturnal CPAP. 2. Continue modafinil. Job ID: [id number]
[2018-10-05] MEDS: Modafinil 100 MG TAB PO SCH (12:27)
--- NOTE | 2018-10-05 14:37 | PDOC.PN ---
- Subjective Encounter Start Date: 10/05/18 Encounter Start Time: 14:36 Ms. Kelly was seen today in follow-up of C. Diff Colitis, and Metabolic encephalopathy. She does not have any complaints today She denies chest pain and denies dyspnea. - Objective Resuscitation Status - Order Detail: 09/23/18 14:21 Resuscitation Status Routine Resuscitation Status: FULL: Full Resuscitation MAR Reviewed: Yes Vital Signs & Weight: Vital Signs (12 hours) Temp Resp Pulse Ox 10/05/18 12:00 97.6 F 20 10/05/18 08:00 98.0 F 98 10/05/18 04:00 97.7 F Weight Admit Weight 339 lb 1.135 oz Weight 347 lb Most Recent Monitor Data Heart Rate from ECG 65 NIBP 110/41 NIBP BP-Mean 64 Respiration from ECG 15 SpO2 99 I&O: 10/04/18 10/05/18 10/06/18 06:59 06:59 06:59 Intake Total 1180 1820 Output Total 450 250 Balance 730 1570 Result Diagrams: 09/30/18 15:35 10/05/18 04:33 Additional Labs: Accuchecks 10/05/18 10/05/18 10/04/18 12:31 06:06 19:59 POC Glucose 144 H 151 H 180 H 10/04/18 16:14 POC Glucose 236 H Phys Exam - Physical Examination HEENT: PERRLA Respiratory: no wheezing, no rales, no rhonchi, clear to auscultation bilateral Cardiovascular: RRR, no significant murmur, no rub Gastrointestinal: soft, non-tender, no distention, positive bowel sounds Musculoskeletal: pulses present, edema present + non-pitting edema in both lower extremities Dx/Plan (1) C. difficile colitis Status: Acute (2) Acute respiratory failure Code(s): J96.00 - ACUTE RESPIRATORY FAILURE, UNSP W HYPOXIA OR HYPERCAPNIA Status: Acute (3) Hypertension Code(s): I10 - ESSENTIAL (PRIMARY) HYPERTENSION Status: Chronic Qualifiers: Hypertension type: essential hypertension Qualified Code(s): I10 - Essential (primary) hypertension (4) Acute and chronic respiratory failure with hypercapnia Code(s): J96.22 - ACUTE AND CHRONIC RESPIRATORY FAILURE WITH HYPERCAPNIA Status: Acute (5) DM type 2 (diabetes mellitus, type 2) Status: Chronic Qualifiers: Diabetes mellitus fci insulin use: with fci use Diabetes mellitus complication status: with unspecified complications Qualified Code(s) : E11.8 - Type 2 diabetes mellitus with unspecified complications; Z79.4 - dedicated intermodal truck driver (current) use of insulin (6) Morbid obesity Code(s): E66.01 - MORBID (SEVERE) OBESITY DUE TO EXCESS CALORIES Status: Chronic (7) ARI (obstructive sleep apnea) Code(s): G47.33 - OBSTRUCTIVE SLEEP APNEA (ADULT) (PEDIATRIC) Status: Chronic - Plan * C. Diff Colitis- she is currently on Vancomycin oral and Flagyl * Acute on chronic respiratory failure with hypercapnea- Continue CPAP/BiPAP as needed * HTN- blood pressure is controlled * DM- blood glucose is stable * Metabolic encephalopathy- improved * Severe deconditioning- continue PT/OT .
[2018-10-05] MEDS: Atorvastatin Calcium 40 MG TAB PO SCH (20:54)
[2018-10-06] MEDS: Vancomycin HCl 25 MG/ML Oral PO SCH ×3 (05:10→17:50)
[2018-10-06] MEDS: metroNIDAZOLE 500 MG in Premix Bag 1 BAG IVPB SCH ×3 (05:10→21:01)
[2018-10-06] MEDS: Rifaximin 550 MG TAB PO SCH ×2 (09:29→21:00)
[2018-10-06] MEDS: Saccharomyces boulardii 250 MG CAP PO SCH (09:29)
[2018-10-06] MEDS: Aspirin 81 mg Enteric Coated Tablet PO SCH (09:29)
[2018-10-06] MEDS: Famotidine 20 MG TAB PO SCH ×2 (09:30→21:01)
[2018-10-06] MEDS: Enoxaparin Sodium 40 MG/0.4 ML SYRINGE SC SCH (09:30)
[2018-10-06] MEDS: Insulin Glargine 10 UNITS in Pre-Filled Syringe 1 EACH SC SCH ×2 (09:30→21:01)
[2018-10-06] MEDS: Modafinil 100 MG TAB PO SCH (09:30)
[2018-10-06] MEDS: Acetaminophen 500 MG TAB PO PRN (09:35)
--- NOTE | 2018-10-06 09:50 | PRG ---
DATE OF SERVICE: 10/06/2018 SUBJECTIVE: Ms. Kelly is definitely doing better from a mental status standpoint. She is joking around this morning. She says she got up and walked physical therapy yesterday. OBJECTIVE: VITAL SIGNS: Temperature 97.8, pulse 66, blood pressure 142/61, O2 saturation 100%. HEENT: Unremarkable. NECK: No JVD. CHEST: Clear anteriorly. CARDIAC: S1, S2. Regular. ABDOMEN: Soft. EXTREMITIES: No edema. ASSESSMENT: 1. Improved encephalopathy. 2. Probably underlying obesity hypoventilation syndrome/obstructive sleep apnea. PLAN: 1. Continue modafinil. 2. Transfer to the floor, but continue nocturnal CPAP. She needs a sleep study as an outpatient. 3. Continue treatment for C. diff per GI. Job ID: [id number]
--- NOTE | 2018-10-06 16:11 | PDOC.PN ---
- Subjective Encounter Start Date: 10/06/18 Encounter Start Time: 16:09 Ms. Kelly was seen in follow-up of C. Diff and respiratory failure. She does not have any complaints. she is very talkative, and back to her baseline mental status. - Objective Resuscitation Status - Order Detail: 09/23/18 14:21 Resuscitation Status Routine Resuscitation Status: FULL: Full Resuscitation MAR Reviewed: Yes Vital Signs & Weight: Vital Signs (12 hours) Temp Pulse Resp BP Pulse Ox 10/06/18 15:48 100 10/06/18 12:07 98.5 F 95 18 156/76 H 100 10/06/18 11:34 97.9 F 66 18 10/06/18 08:00 97.8 F Weight Admit Weight 339 lb 1.135 oz Weight 351 lb 2 oz Most Recent Monitor Data Heart Rate from ECG 70 NIBP 168/75 NIBP BP-Mean 106 Respiration from ECG 17 SpO2 97 I&O: 10/05/18 10/06/18 10/07/18 06:59 06:59 06:59 Intake Total 1820 1620 Output Total 250 50 Balance 1570 1570 Result Diagrams: 09/30/18 15:35 10/05/18 04:33 Additional Labs: Accuchecks 10/06/18 10/05/18 10/05/18 06:19 20:55 18:14 POC Glucose 123 H 158 H 170 H Phys Exam - Physical Examination HEENT: PERRLA Respiratory: no wheezing, no rales, no rhonchi, clear to auscultation bilateral Cardiovascular: RRR, no significant murmur, no rub Gastrointestinal: soft, non-tender, no distention, positive bowel sounds Musculoskeletal: pulses present, edema present 2+ pitting edema in both lower extremities, and feet Dx/Plan (1) C. difficile colitis Status: Acute (2) Acute respiratory failure Code(s): J96.00 - ACUTE RESPIRATORY FAILURE, UNSP W HYPOXIA OR HYPERCAPNIA Status: Acute (3) Hypertension Code(s): I10 - ESSENTIAL (PRIMARY) HYPERTENSION Status: Chronic Qualifiers: Hypertension type: essential hypertension Qualified Code(s): I10 - Essential (primary) hypertension (4) Acute and chronic respiratory failure with hypercapnia Code(s): J96.22 - ACUTE AND CHRONIC RESPIRATORY FAILURE WITH HYPERCAPNIA Status: Acute (5) DM type 2 (diabetes mellitus, type 2) Status: Chronic Qualifiers: Diabetes mellitus prison insulin use: with prison use Diabetes mellitus complication status: with unspecified complications Qualified Code(s) : E11.8 - Type 2 diabetes mellitus with unspecified complications; Z79.4 - correction (current) use of insulin (6) Morbid obesity Code(s): E66.01 - MORBID (SEVERE) OBESITY DUE TO EXCESS CALORIES Status: Chronic (7) ARI (obstructive sleep apnea) Code(s): G47.33 - OBSTRUCTIVE SLEEP APNEA (ADULT) (PEDIATRIC) Status: Chronic - Plan * C. Diff Colitis- continue Vancomycin and Flagyl * Acute on chronic respiratory failure with Hypercapnea- she has improved dramatically with CPAP. This will be continued on the floor, nocturnally, and she has been instructed on getting a sleep study as an out patient * HTN- blood pressure is a bit elevated- will continue the current regimen, and monitor- may need to adjust medications * DM- blood glucose is stable * ARI- she will need out patient sleep study. * Decnditioning- continue PT/OT, and she may need long term
[2018-10-06] MEDS: Atorvastatin Calcium 40 MG TAB PO SCH (21:00)
[2018-10-07] MEDS: Vancomycin HCl 25 MG/ML Oral PO SCH ×5 (00:39→23:57)
[2018-10-07] MEDS: metroNIDAZOLE 500 MG in Premix Bag 1 BAG IVPB SCH ×2 (05:13→12:04)
[2018-10-07] MEDS: Acetaminophen 500 MG TAB PO PRN (08:09)
[2018-10-07] MEDS: Famotidine 20 MG TAB PO SCH ×2 (08:10→20:31)
[2018-10-07] MEDS: Rifaximin 550 MG TAB PO SCH ×2 (08:10→20:31)
[2018-10-07] MEDS: Enoxaparin Sodium 40 MG/0.4 ML SYRINGE SC SCH (08:10)
[2018-10-07] MEDS: Saccharomyces boulardii 250 MG CAP PO SCH (08:10)
[2018-10-07] MEDS: Aspirin 81 mg Enteric Coated Tablet PO SCH (08:11)
[2018-10-07] MEDS: Insulin Glargine 10 UNITS in Pre-Filled Syringe 1 EACH SC SCH ×2 (08:56→20:30)
[2018-10-07] MEDS: Modafinil 100 MG TAB PO SCH (09:01)
--- NOTE | 2018-10-07 09:39 | PRG ---
DATE OF SERVICE: 10/07/2018 SUBJECTIVE: The patient feels better. Did not have to use BiPAP last night. OBJECTIVE: VITAL SIGNS: Temperature 98.1, pulse 90, respirations 20, O2 saturation 96%, blood pressure 189/102. HEENT: Unremarkable. NECK: No JVD. CHEST: Clear to auscultation. CARDIAC: S1 and S2. Regular. ABDOMEN: Soft. EXTREMITIES: No edema. LABORATORY DATA: No labs were taken today. ASSESSMENT: 1. Obesity hypoventilation syndrome. 2. Morbid obesity. 3. Improved encephalopathy. PLAN: 1. Continue modafinil in the morning. 2. She will need a sleep study as an outpatient. 3. I have recommended rehab prior to discharge. 4. Continue treatment for C. diff as per GI recommendations. Job ID: [id number]
[2018-10-07] MEDS: hydrALAZINE 25 MG TAB PO SCH ×3 (12:03→20:31)
--- NOTE | 2018-10-07 17:35 | PDOC.PN ---
- Subjective Encounter Start Date: 10/07/18 Encounter Start Time: 17:33 Ms. Kelly was seen today in follow-up of Acute respiratory failure. She does not have any complaints. She is sitting up eating with her daughter and granddaughter. - Objective Resuscitation Status - Order Detail: 09/23/18 14:21 Resuscitation Status Routine Resuscitation Status: FULL: Full Resuscitation MAR Reviewed: Yes Vital Signs & Weight: Vital Signs (12 hours) Temp Pulse Resp BP Pulse Ox 10/07/18 16:34 98.5 F 64 18 178/85 H 98 10/07/18 12:25 98.4 F 60 20 165/78 H 97 10/07/18 12:03 72 10/07/18 08:09 72 10/07/18 07:46 98.1 F 72 22 H 189/102 H 96 Weight Admit Weight 339 lb 1.135 oz Weight 349 lb Most Recent Monitor Data Heart Rate from ECG 70 NIBP 168/75 NIBP BP-Mean 106 Respiration from ECG 17 SpO2 97 I&O: 10/06/18 10/07/18 10/08/18 06:59 06:59 06:59 Intake Total 1620 1120 1000 Output Total 50 Balance 1570 1120 1000 Result Diagrams: 09/30/18 15:35 10/05/18 04:33 Additional Labs: Accuchecks 10/07/18 10/07/18 10/07/18 16:54 11:59 04:37 POC Glucose 109 154 H 100 10/06/18 20:04 POC Glucose 140 H Phys Exam - Physical Examination HEENT: PERRLA Respiratory: no wheezing + rhonchi- no rales Cardiovascular: RRR, no significant murmur, no rub Gastrointestinal: soft, non-tender, no distention, positive bowel sounds Musculoskeletal: pulses present, edema present Neurological: non-focal Dx/Plan (1) C. difficile colitis Status: Acute (2) Acute respiratory failure Code(s): J96.00 - ACUTE RESPIRATORY FAILURE, UNSP W HYPOXIA OR HYPERCAPNIA Status: Acute (3) Hypertension Code(s): I10 - ESSENTIAL (PRIMARY) HYPERTENSION Status: Chronic Qualifiers: Hypertension type: essential hypertension Qualified Code(s): I10 - Essential (primary) hypertension (4) Acute and chronic respiratory failure with hypercapnia Code(s): J96.22 - ACUTE AND CHRONIC RESPIRATORY FAILURE WITH HYPERCAPNIA Status: Acute (5) DM type 2 (diabetes mellitus, type 2) Status: Chronic Qualifiers: Diabetes mellitus mcc insulin use: with floral artist use Diabetes mellitus complication status: with unspecified complications Qualified Code(s) : E11.8 - Type 2 diabetes mellitus with unspecified complications; Z79.4 - multimedia services coordinator (current) use of insulin (6) Morbid obesity Code(s): E66.01 - MORBID (SEVERE) OBESITY DUE TO EXCESS CALORIES Status: Chronic (7) ARI (obstructive sleep apnea) Code(s): G47.33 - OBSTRUCTIVE SLEEP APNEA (ADULT) (PEDIATRIC) Status: Chronic - Plan * Metabolic encephalopathy- much improved- moslt likely from Obesity Hypoventillation * C. Diff Colitis- will discontinue Flagyl. Continue Oral Vancomycin. She has completed 6 days of therapy- will treat for 10 * HTN- blood pressure is stable * DM- blood glucose is stable * ARI- continue noctural CAPA, and she will need out patient sleep study * Severe deconditioning-I recommend Rehab as well.- a Case Management Consult has been placed.
[2018-10-07] MEDS: Atorvastatin Calcium 40 MG TAB PO SCH (20:31)
[2018-10-07] MEDS: Doxazosin Mesylate 1 MG TAB PO SCH (20:31)
[2018-10-08] MEDS: Vancomycin HCl 25 MG/ML Oral PO SCH ×4 (05:14→23:07)
[2018-10-08] MEDS: Enoxaparin Sodium 40 MG/0.4 ML SYRINGE SC SCH (08:16)
[2018-10-08] MEDS: hydrALAZINE 25 MG TAB PO SCH ×4 (08:16→20:18)
[2018-10-08] MEDS: Saccharomyces boulardii 250 MG CAP PO SCH (08:17)
[2018-10-08] MEDS: Aspirin 81 mg Enteric Coated Tablet PO SCH (08:17)
[2018-10-08] MEDS: Rifaximin 550 MG TAB PO SCH ×2 (08:17→20:18)
[2018-10-08] MEDS: Acetaminophen 500 MG TAB PO PRN (08:17)
[2018-10-08] MEDS: Famotidine 20 MG TAB PO SCH ×2 (08:18→20:17)
[2018-10-08] MEDS: Modafinil 100 MG TAB PO SCH (09:11)
[2018-10-08] MEDS: Insulin Glargine 10 UNITS in Pre-Filled Syringe 1 EACH SC SCH ×2 (09:18→20:18)
--- NOTE | 2018-10-08 12:05 | PRG ---
DATE OF SERVICE: 10/08/2018 SUBJECTIVE: Lizzie Kelly severely deconditioned 448-pound female, who said she is better this morning, less short of breath, but deconditioned, unable to walk because of arthritis. OBJECTIVE: VITAL SIGNS: Saturations are 97% on 2 L, respirations 22, temperature 98, blood pressure 160/77. CHEST: Decreased breath sounds. No wheezing. CARDIAC: Normal S1, S2. No gallops or masses. IMPRESSION: Morbid obesity, sleep apnea, severe deconditioning, clostridium difficile colitis. PLAN: She was started on Provigil 200 mg for obstructive sleep apnea. Continue CPAP. PT, supportive care. Job ID: [id number]
--- NOTE | 2018-10-08 12:54 | PDOC.PN ---
- Subjective Encounter Start Date: 10/08/18 Encounter Start Time: 12:52 Patient seen and examined. No new complaints. No overnight events. sleeping good. No diarhea or N/V. No fever or chest pain. - Objective Resuscitation Status - Order Detail: 09/23/18 14:21 Resuscitation Status Routine Resuscitation Status: FULL: Full Resuscitation MAR Reviewed: Yes Vital Signs & Weight: Vital Signs (12 hours) Temp Pulse Resp BP Pulse Ox 10/08/18 07:44 98.2 F 64 22 H 167/71 H 97 10/08/18 02:42 98 Weight Admit Weight 339 lb 1.135 oz Weight 348 lb 13.222 oz Most Recent Monitor Data Heart Rate from ECG 70 NIBP 168/75 NIBP BP-Mean 106 Respiration from ECG 17 SpO2 97 I&O: 10/07/18 10/08/18 10/09/18 06:59 06:59 06:59 Intake Total 1120 1300 Balance 1120 1300 Result Diagrams: 09/30/18 15:35 10/05/18 04:33 Additional Labs: Accuchecks 10/08/18 10/08/18 10/07/18 11:46 05:11 20:12 POC Glucose 128 H 112 H 157 H 10/07/18 16:54 POC Glucose 109 Phys Exam - Physical Examination Constitutional: NAD HEENT: sclera anicteric Neck: supple Respiratory: no wheezing, no rales Cardiovascular: RRR Gastrointestinal: soft Musculoskeletal: edema present Neurological: non-focal, moves all 4 limbs Psychiatric: normal affect, A&O x 3 Skin: no rash Dx/Plan (1) Acute and chronic respiratory failure with hypercapnia Code(s): J96.22 - ACUTE AND CHRONIC RESPIRATORY FAILURE WITH HYPERCAPNIA Status: Acute (2) Acute respiratory failure Code(s): J96.00 - ACUTE RESPIRATORY FAILURE, UNSP W HYPOXIA OR HYPERCAPNIA Status: Acute (3) C. difficile colitis Status: Acute (4) ARI (obstructive sleep apnea) Code(s): G47.33 - OBSTRUCTIVE SLEEP APNEA (ADULT) (PEDIATRIC) Status: Chronic (5) Metabolic acidosis Code(s): E87.2 - ACIDOSIS Status: Resolved (6) Acute metabolic encephalopathy Code(s): G93.41 - METABOLIC ENCEPHALOPATHY Status: Acute (7) CHF (congestive heart failure) Code(s): I50.9 - HEART FAILURE, UNSPECIFIED Status: Chronic (8) DM type 2 (diabetes mellitus, type 2) Status: Chronic Qualifiers: Diabetes mellitus terminal supervisor insulin use: with assisted use Diabetes mellitus complication status: with unspecified complications Qualified Code(s) : E11.8 - Type 2 diabetes mellitus with unspecified complications; Z79.4 - intermediate (current) use of insulin (9) Morbid obesity Code(s): E66.01 - MORBID (SEVERE) OBESITY DUE TO EXCESS CALORIES Status: Chronic - Plan cont current plan of care, continue antibiotics * . continue po vanc for cdiff appreciate pulm input AM labs. DC planning - would benefit from rehab, CM consult placed.
--- NOTE | 2018-10-08 13:42 | EKG ---
Test Reason : Blood Pressure : / mmHG Vent. Rate : 094 BPM Atrial Rate : 094 BPM P-R Int : 158 ms QRS Dur : 142 ms QT Int : 512 ms P-R-T Axes : 001 -57 024 degrees QTc Int : 640 ms Sinus rhythm with marked sinus arrhythmia Right bundle branch block Left anterior fascicular block Bifascicular block Abnormal ECG Confirmed by SHAI CHRIS DO ([id number]), editor in chief newspaper LIA LOREDO ([id number]) on 10/08/2018 1:42:17 PM Referred By: Confirmed By:SHAI CHRIS DO
[2018-10-08] MEDS: Atorvastatin Calcium 40 MG TAB PO SCH (20:17)
[2018-10-08] MEDS: Doxazosin Mesylate 1 MG TAB PO SCH (20:18)
[2018-10-09] MEDS: Vancomycin HCl 25 MG/ML Oral PO SCH ×4 (05:18→23:15)
[2018-10-09 06:00] LABS: #Eosinphils 0.2 thou/uL (0.0-0.7); #Lymphocytes 1.3 thou/uL (1.20-3.40); #Monocytes 0.8 thou/uL (0.11-0.59); #Neutrophils 4.6 thou/uL (1.40-6.50); %Basophils 0.7 % (0.0-1.0); %Eosinophils 3.5 % (0.0-10.0); %Lymphocytes 18.8 % (21.0-51.0); %Monocytes 11.8 % (0.0-10.0); %Neutrophils 65.3 % (42.0-75.0); Hemoglobin 9.9 g/dL (12.0-16.0); Mean Corpuscular HGB CONC 31.3 g/dL (32.0-36.0); Mean Corpuscular Volume 89.4 fL (78.0-98.0); Mean Platelet Volume 8.7 fL (7.4-10.4); Platelet Count 244 thou/uL (130-400); RBC Distribution Width 15.6 % (11.5-14.5); Red Blood Cell (RBC) Count 3.53 mill/uL (4.20-5.40); White Blood Cell (WBC) Count 7.1 thou/uL (4.8-10.8)
[2018-10-09 06:26] LABS: Anion Gap 8 mmol/L (10-20); BUN (Urea Nitrogen) 11 mg/dL (9.8-20.1); Calc. Creatinine Clearance 131 mL/min (70-130); Calcium 8.1 mg/dL (7.8-10.44); Carbon Dioxide 29 mmol/L (23-31); Chloride 109 mmol/L (98-107); Estimated GFR-MDRD 64; Glucose 98 mg/dL (80-115); Potassium 3.2 mmol/L (3.5-5.1); Sodium 143 mmol/L (136-145)
[2018-10-09] MEDS: hydrALAZINE 25 MG TAB PO SCH ×3 (08:53→20:34)
[2018-10-09] MEDS: Enoxaparin Sodium 40 MG/0.4 ML SYRINGE SC SCH (08:53)
[2018-10-09] MEDS: Saccharomyces boulardii 250 MG CAP PO SCH (08:54)
[2018-10-09] MEDS: Insulin Glargine 10 UNITS in Pre-Filled Syringe 1 EACH SC SCH ×2 (08:54→20:35)
[2018-10-09] MEDS: Aspirin 81 mg Enteric Coated Tablet PO SCH (08:54)
[2018-10-09] MEDS: Famotidine 20 MG TAB PO SCH ×2 (08:54→20:34)
[2018-10-09] MEDS: Modafinil 100 MG TAB PO SCH (11:04)
--- NOTE | 2018-10-09 11:23 | PDOC.PN ---
- Subjective Encounter Start Date: 10/09/18 Encounter Start Time: 11:21 Patient seen and examined. No new complaints. No overnight events. feeling good. No fever or chills. No diarhea reported. - Objective Resuscitation Status - Order Detail: 09/23/18 14:21 Resuscitation Status Routine Resuscitation Status: FULL: Full Resuscitation MAR Reviewed: Yes Vital Signs & Weight: Vital Signs (12 hours) Temp Pulse Resp BP Pulse Ox 10/09/18 08:53 69 10/09/18 08:28 98.1 F 69 20 145/70 H 96 Weight Admit Weight 339 lb 1.135 oz Weight 350 lb 7.678 oz Most Recent Monitor Data Heart Rate from ECG 70 NIBP 168/75 NIBP BP-Mean 106 Respiration from ECG 17 SpO2 97 I&O: 10/08/18 10/09/18 10/10/18 06:59 06:59 06:59 Intake Total 1300 2850 Balance 1300 2850 Result Diagrams: 10/09/18 05:15 10/09/18 05:14 Additional Labs: Accuchecks 10/09/18 10/08/18 10/08/18 04:41 19:43 16:20 POC Glucose 104 123 H 94 10/08/18 11:46 POC Glucose 128 H Phys Exam - Physical Examination Constitutional: NAD HEENT: sclera anicteric Neck: supple Respiratory: no wheezing Cardiovascular: no significant murmur Gastrointestinal: soft Musculoskeletal: no edema Neurological: non-focal Psychiatric: normal affect, A&O x 3 Skin: no rash Dx/Plan (1) Acute and chronic respiratory failure with hypercapnia Code(s): J96.22 - ACUTE AND CHRONIC RESPIRATORY FAILURE WITH HYPERCAPNIA Status: Acute (2) Acute respiratory failure Code(s): J96.00 - ACUTE RESPIRATORY FAILURE, UNSP W HYPOXIA OR HYPERCAPNIA Status: Acute (3) C. 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 continue po efra Murphy CM consult for DC planning.
[2018-10-09] MEDS ORDERED: Potassium Chloride 20 MEQ TAB PO SCH (11:30)
--- NOTE | 2018-10-09 11:38 | PRG ---
DATE OF SERVICE: 10/09/2018 SUBJECTIVE: This morning, her sats are 96% on room air, temperature 98.6, respiratory rate 20, and blood pressure is 145/70. No diarrhea. Denies any shortness of breath, coughing. She is weak. OBJECTIVE: CHEST: Decreased breath sounds. No wheezing. CARDIAC: Normal S1 and S2. No gallops. ABDOMEN: No masses. Soft. LABORATORY DATA: Unremarkable. Lytes are normal. ASSESSMENT: Obstructive sleep apnea, underlying sleep apnea, improved with CPAP and Provigil. PLAN: Disposition as per primary care physician. Job ID: [id number]
[2018-10-09] MEDS: Acetaminophen 500 MG TAB PO PRN (12:31)
[2018-10-09] MEDS: Atorvastatin Calcium 40 MG TAB PO SCH (20:33)
[2018-10-09] MEDS: Doxazosin Mesylate 1 MG TAB PO SCH (20:33)
[2018-10-10] MEDS: Vancomycin HCl 25 MG/ML Oral PO SCH ×4 (05:33→23:04)
[2018-10-10] MEDS: Saccharomyces boulardii 250 MG CAP PO SCH (08:02)
[2018-10-10] MEDS: Enoxaparin Sodium 40 MG/0.4 ML SYRINGE SC SCH (08:03)
[2018-10-10] MEDS: Modafinil 100 MG TAB PO SCH (08:03)
[2018-10-10] MEDS: Famotidine 20 MG TAB PO SCH ×2 (08:03→21:07)
[2018-10-10] MEDS: Insulin Glargine 10 UNITS in Pre-Filled Syringe 1 EACH SC SCH ×2 (08:03→21:09)
[2018-10-10] MEDS: Aspirin 81 mg Enteric Coated Tablet PO SCH (08:03)
[2018-10-10] MEDS: hydrALAZINE 25 MG TAB PO SCH ×3 (08:03→21:07)
--- NOTE | 2018-10-10 09:23 | PRG ---
DATE OF SERVICE: 10/10/2018 SUBJECTIVE: She is awake, alert, in no distress. OBJECTIVE: VITAL SIGNS: On exam, temperature 98.5, pulse 60, respirations 18, O2 saturation 96% on room air, blood pressure 136/70. HEENT: Unremarkable. NECK: No adenopathy, JVD, or bruits. LUNGS: Clear anteriorly. CARDIAC: S1, S2. Regular. ABDOMEN: Obese, soft, nontender. EXTREMITIES: No edema. LABORATORY DATA: No labs were obtained today. ASSESSMENT: 1. Obesity hypoventilation syndrome. 2. Severe deconditioning. PLAN: In my opinion, she is ready to go home or to rehab. She will need an outpatient sleep study. The Provigil has done wonders for her mental status and it would be nice to be able to leave her on that; however, the cost may be prohibitive. No further recommendations at this time. Job ID: [id number]
--- NOTE | 2018-10-10 10:05 | PDOC.PN ---
- Subjective Encounter Start Date: 10/10/18 Encounter Start Time: 11:50 Subjective: Patient reports breathing ok now. No confusion. No SOB. Very weak. Needs a -: lot of help with transfers right now. Agreeable to rehab now. - Objective Resuscitation Status - Order Detail: 09/23/18 14:21 Resuscitation Status Routine Resuscitation Status: FULL: Full Resuscitation MAR Reviewed: Yes Vital Signs & Weight: Vital Signs (12 hours) Temp Pulse Resp BP Pulse Ox 10/10/18 08:16 98.5 F 62 18 136/70 96 10/10/18 08:03 74 10/10/18 02:24 94 L 10/09/18 23:20 98.8 F 74 18 150/72 H Weight Admit Weight 339 lb 1.135 oz Weight 349 lb 5 oz Most Recent Monitor Data Heart Rate from ECG 70 NIBP 168/75 NIBP BP-Mean 106 Respiration from ECG 17 SpO2 97 I&O: 10/09/18 10/10/18 10/11/18 06:59 06:59 06:59 Intake Total 2850 1040 Balance 2850 1040 Result Diagrams: 10/09/18 05:15 10/09/18 05:14 Additional Labs: Accuchecks 10/10/18 10/09/18 10/09/18 05:27 20:32 17:01 POC Glucose 86 116 H 106 10/09/18 12:35 POC Glucose 108 Phys Exam - Physical Examination Constitutional: NAD Obese HEENT: moist MMs 2L NC O2 Respiratory: no wheezing, no rales, no rhonchi Cardiovascular: RRR, no significant murmur Gastrointestinal: soft, positive bowel sounds Neurological: non-focal Psychiatric: normal affect, A&O x 3 Dx/Plan (1) Acute and chronic respiratory failure with hypercapnia Code(s): J96.22 - ACUTE AND CHRONIC RESPIRATORY FAILURE WITH HYPERCAPNIA Status: Acute (2) Obesity hypoventilation syndrome Code(s): E66.2 - MORBID (SEVERE) OBESITY WITH ALVEOLAR HYPOVENTILATION Status : Chronic (3) Acute metabolic encephalopathy Code(s): G93.41 - METABOLIC ENCEPHALOPATHY Status: Resolved Comment: better with provigil, will try and continue at home (4) C. 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 Will have case management try to -: arrange. * . - Discharge Day Encounter end time: 12:05
[2018-10-10] MEDS: Doxazosin Mesylate 1 MG TAB PO SCH (21:07)
[2018-10-10] MEDS: Atorvastatin Calcium 40 MG TAB PO SCH (21:07)
[2018-10-11] MEDS: Vancomycin HCl 25 MG/ML Oral PO SCH (05:13)
[2018-10-11] MEDS: Saccharomyces boulardii 250 MG CAP PO SCH (08:20)
[2018-10-11] MEDS: Aspirin 81 mg Enteric Coated Tablet PO SCH (08:20)
[2018-10-11] MEDS: hydrALAZINE 25 MG TAB PO SCH ×3 (08:20→20:26)
[2018-10-11] MEDS: Famotidine 20 MG TAB PO SCH ×2 (08:20→20:25)
[2018-10-11] MEDS: Insulin Glargine 10 UNITS in Pre-Filled Syringe 1 EACH SC SCH ×2 (08:21→20:26)
[2018-10-11] MEDS: Enoxaparin Sodium 40 MG/0.4 ML SYRINGE SC SCH (08:21)
[2018-10-11] MEDS: Modafinil 100 MG TAB PO SCH (09:10)
--- NOTE | 2018-10-11 09:28 | PRG ---
DATE OF SERVICE: 10/11/2018 SUBJECTIVE: She is feeling better. She is in no respiratory distress. OBJECTIVE: VITAL SIGNS: Temperature 98.3, pulse 81, blood pressure 145/70, O2 saturation 92%. HEENT: Unremarkable. NECK: No JVD. CHEST: Clear to auscultation. CARDIAC: S1, S2, regular. ABDOMEN: Soft. EXTREMITIES: Edematous from the knees downward. ASSESSMENT: 1. Obesity hypoventilation syndrome. 2. Severe deconditioning. PLAN: 1. Probably ready for skilled anytime. 2. Need sleep study as an outpatient. Job ID: [id number]
--- NOTE | 2018-10-11 10:05 | PDOC.PN ---
- Subjective Encounter Start Date: 10/11/18 Encounter Start Time: 12:40 Subjective: Patient reports feeling ok. Moving some with PT. No SOB. Back on 2L -: NC O2 for unknown reason as all sats are listed in mid 90s. - Objective Resuscitation Status - Order Detail: 09/23/18 14:21 Resuscitation Status Routine Resuscitation Status: FULL: Full Resuscitation MAR Reviewed: Yes Vital Signs & Weight: Vital Signs (12 hours) Temp Pulse Resp BP BP Pulse Ox 10/11/18 08:20 71 145/70 H 10/11/18 08:00 92 L 10/11/18 07:58 98.3 F 71 18 145/70 H 92 L 10/11/18 04:12 97.9 F 66 16 149/75 H 94 L 10/10/18 23:00 97.8 F 68 18 167/78 H 93 L Weight Admit Weight 339 lb 1.135 oz Weight 350 lb Most Recent Monitor Data Heart Rate from ECG 70 NIBP 168/75 NIBP BP-Mean 106 Respiration from ECG 17 SpO2 97 I&O: 10/10/18 10/11/18 10/12/18 06:59 06:59 06:59 Intake Total 1040 1160 Balance 1040 1160 Result Diagrams: 10/09/18 05:15 10/09/18 05:14 Additional Labs: Accuchecks 10/11/18 10/10/18 10/10/18 05:17 20:07 17:06 POC Glucose 118 H 129 H 119 H 10/10/18 12:12 POC Glucose 100 Phys Exam - Physical Examination Constitutional: NAD Obese HEENT: moist MMs Respiratory: no wheezing, no rales, no rhonchi Cardiovascular: RRR, no significant murmur Gastrointestinal: soft, positive bowel sounds Neurological: non-focal, moves all 4 limbs Psychiatric: normal affect Dx/Plan (1) Acute and chronic respiratory failure with hypercapnia Code(s): J96.22 - ACUTE AND CHRONIC RESPIRATORY FAILURE WITH HYPERCAPNIA Status: Acute (2) Obesity hypoventilation syndrome Code(s): E66.2 - MORBID (SEVERE) OBESITY WITH ALVEOLAR HYPOVENTILATION Status : Chronic (3) Acute metabolic encephalopathy Code(s): G93.41 - METABOLIC ENCEPHALOPATHY Status: Resolved Comment: better with provigil, will try and continue at home (4) C. 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 - Discharge Day Encounter end time: 12:50
[2018-10-11] MEDS: Atorvastatin Calcium 40 MG TAB PO SCH (20:25)
[2018-10-11] MEDS: Doxazosin Mesylate 1 MG TAB PO SCH (20:26)
[2018-10-12 06:16] LABS: #Basophils 0.1 thou/uL (0.0-0.2); #Eosinphils 0.3 thou/uL (0.0-0.7); #Lymphocytes 1.3 thou/uL (1.20-3.40); #Monocytes 0.8 thou/uL (0.11-0.59); #Neutrophils 3.8 thou/uL (1.40-6.50); %Basophils 1.1 % (0.0-1.0); %Lymphocytes 21.1 % (21.0-51.0); %Monocytes 12.3 % (0.0-10.0); %Neutrophils 60.4 % (42.0-75.0); Hemoglobin 9.8 g/dL (12.0-16.0); Mean Corpuscular HGB CONC 31.6 g/dL (32.0-36.0); Mean Corpuscular Hemoglobin 27.9 pg (27.0-31.0); Mean Corpuscular Volume 88.3 fL (78.0-98.0); Mean Platelet Volume 8.5 fL (7.4-10.4); Platelet Count 252 thou/uL (130-400); RBC Distribution Width 15.5 % (11.5-14.5); Red Blood Cell (RBC) Count 3.53 mill/uL (4.20-5.40); White Blood Cell (WBC) Count 6.3 thou/uL (4.8-10.8)
[2018-10-12 07:05] LABS: Anion Gap 11 mmol/L (10-20); BUN (Urea Nitrogen) 10 mg/dL (9.8-20.1); Calc. Creatinine Clearance 150 mL/min (70-130); Calcium 8.5 mg/dL (7.8-10.44); Carbon Dioxide 29 mmol/L (23-31); Chloride 109 mmol/L (98-107); Estimated GFR-MDRD 75; Glucose 98 mg/dL (80-115); Potassium 4.5 mmol/L (3.5-5.1); Sodium 144 mmol/L (136-145)
[2018-10-12] MEDS: Modafinil 100 MG TAB PO SCH (08:43)
[2018-10-12] MEDS: Famotidine 20 MG TAB PO SCH ×2 (08:44→20:11)
[2018-10-12] MEDS: Saccharomyces boulardii 250 MG CAP PO SCH (08:44)
[2018-10-12] MEDS: hydrALAZINE 25 MG TAB PO SCH ×3 (08:44→20:11)
[2018-10-12] MEDS: Aspirin 81 mg Enteric Coated Tablet PO SCH (08:44)
[2018-10-12] MEDS: Enoxaparin Sodium 40 MG/0.4 ML SYRINGE SC SCH (08:45)
[2018-10-12] MEDS: Insulin Glargine 10 UNITS in Pre-Filled Syringe 1 EACH SC SCH ×2 (09:10→20:11)
--- NOTE | 2018-10-12 09:29 | PDOC.PN ---
- Subjective Encounter Start Date: 10/12/18 Encounter Start Time: 11:40 Subjective: Patient without complaints today. Doing bed exercises with PT. Still on -: low dose O2. - Objective Resuscitation Status - Order Detail: 09/23/18 14:21 Resuscitation Status Routine Resuscitation Status: FULL: Full Resuscitation MAR Reviewed: Yes Vital Signs & Weight: Vital Signs (12 hours) Temp Pulse Resp BP BP Pulse Ox 10/12/18 08:44 76 198/78 H 10/12/18 04:00 97.9 F 76 18 178/83 H 93 L 10/12/18 00:00 97.5 F L 70 18 165/77 H 93 L Weight Admit Weight 339 lb 1.135 oz Weight 350 lb Most Recent Monitor Data Heart Rate from ECG 70 NIBP 168/75 NIBP BP-Mean 106 Respiration from ECG 17 SpO2 97 I&O: 10/11/18 10/12/18 10/13/18 06:59 06:59 06:59 Intake Total 1160 840 Balance 1160 840 Result Diagrams: 10/12/18 06:01 10/12/18 06:01 Additional Labs: Accuchecks 10/12/18 10/11/18 10/11/18 04:36 19:52 16:11 POC Glucose 97 109 121 H 10/11/18 11:51 POC Glucose 113 H Phys Exam - Physical Examination Constitutional: NAD HEENT: moist MMs Respiratory: no wheezing, no rales, no rhonchi Cardiovascular: RRR, no significant murmur Gastrointestinal: soft, positive bowel sounds Musculoskeletal: edema present Neurological: non-focal, moves all 4 limbs Psychiatric: normal affect, A&O x 3 Dx/Plan (1) Acute and chronic respiratory failure with hypercapnia Code(s): J96.22 - ACUTE AND CHRONIC RESPIRATORY FAILURE WITH HYPERCAPNIA Status: Acute (2) Obesity hypoventilation syndrome Code(s): E66.2 - MORBID (SEVERE) OBESITY WITH ALVEOLAR HYPOVENTILATION Status : Chronic (3) Acute metabolic encephalopathy Code(s): G93.41 - METABOLIC ENCEPHALOPATHY Status: Resolved Comment: better with provigil, will try and continue at home (4) C. 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 - Discharge Day Encounter end time: 11:50
--- NOTE | 2018-10-12 10:06 | PRG ---
DATE OF SERVICE: 10/12/2018 SUBJECTIVE: The patient is feeling better. She is just pending placement at this time. OBJECTIVE: VITAL SIGNS: Temperature 97.9, pulse 76, blood pressure 198/70, O2 saturation 93%. HEENT: Unremarkable. NECK: No JVD. CHEST: Clear to auscultation. CARDIAC: S1, S2 regular. ABDOMEN: Soft. EXTREMITIES: No edema. LABORATORY DATA: White blood cell count 6.3, hematocrit 31.2, and platelet count 252. Sodium 144, potassium 4.5, chloride 109, CO2 of 29, BUN 10, creatinine 0.9, glucose 98. ASSESSMENT: 1. Obesity hypoventilation syndrome. 2. Resolved encephalopathy. 3. History of sarcoidosis, which is now quiescent. RECOMMENDATION: She is ready for transfer to another facility. I encouraged her to go to skilled, but she is quite upset about the potential negative financial ramifications. She needs a sleep study as an outpatient, but in the past, I have never been able to get her to do this. No further recommendations at this time. Job ID: [id number]
[2018-10-12] MEDS ORDERED: Amlodipine 10 MG TAB PO SCH (12:15)
[2018-10-12] MEDS: Atorvastatin Calcium 40 MG TAB PO SCH (20:10)
[2018-10-12] MEDS: Doxazosin Mesylate 1 MG TAB PO SCH (20:10)
--- NOTE | 2018-10-13 08:38 | PRG ---
DATE OF SERVICE: 10/13/2018 SUBJECTIVE: It sounds like Ms. Kelly is basically awaiting placement. She is stable from Pulmonary status. OBJECTIVE: VITAL SIGNS: Temperature 98.5, pulse 76, respirations 20, O2 saturation 94%, blood pressure 175/77. HEENT: Unremarkable. NECK: No JVD. CHEST: Clear to auscultation. CARDIAC: S1 and S2, regular. ABDOMEN: Soft. EXTREMITIES: No edema. ASSESSMENT: 1. Obesity hypoventilation syndrome. 2. Status post encephalopathy. PLAN: Main issue at this point is placement. No further Pulmonary recommendations. Please call me if further assistance needed. Job ID: [id number]
[2018-10-13] MEDS: Famotidine 20 MG TAB PO SCH ×2 (09:10→19:57)
[2018-10-13] MEDS: Aspirin 81 mg Enteric Coated Tablet PO SCH (09:10)
[2018-10-13] MEDS: Saccharomyces boulardii 250 MG CAP PO SCH (09:10)
[2018-10-13] MEDS: hydrALAZINE 25 MG TAB PO SCH ×3 (09:10→19:57)
[2018-10-13] MEDS: Amlodipine 10 MG TAB PO SCH (09:10)
[2018-10-13] MEDS: Insulin Glargine 10 UNITS in Pre-Filled Syringe 1 EACH SC SCH ×2 (09:11→19:55)
[2018-10-13] MEDS: Enoxaparin Sodium 40 MG/0.4 ML SYRINGE SC SCH (09:11)
[2018-10-13] MEDS: Modafinil 100 MG TAB PO SCH (09:37)
[2018-10-13 12:12] VITALS: BMI 51.4
--- NOTE | 2018-10-13 15:52 | PDOC.PN ---
- Subjective Encounter Start Date: 10/13/18 Encounter Start Time: 14:00 Subjective: pt up in bed no diarrhea, soft stools - Objective Resuscitation Status - Order Detail: 09/23/18 14:21 Resuscitation Status Routine Resuscitation Status: FULL: Full Resuscitation Vital Signs & Weight: Vital Signs (12 hours) Temp Pulse Resp BP BP Pulse Ox 10/13/18 15:37 79 171/77 H 10/13/18 11:43 98.6 F 79 20 171/77 H 94 L 10/13/18 09:10 76 176/77 H 10/13/18 08:01 98.5 F 76 20 175/77 H 94 L 10/13/18 08:00 94 L 10/13/18 04:00 98.2 F 79 16 168/78 H 93 L Weight Admit Weight 339 lb 1.135 oz Weight 348 lb 8 oz Most Recent Monitor Data Heart Rate from ECG 70 NIBP 168/75 NIBP BP-Mean 106 Respiration from ECG 17 SpO2 97 I&O: 10/12/18 10/13/18 10/14/18 06:59 06:59 06:59 Intake Total 840 960 200 Balance 840 960 200 Result Diagrams: 10/12/18 06:01 10/12/18 06:01 Additional Labs: Accuchecks 10/13/18 10/13/18 10/13/18 15:39 12:06 05:44 POC Glucose 102 91 92 10/12/18 10/12/18 19:29 16:48 POC Glucose 209 H 137 H Phys Exam - Physical Examination Neck: no nodes, no JVD, supple, full ROM Respiratory: no wheezing, no rales, no rhonchi, wheezing present, clear to auscultation bilateral Cardiovascular: RRR, no significant murmur, no rub, gallop, irregular Gastrointestinal: soft, non-tender, no distention, positive bowel sounds Dx/Plan (1) Acute and chronic respiratory failure with hypercapnia Code(s): J96.22 - ACUTE AND CHRONIC RESPIRATORY FAILURE WITH HYPERCAPNIA Status: Acute (2) [place]LL[place] (acute kidney injury) Code(s): N17.9 - ACUTE KIDNEY FAILURE, UNSPECIFIED Status: Acute (3) C. difficile colitis Status: Acute Comment: Completed 2 week course of oral vancomycin (4) ARI (obstructive sleep apnea) Code(s): G47.33 - OBSTRUCTIVE SLEEP APNEA (ADULT) (PEDIATRIC) Status: Chronic (5) Hypertension Code(s): I10 - ESSENTIAL (PRIMARY) HYPERTENSION Status: Chronic Qualifiers: Hypertension type: essential hypertension Qualified Code(s): I10 - Essential (primary) hypertension - Plan pt up in bed still on oxygen -: awaiting placement * . Review of Systems - Review of Systems Respiratory: negative: Cough, Dry, Shortness of Breath, Hemoptysis, SOB with Excertion, Pleuritic Pain, Sputum, Wheezing Cardiovascular: negative: chest pain, palpitations, orthopnea, paroxysmal nocturnal dyspnea, edema, light headedness, other Gastrointestinal: negative: Nausea, Vomiting, Abdominal Pain, Diarrhea, Constipation, Melena, Hematochezia, Other - Medications/Allergies Allergies/Adverse Reactions: Allergies Allergy/AdvReac Type Severity Reaction Status Date / Time No Known Allergies Allergy Verified 09/23/18 13:59 Medications: Current Medications Acetaminophen (Tylenol) 500 mg PO Q6H PRN PRN Reason: Headache/Fever or Pain Last Admin: 10/09/18 12:31 Dose: 500 mg Amlodipine Besylate (Norvasc) 10 mg PO DAILY [facility] Last Admin: 10/13/18 09:10 Dose: 10 mg Aspirin (Ecotrin) 81 mg PO DAILY [facility] Last Admin: 10/13/18 09:10 Dose: 81 mg Atorvastatin Calcium (Lipitor) 40 mg PO HS [facility] Last Admin: 10/12/18 20:10 Dose: 40 mg Dextrose/Water (Dextrose 50%) 25 gm SLOW IVP PRN PRN PRN Reason: Hypoglycemia Doxazosin Mesylate (Cardura) 1 mg PO HS [facility] Last Admin: 10/12/18 20:10 Dose: 1 mg Enoxaparin Sodium (Lovenox) 40 mg SC 0900 [facility] Last Admin: 10/13/18 09:11 Dose: 40 mg Famotidine (Pepcid) 20 mg PO BID [facility] Last Admin: 10/13/18 09:10 Dose: 20 mg Glucagon (Glucagon) 1 mg IM PRN PRN PRN Reason: Hypoglycemia Hydralazine HCl (Apresoline) 10 mg SLOW IVP Q4H PRN PRN Reason: SBP Greater Than 170 Last Admin: 10/07/18 08:09 Dose: 10 mg Hydralazine HCl (Apresoline) 100 mg PO TID [facility] Last Admin: 10/13/18 15:37 Dose: 100 mg Dextrose/Water (D5w) 1,000 mls @ 0 mls/hr IV .Q0M PRN PRN Reason: Hypoglycemia Insulin Glargine 10 units/ (Miscellaneous Medication) 0.1 mls @ 0 mls/hr SC HS [facility] Last Admin: 10/12/18 20:11 Dose: 0.1 mls Insulin Glargine 10 units/ (Miscellaneous Medication) 0.1 mls @ 0 mls/hr SC QAM [facility] Last Admin: 10/13/18 09:11 Dose: Not Given Insulin Human Lispro (Humalog) 0 units SC .MILD SLIDING SCALE PRN PRN Reason: Mild Correctional Scale Last Admin: 10/04/18 18:42 Dose: 3 unit Modafinil (Provigil) 200 mg PO DAILY [facility] Last Admin: 10/13/18 09:37 Dose: 200 mg Saccharomyces Boulardii (Florastor) 250 mg PO DAILY [facility] Last Admin: 10/13/18 09:10 Dose: 250 mg Sodium Chloride (Flush - Normal Saline) 10 ml IVF Q12HR [facility] Last Admin: 10/13/18 09:15 Dose: Not Given Sodium Chloride (Flush - Normal Saline) 10 ml IVF PRN PRN PRN Reason: Saline Flush Last Admin: 10/01/18 06:27 Dose: 10 ml
[2018-10-13] MEDS: Acetaminophen 500 MG TAB PO PRN (17:52)
[2018-10-13] MEDS: Doxazosin Mesylate 1 MG TAB PO SCH (19:56)
[2018-10-13] MEDS: Atorvastatin Calcium 40 MG TAB PO SCH (19:56)
[2018-10-14] MEDS: Enoxaparin Sodium 40 MG/0.4 ML SYRINGE SC SCH (09:36)
[2018-10-14] MEDS: hydrALAZINE 25 MG TAB PO SCH ×3 (09:36→21:32)
[2018-10-14] MEDS: Amlodipine 10 MG TAB PO SCH (09:37)
[2018-10-14] MEDS: Aspirin 81 mg Enteric Coated Tablet PO SCH (09:37)
[2018-10-14] MEDS: Saccharomyces boulardii 250 MG CAP PO SCH (09:37)
[2018-10-14] MEDS: Famotidine 20 MG TAB PO SCH ×2 (09:37→20:15)
[2018-10-14] MEDS: Insulin Glargine 10 UNITS in Pre-Filled Syringe 1 EACH SC SCH ×2 (11:20→20:17)
[2018-10-14] MEDS: Modafinil 100 MG TAB PO SCH (11:21)
[2018-10-14] MEDS: HumaLOG 300 UNITS/3 ML VIAL SC PRN (17:15)
--- NOTE | 2018-10-14 18:55 | DIS ---
DATE OF ADMISSION: 09/23/2018 DATE OF DISCHARGE: 10/14/2018 DISCHARGE DIAGNOSES: As of the followin. Acute on chronic respiratory failure with hypercapnia. 2. Acute kidney injury. 3. Clostridium difficile. 4. Obstructive sleep apnea. 5. Hypertension. HOSPITAL COURSE: Please refer to the H and P for further details. The patient is a 68-year-old female, who initially presented to the hospital and was treated for sepsis secondary to possible pneumonia. She was treated with broad-spectrum antibiotics. She was seen by Pulmonary and also was noted to have acute respiratory failure unspecified with hypoxia or hypercapnia. The patient also was found to have WELLINGTON. The patient indicated that she had bilateral infiltrates on chest x-ray. The patient continued to improve through the hospital stay. She was also seen by Nephrology for her acute kidney injury. She was on Lasix and also was on MIGUEL, which was discontinued. The patient was in the hospital, she started to have diarrhea which was checked and was positive for C diff. This was on September 26. She was started on oral vancomycin. She did complete a course of oral vancomycin. Currently, she has no more diarrhea. Her stools are now soft and formed. Hospital course was complicated with some encephalopathy, which was contributing most likely secondary to her underlying illness and also due to her possible obesity hypoventilation syndrome. At this time, Pulmonology did start her on modafinil. The patient continued to improve throughout the hospital stay. She is currently on 2 L of oxygen. She initially was supposed to go to [facility] due to financial reasons, that was not an option. The patient has done well with modafinil. I will give her a prescription for a month and she needs to follow up with her PCP for further evaluation. DISCHARGE MEDICATIONS: The patient's discharge medications are as of the following. She is going to be on: 1. Insulin twice a day 10 units. 2. Atorvastatin 40 mg at bedtime. 3. Hydralazine 100 mg t.i.d. 4. Doxazosin 1 mg at bedtime. 5. Aspirin 81 mg daily. 6. She is on modafinil 200 mg daily. 7. Lasix 40 mg daily. 8. Amlodipine 10 mg daily. 9. Florastor 250 mg p.o. daily. She was asked to follow up with her PCP next week and also with Pulmonology next week. PHYSICAL EXAMINATION: VITAL SIGNS: 97.6, 71, 20. She is 98% on 1 L, 133/80. GENERAL: She is awake, alert, and oriented x3. Does not appear in any distress. CV: S1 and S2 present. No murmurs, rubs, or gallops. ABDOMEN: Soft, nontender. Bowel sounds are present x2. EXTREMITIES: No edema. Pedal pulses are present x2. LUNGS: Clear to auscultation. No rhonchi or wheezes noted. Again, she will be discharged home with Home Health. We did try to get a retirement facility, however due to high payment, the patient was unable to afford that, so she will be discharged home. She has been asked to follow up with Pulmonology and also with primary care doctor due to significant changes in her medications. Her creatinine is back at her baseline, which is normal. I have continued to hold her MIGUEL due to the recent acute kidney injury. Job ID: [id number]
[2018-10-14] MEDS: Atorvastatin Calcium 40 MG TAB PO SCH (20:15)
[2018-10-14] MEDS: Doxazosin Mesylate 1 MG TAB PO SCH (20:16)
[2018-10-15] MEDS: Aspirin 81 mg Enteric Coated Tablet PO SCH (08:53)
[2018-10-15] MEDS: Enoxaparin Sodium 40 MG/0.4 ML SYRINGE SC SCH (08:53)
[2018-10-15] MEDS: Saccharomyces boulardii 250 MG CAP PO SCH (08:53)
[2018-10-15] MEDS: Amlodipine 10 MG TAB PO SCH (08:54)
[2018-10-15] MEDS: hydrALAZINE 25 MG TAB PO SCH ×2 (08:54→14:37)
[2018-10-15] MEDS: Famotidine 20 MG TAB PO SCH (08:54)
[2018-10-15] MEDS: Insulin Glargine 10 UNITS in Pre-Filled Syringe 1 EACH SC SCH (08:55)
[2018-10-15] MEDS: Modafinil 100 MG TAB PO SCH (10:44)
[2018-10-15 15:40] VITALS: BP 129/72; TEMP 98.1
== END 2018-10-15 16:42 | disposition home or self-care (01) | DRG 871 ==
LOC: ERS 09:04 → 2NO 11:42 → IMCU/EMU 09-26 17:06 → T4-A 10-06 13:31
PROVIDERS: ADMIT Internal Medicine; ATTEND Internal Medicine
DX: A41.9 Sepsis, unspecified organism (principal); J96.01 Acute respiratory failure with hypoxia; L89.103 Pressure ulcer of unspecified part of back, stage 3; G93.41 Metabolic encephalopathy; J96.22 Acute and chronic respiratory failure with hypercapnia; I50.32 Chronic diastolic (congestive) heart failure; I13.0 Hypertensive heart and chronic kidney disease with heart failure and stage 1 through stage 4 chronic kidney disease, or unspecified chronic kidney disease; Z68.43 Body mass index [BMI] 50.0-59.9, adult; N17.9 Acute kidney failure, unspecified; A04.72 Enterocolitis due to Clostridium difficile, not specified as recurrent; E87.2 Acidosis; E66.2 Morbid (severe) obesity with alveolar hypoventilation; I07.1 Rheumatic tricuspid insufficiency; I48.91 Unspecified atrial fibrillation; E87.6 Hypokalemia; R65.20 Severe sepsis without septic shock; E11.22 Type 2 diabetes mellitus with diabetic chronic kidney disease; N18.3 Chronic kidney disease, stage 3 (moderate); Z79.82 Long term (current) use of aspirin; Z79.4 Long term (current) use of insulin; Z87.891 Personal history of nicotine dependence; Z90.49 Acquired absence of other specified parts of digestive tract
CPT/HCPCS: 36415; 36416; 51701; 71045; 74176; 80048; 80053; 80202; 81003; 81015; 82805; 83605; 83630; 83735; 83880; 84484; 85025; 87040; 87324; 87449; 90471; 90670; 93005; 94660; 94760; 96365; 96367; 96375; A4353; G0009; J0360; J0696; J1160; J1650; J1825; J1956; J2543; J3370; J3480; J3490; J7050; Q0162

== ENCOUNTER 2018-11-30 22:54 | Inpatient (IN) | payer MEDICARE ==
[2018-11-30 23:50] LABS: #Eosinphils 0.2 thou/uL (0.0-0.7); #Lymphocytes 0.9 thou/uL (1.20-3.40); #Monocytes 0.8 thou/uL (0.11-0.59); %Basophils 0.1 % (0.0-1.0); %Eosinophils 1.7 % (0.0-10.0); %Lymphocytes 7.4 % (21.0-51.0); %Monocytes 6.8 % (0.0-10.0); %Neutrophils 84.1 % (42.0-75.0); Hemoglobin 9.4 g/dL (12.0-16.0); Mean Corpuscular HGB CONC 31.8 g/dL (32.0-36.0); Mean Corpuscular Hemoglobin 28.2 pg (27.0-31.0); Mean Corpuscular Volume 88.7 fL (78.0-98.0); Platelet Count 196 thou/uL (130-400); RBC Distribution Width 14.3 % (11.5-14.5); Red Blood Cell (RBC) Count 3.34 mill/uL (4.20-5.40); White Blood Cell (WBC) Count 11.9 thou/uL (4.8-10.8)
--- NOTE | 2018-12-01 00:10 | RAD ---
EXAM: CHEST ONE VIEW HISTORY: Dyspnea and difficulty breathing. COMPARISON: 09/24/2018. FINDINGS: Cardiac silhouette is magnified by projection but does appear enlarged. Pulmonary vasculature is mild ly increased. There are patchy parenchymal opacities seen in the right lung base which may be related to pneumonia. There is questionable patchy density at the left lung base. The cardiac silhoue tte and overlying soft tissue densities obscure this region. No obvious pleural effusion is appreciated; although, the right lateral costophrenic angle is partially obscured. Vascular calcifica tions are seen in thoracic aorta. No other interval change. IMPRESSION: Mild increase in perihilar interstitial densities with patchy parenchymal changes at the right lung b ase. Findings may be related to infectious process or possibly asymmetric pulmonary edema. Follow-up chest x-ray is recommended.
[2018-12-01 00:35] LABS: ALT (SGPT) 12 U/L (8-55); AST (SGOT) 12 U/L (5-34); Albumin 2.9 g/dL (3.4-4.8); Alkaline Phosphatase 80 U/L (40-150); Anion Gap 12 mmol/L (10-20); BUN (Urea Nitrogen) 14 mg/dL (9.8-20.1); Bilirubin, Total 0.3 mg/dL (0.2-1.2); CK (CPK) 32 U/L (29-168); Calc. Creatinine Clearance 0 mL/min (70-130); Calcium 8.7 mg/dL (7.8-10.44); Carbon Dioxide 35 mmol/L (23-31); Chloride 99 mmol/L (98-107); Estimated GFR-MDRD 52; Globulin 3.4 g/dL (2.4-3.5); Glucose 199 mg/dL (80-115); Potassium 3.6 mmol/L (3.5-5.1); Protein, Total 6.3 g/dL (6.0-8.3); Sodium 142 mmol/L (136-145)
[2018-12-01] MEDS ORDERED: Nitroglycerin 2% Ointment 1 INCH/1 GM Packet ONE (00:51)
[2018-12-01] MEDS ORDERED: Furosemide 100 MG/10 ML VIAL ONE (00:51)
[2018-12-01] MEDS ORDERED: Aspirin Chewable 81 MG TAB ONE (00:51)
[2018-12-01 03:23] LABS: Troponin I 0.023 ng/mL (< 0.028)
[2018-12-01 06:41] LABS: Troponin I Less than 0.010 ng/mL (< 0.028)
[2018-12-01] MEDS ORDERED: Acetaminophen 650 MG Suppository PR PRN (07:21)
[2018-12-01] MEDS ORDERED: Ondansetron PF 4 MG/2 ML Vial IVP PRN (07:21)
[2018-12-01] MEDS ORDERED: Guaifenesin DM 100-10/5 ML UDCUP PO PRN (07:21)
[2018-12-01] MEDS ORDERED: Ondansetron ODT 4 MG TAB PO PRN (07:21)
[2018-12-01] MEDS ORDERED: Senokot S 8.6-50 MG TAB PO PRN (07:21)
[2018-12-01] MEDS ORDERED: Acetaminophen 325 MG TAB PO PRN (07:21)
[2018-12-01] MEDS ORDERED: Dextrose 50% Abboject 50 ML SYRINGE SLOW IVP PRN (07:24)
[2018-12-01] MEDS ORDERED: Dextrose 5% in Water 1,000 ML IV PRN (07:24)
[2018-12-01] MEDS ORDERED: Non-Formulary Item 1 EACH (Insulin Detemir [Levemir] 25 UNIT) SQ SCH (09:00)
[2018-12-01] MEDS: Famotidine 20 MG TAB PO SCH ×2 (09:24→20:52)
[2018-12-01] MEDS: Amlodipine 10 MG TAB PO SCH (09:24)
[2018-12-01] MEDS: hydrALAZINE 25 MG TAB PO SCH ×3 (09:24→20:52)
[2018-12-01] MEDS: Aspirin 81 mg Enteric Coated Tablet PO SCH (09:25)
[2018-12-01] MEDS: Insulin Glargine 25 UNITS in Pre-Filled Syringe 1 EACH SC SCH (09:33)
[2018-12-01] MEDS ORDERED: Enoxaparin Sodium 40 MG/0.4 ML SYRINGE SC SCH (09:45)
--- NOTE | 2018-12-01 11:42 | HP ---
PRIMARY CARE PHYSICIAN: Dr. Lemus. CHIEF COMPLAINT: Shortness of breath. HISTORY OF PRESENT ILLNESS: The patient is 68-year-old female with chronic respiratory failure on home oxygen, chronic diastolic heart failure, morbid obesity with a BMI of 51.7, presented to the emergency room with above complaints. She was discharged from this facility on October 14 with a diagnosis of acute on chronic respiratory failure with hypercapnia along with acute kidney injury and C difficile colitis. She has been doing okay since then. Over the last 1 week, the patient developed gradual worsening shortness of breath to the extent that she short of breath on rest. Last night, she was unable to lie down or do any kind of activity without getting significant shortness of breath. She also noticed generalized anasarca. She had cough which was essentially nonproductive. No fever reported. She does not check her weight on the daily basis. She also does not monitor her fluid intake. She is trying to cut down the fluid. She denies any nausea, vomiting, or diaphoresis. In the emergency room, her workup was consistent with congestive heart failure exacerbation. She received one dose of IV Lasix. PAST MEDICAL HISTORY: 1. Chronic diastolic heart failure. 2. Morbid obesity. 3. Chronic hypoxic and hypercapnic respiratory failure on 2 L home oxygen. 4. History of clostridium difficile colitis earlier this year. 5. Obstructive sleep apnea, awaiting sleep study. 6. Hypertension. 7. Morbid obesity with a BMI of 51.7. 8. History of renal calculi requiring hospitalization earlier this year. 9. Stage III decubitus ulcer over the lower back. 10. Diabetes mellitus type 2. 11. Chronic lymphedema. 12. Severe tricuspid regurgitation. 13. History of paroxysmal atrial fibrillation. 14. Sarcoidosis. PAST SURGICAL HISTORY: 1. Cholecystectomy. 2. . 3. Hysterectomy. 4. Cystoscopy. 5. ESWL for renal calculi. SOCIAL HISTORY: The patient currently lives at home with her daughter. Ambulates with the help of a walker. Also has a wheelchair. She quit smoking 15 years ago. She is full code and a daughter is the surrogate decision maker. ALLERGIES: NONE. CURRENT HOME MEDICATIONS: Family to provide accurate list of medications. She is able to name some of them that includes Lasix, amlodipine, Levemir, hydralazine, clonidine, Lipitor, and aspirin. FAMILY HISTORY: Negative for premature coronary artery disease. REVIEW OF SYSTEMS: All other review of systems was reviewed and were found negative. PHYSICAL EXAMINATION: VITAL SIGNS: Temperature 97.9, respirations 24, pulse rate of 90, blood pressure of 179/74 with O2 saturation of 92% on nasal cannula. GENERAL: A 68-year-old female in mild respiratory distress. HEENT: Head; atraumatic and normocephalic. Sclerae anicteric. Moist mucous membranes. No oral lesion. NECK: Supple. No JVD appreciated due to body habitus. LUNGS: Rales at bases bilaterally. There were scattered rhonchi. There were accessory muscle use. No wheezing appreciated. HEART: S1 and S2 present. Regular rate and rhythm. 3/6 systolic murmur over the left lateral sternal border. No heaves or pulsation. ABDOMEN: Soft, obese, bowel sounds present. EXTREMITIES: 4+ edema in bilateral lower extremity. No calf tenderness. SKIN: Warm and dry. LYMPH NODES: No palpable lymph nodes in the neck. PERIPHERAL VASCULAR: Radial pulses palpable bilaterally. MUSCULOSKELETAL: No joint swelling or tenderness. LABORATORY FINDINGS: WBC 11.9, hemoglobin 9.4, hematocrit 29.6, and platelet 196. Sodium 142, potassium 3.6, chloride 99, bicarb 35, BUN 14, creatinine 1.24. BNP 122. Troponin was negative. Chest x-ray by my review showed pulmonary vascular congestion. EKG by my review showed sinus rhythm with right bundle-branch block and left axis deviation. IMPRESSION: 1. Acute on chronic hypoxic and hypercapnic respiratory failure secondary to acute on chronic diastolic heart failure exacerbation, ACC stage C. 2. Obstructive sleep apnea, awaiting sleep study. 3. Chronic kidney disease, stage 3. 4. Diabetes mellitus type 2, on insulin. 5. Morbid obesity with a BMI 51.7. 6. Decubitus ulcers stage III, present over the lower back, present on admission. 7. Chronic lower extremity edema. 8. Paroxysmal atrial fibrillation. 9. Hypertension. 10. History of sarcoidosis. 11. History of Clostridium difficile colitis earlier this year. 12. Hyperlipidemia. PLAN: The patient will be monitored in the telemetry unit. We will continue IV diuretics. We will start her on insulin sliding scale along with home dose of Lantus. Continue amlodipine, aspirin, clonidine, and hydralazine. We will add fluid restriction. We will consult General surgery per Wound Care recommendation. Plan was discussed with the patient in detail, she stated understanding. Job ID: [id number]
--- NOTE | 2018-12-01 12:01 | ULT ---
Venous duplex sonogram bilateral lower extremity HISTORY: Bilateral leg pain and edema. FINDINGS: Each common femoral vein and greater saphenous junction were evaluated along with the femor al, deep femoral, popliteal, and posterior Doppler flow, compression, and augmentation. IMPRESSION: No sonographic evidence of DVT within either lower extremity.
[2018-12-01] MEDS: HumaLOG 300 UNITS/3 ML VIAL SC PRN (13:43)
[2018-12-01] MEDS: Furosemide 40 MG/4 ML VIAL SLOW IVP SCH (13:44)
[2018-12-01] MEDS: cloNIDine 0.3 MG TAB PO SCH (20:51)
[2018-12-01] MEDS: Atorvastatin Calcium 40 MG TAB PO SCH (20:52)
[2018-12-01] MEDS ORDERED: Insulin Glargine 20 UNITS in Pre-Filled Syringe 1 EACH SC SCH (21:00)
[2018-12-01] MEDS ORDERED: Non-Formulary Item 1 EACH (Insulin Detemir [Levemir] 20 UNIT) SQ SCH (21:00)
[2018-12-02 05:20] LABS: #Eosinphils 0.2 thou/uL (0.0-0.7); #Lymphocytes 1.4 thou/uL (1.20-3.40); #Neutrophils 7.2 thou/uL (1.40-6.50); %Basophils 0.2 % (0.0-1.0); %Eosinophils 2.2 % (0.0-10.0); %Neutrophils 73.6 % (42.0-75.0); Hemoglobin 8.8 g/dL (12.0-16.0); Mean Corpuscular HGB CONC 31.4 g/dL (32.0-36.0); Mean Corpuscular Hemoglobin 27.9 pg (27.0-31.0); Mean Corpuscular Volume 88.8 fL (78.0-98.0); Platelet Count 189 thou/uL (130-400); RBC Distribution Width 14.1 % (11.5-14.5); Red Blood Cell (RBC) Count 3.14 mill/uL (4.20-5.40); White Blood Cell (WBC) Count 9.8 thou/uL (4.8-10.8)
[2018-12-02 05:34] LABS: BUN (Urea Nitrogen) 14 mg/dL (9.8-20.1); Calc. Creatinine Clearance 150 mL/min (70-130); Calcium 8.5 mg/dL (7.8-10.44); Estimated GFR-MDRD 75; Glucose 60 mg/dL (80-115); Magnesium 1.2 mg/dL (1.6-2.6)
[2018-12-02] MEDS: Furosemide 40 MG/4 ML VIAL SLOW IVP SCH (05:34)
[2018-12-02 05:44] LABS: Anion Gap 9 mmol/L (10-20); Carbon Dioxide 40 mmol/L (23-31); Chloride 96 mmol/L (98-107); Potassium 3.2 mmol/L (3.5-5.1); Sodium 142 mmol/L (136-145)
[2018-12-02] MEDS ORDERED: Magnesium Sulfate 4 GM in Sodium Chloride 0.9% 250 ML 250 ML IVPB SCH (06:45)
[2018-12-02] MEDS: Amlodipine 10 MG TAB PO SCH (09:55)
[2018-12-02] MEDS: hydrALAZINE 25 MG TAB PO SCH ×3 (09:55→20:33)
[2018-12-02] MEDS: Famotidine 20 MG TAB PO SCH ×2 (09:55→20:33)
[2018-12-02] MEDS: Aspirin 81 mg Enteric Coated Tablet PO SCH (09:55)
[2018-12-02] MEDS: Enoxaparin Sodium 40 MG/0.4 ML SYRINGE SC SCH (09:56)
[2018-12-02] MEDS: Insulin Glargine 25 UNITS in Pre-Filled Syringe 1 EACH SC SCH (10:03)
--- NOTE | 2018-12-02 16:07 | PDOC.PN ---
- Subjective Encounter Start Date: 12/02/18 Encounter Start Time: 13:30 Patient seen and examined for CHF. SOB improving. No CP/palpitations. No new complaints. No overnight events - Objective Resuscitation Status - Order Detail: 12/01/18 07:21 Resuscitation Status Routine Resuscitation Status: FULL: Full Resuscitation Discussed with: Patient MAR Reviewed: Yes Vital Signs & Weight: Vital Signs (12 hours) Temp Pulse Resp BP Pulse Ox 12/02/18 09:55 67 12/02/18 08:00 97.9 F 67 18 161/73 H 94 L Weight Admit Weight 350 lb 6.4 oz Weight 345 lb I&O: 12/01/18 12/02/18 12/03/18 06:59 06:59 06:59 Intake Total 480 Output Total 4100 Balance -3620 Result Diagrams: 12/02/18 04:42 12/02/18 04:42 Additional Labs: Accuchecks 12/02/18 12/02/18 12/01/18 10:58 05:27 20:14 POC Glucose 103 62 L 169 H 12/01/18 16:44 POC Glucose 159 H EKG Reviewed by me: Yes (Tele SR) Phys Exam - Physical Examination Constitutional: NAD Respiratory: no wheezing, no rhonchi dec AE at bases, No accessory muscle use Cardiovascular: RRR, no rub no heaves/pulsations Gastrointestinal: soft, non-tender, no distention, positive bowel sounds Musculoskeletal: edema present Neurological: non-focal, normal sensation, moves all 4 limbs Psychiatric: normal affect, A&O x 3 Dx/Plan - Plan DVT proph w/lovenox IMPRESSION: 1. Acute on chronic hypoxic and hypercapnic respiratory failure secondary to acute on chronic diastolic heart failure exacerbation, ACC stage C. 2. Obstructive sleep apnea, awaiting sleep study. 3. Chronic kidney disease, stage 3. 4. Diabetes mellitus type 2, on insulin. 5. Morbid obesity with a BMI 51.7. 6. Decubitus ulcers stage III, present over the lower back, present on admission. 7. Chronic lower extremity edema. 8. Paroxysmal atrial fibrillation. 9. Hypertension. 10. History of sarcoidosis. 11. History of Clostridium difficile colitis earlier this year. 12. Hyperlipidemia. PLAN: Reduce IV Lasix to 40 mg daily Replace Potassium and Magnessium AM labs Reduce Lantus HS to 10 units due to hypoglycemia Cont fluid restriction CHF Education Laboratory Tests 12/02/18 04:42 Magnesium 1.2 L Review of Systems - Review of Systems Respiratory: negative: Cough, Dry, Shortness of Breath, Hemoptysis, SOB with Excertion, Pleuritic Pain, Sputum, Wheezing Cardiovascular: negative: chest pain, palpitations, orthopnea, paroxysmal nocturnal dyspnea, edema, light headedness, other Gastrointestinal: negative: Nausea, Vomiting, Abdominal Pain, Diarrhea, Constipation, Melena, Hematochezia, Other - Medications/Allergies Allergies/Adverse Reactions: Allergies Allergy/AdvReac Type Severity Reaction Status Date / Time No Known Allergies Allergy Verified 12/01/18 03:12 Medications: Current Medications Acetaminophen (Tylenol) 650 mg PO Q4H PRN PRN Reason: Headache/Fever/Mild Pain (1-3) Acetaminophen (Tylenol) 650 mg DE Q4H PRN PRN Reason: Headache/Fever/Mild Pain (1-3) Amlodipine Besylate (Norvasc) 10 mg PO DAILY [facility] Last Admin: 12/02/18 09:55 Dose: 10 mg Aspirin (Ecotrin) 81 mg PO DAILY [facility] Last Admin: 12/02/18 09:55 Dose: 81 mg Atorvastatin Calcium (Lipitor) 40 mg PO HS [facility] Last Admin: 12/01/18 20:52 Dose: 40 mg Cholecalciferol (Vitamin D3) 1,000 units PO DAILY [facility] Last Admin: 12/02/18 09:54 Dose: 1,000 units Clonidine (Catapres) 0.3 mg PO HS [facility] Last Admin: 12/01/18 20:51 Dose: 0.3 mg Clonidine (Catapres) 0.1 mg PO Q4H PRN PRN Reason: SBP Greater Than 180 Dextrose/Water (Dextrose 50%) 25 gm SLOW IVP PRN PRN PRN Reason: Hypoglycemia Enoxaparin Sodium (Lovenox) 40 mg SC 0900 [facility] Last Admin: 12/02/18 09:56 Dose: 40 mg Famotidine (Pepcid) 20 mg PO BID [facility] Last Admin: 12/02/18 09:55 Dose: 20 mg Furosemide (Lasix) 40 mg SLOW IVP DAILY [facility] Glucagon (Glucagon) 1 mg IM PRN PRN PRN Reason: Hypoglycemia Guaifenesin/Dextromethorphan (Robitussin Dm) 15 ml PO Q4H PRN PRN Reason: Cough Hydralazine HCl (Apresoline) 100 mg PO TID [facility] Last Admin: 12/02/18 09:55 Dose: 100 mg Dextrose/Water (D5w) 1,000 mls @ 0 mls/hr IV .Q0M PRN PRN Reason: Hypoglycemia Insulin Glargine 25 units/ (Miscellaneous Medication) 0.25 mls @ 0 mls/hr SC QAM [facility] Last Admin: 12/02/18 10:03 Dose: 0.25 mls Insulin Glargine 10 units/ (Miscellaneous Medication) 0.1 mls @ 0 mls/hr SC [facility] Insulin Human Lispro (Humalog) 0 units SC .MODERATE SLIDING SC PRN PRN Reason: Moderate Correctional Scale Last Admin: 12/01/18 13:43 Dose: 2 unit Insulin Human Lispro (Humalog) 0 units SC .BEDTIME SLIDING SC PRN PRN Reason: Bedtime Correctional Scale Ondansetron HCl (Zofran Odt) 4 mg PO Q6H PRN PRN Reason: Nausea/Vomiting Ondansetron HCl (Zofran) 4 mg IVP Q6H PRN PRN Reason: Nausea/Vomiting Potassium Chloride (K-Dur) 40 meq PO NOW [facility] Stop: 12/02/18 18:15 Potassium Chloride (K-Dur) 20 meq PO QA-[facility] Stop: 12/06/18 08:01 Senna/Docusate Sodium (Senokot S) 2 tab PO BID PRN PRN Reason: Constipation Sodium Chloride (Flush - Normal Saline) 10 ml IVF Q12HR [facility] Last Admin: 12/02/18 09:56 Dose: 10 ml Sodium Chloride (Flush - Normal Saline) 10 ml IVF PRN PRN PRN Reason: Saline Flush
[2018-12-02] MEDS ORDERED: Potassium Chloride 20 MEQ TAB PO SCH ×2 (16:15→21:00)
[2018-12-02] MEDS: Atorvastatin Calcium 40 MG TAB PO SCH (20:32)
[2018-12-02] MEDS: cloNIDine 0.3 MG TAB PO SCH (20:33)
[2018-12-02] MEDS ORDERED: Insulin Glargine 10 UNITS in Pre-Filled Syringe SC SCH (21:00)
[2018-12-02] MEDS ORDERED: Bupivacaine HCl 0.5%/Epinephrine 1:200,000/PF 30 ml Vial FS SCH (23:15)
[2018-12-02] MEDS ORDERED: Lidocaine 1% w/Epinephrine 1:200K 30 ML VIAL FS SCH (23:15)
[2018-12-02] MEDS: cloNIDine 0.1 MG TAB PO PRN (23:33)
[2018-12-03] MEDS ORDERED: Bupivacaine HCl 0.5%/Epinephrine 1:200,000/PF 30 ml Vial FS SCH (06:00)
[2018-12-03] MEDS ORDERED: Lidocaine 1% w/Epinephrine 1:200K 30 ML VIAL FS SCH (06:00)
[2018-12-03 06:48] LABS: Anion Gap 12 mmol/L (10-20); BUN (Urea Nitrogen) 15 mg/dL (9.8-20.1); Calc. Creatinine Clearance 157 mL/min (70-130); Calcium 8.6 mg/dL (7.8-10.44); Carbon Dioxide 37 mmol/L (23-31); Chloride 95 mmol/L (98-107); Estimated GFR-MDRD 82; Magnesium 1.8 mg/dL (1.6-2.6); Potassium 3.9 mmol/L (3.5-5.1); Sodium 140 mmol/L (136-145)
[2018-12-03 06:53] LABS: Glucose 33 mg/dL (80-115)
[2018-12-03] MEDS: Aspirin 81 mg Enteric Coated Tablet PO SCH (09:08)
[2018-12-03] MEDS: Furosemide 40 MG/4 ML VIAL SLOW IVP SCH (09:08)
[2018-12-03] MEDS: hydrALAZINE 25 MG TAB PO SCH ×3 (09:09→20:13)
[2018-12-03] MEDS: Amlodipine 10 MG TAB PO SCH (09:09)
[2018-12-03] MEDS: Potassium Chloride 20 MEQ TAB PO SCH (09:09)
[2018-12-03] MEDS: Famotidine 20 MG TAB PO SCH (09:09)
[2018-12-03] MEDS: Enoxaparin Sodium 40 MG/0.4 ML SYRINGE SC SCH (09:10)
--- NOTE | 2018-12-03 11:51 | PDOC.PN ---
- Subjective Encounter Start Date: 12/03/18 (f/u dyspnea) Encounter Start Time: 11:50 Subjective: Pt reports that she is feeling better. Denies any chest pain, reports -: her breathing is improved. Denies any new sx. -: hypoglycemic this morning - Objective Resuscitation Status - Order Detail: 12/01/18 07:21 Resuscitation Status Routine Resuscitation Status: FULL: Full Resuscitation Discussed with: Patient Vital Signs & Weight: Vital Signs (12 hours) Temp Pulse Resp BP Pulse Ox 12/03/18 09:09 64 12/03/18 07:51 98.1 F 64 18 166/74 H 96 12/03/18 04:00 97.9 F 61 18 155/68 H 95 Weight Admit Weight 350 lb 6.4 oz Weight 341 lb 14.4 oz I&O: 12/02/18 12/03/18 12/04/18 06:59 06:59 06:59 Intake Total 480 1690 Output Total 4100 3550 Balance -3620 -1860 Result Diagrams: 12/02/18 04:42 12/03/18 05:38 Additional Labs: Accuchecks 12/03/18 12/03/18 12/02/18 06:16 05:40 20:06 POC Glucose 93 44 L* 171 H 12/02/18 16:58 POC Glucose 125 H EKG Reviewed by me: Yes (sinus - WAP, sinus 50-70's with brief 40's, and junctional rhythm o/n) Phys Exam - Physical Examination Constitutional: NAD Respiratory: no wheezing, no rales, no rhonchi Cardiovascular: RRR 2/6 [place] Gastrointestinal: soft, positive bowel sounds 3+ pitting edema in legs/feet bilateral Psychiatric: normal affect Dx/Plan (1) Acute respiratory failure with hypoxia and hypercapnia Code(s): J96.01 - ACUTE RESPIRATORY FAILURE WITH HYPOXIA; J96.02 - ACUTE RESPIRATORY FAILURE WITH HYPERCAPNIA Status: Acute Comment: nightly bipap (2) Diastolic heart failure Code(s): I50.30 - UNSPECIFIED DIASTOLIC (CONGESTIVE) HEART FAILURE Status: Acute Qualifiers: Heart failure chronicity: acute on chronic Qualified Code(s): I50.33 - Acute on chronic diastolic (congestive) heart failure (3) CKD (chronic kidney disease) Code(s): N18.9 - CHRONIC KIDNEY DISEASE, UNSPECIFIED Status: Acute Qualifiers: Chronic kidney disease stage: stage 2 (mild) Qualified Code(s): N18.2 - Chronic kidney disease, stage 2 (mild) (4) Bradycardia Code(s): R00.1 - BRADYCARDIA, UNSPECIFIED Status: Acute (5) DM type 2 (diabetes mellitus, type 2) Status: Chronic Qualifiers: Diabetes mellitus residential insulin use: with residential use Diabetes mellitus complication status: with unspecified complications (6) Hypertension Code(s): I10 - ESSENTIAL (PRIMARY) HYPERTENSION Status: Chronic Qualifiers: Hypertension type: essential hypertension Qualified Code(s): I10 - Essential (primary) hypertension (7) Morbid obesity Code(s): E66.01 - MORBID (SEVERE) OBESITY DUE TO EXCESS CALORIES Status: Chronic - Plan * Acute on chronic resp failure - pt improved, on more oxygen here than at home * Pulm consulted * Diastolic HF on daily IV lasix - given the bradycardia and junctional rhythm occ - consult Cardiology * HTN - uncontrolled on amlodipine, max dosing of hydralazine, clonidine, and diuretic. GIven multiple [place] - hesitant to start an MIGUEL-I and pt wiht bradycardia - hesitant to add a beta-tana. Will defer to Cardiology for recommendations * DM - d/c long-acting insulin. Continue ISS wiht meals * decubitus ulcers - Gen Surg Consult * cont home meds of aspirin, statin * * dvt prophy - lovenox * gi prophy -not indicated - d/c famotidine especially with recent hx of c diff infection * code status full * * pt at high risk of decompensation as well as recurrent hospital admissions given age, comorbidities and current presentation. Reviewed plan of care, no quesitons or further needs at end of eval.
--- NOTE | 2018-12-03 17:00 | EKG ---
Test Reason : Blood Pressure : / mmHG Vent. Rate : 072 BPM Atrial Rate : 072 BPM P-R Int : 148 ms QRS Dur : 144 ms QT Int : 450 ms P-R-T Axes : 040 -37 036 degrees QTc Int : 492 ms Normal sinus rhythm Left axis deviation Right bundle branch block Abnormal ECG Similar to 09/23/2018 Confirmed by KELSEY VILLAR DO ([id number]), editorial intern LIA LOREDO ([id number]) on 12/03/2018 5:00:24 PM Referred By: Confirmed By:KELSEY VILLAR DO
--- NOTE | 2018-12-03 18:56 | CON ---
DATE OF CONSULTATION: 12/03/2018 HISTORY OF PRESENT ILLNESS: Lizzie Kelly is a 68-year-old female. She has been followed by Dr. Mendoza in the past for sarcoid. Her sarcoid is felt to be quiescent. She presented on December 01 with complaints of shortness of breath. She tells me she has been diuresed 10 pounds and says she feels 100% better. She apparently could not lie down prior to admission. We were consulted because of her presence in telemetry unit because she had been seen by Dr. Mendoza in the past. PAST MEDICAL HISTORY: Remarkable for: 1. Diastolic heart failure. 2. Obesity. 3. History of sleep apnea, suspected. She has not had a sleep study and is not on CPAP. 4. Hypertension. 5. History of nephrolithiasis. 6. History of decubitus ulcer, which she had on this admission. 7. Diabetes. 8. Pulmonary hypertension, likely secondary to sleep apnea. 9. History of atrial fibrillation. 10. History of cholecystectomy. 11. History of . 12. Status post hysterectomy. 13. History of lithotripsy. SOCIAL HISTORY: She is nonsmoker and nondrinker. She is a former smoker. She is ambulatory apparently with a walker. FAMILY HISTORY: Negative for lung disease in early age. She reports no drug allergies. REVIEW OF SYSTEMS: 10-point of review of systems completed, otherwise negative. MEDICATIONS: Reviewed. PHYSICAL EXAMINATION: GENERAL: Lizzie Kelly is a 68-year-old female. VITAL SIGNS: She is afebrile, heart rate respiratory rate is 18, oximetry is 97% on nasal cannula 4 L, and blood pressure 169/113 and then repeat 170/74. Her size probably makes it difficult to get . HEENT: Pupils are equal. Sclerae are anicteric. Extraocular movements are intact. NECK: Supple. LUNGS: Distant, clear. HEART: Regular rhythm, distant S1 and S2. No murmur. ABDOMEN: Soft and nontender. EXTREMITIES: Stasis changes. LABORATORY DATA: White count yesterday 9.8, hemoglobin 8.8, and platelets 189. Sodium 140, potassium 3.9, chloride 95, bicarb 37, BUN 15, and creatinine 0.84. Glucose was low earlier today at 33, it is 198 at 1637 hours. IMPRESSION: 1. Obesity hypoventilation, suspected, awaiting sleep study. 2. Diastolic heart failure. 3. Hypertension. 4. Diabetes. 5. Volume overload, status post she says a 10-pound diuresis since she has been admitted. 6. Lipid disorder. We will be happy to follow the other physicians caring for her. She has clinically improved. Unfortunately, we cannot do sleep study while people here in the hospital. Apparently, she will have her decubitus ulcer dressed by Wound Care while she is here. TIME SPENT: This is a 50-minute consult, with greater than 50% of the time spent on the unit coordinating care. Job ID: [id number] MTDD
--- NOTE | 2018-12-03 19:23 | CON ---
DATE OF CONSULTATION: 12/03/2018 INDICATION FOR CONSULTATION: A 68-year-old female with history of diastolic dysfunction, multiple other medical problems, which include COPD, sleep apnea, hypertension, diabetes. She was admitted due to increasing shortness of breath and dyspnea on exertion. She has had some diuresis. She has diuresed over 5.5 L and feels much better now. She does have chronic diastolic heart failure. She has been followed by Dr. Gavin Salgado for several years now. At this time, she is feeling better and her EKG shows sinus rhythm with a right bundle-branch block and I believe it appears that she became volume overloaded, but is now improving. PAST MEDICAL HISTORY: Significant for sick sinus syndrome, hypertension, diabetes type 2, dyslipidemia, remote sarcoidosis, morbid obesity, renal insufficiency. She has had hysterectomy, cholecystectomy. She has had a lipoma removal. She had vocal cord surgery. She has had breast surgery. She has a history of sleep apnea. In the past, she has had some remote history of atrial fibrillation. She has chronic kidney disease. She has some diagnosis also of restrictive lung disease, chronic renal insufficiency, respiratory insufficiency. She has had a history of bradycardia with junctional rhythm in the past. FAMILY HISTORY: Noncontributory. SOCIAL HISTORY: She smoked, but stopped many years ago. Previous to that, she had a 30 pack-year history of smoking. She denied any alcohol use. She worked recently and now she has become retired. ALLERGIES: NONE. MEDICATIONS: Include: 1. Enalapril. 2. Lipitor. 3. Hydralazine. 4. Metformin. 5. Glipizide. 6. Aspirin. 7. Lasix. REVIEW OF SYSTEMS: A 12-point review of systems is relatively unremarkable except for what is noted in the history of present illness. No shortness of breath. She had no significant GI or complaints. Musculoskeletal, she complains of lower extremity edema, which is chronic. Part of this is due to her morbid obesity, part is due to her diastolic dysfunction as well as her COPD. PHYSICAL EXAMINATION: GENERAL: Reveals a morbidly obese female. VITAL SIGNS: Blood pressure 176/83, heart rate is 72 and she is regular at this time. She is afebrile. HEENT: Unremarkable. NECK: Carotid pulses are present without bruits. CHEST: Actually, I do not hear any rales, rhonchi, or wheezing. She has decreased breath sounds at the bases, but otherwise unremarkable. CARDIOVASCULAR: Reveals a regular rate and rhythm. She has normal S1, S2. She does have a systolic murmur at the upper sternal borders. Also systolic murmur at the apex. ABDOMEN: Shows morbid obesity and I cannot palpate any tenderness or masses. She has positive bowel sounds. EXTREMITIES: Show 2 to 3+ lower extremity edema. NEUROLOGIC: She appears to be intact. She was able to walk down the hallway today with a walker. SKIN: Warm and dry. LABORATORY DATA: Shows hemoglobin of 8.8 with hematocrit 27.9, WBC of 9.8, platelet count 189,000. Electrolytes show a creatinine of 0.84 with BUN of 15, sodium is 140, potassium 3.9, her blood sugar is elevated to 198. Her cardiac enzymes are negative. Her chest x-ray shows possible infiltrate or possible asymmetric pulmonary edema. EKG shows normal sinus rhythm with right bundle- branch block with no acute changes. Heart rate in the 70s. IMPRESSION: Congestive heart failure or respiratory exacerbation. Her congestive heart failure is diastolic in nature. Her last echocardiogram was in July of this year, which showed ejection fraction of 20% to 25% with left ventricular hypertrophy and left atrium was mildly dilated. She had mild mitral valve regurgitation and severe tricuspid valve regurgitation and moderate pulmonary valve regurgitation. PLAN: 1. At this time, we will continue medical management. Would agree with IV diuretics. She is doing much better since starting the diuresis and after 5.5 L of fluid, she is feeling much better. 2. History of bradycardia in the past. This is very stable at this time. There is no indication she has any bradycardia. She does have a right bundle-branch block, but this appears to be stable. 3. Respiratory insufficiency with associated obstructive sleep apnea as well as her COPD to be dealt with by the primary care service. 4. Chronic kidney disease. This is a very stable at this time. Her renal function appears to be normal. The creatinine is 0.84. 5. Diabetes. She was hypoglycemic earlier, but now blood sugars up to the 190s. 6. Morbid obesity. I suspect she has had dietary consultations in the past, but may need to be reminded again in order to lose hopefully decrease her weight, which will give her overall better improvement. At this time, from a cardiac standpoint, she appears to be doing relatively well and I would continue to follow the patient with you, but would agree with the present management. Job ID: [id number] TIARRA
[2018-12-03] MEDS: Atorvastatin Calcium 40 MG TAB PO SCH (20:06)
[2018-12-03] MEDS: cloNIDine 0.3 MG TAB PO SCH (20:06)
[2018-12-04 05:21] LABS: Anion Gap 13 mmol/L (10-20); BUN (Urea Nitrogen) 14 mg/dL (9.8-20.1); Calc. Creatinine Clearance 151 mL/min (70-130); Calcium 8.5 mg/dL (7.8-10.44); Carbon Dioxide 35 mmol/L (23-31); Chloride 93 mmol/L (98-107); Estimated GFR-MDRD 79; Glucose 150 mg/dL (80-115); Iron 17 ug/dL (50-170); Iron Binding Capacity, Total 150 mcg/dL (265-497); Magnesium 1.7 mg/dL (1.6-2.6); Potassium 4.1 mmol/L (3.5-5.1); Sodium 137 mmol/L (136-145)
[2018-12-04 05:53] LABS: Band 5 % (5-11); Eosinophils 2 % (0-10); Lymphocytes 7 % (21-51); MDiff Complete? YES; Mean Corpuscular HGB CONC 31.8 g/dL (32.0-36.0); Mean Platelet Volume 8.9 fL (7.4-10.4); Monocytes 7 % (0-10); Neutrophil 79 % (42-75); Platelet Count 215 thou/uL (130-400); Platelet Morphology Comment Appears Adequate; Polychromasia SLIGHT = 2-3 cells (100X) (0-2/hpf); RBC Distribution Width 14.2 % (11.5-14.5); Red Blood Cell (RBC) Count 3.21 mill/uL (4.20-5.40); White Blood Cell (WBC) Count 15.2 thou/uL (4.8-10.8)
[2018-12-04 05:57] LABS: Folate (Folic Acid) 14.6 ng/mL (7.0-31.4)
[2018-12-04 07:12] LABS: Magnesium 1.5 mg/dL (1.6-2.6); Potassium 3.9 mmol/L (3.5-5.1)
[2018-12-04] MEDS: Potassium Chloride 20 MEQ TAB PO SCH (08:23)
[2018-12-04] MEDS: Amlodipine 10 MG TAB PO SCH (08:23)
[2018-12-04] MEDS: Enoxaparin Sodium 40 MG/0.4 ML SYRINGE SC SCH (08:23)
[2018-12-04] MEDS: Furosemide 40 MG/4 ML VIAL SLOW IVP SCH (08:23)
[2018-12-04] MEDS: Aspirin 81 mg Enteric Coated Tablet PO SCH (08:23)
[2018-12-04] MEDS: hydrALAZINE 25 MG TAB PO SCH ×3 (08:24→21:55)
[2018-12-04] MEDS: HumaLOG 300 UNITS/3 ML VIAL SC PRN ×3 (11:05→21:56)
--- NOTE | 2018-12-04 13:51 | PDOC.PN ---
- Subjective Encounter Start Date: 12/04/18 (f/u resp failure) Encounter Start Time: 13:50 Subjective: Pt reports her breathing is improved. Denies any chest pain/ -: n/v/abd pain. no BM since admission -: had I&D of wound on back yesterday - Objective Resuscitation Status - Order Detail: 12/01/18 07:21 Resuscitation Status Routine Resuscitation Status: FULL: Full Resuscitation Discussed with: Patient Vital Signs & Weight: Vital Signs (12 hours) Temp Pulse Resp BP Pulse Ox 12/04/18 11:07 97.5 F L 75 19 132/62 96 12/04/18 08:00 98.4 F 75 21 H 173/74 H 93 L 12/04/18 03:43 98.9 F 75 18 149/66 H 93 L Weight Admit Weight 350 lb 6.4 oz Weight 337 lb I&O: 12/03/18 12/04/18 12/05/18 06:59 06:59 06:59 Intake Total 1690 1070 Output Total 3550 3450 Balance -1860 -2380 Result Diagrams: 12/04/18 04:41 12/04/18 06:46 Additional Labs: Accuchecks 12/04/18 12/03/18 12/03/18 05:34 20:36 16:37 POC Glucose 172 H 227 H 198 H EKG Reviewed by me: Yes (tele - sinus 60-80's with 11 beats SVT) Phys Exam - Physical Examination Constitutional: NAD Respiratory: no wheezing, no rhonchi faint bibasilar rales Cardiovascular: RRR 3/6 TORRIE Gastrointestinal: soft 3+ edema bilateral LE Psychiatric: normal affect Dx/Plan (1) Acute respiratory failure with hypoxia and hypercapnia Code(s): J96.01 - ACUTE RESPIRATORY FAILURE WITH HYPOXIA; J96.02 - ACUTE RESPIRATORY FAILURE WITH HYPERCAPNIA Status: Acute Comment: nightly bipap (2) Diastolic heart failure Code(s): I50.30 - UNSPECIFIED DIASTOLIC (CONGESTIVE) HEART FAILURE Status: Acute Qualifiers: Heart failure chronicity: acute on chronic Qualified Code(s): I50.33 - Acute on chronic diastolic (congestive) heart failure (3) CKD (chronic kidney disease) Code(s): N18.9 - CHRONIC KIDNEY DISEASE, UNSPECIFIED Status: Acute Qualifiers: Chronic kidney disease stage: stage 2 (mild) Qualified Code(s): N18.2 - Chronic kidney disease, stage 2 (mild) (4) Bradycardia Code(s): R00.1 - BRADYCARDIA, UNSPECIFIED Status: Resolved (5) DM type 2 (diabetes mellitus, type 2) Status: Chronic Qualifiers: Diabetes mellitus bed bug exterminator insulin use: with longterm use Diabetes mellitus complication status: with unspecified complications (6) Hypertension Code(s): I10 - ESSENTIAL (PRIMARY) HYPERTENSION Status: Chronic Qualifiers: Hypertension type: essential hypertension Qualified Code(s): I10 - Essential (primary) hypertension (7) Morbid obesity Code(s): E66.01 - MORBID (SEVERE) OBESITY DUE TO EXCESS CALORIES Status: Chronic (8) Decubitus skin ulcer Code(s): L89.90 - PRESSURE ULCER OF UNSPECIFIED SITE, UNSPECIFIED STAGE Status : Acute Qualifiers: Pressure injury location: lower back - Plan * * Acute on chronic resp failure - pt improved and is now -11L for volume status , requiring less oxygen * Pt sees Dr. Mendoza as an outpatient and refuses sleep study, likely obesity hypoventilation and possibly ARI * * Diastolic HF on daily IV lasix - given the bradycardia and junctional rhythm occ - consult Cardiology * bradycardia resolved * HTN - most recent bp normal, however has been elevated. Not on b-tana due to bradycardia, is on clonidine, hydralazine, amlodipine. Have held on MIGUEL-I as pt with frequent WELLINGTON's * * DM - d/c long-acting insulin yesterday due to hypoglycemia. Continue ISS with meals * decubitus ulcers - s/p debridement with wound packed. * * Labs reviewed - low magnesium - replace * Iron deficiency - start replacement * Constipation - add scheduled colace and miralax * cont home meds of aspirin, statin * * dvt prophy - lovenox * gi prophy -not indicated * code status full * * pt at high risk of decompensation as well as recurrent hospital admissions given age, comorbidities and current presentation. * Reviewed plan of care, no quesitons or further needs at end of eval..
[2018-12-04] MEDS ORDERED: Magnesium 2 GM/50 ML 2 GM in Premix Bag 1 BAG IVPB SCH (14:00)
--- NOTE | 2018-12-04 19:03 | PRG ---
DATE OF SERVICE: 12/04/2018 SUBJECTIVE: Ms. Kelly has no complaints. She denies shortness of breath. She looks totally comfortable. OBJECTIVE: VITAL SIGNS: She is afebrile. Heart rate is 76, blood pressure 162/72, respiratory rates in the teens to low 20s, oximetry is 94% on 1.5 L. LUNGS: Clear. HEART: Regular rhythm. ABDOMEN: Soft. LABORATORY DATA: White count 15.2, hemoglobin 9.0, and platelets 215. Sodium 137, potassium 4.1, chloride 93, bicarb 35, BUN 14, creatinine 0.86, glucose 150. Iron 17, TIBC was 150 more consistent with anemia of chronic disease and iron deficiency. IMPRESSION: 1. Sarcoid, clinically quiescent. 2. Obesity with suspected sleep apnea, tentatively on the schedule to see Dr. Mendoza for sleep apnea workup. 3. Diastolic heart failure. 4. Hypertension, still not ideally controlled. 5. Diabetes. 6. History of atrial fibrillation. 7. We will continue to follow the other physicians caring for. Agree with current management. We will continue to follow. Job ID: [id number]
[2018-12-04] MEDS: Docusate 100 MG CAP PO SCH (21:55)
[2018-12-04] MEDS: Atorvastatin Calcium 40 MG TAB PO SCH (21:55)
[2018-12-04] MEDS: cloNIDine 0.3 MG TAB PO SCH (21:55)
[2018-12-05 05:24] LABS: #Eosinphils 0.1 thou/uL (0.0-0.7); #Lymphocytes 1.2 thou/uL (1.20-3.40); #Monocytes 0.9 thou/uL (0.11-0.59); #Neutrophils 7.6 thou/uL (1.40-6.50); %Basophils 0.1 % (0.0-1.0); %Eosinophils 1.3 % (0.0-10.0); %Lymphocytes 11.7 % (21.0-51.0); %Monocytes 9.6 % (0.0-10.0); %Neutrophils 77.2 % (42.0-75.0); Hemoglobin 8.7 g/dL (12.0-16.0); Mean Corpuscular HGB CONC 30.6 g/dL (32.0-36.0); Mean Corpuscular Hemoglobin 27.2 pg (27.0-31.0); Mean Corpuscular Volume 89.2 fL (78.0-98.0); Mean Platelet Volume 8.6 fL (7.4-10.4); Platelet Count 225 thou/uL (130-400); RBC Distribution Width 13.9 % (11.5-14.5); Red Blood Cell (RBC) Count 3.18 mill/uL (4.20-5.40); White Blood Cell (WBC) Count 9.8 thou/uL (4.8-10.8)
[2018-12-05 05:47] LABS: BUN (Urea Nitrogen) 13 mg/dL (9.8-20.1); Calc. Creatinine Clearance 140 mL/min (70-130); Calcium 8.8 mg/dL (7.8-10.44); Estimated GFR-MDRD 73; Glucose 158 mg/dL (80-115)
[2018-12-05 05:56] LABS: Anion Gap 12 mmol/L (10-20); Carbon Dioxide 39 mmol/L (23-31); Chloride 92 mmol/L (98-107); Potassium 3.7 mmol/L (3.5-5.1); Sodium 139 mmol/L (136-145)
[2018-12-05] MEDS: Amlodipine 10 MG TAB PO SCH (08:25)
[2018-12-05] MEDS: Aspirin 81 mg Enteric Coated Tablet PO SCH (08:25)
[2018-12-05] MEDS: Ferrous Gluconate 324 MG TAB PO SCH (08:25)
[2018-12-05] MEDS: Ascorbic Acid 500 mg Chewable Tablet PO SCH (08:25)
[2018-12-05] MEDS: Potassium Chloride 20 MEQ TAB PO SCH (08:25)
[2018-12-05] MEDS: Enoxaparin Sodium 40 MG/0.4 ML SYRINGE SC SCH (08:26)
[2018-12-05] MEDS: Furosemide 40 MG/4 ML VIAL SLOW IVP SCH (08:26)
[2018-12-05] MEDS: Docusate 100 MG CAP PO SCH ×2 (08:26→21:03)
[2018-12-05] MEDS: hydrALAZINE 25 MG TAB PO SCH ×3 (08:27→21:03)
[2018-12-05] MEDS: Polyethylene Glycol 3350 17 GM Packet PO SCH (08:36)
--- NOTE | 2018-12-05 08:47 | CON ---
DATE OF CONSULTATION: HISTORY OF PRESENT ILLNESS: Lizzie Kelly is a 68-year-old black female, 5 feet 9 inches, 349 pounds, 50 BMI, who I have been asked to see regarding open wound in her lower back. She reports that this has been there for some time. On January 06, 2015, Dr. Arambula drained a buttock abscess midline near the sacrum. Apparently, this wound has not healed since that time. She has been admitted to see regarding that. HOME MEDICATIONS: 1. Catapres. 2. Insulin 20 units a.m. and 25 units p.m. 3. Furosemide 40 mg a day. 4. Atorvastatin 40 mg at bedtime. 5. Aspirin 81 mg a day. 6. Amlodipine 10 mg daily. 7. Hydralazine 100 mg t.i.d. PAST SURGICAL HISTORY: Multiple cystoscopies and ureteral stents and treatment by Urology for urolithiasis. PAST MEDICAL HISTORY: Cholecystectomy, , hysterectomy, cystoscopy, and EWSLs. SOCIAL HISTORY: The patient lives at home with her daughter. Ambulates with a walker. Has a wheelchair. Tobacco cessation 15 years ago. ALLERGIES: NONE. PAST MEDICAL HISTORY: Includes urolithiasis, morbid obesity, metabolic syndrome, chronic diastolic heart failure, sleep apnea, history of Clostridium difficile colitis, hypertension, severe tricuspid regurgitation, paroxysmal atrial fibrillation and sarcoidosis. PHYSICAL EXAMINATION: VITAL SIGNS: Height 5 feet 9 inches, 349 pounds, 50 BMI, temperature 97.9, pulse 67, blood pressure 161/73. LUNGS: Clear to auscultation. CARDIAC: Regular rate and rhythm without murmur or gallop. ABDOMEN: Soft and obese. EXTREMITIES: Venous stasis changes, obese, lower midline back, uppers sacrum open wound with purulent drainage tunneling to the patient's left. ASSESSMENT AND PLAN: Chronic wound, sacrum. We will plan evaluation at bedside and plan incision and drainage. Hopefully, this will be successful. If not, she may need to go to the operating room at a later date to drain this. This has quite a bit of purulent drainage, has undermining, will need to be on removed to facilitate wound care and evaluate this problem. Job ID: [id number]
--- NOTE | 2018-12-05 09:28 | PQF ---
CARLA THURMAN MILO BALLESTEROS [id number] [id number] CLINICAL DOCUMENTATION IMPROVEMENT CLARIFICATION FORM: ICD-10 Updated PLEASE DO AN ADDENDUM TO THE PROGRESS NOTE WITH ANY DOCUMENTATION UPDATES OR ADDITIONS AND CARRY THROUGH TO DC SUMMARY. THANK YOU. DATE: 12/05 ATTN: DR. MILO CONNOLLY Please exercise your independent, professional judgment in responding to the clarification form. Clinical indicators are provided on the bottom of this form for your review. Please check appropriate box(s): [ XX ] I (concur) with the Wound Care findings as stated below. [ ] Pressure Ulcer: (Stage I: Erythema; Stage II: Partial thickness; Stage III : Full thickness; Stage IV: Necrosis to muscle/bone) [ ] Location: POA: [ ] Yes [ ] No [ ] Unable to determine Stage (I to IV): (Left Right Bilateral N/A ) [ ] Other diagnosis [ ] Unable to determine In addition, please specify: Present on Admission (POA): [ X ] Yes [ ] No [ ] Unable to determine For continuity of documentation, please document condition throughout progress notes and discharge summary. Thank You. CLINICAL INDICATORS - SIGNS / SYMPTOMS / LABS WOUNDCARE CONS 12/01: PRESSURE ULCER STAGE III R POSTERIOR THIGH RISKS: MORBID OBESITY (BMI 49.0, H&P) DM II (H&P) CHRONIC LYMPHEDEMA (H&P) TREATMENT: WOUND CARE CONSULT (12/01) MEDIHONEY W/FOAM COMPOSITE DRESSING ERIN ARAYA THANK YOU! Brittany (This form is maintained as a part of the permanent medical record) 2014 [employer]. All Rights Reserved Brittany Sullivan RN, BSN [email or web address] Office: [phone] [facility]PITALShravan
[2018-12-05] MEDS: HumaLOG 300 UNITS/3 ML VIAL SC PRN ×2 (11:31→18:17)
[2018-12-05] MEDS ORDERED: cloNIDine 0.2 MG TAB PO SCH (12:00)
--- NOTE | 2018-12-05 12:21 | PDOC.PN ---
- Subjective Encounter Start Date: 12/05/18 (f/u resp failure) Encounter Start Time: 12:20 Subjective: Pt denies any complaints today. RN noted increase work of breathing -: last night and oxygen increased, it is back down today. Pt denies -: n/v/abd pain - Objective Resuscitation Status - Order Detail: 12/01/18 07:21 Resuscitation Status Routine Resuscitation Status: FULL: Full Resuscitation Discussed with: Patient Vital Signs & Weight: Vital Signs (12 hours) Temp Pulse Resp BP Pulse Ox 12/05/18 11:05 97.4 F L 74 17 165/71 H 98 12/05/18 07:30 98.2 F 71 18 177/77 H 99 12/05/18 03:54 97.5 F L 72 20 137/71 96 Weight Admit Weight 350 lb 6.4 oz Weight 331 lb 9 oz I&O: 12/04/18 12/05/18 12/06/18 06:59 06:59 06:59 Intake Total 1070 780 Output Total 3450 3400 Balance -2380 -2620 Result Diagrams: 12/05/18 04:44 12/05/18 04:44 Additional Labs: Accuchecks 12/05/18 12/05/18 12/04/18 10:45 05:49 20:23 POC Glucose 241 H 157 H 253 H 12/04/18 12/04/18 16:32 10:26 POC Glucose 176 H 220 H EKG Reviewed by me: Yes (sinus 70's with pat 12 beats early this am) Phys Exam - Physical Examination Constitutional: NAD Respiratory: no wheezing, no rhonchi bibasilar rales Cardiovascular: RRR 3/6 TORRIE throughout - unchanged Gastrointestinal: soft, no distention, positive bowel sounds 3+ edema - no significant change in BLE Neurological: non-focal Psychiatric: normal affect Dx/Plan (1) Acute respiratory failure with hypoxia and hypercapnia Code(s): J96.01 - ACUTE RESPIRATORY FAILURE WITH HYPOXIA; J96.02 - ACUTE RESPIRATORY FAILURE WITH HYPERCAPNIA Status: Acute Comment: nightly bipap (2) Diastolic heart failure Code(s): I50.30 - UNSPECIFIED DIASTOLIC (CONGESTIVE) HEART FAILURE Status: Acute Qualifiers: Heart failure chronicity: acute on chronic Qualified Code(s): I50.33 - Acute on chronic diastolic (congestive) heart failure (3) CKD (chronic kidney disease) Code(s): N18.9 - CHRONIC KIDNEY DISEASE, UNSPECIFIED Status: Acute Qualifiers: Chronic kidney disease stage: stage 2 (mild) Qualified Code(s): N18.2 - Chronic kidney disease, stage 2 (mild) (4) Bradycardia Code(s): R00.1 - BRADYCARDIA, UNSPECIFIED Status: Resolved (5) DM type 2 (diabetes mellitus, type 2) Status: Chronic Qualifiers: Diabetes mellitus termite inspector insulin use: with prison use Diabetes mellitus complication status: with unspecified complications (6) Hypertension Code(s): I10 - ESSENTIAL (PRIMARY) HYPERTENSION Status: Chronic Qualifiers: Hypertension type: essential hypertension Qualified Code(s): I10 - Essential (primary) hypertension (7) Morbid obesity Code(s): E66.01 - MORBID (SEVERE) OBESITY DUE TO EXCESS CALORIES Status: Chronic (8) Decubitus skin ulcer Code(s): L89.90 - PRESSURE ULCER OF UNSPECIFIED SITE, UNSPECIFIED STAGE Status : Acute Qualifiers: Pressure injury location: lower back - Plan * * Acute on chronic resp failure - pt improved overall since admission * Pt sees Dr. Mendoza as an outpatient and refuses sleep study, likely obesity hypoventilation and possibly ARI * * Diastolic HF on daily IV lasix - diuresing well. Bicarb up - will monitor closely - appreciate Cards consult * * HTN - uncontrolled. Reviewed meds and pt only on clonidine HS - will change to BID with starting dose of 0.2 mg. Continue hydralazine, amlodipine. Hold on MIGUEL-I as pt has frequent WELLINGTON's * * DM - continue ISS. Hold long-acting insulin due to severe hypoglycemia 2 days ago * * decubitus ulcers - s/p debridement with wound packed, being changed daily * * Labs reviewed - low magnesium - replaced yesterday -recheck today * Iron deficiency - continue replacement * Constipation - add scheduled colace and miralax * cont home meds of aspirin, statin * * dvt prophy - lovenox * gi prophy -not indicated * code status full * * pt at high risk of decompensation as well as recurrent hospital admissions given age, comorbidities and current presentation. * Reviewed plan of care, no quesitons or further needs at end of eval. * * Anticipate d/c in a few days when adequately diuresed and plan for home health in place. Pt declines SNF due to cost.
--- NOTE | 2018-12-05 12:27 | PRG ---
DATE OF SERVICE: 12/05/2018 SUBJECTIVE: The patient is doing fairly well. Her breathing has improved. OBJECTIVE: VITAL SIGNS: On exam; temperature 97.4, pulse 74, blood pressure 165/71, and O2 saturation 98% on 2L. HEENT: Unremarkable. NECK: No JVD. LUNGS: Fairly clear anteriorly. CARDIAC: S1 and S2 regular. ABDOMEN: Soft. EXTREMITIES: No edema. ASSESSMENT: 1. Obstructive sleep apnea/obesity hypoventilation syndrome. The patient still has not been getting her sleep study. 2. Diastolic heart failure. 3. Hypertension. 4. History of atrial fibrillation. PLAN: She is continuing diuresis with Lasix. She will need to get a sleep study upon time of discharge, although I doubt she will follow through. Job ID: [id number]
--- NOTE | 2018-12-05 15:04 | OP ---
DATE OF PROCEDURE: 12/03/2018 PREOPERATIVE DIAGNOSES: Morbid obesity, 5 feet 9 inches, 50 BMI , lower midline back, upper midline gluteal open wound with necrotic tissue, nonhealing and purulent discharge. ANESTHESIA: 1% Xylocaine with epinephrine. PROCEDURES PERFORMED: Debridement of necrotic skin, subcutaneous tissue in this wound that is 6 x 6 cm. DESCRIPTION OF PROCEDURE: The patient at bedside with her on partial right lateral decubitus (so morbidly obese she cannot move), area was prepared with alcohol. Local anesthetic was infiltrated in the skin and subcutaneous tissue. Eschar debrided sharply. Necrotic skin debrided sharply. Necrotic subcutaneous tissue debrided sharply back to bleeding tissue. Pressure held for hemostasis. Dry gauze dressing applied. The patient tolerated the procedure well. Job ID: [id number]
[2018-12-05] MEDS: cloNIDine 0.2 MG TAB PO SCH (21:02)
[2018-12-05] MEDS: Atorvastatin Calcium 40 MG TAB PO SCH (21:02)
[2018-12-06 06:42] LABS: BUN (Urea Nitrogen) 14 mg/dL (9.8-20.1); Calc. Creatinine Clearance 141 mL/min (70-130); Calcium 8.6 mg/dL (7.8-10.44); Estimated GFR-MDRD 76; Glucose 191 mg/dL (80-115)
[2018-12-06 06:51] LABS: Anion Gap 16 mmol/L (10-20); Carbon Dioxide 35 mmol/L (23-31); Chloride 92 mmol/L (98-107); Potassium 3.8 mmol/L (3.5-5.1); Sodium 139 mmol/L (136-145)
[2018-12-06] MEDS: Amlodipine 10 MG TAB PO SCH (08:09)
[2018-12-06] MEDS: Ascorbic Acid 500 mg Chewable Tablet PO SCH (08:09)
[2018-12-06] MEDS: Potassium Chloride 20 MEQ TAB PO SCH (08:09)
[2018-12-06] MEDS: Aspirin 81 mg Enteric Coated Tablet PO SCH (08:09)
[2018-12-06] MEDS: Ferrous Gluconate 324 MG TAB PO SCH (08:09)
[2018-12-06] MEDS: Polyethylene Glycol 3350 17 GM Packet PO SCH (08:10)
[2018-12-06] MEDS: Docusate 100 MG CAP PO SCH ×2 (08:10→20:32)
[2018-12-06] MEDS: Enoxaparin Sodium 40 MG/0.4 ML SYRINGE SC SCH (08:10)
[2018-12-06] MEDS: Furosemide 40 MG/4 ML VIAL SLOW IVP SCH (08:10)
[2018-12-06] MEDS: cloNIDine 0.2 MG TAB PO SCH ×2 (08:11→20:32)
[2018-12-06] MEDS: HumaLOG 300 UNITS/3 ML VIAL SC PRN ×3 (08:11→17:01)
[2018-12-06] MEDS: hydrALAZINE 25 MG TAB PO SCH ×3 (08:11→20:32)
--- NOTE | 2018-12-06 09:54 | PRG ---
DATE OF SERVICE: 12/06/2018 SUBJECTIVE: The patient is about the same, had no acute complaints. OBJECTIVE: VITAL SIGNS: Temperature 97.7, pulse respirations 20, O2 saturation 96% on 3 L, and blood pressure 176/79. HEENT: Unremarkable. NECK: No JVD. LUNGS: Clear anteriorly. CARDIAC: S1 and S2, regular. ABDOMEN: Soft. EXTREMITIES: 2+ edema. LABORATORY DATA: Sodium 139, potassium 3.8, chloride 92, CO2 of 35, BUN 14, creatinine 0.8, and glucose 191. ASSESSMENT: 1. Obstructive sleep apnea/obesity hypoventilation syndrome. 2. Diastolic heart failure. 3. Hypertension. 4. History of atrial fibrillation. PLAN: The patient is currently being diuresed with furosemide. Ultimately, we have to be wary of her developing too much of a metabolic alkalosis. Therefore, I would recommend starting acetazolamide concurrently. She needs an outpatient sleep study, but so far she has failed to comply with that recommendation. Job ID: [id number]
--- NOTE | 2018-12-06 13:01 | PDOC.PN ---
- Subjective Encounter Start Date: 12/06/18 (f/u resp failure) Encounter Start Time: 13:00 Subjective: Pt without complaints. Able to be up to shower today. Denies any -: chest pain/n/v/abd pain. Reports normal stool today - Objective Resuscitation Status - Order Detail: 12/01/18 07:21 Resuscitation Status Routine Resuscitation Status: FULL: Full Resuscitation Discussed with: Patient Vital Signs & Weight: Vital Signs (12 hours) Temp Pulse Resp BP Pulse Ox 12/06/18 11:00 97.5 F L 65 18 147/67 H 99 12/06/18 08:01 97.7 F 70 20 176/79 H 96 12/06/18 03:50 97.6 F 66 20 149/65 H 100 Weight Admit Weight 350 lb 6.4 oz Weight 325 lb I&O: 12/05/18 12/06/18 12/07/18 06:59 06:59 06:59 Intake Total 780 780 Output Total 3400 2825 Balance -2619 -2044 Result Diagrams: 12/05/18 04:44 12/06/18 05:25 Additional Labs: Accuchecks 12/06/18 12/06/18 12/05/18 10:46 05:34 20:44 POC Glucose 311 H 206 H 298 H 12/05/18 17:17 POC Glucose 237 H EKG Reviewed by me: Yes (tele - sinus 60-70's with BBB) Phys Exam - Physical Examination Constitutional: NAD bibasilar rales, no rhonchi, distant breath sounds Cardiovascular: RRR 3/6 TORRIE unchanged Gastrointestinal: soft, non-tender 3+ edema in LE - improved Neurological: non-focal Psychiatric: normal affect Deviation from normal: hyperpigmentation in LE c/w venous stasis Dx/Plan (1) Acute respiratory failure with hypoxia and hypercapnia Code(s): J96.01 - ACUTE RESPIRATORY FAILURE WITH HYPOXIA; J96.02 - ACUTE RESPIRATORY FAILURE WITH HYPERCAPNIA Status: Acute (2) Diastolic heart failure Code(s): I50.30 - UNSPECIFIED DIASTOLIC (CONGESTIVE) HEART FAILURE Status: Acute Qualifiers: Heart failure chronicity: acute on chronic Qualified Code(s): I50.33 - Acute on chronic diastolic (congestive) heart failure (3) CKD (chronic kidney disease) Code(s): N18.9 - CHRONIC KIDNEY DISEASE, UNSPECIFIED Status: Acute Qualifiers: Chronic kidney disease stage: stage 2 (mild) Qualified Code(s): N18.2 - Chronic kidney disease, stage 2 (mild) (4) Bradycardia Code(s): R00.1 - BRADYCARDIA, UNSPECIFIED Status: Resolved (5) DM type 2 (diabetes mellitus, type 2) Status: Chronic Qualifiers: Diabetes mellitus [facility] insulin use: with criminal justice faculty use Diabetes mellitus complication status: with unspecified complications (6) Hypertension Code(s): I10 - ESSENTIAL (PRIMARY) HYPERTENSION Status: Chronic Qualifiers: Hypertension type: essential hypertension Qualified Code(s): I10 - Essential (primary) hypertension (7) Morbid obesity Code(s): E66.01 - MORBID (SEVERE) OBESITY DUE TO EXCESS CALORIES Status: Chronic (8) Decubitus skin ulcer Code(s): L89.90 - PRESSURE ULCER OF UNSPECIFIED SITE, UNSPECIFIED STAGE Status : Acute Qualifiers: Pressure injury location: lower back - Plan * * Acute on chronic resp failure - pt improved overall since admission * Pt sees Dr. Mendoza as an outpatient and refuses sleep study, likely obesity hypoventilation and possibly ARI * Addition of acetazolamide due to met alkalosis * * Diastolic HF on daily IV lasix - diuresing well. appreciate Cards consult * * HTN - improved - clonidine changed to BID yesterday. Continue hydralazine, amlodipine. Hold on MIGUEL-I as pt has frequent WELLINGTON's * * DM - blood sugars have increased, add lantus at 7 units at night. Avoid any large dose as pt with hypoglycemia a few days ago. * * decubitus ulcers - s/p debridement with wound packed, being changed daily - present on admission. * * Iron deficiency - continue replacement * Constipation -continue colace and miralax * cont home meds of aspirin, statin * * dvt prophy - lovenox * gi prophy -not indicated * code status full * * pt at high risk of decompensation as well as recurrent hospital admissions given age, comorbidities and current presentation. * Reviewed plan of care, no questions or further needs at end of eval. * * Anticipate d/c in a few days when adequately diuresed and plan for home health in place. Pt declines SNF due to cost
[2018-12-06] MEDS: AcetaZOLAMIDE 250 MG TAB PO SCH (20:31)
[2018-12-06] MEDS: Atorvastatin Calcium 40 MG TAB PO SCH (20:32)
[2018-12-06] MEDS: Insulin Glargine 7 UNITS in Pre-Filled Syringe SC SCH (21:15)
[2018-12-07 07:08] LABS: BUN (Urea Nitrogen) 13 mg/dL (9.8-20.1); Calc. Creatinine Clearance 128 mL/min (70-130); Calcium 8.9 mg/dL (7.8-10.44); Estimated GFR-MDRD 70; Glucose 186 mg/dL (80-115)
[2018-12-07 07:16] LABS: Chloride 94 mmol/L (98-107); Potassium 3.8 mmol/L (3.5-5.1); Sodium 141 mmol/L (136-145)
[2018-12-07 07:29] LABS: Carbon Dioxide 41 mmol/L (23-31)
[2018-12-07 07:30] LABS: Anion Gap 10 mmol/L (10-20)
--- NOTE | 2018-12-07 08:45 | PDOC.PN ---
- Subjective Encounter Start Date: 12/07/18 (f/u diastolic HF) Encounter Start Time: 08:44 Subjective: Pt only c/o the number of disruptions o/n and difficulty sleeping -: Denies any cp/difficulty breathing. Denies n/v/abd pain - Objective Resuscitation Status - Order Detail: 12/01/18 07:21 Resuscitation Status Routine Resuscitation Status: FULL: Full Resuscitation Discussed with: Patient Vital Signs & Weight: Vital Signs (12 hours) Temp Pulse Resp BP Pulse Ox 12/07/18 08:00 98.6 F 68 18 176/76 H 93 L 12/07/18 04:00 97.5 F L 70 18 154/65 H 93 L 12/06/18 23:47 98.2 F 66 15 153/69 H 93 L Weight Admit Weight 350 lb 6.4 oz Weight 319 lb 8 oz I&O: 12/06/18 12/07/18 12/08/18 06:59 06:59 06:59 Intake Total 780 960 Output Total 2825 1600 Balance -2045 -640 Result Diagrams: 12/05/18 04:44 12/07/18 06:08 Additional Labs: Accuchecks 12/07/18 12/06/18 12/06/18 05:30 20:43 16:42 POC Glucose 187 H 235 H 196 H 12/06/18 10:46 POC Glucose 311 H EKG Reviewed by me: Yes (tele - sinus 60's) Phys Exam - Physical Examination Constitutional: NAD Respiratory: no wheezing, no rhonchi bibasilar rales Cardiovascular: RRR, no significant murmur Gastrointestinal: soft, positive bowel sounds 3+ edema bilateral - slight improvement Psychiatric: normal affect Dx/Plan (1) Acute respiratory failure with hypoxia and hypercapnia Code(s): J96.01 - ACUTE RESPIRATORY FAILURE WITH HYPOXIA; J96.02 - ACUTE RESPIRATORY FAILURE WITH HYPERCAPNIA Status: Acute (2) Diastolic heart failure Code(s): I50.30 - UNSPECIFIED DIASTOLIC (CONGESTIVE) HEART FAILURE Status: Acute Qualifiers: Heart failure chronicity: acute on chronic Qualified Code(s): I50.33 - Acute on chronic diastolic (congestive) heart failure (3) CKD (chronic kidney disease) Code(s): N18.9 - CHRONIC KIDNEY DISEASE, UNSPECIFIED Status: Acute Qualifiers: Chronic kidney disease stage: stage 2 (mild) Qualified Code(s): N18.2 - Chronic kidney disease, stage 2 (mild) (4) Bradycardia Code(s): R00.1 - BRADYCARDIA, UNSPECIFIED Status: Resolved (5) DM type 2 (diabetes mellitus, type 2) Status: Chronic Qualifiers: Diabetes mellitus 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 insulin use: with snf use Diabetes mellitus complication status: with unspecified complications (6) Hypertension Code(s): I10 - ESSENTIAL (PRIMARY) HYPERTENSION Status: Chronic Qualifiers: Hypertension type: essential hypertension Qualified Code(s): I10 - Essential (primary) hypertension (7) Morbid obesity Code(s): E66.01 - MORBID (SEVERE) OBESITY DUE TO EXCESS CALORIES Status: Chronic (8) Decubitus skin ulcer Code(s): L89.90 - PRESSURE ULCER OF UNSPECIFIED SITE, UNSPECIFIED STAGE Status : Acute Qualifiers: Pressure injury location: lower back - Plan * Met alkalosis worse today - hold placed on furosemide * * Acute on chronic resp failure - stable - appreciate Pulm consult. Acetazoloamide added. * refuses sleep study, likely obesity hypoventilation and possibly ARI * * Diastolic HF on daily IV lasix - diuresing well, currently on hold due to alkalosis. appreciate Cards consult * * HTN - not well controlled - increase clonidine to 0.3 mg BID * DM - low dose lantus started last night, continue ISS. Pt with severe hypoglycemia last weekend, slow adjustment of long-acting meds * * decubitus ulcers - s/p debridement with wound packed, being changed daily - present on admission. * * Iron deficiency - continue replacement * Constipation -continue colace and miralax * cont home meds of aspirin, statin * * dvt prophy - lovenox * gi prophy -not indicated * code status full * * pt at high risk of decompensation as well as recurrent hospital admissions given age, comorbidities and current presentation. * Reviewed plan of care, no questions or further needs at end of eval. * * Anticipate d/c in a few days when adequately diuresed and plan for home health in place. Pt declines SNF due to cost
[2018-12-07] MEDS: hydrALAZINE 25 MG TAB PO SCH ×3 (09:16→21:33)
[2018-12-07] MEDS: cloNIDine 0.3 MG TAB PO SCH ×2 (09:16→20:04)
[2018-12-07] MEDS: Amlodipine 10 MG TAB PO SCH (09:16)
[2018-12-07] MEDS: Ferrous Gluconate 324 MG TAB PO SCH (09:25)
[2018-12-07] MEDS: AcetaZOLAMIDE 250 MG TAB PO SCH ×2 (09:25→20:05)
[2018-12-07] MEDS: Docusate 100 MG CAP PO SCH ×2 (09:25→20:06)
[2018-12-07] MEDS: Aspirin 81 mg Enteric Coated Tablet PO SCH (09:25)
[2018-12-07] MEDS: Ascorbic Acid 500 mg Chewable Tablet PO SCH (09:25)
[2018-12-07] MEDS: Polyethylene Glycol 3350 17 GM Packet PO SCH (09:26)
[2018-12-07] MEDS: Enoxaparin Sodium 40 MG/0.4 ML SYRINGE SC SCH (09:26)
[2018-12-07] MEDS: HumaLOG 300 UNITS/3 ML VIAL SC PRN ×4 (09:29→21:28)
--- NOTE | 2018-12-07 11:14 | PRG ---
DATE OF SERVICE: 12/07/2018 SUBJECTIVE: She is doing well except for blood pressure. She had no acute complaints. OBJECTIVE: VITAL SIGNS: Temperature is 98.6, pulse 60, blood pressure 176/76, O2 saturation 93% on 2 L. HEENT: Unremarkable. NECK: No JVD. LUNGS: Clear to auscultation. CARDIAC: S1, S2. Regular. ABDOMEN: Morbidly obese. EXTREMITIES: Edematous. LABORATORY DATA: White blood cell count 9.8, hematocrit 28.3, and platelet count 225. Sodium 141, potassium 3.8, chloride 94, CO2 of 41, BUN 13, creatinine 0.9, glucose 186. ASSESSMENT: 1. Diastolic heart failure. 2. Morbid obesity. 3. Obesity hypoventilation syndrome. 4. History of acute respiratory failure from the obstructive sleep apnea/obesity hypoventilation syndrome. PLAN: Acetazolamide was added yesterday. If her issues continue with metabolic alkalosis, we may need to stop the Lasix and discuss slowly with acetazolamide. Other than that, I have no new suggestions. Job ID: [id number]
[2018-12-07] MEDS ORDERED: Lidocaine 1% w/Epinephrine 1:100K 20 ML VIAL ONE ×2 (13:58→15:43)
[2018-12-07 14:30] LABS: Actual Bicarbonate (HCO3a) 37.1 mEq/L (22-28); Base Excess (BEa) 11.5 mEq/L (-2.0 to +3.0); CO2 Tension 54.9 mmHg (35.0-45.0); Calcium, Ionized 1.14 mmol/L (1.12-1.30); Carboxyhemoglobin (COHb) 1.4 gm% (0.0-3.0); Hemoglobin (Hb) 10.1 g/dL (12.0-16.0); pH, Arterial 7.45 (7.35-7.45)
[2018-12-07 14:31] LABS: O2 Tension (PaO2) 43.6 mmHg (> 80.0); Puncture Site LRA
[2018-12-07 14:32] LABS: ALV-art Gradient 37.505 (0-20)
[2018-12-07] MEDS: acetaZOLAMIDE Sodium 500 mg Vial IVP SCH ×2 (19:14→20:05)
[2018-12-07] MEDS ORDERED: Sterile Water 10 ML VIAL IVP SCH (19:30)
[2018-12-07] MEDS: Atorvastatin Calcium 40 MG TAB PO SCH (20:04)
[2018-12-07] MEDS: traMADol HCl 50 MG TAB PO PRN (20:05)
[2018-12-07] MEDS: Insulin Glargine 7 UNITS in Pre-Filled Syringe SC SCH (21:28)
[2018-12-08 04:41] LABS: #Eosinphils 0.2 thou/uL (0.0-0.7); #Lymphocytes 1.8 thou/uL (1.20-3.40); #Monocytes 1.1 thou/uL (0.11-0.59); #Neutrophils 7.3 thou/uL (1.40-6.50); %Basophils 0.2 % (0.0-1.0); %Eosinophils 1.6 % (0.0-10.0); %Lymphocytes 17.3 % (21.0-51.0); %Monocytes 10.9 % (0.0-10.0); Hemoglobin 6.9 g/dL (12.0-16.0); Mean Corpuscular HGB CONC 31.7 g/dL (32.0-36.0); Mean Corpuscular Volume 88.2 fL (78.0-98.0); Mean Platelet Volume 8.4 fL (7.4-10.4); Platelet Count 213 thou/uL (130-400); RBC Distribution Width 13.8 % (11.5-14.5); Red Blood Cell (RBC) Count 2.45 mill/uL (4.20-5.40); White Blood Cell (WBC) Count 10.4 thou/uL (4.8-10.8)
[2018-12-08 05:05] LABS: BUN (Urea Nitrogen) 16 mg/dL (9.8-20.1); Calc. Creatinine Clearance 104 mL/min (70-130); Calcium 8.3 mg/dL (7.8-10.44); Estimated GFR-MDRD 55; Glucose 166 mg/dL (80-115)
[2018-12-08 05:14] LABS: Anion Gap 10 mmol/L (10-20); Carbon Dioxide 38 mmol/L (23-31); Chloride 95 mmol/L (98-107); Potassium 3.7 mmol/L (3.5-5.1); Sodium 139 mmol/L (136-145)
--- NOTE | 2018-12-08 07:23 | OP ---
DATE OF PROCEDURE: 12/07/2018 PREOPERATIVE DIAGNOSIS: Bleeding from recently debrided wound. POSTOPERATIVE DIAGNOSIS: Bleeding from recently debrided wound. DESCRIPTION OF PROCEDURE: With the patient at bedside, her dressings were removed and cautery was used to gain hemostasis. Local anesthetic of 1% Xylocaine with epinephrine was infiltrated in the surrounding skin and subcutaneous tissues were necessary for pain control. Good hemostasis was obtained from skin bleeders. The wound looked overall healthy. There was no more necrotic tissue. The wound should be ready for a wound VAC application on 12/08/2018, . Job ID: [id number]
[2018-12-08 08:33] LABS: Hemoglobin 7.1 g/dL (12.0-16.0)
--- NOTE | 2018-12-08 09:26 | OP ---
DATE OF PROCEDURE: 12/07/2018 PREOPERATIVE DIAGNOSIS: Lower back abscess, necrotic tissue in need of further debridement. POSTOPERATIVE DIAGNOSIS: Lower back abscess, necrotic tissue in need of further debridement. PROCEDURE PERFORMED: Incision and drainage of complicated abscess lower back, debriding skin, subcutaneous tissue down the fascia. Wound Care present to assist. ANESTHESIA: 1% Xylocaine with epinephrine. DESCRIPTION OF PROCEDURE: With the patient at bedside with her sitting upright, area was prepared with alcohol. There was an open wound inferiorly and superiorly. There was more undermining purulent, necrotic tissue. Alcohol prep, used 1% Xylocaine with epinephrine was infiltrated in the skin and subcutaneous tissue. An incision was made superiorly and another 5 cm and excised skin, subcutaneous tissue that was necrotic, purulent, down to fascia. Hemostasis was gained with 3-0 Vicryl, Surgicel, and dressings. Most of adequate debridement was accomplished. This was very complicated abscess multiloculated with purulent material foul smelling. It was debrided of subcutaneous tissue down the lumbar fascia. The wound packed open with Surgicel in the base after acceptable hemostasis achieved. Hopefully, a wound VAC can be applied tomorrow. Job ID: [id number]
[2018-12-08] MEDS: traMADol HCl 50 MG TAB PO PRN ×2 (09:40→20:12)
[2018-12-08] MEDS: Docusate 100 MG CAP PO SCH ×2 (09:42→20:16)
[2018-12-08] MEDS: AcetaZOLAMIDE 250 MG TAB PO SCH ×2 (09:42→20:18)
[2018-12-08] MEDS: Amlodipine 10 MG TAB PO SCH (09:42)
[2018-12-08] MEDS: Ascorbic Acid 500 mg Chewable Tablet PO SCH (09:42)
[2018-12-08] MEDS: Aspirin 81 mg Enteric Coated Tablet PO SCH (09:42)
[2018-12-08] MEDS: Ferrous Gluconate 324 MG TAB PO SCH (09:42)
[2018-12-08] MEDS: Enoxaparin Sodium 40 MG/0.4 ML SYRINGE SC SCH (09:44)
[2018-12-08] MEDS: cloNIDine 0.3 MG TAB PO SCH ×2 (09:44→20:16)
[2018-12-08] MEDS: Polyethylene Glycol 3350 17 GM Packet PO SCH (09:45)
[2018-12-08] MEDS: hydrALAZINE 25 MG TAB PO SCH ×3 (09:45→20:17)
--- NOTE | 2018-12-08 10:11 | PRG ---
DATE OF SERVICE: 12/08/2018 SUBJECTIVE: The patient is about the same. She had some type of debridement on her back yesterday and then had to go back and be cauterized. OBJECTIVE: VITAL SIGNS: Temperature is 97.6, pulse , respirations 13, O2 saturation 94% on 2 L, blood pressure . HEENT: Unremarkable. NECK: No adenopathy or JVD. CHEST: Clear anteriorly. CARDIAC: S1, S2. Regular. ABDOMEN: Soft. EXTREMITIES: Edematous. LABORATORY DATA: Sodium 139, potassium 3.7, chloride 95, CO2 of 38, BUN 16, creatinine 1.2, glucose 166. Hemoglobin 7.1, hematocrit 22.4. ASSESSMENT: 1. Anemia due to blood loss. 2. obstructive sleep apnea/obesity hypoventilation syndrome-noncompliant with order to get sleep study. 3. Diastolic heart dysfunction. 4. Hypertension. 5. History of atrial fibrillation. PLAN: 1. Continue acetazolamide. 2. The patient may need blood in the upcoming days. 3. No further recommendations at this time. Job ID: [id number]
[2018-12-08] MEDS: HumaLOG 300 UNITS/3 ML VIAL SC PRN ×3 (10:50→20:23)
--- NOTE | 2018-12-08 12:58 | PDOC.PN ---
- Subjective Encounter Start Date: 12/08/18 (f/u anemia) Encounter Start Time: 12:57 Subjective: Pt frustrated -doesnt feel well, reports that she was disrupted all -: night and couldnt sleep. Now has a wound vac in place. s/p -: repeat eval and cautery by Dr. Burkett yesterday - Objective Resuscitation Status - Order Detail: 12/01/18 07:21 Resuscitation Status Routine Resuscitation Status: FULL: Full Resuscitation Discussed with: Patient Vital Signs & Weight: Vital Signs (12 hours) Temp Pulse Resp BP BP Pulse Ox 12/08/18 09:45 62 134/62 12/08/18 09:44 134/62 12/08/18 09:42 62 134/62 12/08/18 08:00 98.1 F 62 18 134/62 98 12/08/18 03:52 97.6 F 51 L 13 111/56 L 94 L Weight Admit Weight 350 lb 6.4 oz Weight 321 lb 9.6 oz I&O: 12/07/18 12/08/18 12/09/18 06:59 06:59 06:59 Intake Total 960 970 Output Total 1600 1000 Balance -640 -30 Result Diagrams: 12/08/18 19:05 12/08/18 04:17 Additional Labs: Accuchecks 12/08/18 12/08/18 12/07/18 10:51 05:47 21:03 POC Glucose 251 H 197 H 282 H 12/07/18 16:37 POC Glucose 334 H EKG Reviewed by me: Yes (tele - sinus 50's, junctional yesterday) Phys Exam - Physical Examination Constitutional: NAD Respiratory: no wheezing, no rhonchi bibasilar rales Cardiovascular: RRR, no significant murmur Gastrointestinal: soft, non-tender, positive bowel sounds 3+ edema Deviation from normal: tired appearing Dx/Plan (1) Acute respiratory failure with hypoxia and hypercapnia Code(s): J96.01 - ACUTE RESPIRATORY FAILURE WITH HYPOXIA; J96.02 - ACUTE RESPIRATORY FAILURE WITH HYPERCAPNIA Status: Acute (2) Diastolic heart failure Code(s): I50.30 - UNSPECIFIED DIASTOLIC (CONGESTIVE) HEART FAILURE Status: Acute Qualifiers: Heart failure chronicity: acute on chronic Qualified Code(s): I50.33 - Acute on chronic diastolic (congestive) heart failure (3) CKD (chronic kidney disease) Code(s): N18.9 - CHRONIC KIDNEY DISEASE, UNSPECIFIED Status: Acute Qualifiers: Chronic kidney disease stage: stage 2 (mild) Qualified Code(s): N18.2 - Chronic kidney disease, stage 2 (mild) (4) Bradycardia Code(s): R00.1 - BRADYCARDIA, UNSPECIFIED Status: Resolved (5) DM type 2 (diabetes mellitus, type 2) Status: Chronic Qualifiers: Diabetes mellitus extermination inspector insulin use: with extermination inspector use Diabetes mellitus complication status: with unspecified complications (6) Hypertension Code(s): I10 - ESSENTIAL (PRIMARY) HYPERTENSION Status: Chronic Qualifiers: Hypertension type: essential hypertension Qualified Code(s): I10 - Essential (primary) hypertension (7) Morbid obesity Code(s): E66.01 - MORBID (SEVERE) OBESITY DUE TO EXCESS CALORIES Status: Chronic (8) Decubitus skin ulcer Code(s): L89.90 - PRESSURE ULCER OF UNSPECIFIED SITE, UNSPECIFIED STAGE Status : Acute Qualifiers: Pressure injury location: lower back (9) Anemia Code(s): D64.9 - ANEMIA, UNSPECIFIED Status: Acute Qualifiers: Anemia type: unspecified type Qualified Code(s): D64.9 - Anemia, unspecified - Plan * Anemia worsening today - bleeding associated with wound that is now cauterized * Transfuse starting with 1 unit prbc and goal Hb 8-9. Anticipate 1-2 units. Pt and her daughter verbally consent * ABG performed yesterday - mixed resp and met alkalosis - improved today * * Acute on chronic resp failure - stable - appreciate Pulm consult. Acetazoloamide added. * refuses sleep study, likely obesity hypoventilation and possibly ARI * * Diastolic HF - lasix held due to alkalosis * HTN - monitor, clonidine increased yesterday and improved * * DM - improved fasting blood sugar, continue ISS * * decubitus ulcers - s/p debridement, cautery and now wound vac. Consult placed to arrange for wound vac at home. * * Iron deficiency - continue replacement * Constipation -continue colace and miralax * * continue PT/OT * * dvt prophy - d/c lovenox due to anemia. SCD's as able * gi prophy -not indicated * code status full * * pt at high risk of decompensation as well as recurrent hospital admissions given age, comorbidities and current presentation. * Reviewed plan of care with patient and her daughter, no questions or further needs at end of eval. *
[2018-12-08 19:21] LABS: Hemoglobin 8.3 g/dL (12.0-16.0)
[2018-12-08] MEDS: Atorvastatin Calcium 40 MG TAB PO SCH (20:16)
[2018-12-08] MEDS: Insulin Glargine 7 UNITS in Pre-Filled Syringe SC SCH (20:18)
[2018-12-09 08:30] LABS: #Eosinphils 0.2 thou/uL (0.0-0.7); #Lymphocytes 1.8 thou/uL (1.20-3.40); #Neutrophils 7.6 thou/uL (1.40-6.50); %Basophils 0.2 % (0.0-1.0); %Eosinophils 2.2 % (0.0-10.0); %Lymphocytes 16.9 % (21.0-51.0); %Monocytes 9.6 % (0.0-10.0); %Neutrophils 71.2 % (42.0-75.0); Hemoglobin 8.1 g/dL (12.0-16.0); Mean Corpuscular HGB CONC 32.7 g/dL (32.0-36.0); Mean Corpuscular Hemoglobin 29.2 pg (27.0-31.0); Mean Corpuscular Volume 89.2 fL (78.0-98.0); Mean Platelet Volume 8.2 fL (7.4-10.4); Platelet Count 219 thou/uL (130-400); Red Blood Cell (RBC) Count 2.79 mill/uL (4.20-5.40); White Blood Cell (WBC) Count 10.7 thou/uL (4.8-10.8)
[2018-12-09 08:46] LABS: Anion Gap 12 mmol/L (10-20); BUN (Urea Nitrogen) 17 mg/dL (9.8-20.1); Calc. Creatinine Clearance 106 mL/min (70-130); Calcium 8.4 mg/dL (7.8-10.44); Carbon Dioxide 34 mmol/L (23-31); Chloride 95 mmol/L (98-107); Estimated GFR-MDRD 56; Glucose 170 mg/dL (80-115); Potassium 3.8 mmol/L (3.5-5.1); Sodium 137 mmol/L (136-145)
[2018-12-09] MEDS: hydrALAZINE 25 MG TAB PO SCH ×3 (08:56→20:33)
[2018-12-09] MEDS: AcetaZOLAMIDE 250 MG TAB PO SCH ×2 (08:57→20:33)
[2018-12-09] MEDS: Amlodipine 10 MG TAB PO SCH (08:57)
[2018-12-09] MEDS: Ascorbic Acid 500 mg Chewable Tablet PO SCH (08:57)
[2018-12-09] MEDS: Ferrous Gluconate 324 MG TAB PO SCH (08:58)
[2018-12-09] MEDS: Aspirin 81 mg Enteric Coated Tablet PO SCH (08:58)
[2018-12-09] MEDS: Docusate 100 MG CAP PO SCH ×2 (08:58→20:33)
[2018-12-09] MEDS: cloNIDine 0.3 MG TAB PO SCH ×2 (08:58→20:33)
[2018-12-09] MEDS: Polyethylene Glycol 3350 17 GM Packet PO SCH (08:59)
[2018-12-09] MEDS: Enoxaparin Sodium 40 MG/0.4 ML SYRINGE SC SCH (10:14)
[2018-12-09] MEDS: HumaLOG 300 UNITS/3 ML VIAL SC PRN ×3 (11:14→20:34)
--- NOTE | 2018-12-09 12:56 | PDOC.PN ---
- Subjective Encounter Start Date: 12/09/18 (f/u anemia) Encounter Start Time: 12:55 Subjective: Pt without complaints today. Denies any CP/dyspnea/n/v/abd pain -: denies any change with the blood transfusion yesterday - Objective Resuscitation Status - Order Detail: 12/01/18 07:21 Resuscitation Status Routine Resuscitation Status: FULL: Full Resuscitation Discussed with: Patient Vital Signs & Weight: Vital Signs (12 hours) Temp Pulse Pulse Pulse Resp BP BP 12/09/18 11:11 97.7 F 59 L 18 12/09/18 08:56 71 159/69 H 12/09/18 08:26 71 63 159/69 H 12/09/18 07:55 97.7 F 57 L 15 12/09/18 03:35 97.4 F L 56 L 20 BP BP Pulse Ox Pulse Ox Pulse Ox 12/09/18 11:11 157/71 H 94 L 12/09/18 08:56 12/09/18 08:26 134/87 92 L 92 L 12/09/18 07:55 124/59 L 95 12/09/18 03:35 141/63 H 100 Weight Admit Weight 350 lb 6.4 oz Weight 323 lb I&O: 12/08/18 12/09/18 12/10/18 06:59 06:59 06:59 Intake Total 970 1200 Output Total 1000 700 Balance -30 500 Result Diagrams: 12/09/18 08:15 12/09/18 08:15 Additional Labs: Accuchecks 12/09/18 12/09/18 12/08/18 10:30 05:15 20:14 POC Glucose 275 H 198 H 253 H 12/08/18 16:53 POC Glucose 212 H EKG Reviewed by me: Yes (tele - sinus 40-50's) Phys Exam - Physical Examination Constitutional: NAD Respiratory: no wheezing, no rhonchi bibasilar rales Cardiovascular: RRR 3/6 TORRIE unchanged Gastrointestinal: soft, non-tender, positive bowel sounds unchanged 3+ edema Neurological: non-focal Psychiatric: normal affect Dx/Plan (1) Acute respiratory failure with hypoxia and hypercapnia Code(s): J96.01 - ACUTE RESPIRATORY FAILURE WITH HYPOXIA; J96.02 - ACUTE RESPIRATORY FAILURE WITH HYPERCAPNIA Status: Acute (2) Diastolic heart failure Code(s): I50.30 - UNSPECIFIED DIASTOLIC (CONGESTIVE) HEART FAILURE Status: Acute Qualifiers: Heart failure chronicity: acute on chronic Qualified Code(s): I50.33 - Acute on chronic diastolic (congestive) heart failure (3) CKD (chronic kidney disease) Code(s): N18.9 - CHRONIC KIDNEY DISEASE, UNSPECIFIED Status: Acute Qualifiers: Chronic kidney disease stage: stage 2 (mild) Qualified Code(s): N18.2 - Chronic kidney disease, stage 2 (mild) (4) Bradycardia Code(s): R00.1 - BRADYCARDIA, UNSPECIFIED Status: Resolved (5) DM type 2 (diabetes mellitus, type 2) Status: Chronic Qualifiers: Diabetes mellitus penitentiary insulin use: with penitentiary use Diabetes mellitus complication status: with unspecified complications (6) Hypertension Code(s): I10 - ESSENTIAL (PRIMARY) HYPERTENSION Status: Chronic Qualifiers: Hypertension type: essential hypertension Qualified Code(s): I10 - Essential (primary) hypertension (7) Morbid obesity Code(s): E66.01 - MORBID (SEVERE) OBESITY DUE TO EXCESS CALORIES Status: Chronic (8) Decubitus skin ulcer Code(s): L89.90 - PRESSURE ULCER OF UNSPECIFIED SITE, UNSPECIFIED STAGE Status : Acute Qualifiers: Pressure injury location: lower back (9) Anemia Code(s): D64.9 - ANEMIA, UNSPECIFIED Status: Acute Qualifiers: Anemia type: unspecified type Qualified Code(s): D64.9 - Anemia, unspecified - Plan * * Anemia improved after 1 unit prbc. * I think pt will do better with a hemoglobin closer to 9 and recommend 1 unit prbc today. I believe this will improve her breathing, improve her renal function (mildly abnormal) and the ability to continue diuresis. * Acute on chronic resp failure - stable - appreciate Pulm consult. Acetazoloamide added. * refuses sleep study, likely obesity hypoventilation and possibly ARI * * Diastolic HF - lasix has been d/c due to elevated bicarb. Resume as pt/labs will tolerated - defer to Cardiology * HTN - improved * * DM -fasting blood sugar 170 - increase lantus to 10 units HS * * decubitus ulcers - s/p debridement, cautery and now wound vac. Consult placed to arrange for wound vac at home. Fluid is now serosanguinous * * Iron deficiency - continue replacement * Constipation -continue colace and miralax * * continue PT/OT * * dvt prophy - SCD's as able, lovenox d/c due to anemia and bleeding from wound * gi prophy -not indicated * code status full * * pt at high risk of decompensation as well as recurrent hospital admissions given age, comorbidities and current presentation. * reviewed plan of care wiht patient, no questions or further needs at end of eval.
--- NOTE | 2018-12-09 13:04 | PRG ---
DATE OF SERVICE: 12/09/2018 SUBJECTIVE: The patient is doing about the same and had no acute complaints. OBJECTIVE: VITAL SIGNS: On exam, temperature 97.7, pulse 69, respirations 18, O2 saturation 94% on 2 L, and blood pressure 157/71. HEENT: Unremarkable. NECK: Without adenopathy or JVD. LUNGS: Fairly clear without wheezing or rhonchi. CARDIAC: S1 and S2, regular. ABDOMEN: Soft. EXTREMITIES: Edematous. LABORATORY DATA: White blood cell count 10.7, hematocrit 24.9, and platelet count 219. Sodium 137, potassium 3.8, chloride 95, CO2 of 34, BUN 17, creatinine 1.2, glucose 170. ASSESSMENT: 1. Chronic hypercapnic respiratory failure from ARI/OHS. 2. Diastolic cardiac dysfunction with chronic fluid overload. 3. History of atrial fibrillation. PLAN: We would continue her on the acetazolamide and perhaps leave her on that indefinitely. She seems pretty close to her baseline. I will check with her again on Wednesday if she is still here. Job ID: [id number]
[2018-12-09] MEDS: Atorvastatin Calcium 40 MG TAB PO SCH (20:33)
[2018-12-09] MEDS: traMADol HCl 50 MG TAB PO PRN (20:34)
[2018-12-09] MEDS: Insulin Glargine 10 UNITS in Pre-Filled Syringe 1 EACH SC SCH (21:02)
[2018-12-10] MEDS: Ferrous Gluconate 324 MG TAB PO SCH (08:16)
[2018-12-10] MEDS: hydrALAZINE 25 MG TAB PO SCH ×3 (08:16→21:02)
[2018-12-10] MEDS: Docusate 100 MG CAP PO SCH ×2 (08:17→21:10)
[2018-12-10] MEDS: Amlodipine 10 MG TAB PO SCH (08:17)
[2018-12-10] MEDS: AcetaZOLAMIDE 250 MG TAB PO SCH ×2 (08:17→21:02)
[2018-12-10] MEDS: Aspirin 81 mg Enteric Coated Tablet PO SCH (08:17)
[2018-12-10] MEDS: Ascorbic Acid 500 mg Chewable Tablet PO SCH (08:17)
[2018-12-10] MEDS: cloNIDine 0.3 MG TAB PO SCH ×2 (08:17→21:02)
[2018-12-10] MEDS: Polyethylene Glycol 3350 17 GM Packet PO SCH (08:18)
[2018-12-10 08:25] LABS: Hemoglobin 9.1 g/dL (12.0-16.0); Mean Corpuscular HGB CONC 31.9 g/dL (32.0-36.0); Mean Corpuscular Hemoglobin 28.4 pg (27.0-31.0); Mean Platelet Volume 8.3 fL (7.4-10.4); Platelet Count 233 thou/uL (130-400); RBC Distribution Width 14.3 % (11.5-14.5); Red Blood Cell (RBC) Count 3.22 mill/uL (4.20-5.40); White Blood Cell (WBC) Count 11.9 thou/uL (4.8-10.8)
[2018-12-10 08:28] LABS: Anion Gap 9 mmol/L (10-20); BUN (Urea Nitrogen) 19 mg/dL (9.8-20.1); Calc. Creatinine Clearance 117 mL/min (70-130); Calcium 8.4 mg/dL (7.8-10.44); Carbon Dioxide 36 mmol/L (23-31); Chloride 96 mmol/L (98-107); Estimated GFR-MDRD 61; Glucose 151 mg/dL (80-115); Potassium 3.4 mmol/L (3.5-5.1); Sodium 138 mmol/L (136-145)
[2018-12-10 08:45] LABS: #Eosinphils 0.3 thou/uL (0.0-0.7); #Lymphocytes 1.5 thou/uL (1.20-3.40); #Monocytes 1.1 thou/uL (0.11-0.59); #Neutrophils 9.1 thou/uL (1.40-6.50); %Basophils 0.1 % (0.0-1.0); %Eosinophils 2.1 % (0.0-10.0); %Lymphocytes 12.5 % (21.0-51.0); %Monocytes 8.9 % (0.0-10.0); %Neutrophils 76.3 % (42.0-75.0); Burr Cells SLIGHT = 2-5 cells (100X) (0-1/hpf); Eosinophils 2 % (0-10); Hypochromia SLIGHT = 6-15 cells (100X) (0-5/hpf); Lymphocytes 6 % (21-51); MDiff Complete? YES; Microcytosis SLIGHT = 6-15 cells (100X) (0-5/hpf); Monocytes 15 % (0-10); Neutrophil 74 % (42-75); Platelet Morphology Comment Appears Adequate; Polychromasia SLIGHT = 2-3 cells (100X) (0-2/hpf); Reactive Lymphocytes 3 % (0-10); Vacuoles SLIGHT
--- NOTE | 2018-12-10 09:45 | PDOC.CTH ---
Cardiology Progress Note - Subjective No complaints overnight. no acute events. - Objective Vital Signs Temp Pulse Resp BP Pulse Ox 12/10/18 08:17 55 L 12/10/18 08:16 55 L 12/10/18 07:36 97.3 F L 55 L 16 149/68 H 97 12/10/18 03:49 97.4 F L 57 L 19 168/75 H 96 12/10/18 02:00 96 Admit Weight 350 lb 6.4 oz Weight 326 lb 12.8 oz 12/09/18 12/10/18 12/11/18 06:59 06:59 06:59 Intake Total 1200 1190 Output Total 700 1050 Balance 500 140 - Physical Examination General/Neuro: alert & oriented x3 Neck: no JVD present Lungs: CTA Heart: RRR Abdomen: NT/ND Extremities: other: (minimal edema) - Telemetry Telemetry Rhythm: SR; SB - Labs Result Diagrams: 12/10/18 07:47 12/10/18 07:47 Troponin/CKMB Troponin I Less than 0.010 ng/mL (< 0.028) 12/01/18 06:00 - Assessment/Plan 1. Acute on chronic diastolic CHF 2. Acute hypercapnic respiratory failure secondary to ARI/hypoventilation 3. Paroxysmal AF 4. SBrady - stable 5. HTN 6. Obesity Overall doing well from cardiac standpoint. Remains off lasix secondary to elevated CO2, but volume status appears stable. Continue Diamox. Needs discharge planning. Pt seen and examined. Agree with the above. Lasix given Check BMP in am No other recommendations
[2018-12-10] MEDS: traMADol HCl 50 MG TAB PO PRN ×2 (11:41→21:04)
[2018-12-10] MEDS: HumaLOG 300 UNITS/3 ML VIAL SC PRN ×3 (11:42→21:03)
--- NOTE | 2018-12-10 12:25 | PDOC.PN ---
- Subjective Encounter Start Date: 12/10/18 (f/u diastolic HF) Encounter Start Time: 12:21 Subjective: Pt without complaints today. Denies any breathing concerns. -: denies any n/v/abd pain. reports bm's every few days - denies -: straining - Objective Resuscitation Status - Order Detail: 12/01/18 07:21 Resuscitation Status Routine Resuscitation Status: FULL: Full Resuscitation Discussed with: Patient Vital Signs & Weight: Vital Signs (12 hours) Temp Pulse Resp BP Pulse Ox 12/10/18 11:39 97.5 F L 56 L 16 157/70 H 12/10/18 08:17 55 L 12/10/18 08:16 55 L 12/10/18 07:36 97.3 F L 55 L 16 149/68 H 97 12/10/18 03:49 97.4 F L 57 L 19 168/75 H 96 12/10/18 02:00 96 Weight Admit Weight 350 lb 6.4 oz Weight 326 lb 12.8 oz I&O: 12/09/18 12/10/18 12/11/18 06:59 06:59 06:59 Intake Total 1200 1190 Output Total 700 1050 Balance 500 140 Result Diagrams: 12/10/18 07:47 12/10/18 07:47 Additional Labs: Accuchecks 12/10/18 12/10/18 12/09/18 10:54 05:36 20:14 POC Glucose 236 H 167 H 306 H 12/09/18 17:02 POC Glucose 280 H EKG Reviewed by me: Yes (tele - sinus 50's, as low as 46) Phys Exam - Physical Examination Constitutional: NAD Respiratory: no wheezing, no rhonchi, clear to auscultation bilateral bibasilar rales Cardiovascular: RRR 3/6 TORRIE unchanged Gastrointestinal: soft, non-tender, no distention, positive bowel sounds 3+ edema however improved through the past week Psychiatric: normal affect Dx/Plan (1) Acute respiratory failure with hypoxia and hypercapnia Code(s): J96.01 - ACUTE RESPIRATORY FAILURE WITH HYPOXIA; J96.02 - ACUTE RESPIRATORY FAILURE WITH HYPERCAPNIA Status: Acute (2) Diastolic heart failure Code(s): I50.30 - UNSPECIFIED DIASTOLIC (CONGESTIVE) HEART FAILURE Status: Acute Qualifiers: Heart failure chronicity: acute on chronic Qualified Code(s): I50.33 - Acute on chronic diastolic (congestive) heart failure (3) CKD (chronic kidney disease) Code(s): N18.9 - CHRONIC KIDNEY DISEASE, UNSPECIFIED Status: Acute Qualifiers: Chronic kidney disease stage: stage 2 (mild) Qualified Code(s): N18.2 - Chronic kidney disease, stage 2 (mild) (4) Bradycardia Code(s): R00.1 - BRADYCARDIA, UNSPECIFIED Status: Resolved (5) DM type 2 (diabetes mellitus, type 2) Status: Chronic Qualifiers: Diabetes mellitus termite inspector insulin use: with mcfp use Diabetes mellitus complication status: with unspecified complications (6) Hypertension Code(s): I10 - ESSENTIAL (PRIMARY) HYPERTENSION Status: Chronic Qualifiers: Hypertension type: essential hypertension Qualified Code(s): I10 - Essential (primary) hypertension (7) Morbid obesity Code(s): E66.01 - MORBID (SEVERE) OBESITY DUE TO EXCESS CALORIES Status: Chronic (8) Decubitus skin ulcer Code(s): L89.90 - PRESSURE ULCER OF UNSPECIFIED SITE, UNSPECIFIED STAGE Status : Acute Qualifiers: Pressure injury location: lower back (9) Anemia Code(s): D64.9 - ANEMIA, UNSPECIFIED Status: Acute Qualifiers: Anemia type: unspecified type Qualified Code(s): D64.9 - Anemia, unspecified - Plan * * Anemia improved after 2 unit prbc - at goal of hb 8-9. * continue iron replacement * Acute on chronic resp failure - stable - appreciate Pulm consult. * continue acetazolamide * refuses sleep study, likely obesity hypoventilation and possibly ARI * * Diastolic HF - remains fluid overloaded * resume lasix as bicarb is now back to mid-30's - goal for patient * anticipate in the next 2-3 days that pt can be transitioned to oral with plan for d/c to home * replace potassium * * HTN - improved - continue same meds * * DM -fasting blood sugar 150's * add 3 units correction to lunch and dinner meals, continue lantus 10 units at night * * decubitus ulcers - s/p debridement, cautery and now wound vac. * wound vac being arranged for home * * Iron deficiency - continue replacement * Constipation -continue colace and miralax as pt will allow * * continue PT/OT * * dvt prophy - SCD's as able. Lovenox was d/c due to bleeding. Resume tomorrow * gi prophy -not indicated * code status full * * pt at high risk of decompensation as well as recurrent hospital admissions given age, comorbidities and current presentation. * reviewed plan of care wiht patient, no questions or further needs at end of eval * anticipate pt is 3-4 days away from discharge to home.
[2018-12-10] MEDS ORDERED: Furosemide 40 MG/4 ML VIAL SLOW IVP SCH (12:30)
[2018-12-10] MEDS ORDERED: Potassium Chloride 20 MEQ TAB PO SCH (15:45)
[2018-12-10] MEDS: HumaLOG 300 UNITS/3 ML VIAL SC SCH (17:53)
[2018-12-10] MEDS: Atorvastatin Calcium 40 MG TAB PO SCH (21:02)
[2018-12-10] MEDS: Insulin Glargine 10 UNITS in Pre-Filled Syringe 1 EACH SC SCH (21:03)
[2018-12-11 08:03] LABS: #Eosinphils 0.2 thou/uL (0.0-0.7); #Lymphocytes 1.5 thou/uL (1.20-3.40); #Monocytes 0.9 thou/uL (0.11-0.59); #Neutrophils 7.8 thou/uL (1.40-6.50); %Basophils 0.2 % (0.0-1.0); %Eosinophils 1.9 % (0.0-10.0); %Lymphocytes 14.4 % (21.0-51.0); %Monocytes 8.5 % (0.0-10.0); %Neutrophils 75.1 % (42.0-75.0); Hemoglobin 9.2 g/dL (12.0-16.0); Mean Corpuscular HGB CONC 31.8 g/dL (32.0-36.0); Mean Corpuscular Hemoglobin 28.9 pg (27.0-31.0); Mean Corpuscular Volume 90.9 fL (78.0-98.0); Mean Platelet Volume 8.3 fL (7.4-10.4); Platelet Count 246 thou/uL (130-400); RBC Distribution Width 14.6 % (11.5-14.5); Red Blood Cell (RBC) Count 3.17 mill/uL (4.20-5.40); White Blood Cell (WBC) Count 10.4 thou/uL (4.8-10.8)
[2018-12-11 08:17] LABS: Anion Gap 12 mmol/L (10-20); BUN (Urea Nitrogen) 19 mg/dL (9.8-20.1); Calc. Creatinine Clearance 117 mL/min (70-130); Calcium 8.5 mg/dL (7.8-10.44); Carbon Dioxide 35 mmol/L (23-31); Chloride 98 mmol/L (98-107); Estimated GFR-MDRD 61; Glucose 208 mg/dL (80-115); Potassium 3.7 mmol/L (3.5-5.1); Sodium 141 mmol/L (136-145)
[2018-12-11] MEDS: Polyethylene Glycol 3350 17 GM Packet PO SCH (09:03)
[2018-12-11] MEDS: Furosemide 40 MG/4 ML VIAL SLOW IVP SCH (09:08)
[2018-12-11] MEDS: Enoxaparin Sodium 40 MG/0.4 ML SYRINGE SC SCH (09:08)
[2018-12-11] MEDS: Docusate 100 MG CAP PO SCH ×2 (09:09→20:43)
[2018-12-11] MEDS: Amlodipine 10 MG TAB PO SCH (09:09)
[2018-12-11] MEDS: Ascorbic Acid 500 mg Chewable Tablet PO SCH (09:09)
[2018-12-11] MEDS: AcetaZOLAMIDE 250 MG TAB PO SCH ×2 (09:10→20:41)
[2018-12-11] MEDS: Ferrous Gluconate 324 MG TAB PO SCH (09:10)
[2018-12-11] MEDS: cloNIDine 0.3 MG TAB PO SCH ×2 (09:10→20:41)
[2018-12-11] MEDS: hydrALAZINE 25 MG TAB PO SCH ×3 (09:10→20:40)
[2018-12-11] MEDS: Aspirin 81 mg Enteric Coated Tablet PO SCH (09:10)
[2018-12-11] MEDS: traMADol HCl 50 MG TAB PO PRN ×2 (09:19→20:41)
--- NOTE | 2018-12-11 11:49 | PDOC.PN ---
- Subjective Encounter Start Date: 12/11/18 (f/u diastolic HF) Encounter Start Time: 11:45 Subjective: Pt without complaints - denies any changes in her breathing. Denies -: n/v/cp/sob - Objective Resuscitation Status - Order Detail: 12/01/18 07:21 Resuscitation Status Routine Resuscitation Status: FULL: Full Resuscitation Discussed with: Patient Vital Signs & Weight: Vital Signs (12 hours) Temp Pulse Resp BP BP Pulse Ox 12/11/18 09:10 58 L 153/69 H 12/11/18 09:09 58 L 12/11/18 08:00 97.9 F 58 L 18 159/72 H 96 12/11/18 03:40 94 L 12/11/18 03:07 97.9 F 61 18 166/71 H 93 L Weight Admit Weight 350 lb 6.4 oz Weight 328 lb 14.4 oz I&O: 12/10/18 12/11/18 12/12/18 06:59 06:59 06:59 Intake Total 1190 1080 360 Output Total 1050 2375 Balance 140 -1295 360 Result Diagrams: 12/11/18 07:40 12/11/18 07:40 Additional Labs: Accuchecks 12/11/18 12/10/18 12/10/18 05:35 20:35 17:04 POC Glucose 219 H 360 H 293 H EKG Reviewed by me: Yes (tele - sinus 50-60's with 6 beats pat) Phys Exam - Physical Examination Constitutional: NAD bibasilar rales - less today compared to yesterday Cardiovascular: RRR 3/6 TORRIE unchanged Gastrointestinal: soft, non-tender, no distention, positive bowel sounds 2-3+ edema of LE - improved today Neurological: non-focal Psychiatric: normal affect Dx/Plan (1) Acute respiratory failure with hypoxia and hypercapnia Code(s): J96.01 - ACUTE RESPIRATORY FAILURE WITH HYPOXIA; J96.02 - ACUTE RESPIRATORY FAILURE WITH HYPERCAPNIA Status: Acute (2) Diastolic heart failure Code(s): I50.30 - UNSPECIFIED DIASTOLIC (CONGESTIVE) HEART FAILURE Status: Acute Qualifiers: Heart failure chronicity: acute on chronic Qualified Code(s): I50.33 - Acute on chronic diastolic (congestive) heart failure (3) CKD (chronic kidney disease) Code(s): N18.9 - CHRONIC KIDNEY DISEASE, UNSPECIFIED Status: Acute Qualifiers: Chronic kidney disease stage: stage 2 (mild) Qualified Code(s): N18.2 - Chronic kidney disease, stage 2 (mild) (4) Bradycardia Code(s): R00.1 - BRADYCARDIA, UNSPECIFIED Status: Resolved (5) DM type 2 (diabetes mellitus, type 2) Status: Chronic Qualifiers: Diabetes mellitus alf insulin use: with joint terminal attack controller use Diabetes mellitus complication status: with unspecified complications (6) Hypertension Code(s): I10 - ESSENTIAL (PRIMARY) HYPERTENSION Status: Chronic Qualifiers: Hypertension type: essential hypertension Qualified Code(s): I10 - Essential (primary) hypertension (7) Morbid obesity Code(s): E66.01 - MORBID (SEVERE) OBESITY DUE TO EXCESS CALORIES Status: Chronic (8) Decubitus skin ulcer Code(s): L89.90 - PRESSURE ULCER OF UNSPECIFIED SITE, UNSPECIFIED STAGE Status : Acute Qualifiers: Pressure injury location: lower back (9) Anemia Code(s): D64.9 - ANEMIA, UNSPECIFIED Status: Acute Qualifiers: Anemia type: unspecified type Qualified Code(s): D64.9 - Anemia, unspecified - Plan * Anemia improved after 2 unit prbc - remains at goal of hb 8-9. * continue iron replacement * Acute on chronic resp failure - stable - appreciate Pulm consult. * continue acetazolamide * refuses sleep study, likely obesity hypoventilation and possibly ARI * Diastolic HF - remains fluid overloaded * continue IV lasix at once daily and check daily bicarb - goal is low to mid- 30's * anticipate in the next 1-2 days that pt can be transitioned to oral with plan for d/c to home * monitor potassium - normal today * HTN - bp's stable 140-150's - continue same meds * * DM -fasting blood sugar 200's * continue 3 units scheduled + correction to lunch and dinner meals, increase lantus to 14 units at night. * Earlier in week pt had significant hypoglycemia - going slowly with adjusting meds * * decubitus ulcers - s/p debridement, cautery and now wound vac. * wound vac being arranged for home * * Iron deficiency - continue replacement * Constipation -continue colace and miralax as pt will allow * * continue PT/OT * * dvt prophy - SCD's as able. Lovenox was d/c due to bleeding. Resume tomorrow * gi prophy -not indicated * code status full * * pt at high risk of decompensation as well as recurrent hospital admissions given age, comorbidities and current presentation. * reviewed plan of care wiht patient, no questions or further needs at end of eval * anticipate pt is only a few days away from discharge to home * will need to ensure wound vac, wound care at home, and f/u with Dr. Burkett
[2018-12-11] MEDS: HumaLOG 300 UNITS/3 ML VIAL SC SCH ×2 (12:14→17:08)
--- NOTE | 2018-12-11 13:32 | PDOC.CTH ---
Cardiology Progress Note - Subjective No new complaints. No overnight events. Feels ok. Lasix IV resumed yesterday. Good output. Vitals stable. - Objective Vital Signs Temp Pulse Resp BP BP Pulse Ox 12/11/18 12:22 97.8 F 61 16 144/67 H 94 L 12/11/18 09:10 58 L 153/69 H 12/11/18 09:09 58 L 12/11/18 08:00 97.9 F 58 L 18 159/72 H 96 12/11/18 03:40 94 L 12/11/18 03:07 97.9 F 61 18 166/71 H 93 L Admit Weight 350 lb 6.4 oz Weight 328 lb 14.4 oz 12/10/18 12/11/18 12/12/18 06:59 06:59 06:59 Intake Total 1190 1080 360 Output Total 1050 2375 Balance 140 -1295 360 - Physical Examination General/Neuro: alert & oriented x3 Neck: no JVD present Lungs: unlabored respirations Heart: RRR Abdomen: NT/ND - Labs Result Diagrams: 12/11/18 07:40 12/11/18 07:40 Troponin/CKMB Troponin I Less than 0.010 ng/mL (< 0.028) 12/01/18 06:00 - Assessment/Plan 1. Acute on chronic diastolic CHF 2. Acute hypercapnic respiratory failure secondary to ARI/hypoventilation 3. Paroxysmal AF 4. SBrady - stable 5. HTN 6. Obesity Overall stable. Continues to diurese slowly. No changes today. Discharge planning for NH/SNF soon.
[2018-12-11] MEDS: Atorvastatin Calcium 40 MG TAB PO SCH (20:41)
[2018-12-11] MEDS: Insulin Glargine 14 UNITS in Pre-Filled Syringe 1 EACH SC SCH (20:42)
[2018-12-12] MEDS: Amlodipine 10 MG TAB PO SCH (08:19)
[2018-12-12] MEDS: Ascorbic Acid 500 mg Chewable Tablet PO SCH (08:19)
[2018-12-12] MEDS: AcetaZOLAMIDE 250 MG TAB PO SCH ×2 (08:19→20:17)
[2018-12-12] MEDS: Docusate 100 MG CAP PO SCH ×2 (08:19→20:18)
[2018-12-12] MEDS: Furosemide 40 MG/4 ML VIAL SLOW IVP SCH (08:20)
[2018-12-12] MEDS: Ferrous Gluconate 324 MG TAB PO SCH (08:20)
[2018-12-12] MEDS: hydrALAZINE 25 MG TAB PO SCH ×3 (08:20→20:28)
[2018-12-12] MEDS: Enoxaparin Sodium 40 MG/0.4 ML SYRINGE SC SCH (08:20)
[2018-12-12] MEDS: cloNIDine 0.3 MG TAB PO SCH ×2 (08:20→20:17)
[2018-12-12] MEDS: Aspirin 81 mg Enteric Coated Tablet PO SCH (08:20)
[2018-12-12] MEDS: Polyethylene Glycol 3350 17 GM Packet PO SCH ×2 (08:21→08:24)
[2018-12-12] MEDS: traMADol HCl 50 MG TAB PO PRN ×2 (08:26→20:26)
[2018-12-12 08:57] LABS: Anion Gap 13 mmol/L (10-20); BUN (Urea Nitrogen) 17 mg/dL (9.8-20.1); Calc. Creatinine Clearance 118 mL/min (70-130); Calcium 8.7 mg/dL (7.8-10.44); Carbon Dioxide 32 mmol/L (23-31); Chloride 96 mmol/L (98-107); Estimated GFR-MDRD 62; Glucose 231 mg/dL (80-115); Potassium 3.5 mmol/L (3.5-5.1); Sodium 137 mmol/L (136-145)
--- NOTE | 2018-12-12 09:51 | PRG ---
DATE OF SERVICE: 12/12/2018 SUBJECTIVE: Ms. Kelly had no acute complaints today. She says she is breathing okay. OBJECTIVE: VITAL SIGNS: Temperature 97.4, pulse 55, O2 saturation 92% on 2 L, blood pressure 168/73. HEENT: Unremarkable. NECK: No JVD. CHEST: Fairly clear. CARDIAC: S1 and S2, regular. ABDOMEN: Soft. EXTREMITIES: Trace edema throughout. LABORATORY DATA: Sodium 137, potassium 3.5, chloride 96, CO2 of 32, BUN 17, creatinine 1.0, glucose 231. ASSESSMENT: 1. Anasarca. 2. Probable obesity hypoventilation syndrome. PLAN: The patient is continuing the Diamox to prevent metabolic alkalosis. She is also on Lasix. Clinical situation seems stable and we need to work toward hospital discharge. Job ID: [id number]
[2018-12-12] MEDS: HumaLOG 300 UNITS/3 ML VIAL SC SCH ×2 (12:04→17:25)
[2018-12-12] MEDS: HumaLOG 300 UNITS/3 ML VIAL SC PRN ×3 (12:05→20:19)
--- NOTE | 2018-12-12 14:19 | PDOC.PN ---
- Subjective Encounter Start Date: 12/12/18 Encounter Start Time: 14:17 Subjective: no new complaints. feels well.some nausea -: refuses to consider SNIF/rehab - Objective Resuscitation Status - Order Detail: 12/01/18 07:21 Resuscitation Status Routine Resuscitation Status: FULL: Full Resuscitation Discussed with: Patient MARYANN Reviewed: Yes Vital Signs & Weight: Vital Signs (12 hours) Temp Pulse Resp BP Pulse Ox 12/12/18 12:05 56 L 18 172/74 H 93 L 12/12/18 08:25 92 L 12/12/18 07:13 97.4 F L 55 L 20 168/73 H 92 L 12/12/18 03:57 94 L 12/12/18 03:10 98.1 F 60 17 127/62 94 L Weight Admit Weight 350 lb 6.4 oz Weight 325 lb 1.6 oz I&O: 12/11/18 12/12/18 12/13/18 06:59 06:59 06:59 Intake Total 1080 1620 Output Total 2375 1500 Balance -1295 120 Result Diagrams: 12/11/18 07:40 12/12/18 08:20 Additional Labs: Accuchecks 12/12/18 12/11/18 12/11/18 05:56 20:30 17:06 POC Glucose 243 H 287 H 348 H 12/11/18 11:05 POC Glucose 282 H Laboratory Tests 12/07/18 12/08/18 12/08/18 06:08 04:17 04:17 Hgb 6.9 L Carbon Dioxide 41 H* 38 H 12/08/18 12/08/18 12/09/18 08:22 19:05 08:15 Hgb 7.1 L 8.3 L Carbon Dioxide 34 H 12/09/18 12/10/18 12/10/18 08:15 07:47 07:47 Hgb 8.1 L 9.1 L Carbon Dioxide 36 H 12/11/18 12/11/18 12/12/18 07:40 07:40 08:20 Hgb 9.2 L Carbon Dioxide 35 H 32 H Phys Exam - Physical Examination Constitutional: NAD HEENT: PERRLA, moist MMs, sclera anicteric, oral pharynx no lesions Neck: no nodes, no JVD, supple, full ROM Respiratory: no wheezing, no rales, no rhonchi, clear to auscultation bilateral Cardiovascular: RRR, no significant murmur Gastrointestinal: soft, non-tender, no distention, positive bowel sounds obese Musculoskeletal: no edema, pulses present Neurological: non-focal, normal sensation, moves all 4 limbs Psychiatric: normal affect, A&O x 3 Skin: no rash Dx/Plan (1) Acute respiratory failure with hypoxia and hypercapnia Code(s): J96.01 - ACUTE RESPIRATORY FAILURE WITH HYPOXIA; J96.02 - ACUTE RESPIRATORY FAILURE WITH HYPERCAPNIA Status: Acute Comment: Due to #2and ARI /OHS..improving.cont diuresis. (2) Diastolic heart failure Code(s): I50.30 - UNSPECIFIED DIASTOLIC (CONGESTIVE) HEART FAILURE Status: Acute Qualifiers: Heart failure chronicity: acute on chronic Qualified Code(s): I50.33 - Acute on chronic diastolic (congestive) heart failure (3) Decubitus skin ulcer Code(s): L89.90 - PRESSURE ULCER OF UNSPECIFIED SITE, UNSPECIFIED STAGE Status : Acute Qualifiers: Pressure injury location: lower back Comment: s/p I&D twice this admission.wound vac.GS following (4) CKD (chronic kidney disease) Code(s): N18.9 - CHRONIC KIDNEY DISEASE, UNSPECIFIED Status: Chronic Qualifiers: Chronic kidney disease stage: stage 2 (mild) Qualified Code(s): N18.2 - Chronic kidney disease, stage 2 (mild) (5) DM w/o complication type II, uncontrolled Code(s): E11.65 - TYPE 2 DIABETES MELLITUS WITH HYPERGLYCEMIA Status: Chronic Comment: ISS, serial accuchecks (6) Hypertension Code(s): I10 - ESSENTIAL (PRIMARY) HYPERTENSION Status: Chronic Qualifiers: Hypertension type: essential hypertension Qualified Code(s): I10 - Essential (primary) hypertension (7) Morbid obesity Code(s): E66.01 - MORBID (SEVERE) OBESITY DUE TO EXCESS CALORIES Status: Chronic (8) ARI (obstructive sleep apnea) Code(s): G47.33 - OBSTRUCTIVE SLEEP APNEA (ADULT) (PEDIATRIC) Status: Chronic (9) Obesity hypoventilation syndrome Code(s): E66.2 - MORBID (SEVERE) OBESITY WITH ALVEOLAR HYPOVENTILATION Status : Chronic - Plan PT/OT, respiratory therapy, incentive spirometry, out of bed/ambulate, DVT proph w/lovenox, DVT proph w/SCDs DC IV lasix. also on Diamox for Metabolic alkalosis from Lasix -: HD stable. will arnold DC home w HH if OK w cardiology -: Pt refuses rehab/snif & remains high risk of readmission. -: Bp controlled.cont amlodipine and clonidine. monitor -: am labs * . Review of Systems - Review of Systems Constitutional: weakness ENT: negative: Ear Pain, Ear Discharge, Nose Pain, Nose Discharge, Nose Congestion, Mouth Pain, Mouth Swelling, Throat Pain, Throat Swelling, Other Respiratory: negative: Cough, Dry, Shortness of Breath, Hemoptysis, SOB with Excertion, Pleuritic Pain, Sputum, Wheezing Cardiovascular: negative: chest pain, palpitations, orthopnea, paroxysmal nocturnal dyspnea, edema, light headedness, other Gastrointestinal: negative: Nausea, Vomiting, Abdominal Pain, Diarrhea, Constipation, Melena, Hematochezia, Other Genitourinary: negative: Dysuria, Frequency, Incontinence, Hematuria, Retention , Other Musculoskeletal: negative: Neck Pain, Shoulder Pain, Arm Pain, Back Pain, Hand Pain, Leg Pain, Foot Pain, Other Neurological: negative: Weakness, Numbness, Incoordination, Change in Speech, Confusion, Seizures, Other - Medications/Allergies Allergies/Adverse Reactions: Allergies Allergy/AdvReac Type Severity Reaction Status Date / Time No Known Allergies Allergy Verified 12/01/18 03:12 Medications: Current Medications Acetaminophen (Tylenol) 650 mg PO Q4H PRN PRN Reason: Headache/Fever/Mild Pain (1-3) Acetazolamide (Diamox) 250 mg PO BID [facility] Last Admin: 12/12/18 08:19 Dose: 250 mg Amlodipine Besylate (Norvasc) 10 mg PO DAILY [facility] Last Admin: 12/12/18 08:19 Dose: 10 mg Ascorbic Acid (Vitamin C) 500 mg PO DAILY [facility] Last Admin: 12/12/18 08:19 Dose: 500 mg Aspirin (Ecotrin) 81 mg PO DAILY [facility] Last Admin: 12/12/18 08:20 Dose: 81 mg Atorvastatin Calcium (Lipitor) 40 mg PO HS [facility] Last Admin: 12/11/18 20:41 Dose: 40 mg Cholecalciferol (Vitamin D3) 1,000 units PO DAILY [facility] Last Admin: 12/12/18 08:19 Dose: 1,000 units Clonidine (Catapres) 0.1 mg PO Q4H PRN PRN Reason: SBP Greater Than 180 Last Admin: 12/02/18 23:33 Dose: 0.1 mg Clonidine (Catapres) 0.3 mg PO BID [facility] Last Admin: 12/12/18 08:20 Dose: 0.3 mg Dextrose/Water (Dextrose 50%) 25 gm SLOW IVP PRN PRN PRN Reason: Hypoglycemia Docusate Sodium (Colace) 100 mg PO BID [facility] Last Admin: 12/12/18 08:19 Dose: 100 mg Enoxaparin Sodium (Lovenox) 40 mg SC 0900 [facility] Last Admin: 12/12/18 08:20 Dose: 40 mg Ferrous Gluconate (Fergon) 324 mg PO QAM[facility] Last Admin: 12/12/18 08:20 Dose: 324 mg Furosemide (Lasix) 40 mg SLOW IVP DAILY [facility] Last Admin: 12/12/18 08:20 Dose: 40 mg Glucagon (Glucagon) 1 mg IM PRN PRN PRN Reason: Hypoglycemia Guaifenesin/Dextromethorphan (Robitussin Dm) 15 ml PO Q4H PRN PRN Reason: Cough Hydralazine HCl (Apresoline) 100 mg PO TID [facility] Last Admin: 12/12/18 08:20 Dose: 100 mg Dextrose/Water (D5w) 1,000 mls @ 0 mls/hr IV .Q0M PRN PRN Reason: Hypoglycemia Insulin Glargine 14 units/ (Miscellaneous Medication) 0.14 mls @ 0 mls/hr SC HS [facility] Last Admin: 12/11/18 20:42 Dose: 0.14 mls Insulin Human Lispro (Humalog) 0 units SC .MODERATE SLIDING SC PRN PRN Reason: Moderate Correctional Scale Last Admin: 12/12/18 12:05 Dose: 10 unit Insulin Human Lispro (Humalog) 0 units SC .BEDTIME SLIDING SC PRN PRN Reason: Bedtime Correctional Scale Last Admin: 12/10/18 21:03 Dose: 5 unit Insulin Human Lispro (Humalog) 3 units SC 1200 [facility] Last Admin: 12/12/18 12:04 Dose: 3 unit Insulin Human Lispro (Humalog) 3 units SC 1700 [facility] Last Admin: 12/11/18 17:08 Dose: 3 unit Ondansetron HCl (Zofran Odt) 4 mg PO Q6H PRN PRN Reason: Nausea/Vomiting Ondansetron HCl (Zofran) 4 mg IVP Q6H PRN PRN Reason: Nausea/Vomiting Polyethylene Glycol (Miralax) 17 gm PO DAILY [facility] Last Admin: 12/12/18 08:24 Dose: Not Given Senna/Docusate Sodium (Senokot S) 2 tab PO BID PRN PRN Reason: Constipation Sodium Chloride (Flush - Normal Saline) 10 ml IVF Q12HR [facility] Last Admin: 12/12/18 08:21 Dose: 10 ml Sodium Chloride (Flush - Normal Saline) 10 ml IVF PRN PRN PRN Reason: Saline Flush Sodium Chloride (Flush - Normal Saline) 10 ml IVF PRN PRN PRN Reason: Saline Flush Tramadol HCl (Ultram) 50 mg PO Q6H PRN PRN Reason: Moderate to Severe Pain (6-10) Last Admin: 12/12/18 08:26 Dose: 50 mg
[2018-12-12] MEDS: cloNIDine 0.1 MG TAB PO PRN (15:09)
[2018-12-12] MEDS: Atorvastatin Calcium 40 MG TAB PO SCH (20:17)
[2018-12-12] MEDS: Insulin Glargine 14 UNITS in Pre-Filled Syringe 1 EACH SC SCH (20:18)
[2018-12-13 05:21] LABS: Anion Gap 8 mmol/L (10-20); BUN (Urea Nitrogen) 17 mg/dL (9.8-20.1); Calc. Creatinine Clearance 121 mL/min (70-130); Calcium 8.7 mg/dL (7.8-10.44); Carbon Dioxide 36 mmol/L (23-31); Chloride 97 mmol/L (98-107); Estimated GFR-MDRD 64; Glucose 206 mg/dL (80-115); Potassium 3.3 mmol/L (3.5-5.1); Sodium 138 mmol/L (136-145)
[2018-12-13] MEDS: Enoxaparin Sodium 40 MG/0.4 ML SYRINGE SC SCH (07:54)
[2018-12-13] MEDS: Docusate 100 MG CAP PO SCH ×3 (07:54→20:31)
[2018-12-13] MEDS: AcetaZOLAMIDE 250 MG TAB PO SCH ×2 (07:55→20:31)
[2018-12-13] MEDS: Amlodipine 10 MG TAB PO SCH (07:55)
[2018-12-13] MEDS: Furosemide 40 MG TAB PO SCH (07:55)
[2018-12-13] MEDS: Ascorbic Acid 500 mg Chewable Tablet PO SCH (07:55)
[2018-12-13] MEDS: Aspirin 81 mg Enteric Coated Tablet PO SCH (07:55)
[2018-12-13] MEDS: cloNIDine 0.3 MG TAB PO SCH ×2 (07:55→20:32)
[2018-12-13] MEDS: Ferrous Gluconate 324 MG TAB PO SCH (07:56)
[2018-12-13] MEDS: hydrALAZINE 25 MG TAB PO SCH ×3 (07:56→20:31)
[2018-12-13] MEDS: Polyethylene Glycol 3350 17 GM Packet PO SCH (08:02)
[2018-12-13] MEDS: HumaLOG 300 UNITS/3 ML VIAL SC PRN ×4 (08:03→20:28)
[2018-12-13] MEDS: HumaLOG 300 UNITS/3 ML VIAL SC SCH ×2 (11:40→18:05)
[2018-12-13 14:04] VITALS: BMI 46.5
--- NOTE | 2018-12-13 17:07 | PDOC.PN ---
- Subjective Encounter Start Date: 12/13/18 Encounter Start Time: 17:07 (late entry for 12/13/18) Subjective: feels well. no new complaints - Objective Resuscitation Status - Order Detail: 12/01/18 07:21 Resuscitation Status Routine Resuscitation Status: FULL: Full Resuscitation Discussed with: Destiny WOLF Reviewed: Yes Vital Signs & Weight: Vital Signs (12 hours) Temp Pulse Pulse Resp BP BP BP 12/13/18 15:41 98.2 F 50 L 18 142/66 H 12/13/18 15:27 50 L 142/66 H 12/13/18 12:00 98.1 F 54 L 18 141/67 H 12/13/18 11:20 51 L 141/67 H 12/13/18 08:00 98.0 F 62 18 174/75 H 12/13/18 07:56 64 174/75 H 12/13/18 07:55 64 174/75 H Pulse Ox 12/13/18 15:41 97 12/13/18 15:27 12/13/18 12:00 97 12/13/18 11:20 12/13/18 08:00 97 12/13/18 07:56 12/13/18 07:55 Weight Admit Weight 350 lb 6.4 oz Weight 315 lb 9.6 oz I&O: 12/12/18 12/13/18 12/14/18 06:59 06:59 06:59 Intake Total 1620 1200 767 Output Total 1500 1850 Balance 120 -650 767 Result Diagrams: 12/11/18 07:40 12/14/18 10:01 Additional Labs: Accuchecks 12/13/18 12/13/18 12/13/18 16:43 10:44 05:39 POC Glucose 174 H 270 H 212 H 12/12/18 12/12/18 20:15 17:03 POC Glucose 336 H 314 H Phys Exam - Physical Examination Constitutional: NAD HEENT: PERRLA, moist MMs, sclera anicteric, TM's clear, oral pharynx no lesions , 2+ tonsils Neck: no nodes, no JVD, supple, full ROM Respiratory: no wheezing, no rales, no rhonchi, clear to auscultation bilateral Cardiovascular: RRR, no significant murmur, no rub Gastrointestinal: soft, non-tender, no distention, positive bowel sounds Musculoskeletal: no edema, pulses present Neurological: non-focal, normal sensation, moves all 4 limbs Dx/Plan (1) Acute respiratory failure with hypoxia and hypercapnia Code(s): J96.01 - ACUTE RESPIRATORY FAILURE WITH HYPOXIA; J96.02 - ACUTE RESPIRATORY FAILURE WITH HYPERCAPNIA Status: Acute Comment: Due to #2and ARI /OHS..improving.cont diuresis. (2) Diastolic heart failure Code(s): I50.30 - UNSPECIFIED DIASTOLIC (CONGESTIVE) HEART FAILURE Status: Acute Qualifiers: Heart failure chronicity: acute on chronic Qualified Code(s): I50.33 - Acute on chronic diastolic (congestive) heart failure (3) Decubitus skin ulcer Code(s): L89.90 - PRESSURE ULCER OF UNSPECIFIED SITE, UNSPECIFIED STAGE Status : Acute Qualifiers: Pressure injury location: lower back Comment: s/p I&D twice this admission.wound vac.GS following (4) CKD (chronic kidney disease) Code(s): N18.9 - CHRONIC KIDNEY DISEASE, UNSPECIFIED Status: Chronic Qualifiers: Chronic kidney disease stage: stage 2 (mild) Qualified Code(s): N18.2 - Chronic kidney disease, stage 2 (mild) (5) DM w/o complication type II, uncontrolled Code(s): E11.65 - TYPE 2 DIABETES MELLITUS WITH HYPERGLYCEMIA Status: Chronic Comment: ISS, serial accuchecks (6) Hypertension Code(s): I10 - ESSENTIAL (PRIMARY) HYPERTENSION Status: Chronic Qualifiers: Hypertension type: essential hypertension Qualified Code(s): I10 - Essential (primary) hypertension (7) Morbid obesity Code(s): E66.01 - MORBID (SEVERE) OBESITY DUE TO EXCESS CALORIES Status: Chronic (8) ARI (obstructive sleep apnea) Code(s): G47.33 - OBSTRUCTIVE SLEEP APNEA (ADULT) (PEDIATRIC) Status: Chronic (9) Obesity hypoventilation syndrome Code(s): E66.2 - MORBID (SEVERE) OBESITY WITH ALVEOLAR HYPOVENTILATION Status : Chronic - Plan DVT proph w/SCDs reduce lasix to PO. cont diamoxx as Metb alkalosis persists -: cardiology final recs pending -: DC planning -: am labs * . Review of Systems - Medications/Allergies Allergies/Adverse Reactions: Allergies Allergy/AdvReac Type Severity Reaction Status Date / Time No Known Allergies Allergy Verified 12/01/18 03:12 Medications: Current Medications Acetaminophen (Tylenol) 650 mg PO Q4H PRN PRN Reason: Headache/Fever/Mild Pain (1-3) Acetazolamide (Diamox) 250 mg PO BID [facility] Last Admin: 12/13/18 07:55 Dose: 250 mg Amlodipine Besylate (Norvasc) 10 mg PO DAILY [facility] Last Admin: 12/13/18 07:55 Dose: 10 mg Ascorbic Acid (Vitamin C) 500 mg PO DAILY [facility] Last Admin: 12/13/18 07:55 Dose: 500 mg Aspirin (Ecotrin) 81 mg PO DAILY [facility] Last Admin: 12/13/18 07:55 Dose: 81 mg Atorvastatin Calcium (Lipitor) 40 mg PO HS [facility] Last Admin: 12/12/18 20:17 Dose: 40 mg Cholecalciferol (Vitamin D3) 1,000 units PO DAILY [facility] Last Admin: 12/13/18 07:56 Dose: 1,000 units Clonidine (Catapres) 0.1 mg PO Q4H PRN PRN Reason: SBP Greater Than 180 Last Admin: 12/12/18 15:09 Dose: 0.1 mg Clonidine (Catapres) 0.3 mg PO BID [facility] Last Admin: 12/13/18 07:55 Dose: 0.3 mg Dextrose/Water (Dextrose 50%) 25 gm SLOW IVP PRN PRN PRN Reason: Hypoglycemia Docusate Sodium (Colace) 100 mg PO BID [facility] Last Admin: 12/13/18 08:02 Dose: 100 mg Enoxaparin Sodium (Lovenox) 40 mg SC 0900 [facility] Last Admin: 12/13/18 07:54 Dose: 40 mg Ferrous Gluconate (Fergon) 324 mg PO QAM-[facility] Last Admin: 12/13/18 07:56 Dose: 324 mg Furosemide (Lasix) 40 mg PO DAILY-[facility] Last Admin: 12/13/18 07:55 Dose: 40 mg Glucagon (Glucagon) 1 mg IM PRN PRN PRN Reason: Hypoglycemia Guaifenesin/Dextromethorphan (Robitussin Dm) 15 ml PO Q4H PRN PRN Reason: Cough Hydralazine HCl (Apresoline) 100 mg PO TID [facility] Last Admin: 12/13/18 15:27 Dose: 100 mg Dextrose/Water (D5w) 1,000 mls @ 0 mls/hr IV .Q0M PRN PRN Reason: Hypoglycemia Insulin Glargine 14 units/ (Miscellaneous Medication) 0.14 mls @ 0 mls/hr SC HS [facility] Last Admin: 12/12/18 20:18 Dose: 0.14 mls Insulin Human Lispro (Humalog) 0 units SC .MODERATE SLIDING SC PRN PRN Reason: Moderate Correctional Scale Last Admin: 12/13/18 11:21 Dose: 6 unit Insulin Human Lispro (Humalog) 0 units SC .BEDTIME SLIDING SC PRN PRN Reason: Bedtime Correctional Scale Last Admin: 12/12/18 20:19 Dose: 4 unit Insulin Human Lispro (Humalog) 3 units SC 1200 [facility] Last Admin: 12/13/18 11:40 Dose: 3 unit Insulin Human Lispro (Humalog) 3 units SC 1700 [facility] Last Admin: 12/12/18 17:25 Dose: 3 unit Ondansetron HCl (Zofran Odt) 4 mg PO Q6H PRN PRN Reason: Nausea/Vomiting Ondansetron HCl (Zofran) 4 mg IVP Q6H PRN PRN Reason: Nausea/Vomiting Polyethylene Glycol (Miralax) 17 gm PO DAILY [facility] Last Admin: 12/13/18 08:02 Dose: Not Given Senna/Docusate Sodium (Senokot S) 2 tab PO BID PRN PRN Reason: Constipation Sodium Chloride (Flush - Normal Saline) 10 ml IVF Q12HR [facility] Last Admin: 12/13/18 08:02 Dose: 10 ml Sodium Chloride (Flush - Normal Saline) 10 ml IVF PRN PRN PRN Reason: Saline Flush Sodium Chloride (Flush - Normal Saline) 10 ml IVF PRN PRN PRN Reason: Saline Flush Tramadol HCl (Ultram) 50 mg PO Q6H PRN PRN Reason: Moderate to Severe Pain (6-10) Last Admin: 12/12/18 20:26 Dose: 50 mg
[2018-12-13] MEDS: Insulin Glargine 14 UNITS in Pre-Filled Syringe 1 EACH SC SCH (20:28)
[2018-12-13] MEDS: traMADol HCl 50 MG TAB PO PRN (20:28)
[2018-12-13] MEDS: Atorvastatin Calcium 40 MG TAB PO SCH (20:29)
[2018-12-14] MEDS: Furosemide 40 MG TAB PO SCH (07:42)
[2018-12-14] MEDS: HumaLOG 300 UNITS/3 ML VIAL SC PRN ×3 (07:42→18:20)
[2018-12-14] MEDS: Ferrous Gluconate 324 MG TAB PO SCH (07:42)
[2018-12-14] MEDS ORDERED: Sodium Hypochlorite 0.25% Solution 480 ML BOT TOP SCH (08:15)
[2018-12-14] MEDS: AcetaZOLAMIDE 250 MG TAB PO SCH ×2 (08:58→20:31)
[2018-12-14] MEDS: cloNIDine 0.3 MG TAB PO SCH ×2 (08:58→20:32)
[2018-12-14] MEDS: Ascorbic Acid 500 mg Chewable Tablet PO SCH (08:59)
[2018-12-14] MEDS: Docusate 100 MG CAP PO SCH ×2 (08:59→20:34)
[2018-12-14] MEDS: Polyethylene Glycol 3350 17 GM Packet PO SCH (08:59)
[2018-12-14] MEDS: Enoxaparin Sodium 40 MG/0.4 ML SYRINGE SC SCH (08:59)
[2018-12-14] MEDS: Amlodipine 10 MG TAB PO SCH (08:59)
[2018-12-14] MEDS: Aspirin 81 mg Enteric Coated Tablet PO SCH (08:59)
[2018-12-14] MEDS: hydrALAZINE 25 MG TAB PO SCH ×3 (09:04→20:34)
[2018-12-14] MEDS: traMADol HCl 50 MG TAB PO PRN ×2 (09:10→20:36)
[2018-12-14 10:37] LABS: Anion Gap 8 mmol/L (10-20); BUN (Urea Nitrogen) 14 mg/dL (9.8-20.1); Calc. Creatinine Clearance 115 mL/min (70-130); Calcium 8.4 mg/dL (7.8-10.44); Carbon Dioxide 36 mmol/L (23-31); Chloride 97 mmol/L (98-107); Estimated GFR-MDRD 64; Glucose 266 mg/dL (80-115); Potassium 3.1 mmol/L (3.5-5.1); Sodium 138 mmol/L (136-145)
[2018-12-14] MEDS ORDERED: Potassium Chloride 20 MEQ TAB PO SCH (11:00)
[2018-12-14] MEDS: HumaLOG 300 UNITS/3 ML VIAL SC SCH ×2 (11:22→18:20)
--- NOTE | 2018-12-14 14:54 | PDOC.PN ---
- Subjective Encounter Start Date: 12/14/18 Encounter Start Time: 14:54 (late entry got 12/14/18) Subjective: no new complaints -: eating well and working w PT - Objective Resuscitation Status - Order Detail: 12/01/18 07:21 Resuscitation Status Routine Resuscitation Status: FULL: Full Resuscitation Discussed with: Patient MARYANN Reviewed: Yes Vital Signs & Weight: Vital Signs (12 hours) Temp Pulse Resp BP Pulse Ox 12/14/18 11:23 97.9 F 54 L 18 156/70 H 95 12/14/18 07:35 97.6 F 58 L 20 166/74 H 95 12/14/18 04:00 97.4 F L 58 L 20 153/67 H 93 L Weight Admit Weight 350 lb 6.4 oz Weight 310 lb 9.6 oz I&O: 12/13/18 12/14/18 12/15/18 06:59 06:59 06:59 Intake Total 1200 1157 237 Output Total 1850 1050 Balance -650 107 237 Result Diagrams: 12/11/18 07:40 12/14/18 10:01 Additional Labs: Accuchecks 12/14/18 12/14/18 12/13/18 10:36 05:30 20:17 POC Glucose 261 H 208 H 305 H 12/13/18 16:43 POC Glucose 174 H Phys Exam - Physical Examination Constitutional: NAD HEENT: PERRLA, moist MMs, sclera anicteric, oral pharynx no lesions Neck: no nodes, no JVD, supple, full ROM Respiratory: no wheezing, no rales, no rhonchi, clear to auscultation bilateral Cardiovascular: RRR, no significant murmur Gastrointestinal: soft, non-tender, no distention, positive bowel sounds Musculoskeletal: no edema, pulses present Neurological: non-focal, normal sensation, moves all 4 limbs Psychiatric: normal affect, A&O x 3 Skin: no rash Dx/Plan (1) Acute respiratory failure with hypoxia and hypercapnia Code(s): J96.01 - ACUTE RESPIRATORY FAILURE WITH HYPOXIA; J96.02 - ACUTE RESPIRATORY FAILURE WITH HYPERCAPNIA Status: Acute Comment: Due to #2and ARI /OHS..improving.cont diuresis. (2) Diastolic heart failure Code(s): I50.30 - UNSPECIFIED DIASTOLIC (CONGESTIVE) HEART FAILURE Status: Acute Qualifiers: Heart failure chronicity: acute on chronic Qualified Code(s): I50.33 - Acute on chronic diastolic (congestive) heart failure (3) Decubitus skin ulcer Code(s): L89.90 - PRESSURE ULCER OF UNSPECIFIED SITE, UNSPECIFIED STAGE Status : Acute Qualifiers: Pressure injury location: lower back Comment: s/p I&D twice this admission.wound vac.GS following (4) CKD (chronic kidney disease) Code(s): N18.9 - CHRONIC KIDNEY DISEASE, UNSPECIFIED Status: Chronic Qualifiers: Chronic kidney disease stage: stage 2 (mild) Qualified Code(s): N18.2 - Chronic kidney disease, stage 2 (mild) (5) DM w/o complication type II, uncontrolled Code(s): E11.65 - TYPE 2 DIABETES MELLITUS WITH HYPERGLYCEMIA Status: Chronic Comment: ISS, serial accuchecks (6) Hypertension Code(s): I10 - ESSENTIAL (PRIMARY) HYPERTENSION Status: Chronic Qualifiers: Hypertension type: essential hypertension Qualified Code(s): I10 - Essential (primary) hypertension (7) Morbid obesity Code(s): E66.01 - MORBID (SEVERE) OBESITY DUE TO EXCESS CALORIES Status: Chronic (8) ARI (obstructive sleep apnea) Code(s): G47.33 - OBSTRUCTIVE SLEEP APNEA (ADULT) (PEDIATRIC) Status: Chronic (9) Obesity hypoventilation syndrome Code(s): E66.2 - MORBID (SEVERE) OBESITY WITH ALVEOLAR HYPOVENTILATION Status : Chronic - Plan respiratory therapy, DVT proph w/SCDs Was to be Dced home but DC cancelled as per recs for redoing wound Vac -: cont as above. -: am labs to ensure that lasix dose further needs to be chnaged /stopped -: Hd stable * . Review of Systems - Review of Systems Constitutional: weakness. negative: fever, chills, sweats, malaise, other Respiratory: negative: Cough, Dry, Shortness of Breath, Hemoptysis, SOB with Excertion, Pleuritic Pain, Sputum, Wheezing Cardiovascular: negative: chest pain, palpitations, orthopnea, paroxysmal nocturnal dyspnea, edema, light headedness, other Gastrointestinal: negative: Nausea, Vomiting, Abdominal Pain, Diarrhea, Constipation, Melena, Hematochezia, Other Genitourinary: negative: Dysuria, Frequency, Incontinence, Hematuria, Retention , Other Musculoskeletal: negative: Neck Pain, Shoulder Pain, Arm Pain, Back Pain, Hand Pain, Leg Pain, Foot Pain, Other Neurological: negative: Weakness, Numbness, Incoordination, Change in Speech, Confusion, Seizures, Other - Medications/Allergies Allergies/Adverse Reactions: Allergies Allergy/AdvReac Type Severity Reaction Status Date / Time No Known Allergies Allergy Verified 12/01/18 03:12 Medications: Current Medications Acetaminophen (Tylenol) 650 mg PO Q4H PRN PRN Reason: Headache/Fever/Mild Pain (1-3) Acetazolamide (Diamox) 250 mg PO BID [facility] Last Admin: 12/14/18 08:58 Dose: 250 mg Amlodipine Besylate (Norvasc) 10 mg PO DAILY [facility] Last Admin: 12/14/18 08:59 Dose: 10 mg Ascorbic Acid (Vitamin C) 500 mg PO DAILY [facility] Last Admin: 12/14/18 08:59 Dose: 500 mg Aspirin (Ecotrin) 81 mg PO DAILY [facility] Last Admin: 12/14/18 08:59 Dose: 81 mg Atorvastatin Calcium (Lipitor) 40 mg PO HS [facility] Last Admin: 12/13/18 20:29 Dose: 40 mg Cholecalciferol (Vitamin D3) 1,000 units PO DAILY [facility] Last Admin: 12/14/18 08:58 Dose: 1,000 units Clonidine (Catapres) 0.1 mg PO Q4H PRN PRN Reason: SBP Greater Than 180 Last Admin: 12/12/18 15:09 Dose: 0.1 mg Clonidine (Catapres) 0.3 mg PO BID [facility] Last Admin: 12/14/18 08:58 Dose: 0.3 mg Dextrose/Water (Dextrose 50%) 25 gm SLOW IVP PRN PRN PRN Reason: Hypoglycemia Docusate Sodium (Colace) 100 mg PO BID [facility] Last Admin: 12/14/18 08:59 Dose: 100 mg Enoxaparin Sodium (Lovenox) 40 mg SC 0900 [facility] Last Admin: 12/14/18 08:59 Dose: 40 mg Ferrous Gluconate (Fergon) 324 mg PO QAM-WM [facility] Last Admin: 12/14/18 07:42 Dose: 324 mg Furosemide (Lasix) 40 mg PO DAILY-AC [facility] Last Admin: 12/14/18 07:42 Dose: 40 mg Glucagon (Glucagon) 1 mg IM PRN PRN PRN Reason: Hypoglycemia Guaifenesin/Dextromethorphan (Robitussin Dm) 15 ml PO Q4H PRN PRN Reason: Cough Hydralazine HCl (Apresoline) 100 mg PO TID [facility] Last Admin: 12/14/18 09:04 Dose: 100 mg Dextrose/Water (D5w) 1,000 mls @ 0 mls/hr IV .Q0M PRN PRN Reason: Hypoglycemia Insulin Glargine 14 units/ (Miscellaneous Medication) 0.14 mls @ 0 mls/hr SC HS [facility] Last Admin: 12/13/18 20:28 Dose: 0.14 mls Insulin Human Lispro (Humalog) 0 units SC .MODERATE SLIDING SC PRN PRN Reason: Moderate Correctional Scale Last Admin: 12/14/18 11:22 Dose: 6 unit Insulin Human Lispro (Humalog) 0 units SC .BEDTIME SLIDING SC PRN PRN Reason: Bedtime Correctional Scale Last Admin: 12/13/18 20:28 Dose: 4 unit Insulin Human Lispro (Humalog) 3 units SC 1200 [facility] Last Admin: 12/14/18 11:22 Dose: 3 unit Insulin Human Lispro (Humalog) 3 units SC 1700 [facility] Last Admin: 12/13/18 18:05 Dose: 3 unit Ondansetron HCl (Zofran Odt) 4 mg PO Q6H PRN PRN Reason: Nausea/Vomiting Ondansetron HCl (Zofran) 4 mg IVP Q6H PRN PRN Reason: Nausea/Vomiting Polyethylene Glycol (Miralax) 17 gm PO DAILY [facility] Last Admin: 12/14/18 08:59 Dose: Not Given Senna/Docusate Sodium (Senokot S) 2 tab PO BID PRN PRN Reason: Constipation Sodium Chloride (Flush - Normal Saline) 10 ml IVF Q12HR [facility] Last Admin: 12/14/18 09:00 Dose: 10 ml Sodium Chloride (Flush - Normal Saline) 10 ml IVF PRN PRN PRN Reason: Saline Flush Sodium Chloride (Flush - Normal Saline) 10 ml IVF PRN PRN PRN Reason: Saline Flush Tramadol HCl (Ultram) 50 mg PO Q6H PRN PRN Reason: Moderate to Severe Pain (6-10) Last Admin: 12/14/18 09:10 Dose: 50 mg
[2018-12-14] MEDS: Atorvastatin Calcium 40 MG TAB PO SCH (20:32)
[2018-12-15] MEDS ORDERED: Furosemide 40 MG TAB ONE (05:59)
[2018-12-15] MEDS: Insulin Glargine 14 UNITS in Pre-Filled Syringe 1 EACH SC SCH ×2 (10:56→22:00)
[2018-12-15] MEDS: Furosemide 40 MG TAB PO SCH (11:01)
[2018-12-15] MEDS: Ferrous Gluconate 324 MG TAB PO SCH (11:01)
[2018-12-15] MEDS: Aspirin 81 mg Enteric Coated Tablet PO SCH (11:02)
[2018-12-15] MEDS: Ascorbic Acid 500 mg Chewable Tablet PO SCH (11:02)
[2018-12-15] MEDS: Amlodipine 10 MG TAB PO SCH (11:02)
[2018-12-15] MEDS: cloNIDine 0.3 MG TAB PO SCH ×2 (11:03→21:06)
[2018-12-15] MEDS: Docusate 100 MG CAP PO SCH ×2 (11:04→21:08)
[2018-12-15] MEDS: Enoxaparin Sodium 40 MG/0.4 ML SYRINGE SC SCH (11:04)
[2018-12-15] MEDS: Polyethylene Glycol 3350 17 GM Packet PO SCH (11:05)
[2018-12-15] MEDS: hydrALAZINE 25 MG TAB PO SCH ×3 (11:20→21:07)
--- NOTE | 2018-12-15 11:44 | PDOC.PN ---
- Subjective Encounter Start Date: 12/15/18 Encounter Start Time: 11:43 Subjective: did not sleep well last night.wound vac was 'acting up' -: no new complaints otherwise.feels well - Objective Resuscitation Status - Order Detail: 12/01/18 07:21 Resuscitation Status Routine Resuscitation Status: FULL: Full Resuscitation Discussed with: Patient MARYANN Reviewed: Yes Vital Signs & Weight: Vital Signs (12 hours) Pulse BP 12/15/18 11:20 146/64 H 12/15/18 11:03 146/64 H 12/15/18 11:02 63 146/64 H Weight Admit Weight 350 lb 6.4 oz Weight 310 lb 9.6 oz I&O: 12/14/18 12/15/18 12/16/18 06:59 06:59 06:59 Intake Total 1157 1097 Output Total 1050 650 Balance 107 447 Result Diagrams: 12/11/18 07:40 12/14/18 10:01 Additional Labs: Accuchecks 12/15/18 12/15/18 12/14/18 11:04 05:54 21:11 POC Glucose 195 H 203 H 270 H 12/14/18 16:34 POC Glucose 312 H Phys Exam - Physical Examination Constitutional: NAD HEENT: PERRLA, moist MMs, sclera anicteric, oral pharynx no lesions Neck: no nodes, no JVD, supple, full ROM Respiratory: no wheezing, no rales, no rhonchi, clear to auscultation bilateral Cardiovascular: RRR, no significant murmur, no rub Gastrointestinal: soft, non-tender, no distention, positive bowel sounds Musculoskeletal: no edema, pulses present Neurological: non-focal, normal sensation, moves all 4 limbs Skin: no rash Dx/Plan (1) Diastolic heart failure Code(s): I50.30 - UNSPECIFIED DIASTOLIC (CONGESTIVE) HEART FAILURE Status: Acute Qualifiers: Heart failure chronicity: acute on chronic Qualified Code(s): I50.33 - Acute on chronic diastolic (congestive) heart failure Comment: diureseing w lasix and diamoxx (2) Decubitus skin ulcer Code(s): L89.90 - PRESSURE ULCER OF UNSPECIFIED SITE, UNSPECIFIED STAGE Status : Acute Qualifiers: Pressure injury location: lower back Comment: s/p I&D twice this admission.wound vac.GS following.Possible debridment again tomorrow (3) CKD (chronic kidney disease) Code(s): N18.9 - CHRONIC KIDNEY DISEASE, UNSPECIFIED Status: Chronic Qualifiers: Chronic kidney disease stage: stage 2 (mild) Qualified Code(s): N18.2 - Chronic kidney disease, stage 2 (mild) (4) DM w/o complication type II, uncontrolled Code(s): E11.65 - TYPE 2 DIABETES MELLITUS WITH HYPERGLYCEMIA Status: Chronic Comment: ISS, serial accuchecks.lantus. controlled reasonable well (5) Hypertension Code(s): I10 - ESSENTIAL (PRIMARY) HYPERTENSION Status: Chronic Qualifiers: Hypertension type: essential hypertension Qualified Code(s): I10 - Essential (primary) hypertension Comment: stable. cont amlodipine,clinidine. PRN antihypertensives (6) Morbid obesity Code(s): E66.01 - MORBID (SEVERE) OBESITY DUE TO EXCESS CALORIES Status: Chronic (7) ARI (obstructive sleep apnea) Code(s): G47.33 - OBSTRUCTIVE SLEEP APNEA (ADULT) (PEDIATRIC) Status: Chronic (8) Obesity hypoventilation syndrome Code(s): E66.2 - MORBID (SEVERE) OBESITY WITH ALVEOLAR HYPOVENTILATION Status : Chronic (9) Acute respiratory failure with hypoxia and hypercapnia Code(s): J96.01 - ACUTE RESPIRATORY FAILURE WITH HYPOXIA; J96.02 - ACUTE RESPIRATORY FAILURE WITH HYPERCAPNIA Status: Resolved Comment: Due to #1 and ARI/OHS..improving.cont diuresis. - Plan DVT proph w/SCDs check BMP for metabolic alkalosis -: DC lasix if still persists.follow serial BMP -: cont diamox for now. HD stable -: Wound Vac and further I&D as per GS. -: if no further surgery planned, may DC tomorrow. * . Review of Systems - Review of Systems Constitutional: weakness ENT: negative: Ear Pain, Ear Discharge, Nose Pain, Nose Discharge, Nose Congestion, Mouth Pain, Mouth Swelling, Throat Pain, Throat Swelling, Other Respiratory: negative: Cough, Dry, Shortness of Breath, Hemoptysis, SOB with Excertion, Pleuritic Pain, Sputum, Wheezing Cardiovascular: negative: chest pain, palpitations, orthopnea, paroxysmal nocturnal dyspnea, edema, light headedness, other Gastrointestinal: negative: Nausea, Vomiting, Abdominal Pain, Diarrhea, Constipation, Melena, Hematochezia, Other Genitourinary: negative: Dysuria, Frequency, Incontinence, Hematuria, Retention , Other Musculoskeletal: Back Pain. negative: Neck Pain, Shoulder Pain, Arm Pain, Hand Pain, Leg Pain, Foot Pain, Other - Medications/Allergies Allergies/Adverse Reactions: Allergies Allergy/AdvReac Type Severity Reaction Status Date / Time No Known Allergies Allergy Verified 12/01/18 03:12 Medications: Current Medications Acetaminophen (Tylenol) 650 mg PO Q4H PRN PRN Reason: Headache/Fever/Mild Pain (1-3) Acetazolamide (Diamox) 250 mg PO BID [facility] Last Admin: 12/14/18 20:31 Dose: 250 mg Amlodipine Besylate (Norvasc) 10 mg PO DAILY [facility] Last Admin: 12/15/18 11:02 Dose: Not Given Ascorbic Acid (Vitamin C) 500 mg PO DAILY [facility] Last Admin: 12/15/18 11:02 Dose: Not Given Aspirin (Ecotrin) 81 mg PO DAILY [facility] Last Admin: 12/15/18 11:02 Dose: Not Given Atorvastatin Calcium (Lipitor) 40 mg PO HS [facility] Last Admin: 12/14/18 20:32 Dose: 40 mg Cholecalciferol (Vitamin D3) 1,000 units PO DAILY [facility] Last Admin: 12/15/18 11:03 Dose: Not Given Clonidine (Catapres) 0.1 mg PO Q4H PRN PRN Reason: SBP Greater Than 180 Last Admin: 12/12/18 15:09 Dose: 0.1 mg Clonidine (Catapres) 0.3 mg PO BID [facility] Last Admin: 12/15/18 11:03 Dose: Not Given Dextrose/Water (Dextrose 50%) 25 gm SLOW IVP PRN PRN PRN Reason: Hypoglycemia Docusate Sodium (Colace) 100 mg PO BID [facility] Last Admin: 12/15/18 11:04 Dose: Not Given Enoxaparin Sodium (Lovenox) 40 mg SC 0900 [facility] Last Admin: 12/15/18 11:04 Dose: Not Given Ferrous Gluconate (Fergon) 324 mg PO QAM-WM [facility] Last Admin: 12/15/18 11:01 Dose: Not Given Furosemide (Lasix) 40 mg PO DAILY-AC [facility] Last Admin: 12/15/18 11:01 Dose: Not Given Glucagon (Glucagon) 1 mg IM PRN PRN PRN Reason: Hypoglycemia Guaifenesin/Dextromethorphan (Robitussin Dm) 15 ml PO Q4H PRN PRN Reason: Cough Hydralazine HCl (Apresoline) 100 mg PO TID [facility] Last Admin: 12/15/18 11:20 Dose: Not Given Dextrose/Water (D5w) 1,000 mls @ 0 mls/hr IV .Q0M PRN PRN Reason: Hypoglycemia Insulin Glargine 14 units/ (Miscellaneous Medication) 0.14 mls @ 0 mls/hr SC [facility] Last Admin: 12/15/18 10:56 Dose: Not Given Insulin Human Lispro (Humalog) 0 units SC .MODERATE SLIDING SC PRN PRN Reason: Moderate Correctional Scale Last Admin: 12/14/18 18:20 Dose: 8 unit Insulin Human Lispro (Humalog) 0 units SC .BEDTIME SLIDING SC PRN PRN Reason: Bedtime Correctional Scale Last Admin: 12/13/18 20:28 Dose: 4 unit Insulin Human Lispro (Humalog) 3 units SC 1200 [facility] Last Admin: 12/14/18 11:22 Dose: 3 unit Insulin Human Lispro (Humalog) 3 units SC 1700 [facility] Last Admin: 12/14/18 18:20 Dose: 3 unit Ondansetron HCl (Zofran Odt) 4 mg PO Q6H PRN PRN Reason: Nausea/Vomiting Ondansetron HCl (Zofran) 4 mg IVP Q6H PRN PRN Reason: Nausea/Vomiting Polyethylene Glycol (Miralax) 17 gm PO DAILY [facility] Last Admin: 12/15/18 11:05 Dose: Not Given Senna/Docusate Sodium (Senokot S) 2 tab PO BID PRN PRN Reason: Constipation Sodium Chloride (Flush - Normal Saline) 10 ml IVF Q12HR [facility] Last Admin: 12/15/18 11:05 Dose: Not Given Sodium Chloride (Flush - Normal Saline) 10 ml IVF PRN PRN PRN Reason: Saline Flush Sodium Chloride (Flush - Normal Saline) 10 ml IVF PRN PRN PRN Reason: Saline Flush Tramadol HCl (Ultram) 50 mg PO Q6H PRN PRN Reason: Moderate to Severe Pain (6-10) Last Admin: 12/14/18 20:36 Dose: 50 mg
[2018-12-15 11:52] LABS: Anion Gap 11 mmol/L (10-20); BUN (Urea Nitrogen) 13 mg/dL (9.8-20.1); Calc. Creatinine Clearance 130 mL/min (70-130); Calcium 8.7 mg/dL (7.8-10.44); Carbon Dioxide 33 mmol/L (23-31); Chloride 98 mmol/L (98-107); Estimated GFR-MDRD 73; Glucose 177 mg/dL (80-115); Potassium 3.4 mmol/L (3.5-5.1); Sodium 139 mmol/L (136-145)
[2018-12-15] MEDS: AcetaZOLAMIDE 250 MG TAB PO SCH ×2 (12:20→21:07)
[2018-12-15] MEDS: HumaLOG 300 UNITS/3 ML VIAL SC SCH ×2 (12:22→16:21)
[2018-12-15] MEDS: HumaLOG 300 UNITS/3 ML VIAL SC PRN ×3 (12:23→22:01)
[2018-12-15] MEDS ORDERED: Sodium Hypochlorite 0.25% Solution 480 ML BOT TOP SCH (16:45)
[2018-12-15] MEDS: traMADol HCl 50 MG TAB PO PRN (21:06)
[2018-12-15] MEDS: Atorvastatin Calcium 40 MG TAB PO SCH (21:07)
[2018-12-16 05:24] LABS: Anion Gap 8 mmol/L (10-20); BUN (Urea Nitrogen) 16 mg/dL (9.8-20.1); Calc. Creatinine Clearance 126 mL/min (70-130); Calcium 8.9 mg/dL (7.8-10.44); Carbon Dioxide 36 mmol/L (23-31); Chloride 99 mmol/L (98-107); Estimated GFR-MDRD 71; Glucose 210 mg/dL (80-115); Potassium 3.3 mmol/L (3.5-5.1); Sodium 140 mmol/L (136-145)
[2018-12-16] MEDS: Furosemide 40 MG TAB PO SCH (06:19)
[2018-12-16] MEDS: HumaLOG 300 UNITS/3 ML VIAL SC PRN ×4 (06:19→21:33)
[2018-12-16] MEDS: Enoxaparin Sodium 40 MG/0.4 ML SYRINGE SC SCH (09:28)
[2018-12-16] MEDS: cloNIDine 0.3 MG TAB PO SCH ×2 (09:29→21:27)
[2018-12-16] MEDS: AcetaZOLAMIDE 250 MG TAB PO SCH ×2 (09:30→21:28)
[2018-12-16] MEDS: Ascorbic Acid 500 mg Chewable Tablet PO SCH (09:30)
[2018-12-16] MEDS: Ferrous Gluconate 324 MG TAB PO SCH (09:30)
[2018-12-16] MEDS: Aspirin 81 mg Enteric Coated Tablet PO SCH (09:30)
[2018-12-16] MEDS: hydrALAZINE 25 MG TAB PO SCH ×3 (09:30→21:29)
[2018-12-16] MEDS: Docusate 100 MG CAP PO SCH ×2 (09:31→21:28)
[2018-12-16] MEDS: Amlodipine 10 MG TAB PO SCH (09:31)
[2018-12-16] MEDS: Polyethylene Glycol 3350 17 GM Packet PO SCH (09:32)
[2018-12-16] MEDS ORDERED: Potassium Chloride 20 MEQ in Premix Bag 1 BAG IVPB SCH (10:00)
[2018-12-16] MEDS: HumaLOG 300 UNITS/3 ML VIAL SC SCH ×2 (11:01→17:38)
[2018-12-16] MEDS ORDERED: Potassium Chloride 20 MEQ TAB PO SCH (11:15)
--- NOTE | 2018-12-16 12:24 | PDOC.PN ---
- Subjective Encounter Start Date: 12/16/18 Encounter Start Time: 12:22 Subjective: feels pretty good today.no new complaints -: working w PT.good appetite - Objective Resuscitation Status - Order Detail: 12/01/18 07:21 Resuscitation Status Routine Resuscitation Status: FULL: Full Resuscitation Discussed with: Destiny WOLF Reviewed: Yes Vital Signs & Weight: Vital Signs (12 hours) Temp Pulse Resp BP Pulse Ox 12/16/18 11:39 97.8 F 50 L 16 146/67 H 96 12/16/18 07:53 97.9 F 50 L 16 142/67 H 95 12/16/18 04:21 97.8 F 54 L 15 131/70 98 Weight Admit Weight 350 lb 6.4 oz Weight 310 lb 9.6 oz I&O: 12/15/18 12/16/18 12/17/18 06:59 06:59 06:59 Intake Total 1097 990 Output Total 650 2200 Balance 447 -1210 Result Diagrams: 12/11/18 07:40 12/16/18 04:45 Additional Labs: Accuchecks 12/16/18 12/16/18 12/15/18 10:13 06:00 21:08 POC Glucose 265 H 216 H 349 H 12/15/18 15:47 POC Glucose 291 H Phys Exam - Physical Examination Constitutional: NAD HEENT: PERRLA, moist MMs, sclera anicteric, oral pharynx no lesions Neck: no nodes, no JVD, supple, full ROM Respiratory: no wheezing, no rales, no rhonchi, clear to auscultation bilateral Cardiovascular: RRR, no significant murmur, no rub Gastrointestinal: soft, non-tender, no distention, positive bowel sounds Musculoskeletal: no edema, pulses present Neurological: non-focal, normal sensation, moves all 4 limbs Psychiatric: normal affect, A&O x 3 Skin: no rash Dx/Plan (1) Diastolic heart failure Code(s): I50.30 - UNSPECIFIED DIASTOLIC (CONGESTIVE) HEART FAILURE Status: Acute Qualifiers: Heart failure chronicity: acute on chronic Qualified Code(s): I50.33 - Acute on chronic diastolic (congestive) heart failure Comment: diureseing w lasix and diamox.Will hold lasix for tomorrow as Bicarb still high. (2) Decubitus skin ulcer Code(s): L89.90 - PRESSURE ULCER OF UNSPECIFIED SITE, UNSPECIFIED STAGE Status : Acute Qualifiers: Pressure injury location: lower back Comment: s/p I&D twice this admission.wound vac.GS following. bedside I&D done again 12/15/18 (3) CKD (chronic kidney disease) Code(s): N18.9 - CHRONIC KIDNEY DISEASE, UNSPECIFIED Status: Chronic Qualifiers: Chronic kidney disease stage: stage 2 (mild) Qualified Code(s): N18.2 - Chronic kidney disease, stage 2 (mild) (4) DM w/o complication type II, uncontrolled Code(s): E11.65 - TYPE 2 DIABETES MELLITUS WITH HYPERGLYCEMIA Status: Chronic Comment: ISS, serial accuchecks.lantus. controlled reasonable well (5) Hypertension Code(s): I10 - ESSENTIAL (PRIMARY) HYPERTENSION Status: Chronic Qualifiers: Hypertension type: essential hypertension Qualified Code(s): I10 - Essential (primary) hypertension Comment: stable. cont amlodipine,clinidine. PRN antihypertensives (6) Morbid obesity Code(s): E66.01 - MORBID (SEVERE) OBESITY DUE TO EXCESS CALORIES Status: Chronic (7) ARI (obstructive sleep apnea) Code(s): G47.33 - OBSTRUCTIVE SLEEP APNEA (ADULT) (PEDIATRIC) Status: Chronic (8) Obesity hypoventilation syndrome Code(s): E66.2 - MORBID (SEVERE) OBESITY WITH ALVEOLAR HYPOVENTILATION Status : Chronic (9) Acute respiratory failure with hypoxia and hypercapnia Code(s): J96.01 - ACUTE RESPIRATORY FAILURE WITH HYPOXIA; J96.02 - ACUTE RESPIRATORY FAILURE WITH HYPERCAPNIA Status: Resolved Comment: Due to #1 and ARI/OHS..improving.cont diuresis. - Plan PT/OT, respiratory therapy, incentive spirometry, out of bed/ambulate, DVT proph w/SCDs DC when Ok w GS -: am labs -: hold lasix next dose and check Bicarb.cont diamox -: pt has good support at home w HH -: wound care * . Review of Systems - Review of Systems Constitutional: weakness ENT: negative: Ear Pain, Ear Discharge, Nose Pain, Nose Discharge, Nose Congestion, Mouth Pain, Mouth Swelling, Throat Pain, Throat Swelling, Other Respiratory: negative: Cough, Dry, Shortness of Breath, Hemoptysis, SOB with Excertion, Pleuritic Pain, Sputum, Wheezing Cardiovascular: negative: chest pain, palpitations, orthopnea, paroxysmal nocturnal dyspnea, edema, light headedness, other Gastrointestinal: negative: Nausea, Vomiting, Abdominal Pain, Diarrhea, Constipation, Melena, Hematochezia, Other Genitourinary: negative: Dysuria, Frequency, Incontinence, Hematuria, Retention , Other Neurological: negative: Weakness, Numbness, Incoordination, Change in Speech, Confusion, Seizures, Other - Medications/Allergies Allergies/Adverse Reactions: Allergies Allergy/AdvReac Type Severity Reaction Status Date / Time No Known Allergies Allergy Verified 12/01/18 03:12 Medications: Current Medications Acetaminophen (Tylenol) 650 mg PO Q4H PRN PRN Reason: Headache/Fever/Mild Pain (1-3) Acetazolamide (Diamox) 250 mg PO BID [facility] Last Admin: 12/16/18 09:30 Dose: 250 mg Amlodipine Besylate (Norvasc) 10 mg PO DAILY [facility] Last Admin: 12/16/18 09:31 Dose: 10 mg Ascorbic Acid (Vitamin C) 500 mg PO DAILY [facility] Last Admin: 12/16/18 09:30 Dose: 500 mg Aspirin (Ecotrin) 81 mg PO DAILY [facility] Last Admin: 12/16/18 09:30 Dose: 81 mg Atorvastatin Calcium (Lipitor) 40 mg PO HS [facility] Last Admin: 12/15/18 21:07 Dose: 40 mg Cholecalciferol (Vitamin D3) 1,000 units PO DAILY [facility] Last Admin: 12/16/18 09:30 Dose: 1,000 units Clonidine (Catapres) 0.1 mg PO Q4H PRN PRN Reason: SBP Greater Than 180 Last Admin: 12/12/18 15:09 Dose: 0.1 mg Clonidine (Catapres) 0.3 mg PO BID [facility] Last Admin: 12/16/18 09:29 Dose: 0.3 mg Dextrose/Water (Dextrose 50%) 25 gm SLOW IVP PRN PRN PRN Reason: Hypoglycemia Docusate Sodium (Colace) 100 mg PO BID [facility] Last Admin: 12/16/18 09:31 Dose: Not Given Enoxaparin Sodium (Lovenox) 40 mg SC 0900 [facility] Last Admin: 12/16/18 09:28 Dose: 40 mg Ferrous Gluconate (Fergon) 324 mg PO QA[facility] Last Admin: 12/16/18 09:30 Dose: 324 mg Glucagon (Glucagon) 1 mg IM PRN PRN PRN Reason: Hypoglycemia Guaifenesin/Dextromethorphan (Robitussin Dm) 15 ml PO Q4H PRN PRN Reason: Cough Hydralazine HCl (Apresoline) 100 mg PO TID [facility] Last Admin: 12/16/18 09:30 Dose: 100 mg Dextrose/Water (D5w) 1,000 mls @ 0 mls/hr IV .Q0M PRN PRN Reason: Hypoglycemia Insulin Glargine 14 units/ (Miscellaneous Medication) 0.14 mls @ 0 mls/hr SC HS [facility] Last Admin: 12/15/18 22:00 Dose: 0.14 mls Insulin Human Lispro (Humalog) 0 units SC .MODERATE SLIDING SC PRN PRN Reason: Moderate Correctional Scale Last Admin: 12/16/18 11:02 Dose: 6 unit Insulin Human Lispro (Humalog) 0 units SC .BEDTIME SLIDING SC PRN PRN Reason: Bedtime Correctional Scale Last Admin: 12/15/18 22:01 Dose: 4 unit Insulin Human Lispro (Humalog) 3 units SC 1200 [facility] Last Admin: 12/16/18 11:01 Dose: 3 unit Insulin Human Lispro (Humalog) 3 units SC 1700 [facility] Last Admin: 12/15/18 16:21 Dose: 3 unit Ondansetron HCl (Zofran Odt) 4 mg PO Q6H PRN PRN Reason: Nausea/Vomiting Ondansetron HCl (Zofran) 4 mg IVP Q6H PRN PRN Reason: Nausea/Vomiting Polyethylene Glycol (Miralax) 17 gm PO DAILY [facility] Last Admin: 12/16/18 09:32 Dose: Not Given Potassium Chloride (K-Dur) 40 meq PO ONE [facility] Stop: 12/16/18 13:00 Senna/Docusate Sodium (Senokot S) 2 tab PO BID PRN PRN Reason: Constipation Sodium Chloride (Flush - Normal Saline) 10 ml IVF Q12HR [facility] Last Admin: 12/15/18 21:08 Dose: Not Given Sodium Chloride (Flush - Normal Saline) 10 ml IVF PRN PRN PRN Reason: Saline Flush Sodium Chloride (Flush - Normal Saline) 10 ml IVF PRN PRN PRN Reason: Saline Flush Tramadol HCl (Ultram) 50 mg PO Q6H PRN PRN Reason: Moderate to Severe Pain (6-10) Last Admin: 12/15/18 21:06 Dose: 50 mg
[2018-12-16] MEDS ORDERED: Sodium Hypochlorite 0.25% Solution 480 ML BOT TOP SCH (13:15)
[2018-12-16] MEDS: Atorvastatin Calcium 40 MG TAB PO SCH (21:27)
[2018-12-16] MEDS: traMADol HCl 50 MG TAB PO PRN (21:30)
[2018-12-16] MEDS: Insulin Glargine 14 UNITS in Pre-Filled Syringe 1 EACH SC SCH (21:32)
[2018-12-17] MEDS: HumaLOG 300 UNITS/3 ML VIAL SC PRN ×3 (06:05→16:47)
[2018-12-17 07:05] LABS: Anion Gap 9 mmol/L (10-20); BUN (Urea Nitrogen) 14 mg/dL (9.8-20.1); Calc. Creatinine Clearance 126 mL/min (70-130); Calcium 8.7 mg/dL (7.8-10.44); Carbon Dioxide 34 mmol/L (23-31); Chloride 100 mmol/L (98-107); Estimated GFR-MDRD 71; Glucose 201 mg/dL (80-115); Potassium 3.7 mmol/L (3.5-5.1); Sodium 139 mmol/L (136-145)
[2018-12-17] MEDS: Polyethylene Glycol 3350 17 GM Packet PO SCH (08:57)
[2018-12-17] MEDS: Enoxaparin Sodium 40 MG/0.4 ML SYRINGE SC SCH (08:57)
[2018-12-17] MEDS: Ferrous Gluconate 324 MG TAB PO SCH (08:58)
[2018-12-17] MEDS: cloNIDine 0.3 MG TAB PO SCH (08:59)
[2018-12-17] MEDS: Aspirin 81 mg Enteric Coated Tablet PO SCH (08:59)
[2018-12-17] MEDS: Amlodipine 10 MG TAB PO SCH (09:00)
[2018-12-17] MEDS: hydrALAZINE 25 MG TAB PO SCH ×2 (09:00→16:44)
[2018-12-17] MEDS: Ascorbic Acid 500 mg Chewable Tablet PO SCH (09:00)
[2018-12-17] MEDS: AcetaZOLAMIDE 250 MG TAB PO SCH (09:01)
[2018-12-17] MEDS: Docusate 100 MG CAP PO SCH (09:49)
[2018-12-17 11:38] VITALS: BP 140/64; TEMP 97.9
[2018-12-17] MEDS: HumaLOG 300 UNITS/3 ML VIAL SC SCH ×2 (12:00→16:46)
--- NOTE | 2018-12-17 18:58 | DIS ---
DATE OF ADMISSION: 12/01/2018 DATE OF DISCHARGE: 12/17/2018 CONDITION: At the time of discharge, stable and improved. DISCHARGE DISPOSITION: Home with home health. PRIMARY CARE PHYSICIAN: Dr. Tania Lemus. DISCHARGE DIAGNOSES: 1. Acute on chronic diastolic congestive heart failure, stage C. 2. Decubitus skin ulcer, status post I and D x3 during this hospitalization. 3. Chronic kidney disease stage 2. 4. Diabetes mellitus type 2, uncontrolled. 5. Hypertension. 6. Morbid obesity. 7. Sleep apnea. 8. Obesity hypoventilation syndrome. 9. Acute hypoxic and hypercapnic respiratory failure upon presentation, which has now resolved. DISCHARGE MEDICATIONS: 1. Clonidine 0.3 mg at bedtime. 2. Levemir 20 units at bedtime and 25 units in the morning. 3. Lasix 40 mg daily. The patient will hold the dose of the Lasix for 2 more days. 4. Cholecalciferol 1000 units daily. 5. Atorvastatin 40 mg daily. 6. Aspirin 81 mg daily. 7. Amlodipine 10 mg daily. 8. Hydralazine 100 mg p.o. t.i.d. 9. Potassium chloride 20 mEq daily. New medication; Diamox 250 mg p.o. b.i.d. for 10 more days. IN-HOUSE CONSULTATION: 1. Cardiology Dr. Price and Dr. Salgado. 2. General Surgery, Dr. Burkett and Dr. Enriquez. 3. Pulmonary Medicine, Dr. Mendoza. PROCEDURES DONE IN HOSPITAL: 1. Lower extremity Doppler ultrasound bilaterally which is negative for DVT on 12/01/2018. 2. I and D of necrotic skin in the lower back on 12/03/2018, by Dr. Burkett. 3. I and D of complicated abscess of lower back on 12/07/2018, by Dr. Burkett. 4. Bedside I and D by Dr. Enriquez on 12/15/2018. HISTORY OF PRESENTING ILLNESS: Ms. Kelly is a 68-year-old female with known history of chronic diastolic congestive heart failure, chronic respiratory failure, on home oxygen as well as history of diabetes, sarcoidosis, sleep apnea, hypertension, and morbid obesity as well as decubitus ulcer of lower back, who presented to the emergency room with complaints of shortness of breath. She also was treated in our facility in September of this year for C difficile colitis and acute renal injury. She came in with complaints of worsening shortness of breath of one week duration as well as orthopnea and some nonproductive cough without any fever. In the emergency room, her workup was consistent with CHF and she was started on IV diuresis and was admitted for further evaluation and care. Please see admission history and physical dictated by Dr. Workman on 12/01/2018. General Surgery was consulted with regard to nonhealing chronic decubitus ulcer on her lower back. HOSPITAL COURSE: Cardiology was consulted with regard to her CHF, acute on chronic exacerbation. She has been a patient of Dr. Salgado for many years. Dr. Arizmendi initially saw her and recommended continuation of medical management. The patient was diuresed to euvolemia. She developed some metabolic alkalosis with Lasix, which was held and she was diuresed with Diamox intermittently. She was also seen by Pulmonary Medicine initially when she was admitted to [facility]. There is history of sarcoidosis and she follows up with Dr. Mendoza. Her sarcoidosis is felt to be quiescent. Dr. Mendoza followed the patient along and eventually signed off when she had no acute symptoms. Eventually, the Cardiology also signed off and the patient reached to euvolemia. She underwent three I and D procedures by General Surgery while in the hospital with wound care and wound VAC placement and changing. This delayed her discharge somewhat, but as of this morning, she has been cleared by General Surgery for discharge. Pulmonary and Cardiology Medicine have already signed off on her. She was given options for rehab placement, which she has declined. She has good support system at home with her family and home health and wound care setup even prior to this hospitalization. She will be discharged to home with home health today. She is waiting for wound care to adjust her wound VAC prior to discharge. She was seen and examined prior to discharge. PHYSICAL EXAMINATION: VITAL SIGNS: This morning, heart rate 52, saturating 95% on 2 L nasal cannula, blood pressure 140/64. GENERAL: No acute distress. She is sitting up, alert, awake, oriented x3. CHEST: Clear to auscultation bilaterally. HEART: Rate and rhythm are regular. DISCHARGE INSTRUCTIONS: She is instructed to keep up with her outpatient followup appointment with primary care physician including Dr. Lemus and JOSE Abad, she has appointment on 12/26/2018. She will see Dr. Burkett in the clinic in 2 to 3 weeks as per his recommendations and follow up with wound care with home health. TOTAL TIME SPENT: 38 minutes. Job ID: [id number]
== END 2018-12-17 18:56 | disposition home health service (06) | DRG 264 ==
LOC: ERS 22:54 → 2SE 12-01 00:50 → OBSVTOIN 12-01 00:50 → 2NO 12-01 16:10 → SURG B 12-14 16:54
PROVIDERS: ADMIT Hospitalist; ATTEND Hospitalist
PROC: 0JB70ZZ Excision of Back Subcutaneous Tissue and Fascia, Open Approach (ICD-10-PCS; principal; 2018-12-03)
PROC: 0J970ZZ Drainage of Back Subcutaneous Tissue and Fascia, Open Approach (ICD-10-PCS; 2018-12-07)
PROC: 0JB70ZZ Excision of Back Subcutaneous Tissue and Fascia, Open Approach (ICD-10-PCS; 2018-12-07)
PROC: 2W15X6Z Compression of Back using Pressure Dressing (ICD-10-PCS; 2018-12-07)
DX: I13.0 Hypertensive heart and chronic kidney disease with heart failure and stage 1 through stage 4 chronic kidney disease, or unspecified chronic kidney disease (principal); L89.103 Pressure ulcer of unspecified part of back, stage 3; I50.33 Acute on chronic diastolic (congestive) heart failure; J96.21 Acute and chronic respiratory failure with hypoxia; J96.22 Acute and chronic respiratory failure with hypercapnia; E66.2 Morbid (severe) obesity with alveolar hypoventilation; L02.212 Cutaneous abscess of back [any part, except buttock and flank]; Z68.42 Body mass index [BMI] 45.0-49.9, adult; E11.9 Type 2 diabetes mellitus without complications; E11.22 Type 2 diabetes mellitus with diabetic chronic kidney disease; I48.0 Paroxysmal atrial fibrillation; E78.5 Hyperlipidemia, unspecified; J44.9 Chronic obstructive pulmonary disease, unspecified; I34.0 Nonrheumatic mitral (valve) insufficiency; I37.1 Nonrheumatic pulmonary valve insufficiency; D86.9 Sarcoidosis, unspecified; N18.2 Chronic kidney disease, stage 2 (mild); E61.1 Iron deficiency; K59.00 Constipation, unspecified; D64.9 Anemia, unspecified; Z90.49 Acquired absence of other specified parts of digestive tract; Z90.710 Acquired absence of both cervix and uterus; Z87.891 Personal history of nicotine dependence; Z79.82 Long term (current) use of aspirin; Z79.899 Other long term (current) drug therapy; Z79.4 Long term (current) use of insulin
CPT/HCPCS: 36415; 36416; 36430; 71045; 80048; 80053; 82550; 82607; 82728; 82746; 82805; 83540; 83550; 83735; 83880; 84484; 85025; 86850; 86900; 86901; 93005; 93970; 96374; A4216; J0670; J1120; J1650; J1815; J1940; J2001; J3475; J3480; J7050; P9016

== ENCOUNTER 2019-01-18 08:32 | Outpatient (CLI) | payer MEDICARE ==
--- NOTE | 2019-01-18 23:38 | HP ---
HISTORY OF PRESENT ILLNESS: Ms. Lizzie Kelly is a very pleasant 68-year-old, accompanied by her daughter, who presents to the [facility] for evaluation of a wound of the lower back subsequent to incision and drainage of a lower back abscess x2 at bedside by Dr. Yan Burkett. The patient received negative pressure therapy subsequent to debridement. Upon discharge from [facility], negative pressure therapy was continued with dressing changes of the wound VAC with the assistance of Home Health. The patient is now referred to the Wound Center for further evaluation and treatment. Apparently, the patient is now receiving wet-to-dry dressing changes on a daily basis instead of negative pressure therapy. PAST MEDICAL HISTORY: 1. Diabetes mellitus. 2. Hypertension. 3. Degenerative joint disease. 4. Sarcoidosis. 5. Diastolic heart failure. 6. Nephrolithiasis. 7. Anemia. PAST SURGICAL HISTORY: 1. Fibroid surgery. 2. Hysterectomy. 3. Right thyroid lobectomy. 4. Vocal cord surgery. 5. . 6. Laparoscopic cholecystectomy. 7. Right superficial parotidectomy. 8. Incision and drainage of deep left breast abscess and left abdominal abscess. 9. Lipoma removal. 10. Incision and drainage of buttock abscess. 11. Intraoperative debridement of sacral decubitus. MEDICATIONS: 1. Aspirin 81 mg. 2. Clonidine. 3. Doxazosin. 4. Lasix. 5. Hydralazine. 6. Vitamin D. 7. Levemir. ALLERGIES: NO KNOWN DIAGNOSED ALLERGIES. SOCIAL HISTORY: Significant for tobacco use of up to 2 packs of cigarettes per day for 18 to 19 years. The patient however has not used tobacco in 15 to 20 years. The patient admits to the moderate consumption of alcohol for 20 years but again has not consumed alcohol in 15 to 20 years. FAMILY HISTORY: Family history significant for coronary artery disease. The patient's brother was diagnosed with coronary artery disease. PHYSICAL EXAMINATION: VITAL SIGNS: Temperature 98.0, pulse 81, respirations 20, and blood pressure 201/98. GENERAL: A 68-year-old female sitting on wheelchair in examination room, in no acute distress. HEENT: Normocephalic and atraumatic. NECK: No nuchal rigidity. CHEST: Clear to auscultation. CV: Regular rate and rhythm. ABDOMEN: Soft. EXTREMITIES: No clubbing or cyanosis. BACK: A wound of the lower back is present which measures approximately 3.4 x 8.0 cm. Granulation tissue is present within the wound margins. Nonviable tissue present within the wound margins was debrided with an excisional full-thickness debridement. No purulent drainage is associated with the wound. No erythema of the skin surrounding the wound is present. No maceration of the skin of the periwound is noted. ASSESSMENT AND PLAN: 1. Wound of lower back as described above. Dressing changes of Medihoney and gauze followed by an ABD secured with tape will be initiated today. These dressing changes are to be performed on a daily basis after cleansing and irrigation with the assistance of Home Health. No antibiotics will be prescribed today based upon the appearance of the wound. I will see Ms. Kelly again in 2 to 4 weeks. The patient and her daughter understand and are in agreement with the preceding treatment plan. The importance of nutrition and offloading and achieving the healing of the ulceration has been discussed with both the patient and her daughter. 2. Diabetes mellitus. Accu-Cheks will be obtained at the time of the patient's clinic visits. The patient has been told that for optimal wound healing her blood glucoses should remain below 150. 3. Hypertension. 4. Degenerative joint disease. 5. Sarcoidosis. 6. Diastolic heart failure. 7. Nephrolithiasis. 8. Anemia. Job ID: [id number]
== END 2019-01-18 08:33 | disposition home or self-care (01) ==
LOC: WCC 08:32
PROVIDERS: ATTEND Family Medicine
DX: S31.000D Unspecified open wound of lower back and pelvis without penetration into retroperitoneum, subsequent encounter (principal); E11.9 Type 2 diabetes mellitus without complications; I10 Essential (primary) hypertension; M19.90 Unspecified osteoarthritis, unspecified site; D86.9 Sarcoidosis, unspecified; I50.30 Unspecified diastolic (congestive) heart failure; N20.0 Calculus of kidney; D64.9 Anemia, unspecified
CPT/HCPCS: 11042; 11045; 99203; G0463